=== PATIENT | male | born 2000 | race Caucasian/White ===

== ENCOUNTER → 2021-09-19 | Outpatient (CLI) | payer OTHER, SELFPAY ==
[2021-09-19 15:10] LABS: Absolute Neutrophil Count 5.6 X10^3/uL (2.0-7.7); Basophil# 0.04 X10^3/uL; Basophil% 0.5 % (0-1); Eosinophil# 0.05 X10^3/uL; Eosinophils% 0.7 % (0-5); Hemoglobin 15.5 g/dL (13.0-16.5); Lymphocyte % 15.7 % (19-41); Mean Corp Hgb Conc 33.7 g/dL (32-36); Mean Corpuscular Hgb 31.2 pg (27.0-32.0); Mean Corpuscular Volume 92.6 fL (80-94); Mean Platelet Vol. 9.8 fl (6.2-12.0); Monocyte% 9.2 % (0-10); NRBC Flagged by Analyzer 0 % (0-5); Neutrophil # 5.63 X10^3/uL (2.7-7.7); Neutrophil % 73.6 % (47-70); Platelet Count 247 K/mm3 (150-450); RBC Distribution Width CV 12.4 % (11.6-14.6); RBC Distribution Width SD 42.6 fl (35.1-43.9); Red Blood Count 4.97 M/mm3 (4.6-6.2); White Blood Count 7.6 K/mm3 (4.4-11.0)
[2021-09-19 15:41] LABS: ALB/GLOB Ratio 1.1 RATIO (0.9-2.4); AST(SGOT) 18 U/L (15-37); Alanine Aminotransfer ALT/SGPT 35 U/L (16-61); Albumin, Serum 4.1 g/dL (3.2-5.0); Alkaline Phosphatase 113 U/L (45-117); Anion Gap 6 (5-15); BUN 14 mg/dL (7-18); BUN/Creat Ratio 12.6 RATIO (10-20); Calcium,Total 8.9 mg/dL (8.5-10.1); Chloride 103 mmol/L (98-107); Creatinine, Serum 1.11 mg/dL (0.70-1.30); EST Glomerular Filtration Rate 90 mL/min (>60); Est Glom Filt Rate - Afr Amer 109 mL/min (>60); Globulin 3.6 g/dL (2.2-4.2); Glucose 109 mg/dL (74-106); Potassium 4.2 mmol/L (3.5-5.1); Protein, Total 7.7 g/dL (6.4-8.2); Sodium Level 136 mmol/L (136-145)
[2021-09-22 09:18] LABS: H. PYLORI STOOL AG Negative (Negative)
== END | disposition home or self-care (01) ==
PROVIDERS: PCP Family Medicine; Visit Provider Nurse Practitioner Family
DX: R19.7 Diarrhea, unspecified (principal)
CPT/HCPCS: 36415; 80053; 85025

== ENCOUNTER → 2021-09-20 | Outpatient (CLI) | payer OTHER, SELFPAY | END | disposition home or self-care (01) | LOC: LABSPEC 10:30 | PROVIDERS: PCP Family Medicine; Referring Provider Nurse Practitioner Family; Visit Provider Nurse Practitioner Family | DX: R19.7 Diarrhea, unspecified (principal) | CPT/HCPCS: 87177; 87209 ==

== ENCOUNTER → 2021-09-22 | Outpatient (CLI) | payer OTHER, SELFPAY ==
[2021-09-22 11:22] LABS: Erythrocyte Sedimentation Rate 7 mm/hr (0-20)
[2021-09-22 11:24] LABS: Absolute Lymphocyte Count 1.65 X10^3/uL (0.83-4.51); Absolute Neutrophil Count 5.7 X10^3/uL (2.0-7.7); Basophil# 0.04 X10^3/uL; Basophil% 0.5 % (0-1); Eosinophil# 0.11 X10^3/uL; Eosinophils% 1.3 % (0-5); Hematocrit 42.1 % (40-54); Hemoglobin 14.3 g/dL (13.0-16.5); Lymphocyte # 1.65 X10^3/ul (0.83-4.51); Lymphocyte % 19.8 % (19-41); Mean Corpuscular Hgb 31.4 pg (27.0-32.0); Mean Corpuscular Volume 92.5 fL (80-94); Mean Platelet Vol. 9.6 fl (6.2-12.0); Monocyte# 0.79 X10^3/uL; Monocyte% 9.5 % (0-10); NRBC Flagged by Analyzer 0 % (0-5); Neutrophil # 5.74 X10^3/uL (2.7-7.7); Neutrophil % 68.7 % (47-70); Platelet Count 263 K/mm3 (150-450); RBC Distribution Width CV 12.4 % (11.6-14.6); Red Blood Count 4.55 M/mm3 (4.6-6.2); White Blood Count 8.4 K/mm3 (4.4-11.0)
[2021-09-22 11:45] LABS: AST(SGOT) 17 U/L (15-37); Alanine Aminotransfer ALT/SGPT 35 U/L (16-61); Albumin, Serum 3.6 g/dL (3.2-5.0); Alkaline Phosphatase 100 U/L (45-117); Anion Gap 4 (5-15); BUN 12 mg/dL (7-18); BUN/Creat Ratio 12.1 RATIO (10-20); CRP 4.13 mg/L (0.0-3.0); Calcium,Total 9.1 mg/dL (8.5-10.1); Chloride 108 mmol/L (98-107); Creatinine, Serum 0.99 mg/dL (0.70-1.30); EST Glomerular Filtration Rate 103 mL/min (>60); Est Glom Filt Rate - Afr Amer 124 mL/min (>60); Globulin 3.7 g/dL (2.2-4.2); Glucose 90 mg/dL (74-106); LDH 144 U/L (87-241); Potassium 4.4 mmol/L (3.5-5.1); Protein, Total 7.3 g/dL (6.4-8.2); Sodium Level 135 mmol/L (136-145)
[2021-09-23 14:09] LABS: Anti-Centromere B Ab <0.2 AI (0.0-0.9); Anti-Chromatin <0.2 AI (0.0-0.9); Anti-Jo <0.2 AI (0.0-0.9); Anti-Scleroderma-70 AB <0.2 AI (0.0-0.9); RNP Ab 0.7 AI (0.0-0.9); SJOGREN'S Anti-SS-A test < 0.2 AI (0.0-0.9); SJOGREN'S Anti-SS-B test < 0.2 AI (0.0-0.9); Smith Ab <0.2 AI (0.0-0.9)
[2021-09-23 18:09] LABS: Anti-dsDNA Ab <1 IU/mL (0-9)
[2021-09-26 16:09] LABS: Albumin 4.1 g/dL (2.9-4.4); Alpha-1-Globulins 0.2 g/dL (0.0-0.4); Alpha-2-Globulins 0.7 g/dL (0.4-1.0); Cytoplasmic Ab (C-ANCA) <1:20 titer (Neg:<1:20); Endomysial Antibody IgA Negative (Negative); Gamma Globulin 1.1 g/dL (0.4-1.8); Immunoglobulin A 335 mg/dL (90-386); Immunoglobulin E 18 IU/mL (6-495); Immunoglobulin G 1110 mg/dL (671-1456); Immunoglobulin M 92 mg/dL (35-168)
[2021-09-26 16:32] LABS: Perinuclear Ab (P-ANCA) <1:20 titer (Neg:<1:20); t-Transglutaminase IgA <2 U/mL (0-3)
== END | disposition home or self-care (01) ==
PROVIDERS: PCP Family Medicine; Visit Provider Internal Medicine Gastroenterology
DX: R19.7 Diarrhea, unspecified (principal); R10.9 Unspecified abdominal pain
CPT/HCPCS: 36415; 80053; 82784; 82785; 83516; 83615; 84165; 85025; 85652; 86140; 86225; 86235; 86255; 86256; 86334

== ENCOUNTER → 2021-09-23 | Outpatient (CLI) | payer OTHER, SELFPAY ==
[2021-09-28 17:01] LABS: Calprotectin, Stool 1436 ug/g (0-120)
== END | disposition home or self-care (01) ==
PROVIDERS: PCP Family Medicine; Referring Provider Internal Medicine Gastroenterology; Visit Provider Internal Medicine Gastroenterology
DX: R19.7 Diarrhea, unspecified (principal); R10.9 Unspecified abdominal pain
CPT/HCPCS: 83630; 83993; 87177; 87209; 87329; 87493; 87506

== ENCOUNTER → 2021-10-01 | Outpatient (CLI) | payer OTHER, SELFPAY ==
[2021-10-03 08:58] LABS: HIV - WCH Non-Reactive (Nonreactive); Rubella IgG Reactive (Nonreactive)
== END | disposition home or self-care (01) ==
PROVIDERS: PCP Family Medicine; Referring Provider Internal Medicine Gastroenterology; Visit Provider Internal Medicine Gastroenterology
DX: K52.9 Noninfective gastroenteritis and colitis, unspecified (principal)
CPT/HCPCS: 36415; 80074; 86480; 86703; 86735; 86762; 86787

== ENCOUNTER 2021-10-27 08:50 | Day surgery (SDC) | payer OTHER, SELFPAY ==
--- NOTE | 2021-10-27 08:56 | PCM.HP.BLA ---
History and Physical Date of Admission: 10/27/21 CARLA ANDERSON, is a 20 M who presents to the office today for Initial consultation. Carla established with this clinic 09.22.21 with referral from PCP for evaluation of urgent watery diarrhea with blood with nocturnal urgency, generalized abdominal pain and cramping, nausea and vomiting occurring eight times a day. Notes that if he eats the symptoms resolve for a short period of time. He has changed his lifestyle due to fear of urgency that may cause incontinence. Onset mid-August 2021 without changes in severity. Unknown triggers. Mother reports that about a month prior to this he started improving his diet and adding creatinine and protein, one scoop of each day. Denies previous history of symptoms. PCP ordered stool testing of Ova&Parasites which is still pending. Denies family history of bowel disease or cancers. Mother reports that her mother and sister have issues with postprandial feeling ill and then having urgent BM, her mother was told previously she has a ?slow pancreas?. ROS Const Constitutional: No fatigue, malaise, night sweats, weight change, sleep problems, abnormal sleep pattern or change in appetite ENT ENT: No difficulty swallowing, hoarseness or sore throat Cardio Cardiology: No chest pain at rest Gastro GI: No abdominal pain, belching, bloating, change in bowel habits, change in stool character, coffee ground emesis, constipation, cramping, diarrhea, heartburn, difficulty swallowing, feeling full early, excessive flatus, incontinent of stools, Vomiting blood/hematemesis, Blood in stool, loose stools, Black,tarry stools, nausea/dyspepsia, pain with swallowing, vomiting or other Musc Musculoskeletal: No joint pain Skin Skin: No yellowing of the eye or itchy eyes Neuro Neurology: No behavioral changes Psych Psychiatric: No abnormal sleep pattern, No anxiety, No behavioral changes, No change in appetite and No depression Endo Endocrine: No fatigue or weight change Aller/Imm Allergy/Immunologic: No itchy eyes Elliot/Lymp Hematologic/Lymphatic: No easy bleeding or easy bruising Exam Const General: cooperative and comfortable Nutritional Appearance: average body habitus and well nourished HENMT Head: normal to inspection Ears: hearing grossly normal bilaterally Nose: external nose normal Face and sinus: normal facial exam Mouth: oral mucosae normal Throat: posterior oropharynx normal Eyes General: appearance normal, both eyes and all related structures Neck Neck: normal visual inspection Chest Chest palpation & inspection: normal inspection of the chest and normal palpation of entire chest wall Resp Effort & Inspection: normal respiratory effort Auscultation: Bilateral: Clear to Auscultation Cardio Palpation: normal PMI Rate: regular rate Rhythm: regular rhythm GI Inspection: normal to inspection Auscultation: normal bowel sounds Percussion: normal to percussion Palpation: no hepatosplenomegaly Skin General: no rashes or lesions noted Neuro General: patient alert Extrem General: normal to inspection Psych Affect: normal affect Quality Reporting Tobacco Screening ([facility] 138) Smoking Status: Never smoker Assessment and Plan Assessment and Plan (1) Abdominal pain: Status: Acute Orders: Orders: Comprehensive Metabolic Profil 09/22/21 CRP 09/22/21 LDH 09/22/21 CBC W/Diff, Automated 09/22/21 Erythrocyte Sed Rate 09/22/21 AUSTYN Comprehensive Panel 09/22/21 Calprotectin, Stool 09/23/21 Stool Lactoferrin/WBC 09/23/21 ANCA 09/22/21 Celiac Disease Profile 09/22/21 Immunoglobulins G/A/M/E 09/22/21 MAIKEL + Protein Elect, Serum 09/22/21 ENTERIC PATHOGEN PANEL STOOL 09/23/21 Ova and Parasites 8623 09/23/21 Giardia Lamblia, Stool EIA 09/23/21 Plan - Dr. Mishra Friend, DO: His abdominal pain does seem to be more structural and functional. However he does have a lot of factors for inflammatory bowel disease due to his age and now bloody diarrhea. We will put him on a course of prednisone therapy perform biochemical testing and also give him dicyclomine for cramping. We will do inflammatory bowel disease testing and will likely need a colonoscopy. Plan Details Other Medications: New: prednisone 50 mg PO DAILY 30 tabs 1RF dicyclomine 20 mg PO TID 60 tabs 0RF I have re-examined the patient. There are no clinical changes since date of exam.
[2021-10-27 09:14] VITALS: BP 123/75; PULSE 70; RESP 16; TEMP 36.6; O2SAT 99; BMI 22.4
[2021-10-27] MEDS: Lactated Ringers 1,000 ML 15 ML IV (09:18)
--- NOTE | 2021-10-27 10:00 | COLBX_PTH ---
PATIENT: CARLA ANDERSON LOC: EN U#:[id number] AGE/SX: 20/M ROOM: RE10/27/[address]: Dr. Tad Monahan DO : 2000 BED: DIS: 10/27/2021 SPEC #: [id number] RECD: 10/27/21 11:26 STATUS: STEFANIE REMell #: [id number] KARINA: 10/27/21 10:[address]: Tad Monahan DEPT: SURGICAL PATHOLOGY RECD BY: Risa Das ENTERED: 10/27/21 13:03 SP TYPE: COLON BX AGUS DR: Dr. Eulogio Patel MD Tissues: A - Ileum, NOS B - Descending colon C - Sigmoid colon biopsy D - Rectum, NOS Procedures: Surgery Specimen Level IV HEADER OPERATION: Colonoscopy ([facility] [place] biopsy PRE-OP DIAGNOSIS: Abdominal pain TISSUE SUBMITTED: A ? Terminal ileum biopsy, B ? Descending biopsy, C ? Sigmoid biopsy, D ? Rectal biopsy MICROSCOPIC DIAGNOSIS A. Terminal ileum, biopsy: No pathologic change. B. Descending colon, biopsy: Focal acute colitis. C. Sigmoid colon, biopsy: Active colitis. See comment. D. Rectum, biopsy: Active colitis. See comment. AM:see 10/28/2021 COMMENT C & D. Sections show scattered cryptitis and crypt abscess. Significant glandular distortion is not identified and transmural lymphoid aggregates are present. Clinical correlation is necessary. MICROSCOPIC DESCRIPTION Slides are reviewed. GROSS DESCRIPTION A - Received in fixative is one container labeled with the patient's name and designated terminal ileum. The specimen consists of multiple irregular fragments of light andrew soft tissue that in aggregate measure 1 x 0.3 x 0.1 cm. The specimen is totally submitted in one cassette. B - Received in fixative is one container labeled with the patient's name and designated descending colon biopsy. The specimen consists of two irregular fragments of light andrew soft tissue that in aggregate measure 0.7 x 0.5 x 0.1 cm. The specimen is totally submitted in one cassette. C - Received in fixative is one container labeled with the patient's name and designated sigmoid biopsy. The specimen consists of multiple irregular fragments of light andrew soft tissue that in aggregate measure 1.5 x 0.5 x 0.1 cm. The specimen is totally submitted in one cassette. D - Received in fixative is one container labeled with the patient's name and designated rectum biopsy. The specimen consists of multiple irregular fragments of light andrew soft tissue that in aggregate measure 1 x 0.3 x 0.1 cm. The specimen is totally submitted in one cassette. / AM:see 10/27/2021 TC:2 CPT: 06580 x4
[2021-10-27 10:20] VITALS: BP 102/52; BP 123/75; PULSE 75; RESP 16; TEMP 36.3; O2SAT 98
--- NOTE | 2021-10-27 10:23 | OP.COLON_ITS ---
Patient Name: Franky Fuentes Procedure Date: 10/27/2021 9:46 AM Date of : 2000 Age: 20 Procedure: Colonoscopy Indications: Lower abdominal pain, Chronic diarrhea, Hematochezia Providers: Tad Monahan DO Referring MD: Truong Patel Medicines: Monitored Anesthesia Care Patient Profile: This is a 20 year old male. Refer to note in patient chart for documentation of history and physical. Last Colonoscopy: none. The patient's first colonoscopy is today. Complications: No immediate complications. Procedure: Pre-Anesthesia Assessment: - Prior to the procedure, a History and Physical was performed, and patient medications and allergies were reviewed. The risks and benefits of the procedure and the sedation options and risks were discussed with the patient. All questions were answered and informed consent was obtained. Patient identification and proposed procedure were verified by the physician in the pre-procedure area. Mental Status Examination: alert and oriented. Airway Examination: normal oropharyngeal airway and neck mobility. Respiratory Examination: clear to auscultation. CV Examination: normal. Prophylactic Antibiotics: The patient does not require prophylactic antibiotics. Prior Anticoagulants: The patient has taken no previous anticoagulant or antiplatelet agents. ASA Grade Assessment: II - A patient with mild systemic disease. After reviewing the risks and benefits, the patient was deemed in satisfactory condition to undergo the procedure. The anesthesia plan was to use moderate sedation / analgesia (conscious sedation). Immediately prior to administration of medications, the patient was re-assessed for adequacy to receive sedatives. The heart rate, respiratory rate, oxygen saturations, blood pressure, adequacy of pulmonary ventilation, and response to care were monitored throughout the procedure. The physical status of the patient was re-assessed after the procedure. After I obtained informed consent, the scope was passed under direct vision. Throughout the procedure, the patient's blood pressure, pulse, and oxygen saturations were monitored continuously. The Colonoscope was introduced through the anus and advanced to the terminal ileum. The terminal ileum, ileocecal valve, appendiceal orifice, and rectum were photographed. Scope In: 10:04:09 AM Scope Withdrawal Time 0 hours 7 minutes 2 seconds Scope Out: 10:14:51 AM Total Procedure Duration Time 0 hours 10 minutes 42 seconds Findings: The perianal and digital rectal examinations were normal. Inflammation characterized by congestion (edema), erosions, erythema and friability was found in a continuous and circumferential pattern from the rectum to the descending colon. The transverse colon, the hepatic flexure, the ascending colon and the cecum were spared. This was moderate in severity, and when compared to previous examinations, the findings are new. Biopsies were taken with a cold forceps for histology. Verification of patient identification for the specimen was done. Biopsies for histology were taken with a cold forceps from the left colon and rectum for evaluation of microscopic colitis. Verification of patient identification for the specimen was done. Estimated blood loss was minimal. The terminal ileum appeared normal. Biopsies were taken with a cold forceps for histology. Verification of patient identification for the specimen was done. Estimated blood loss was minimal. Impression: - Left-sided colitis. Inflammation was found from the rectum to the descending colon. This was moderate in severity, new compared to previous examinations. Biopsied. - The examined portion of the ileum was normal. Biopsied. Recommendation: - Discharge patient to home. - Resume previous diet. - Use Imuran (azathioprine) 1 mg/kg PO daily. - Repeat colonoscopy is recommended for surveillance. The colonoscopy date will be determined after pathology results from today's exam become available for review. - Continue present medications. Procedure Code(s): --- Professional --- 72340, Colonoscopy, flexible; with biopsy, single or multiple CPT copyright 2017 [employer]. All rights reserved. The codes documented in this report are preliminary and upon mail clerk bills review may be revised to meet current compliance requirements. Tad Monahan DO 10/27/2021 10:22:55 AM This report has been signed electronically. Number of Addenda: 1 Note Initiated On: 10/27/2021 9:46 AM Addendum Number: 1 Addendum Date: 02/28/2022 6:30:44 AM MAC was used as sedation for this procedure. Tad Monahan DO 02/28/2022 6:30:50 AM This report has been signed electronically.
--- NOTE | 2021-10-27 10:24 | OP.CCLET_ITS ---
02/28/2022 Truong Patel [address] [place] [address] Re : Colonoscopy procedure for Franky Fuentes Dear Dr. Patel This procedure was performed on October. My impressions and recommendations are as follows: Impressions : - Left-sided colitis. Inflammation was found from the rectum to the descending colon. This was moderate in severity, new compared to previous examinations. Biopsied. - The examined portion of the ileum was normal. Biopsied. Recommendations : - Discharge patient to home. - Resume previous diet. - Use Imuran (azathioprine) 1 mg/kg PO daily. - Repeat colonoscopy is recommended for surveillance. The colonoscopy date will be determined after pathology results from today's exam become available for review. - Continue present medications. My findings are described in the full procedure note, which is enclosed. If I can be of further assistance, please feel free to contact me at . Sincerely, Tad Monahan DO 10/27/2021 10:22:55 AM This report has been signed electronically.
[2021-10-27 10:25] VITALS: BP 113/70; BP 123/75; PULSE 74; RESP 16; O2SAT 99
[2021-10-27 10:30] VITALS: BP 123/75; BP 99/51; PULSE 70; RESP 16; O2SAT 98
[2021-10-27 10:35] VITALS: BP 106/57; BP 123/75; PULSE 64; RESP 16; TEMP 36.7; O2SAT 99
[2021-10-27 10:45] VITALS: BP 123/75
== END 2021-10-27 11:06 | disposition home or self-care (01) ==
LOC: EN 08:51 → AC 08:52
PROVIDERS: PCP Family Medicine; Referring Provider Family Medicine; Visit Provider Internal Medicine Gastroenterology
PROC: 0DJD8ZZ Inspection of Lower Intestinal Tract, Via Natural or Artificial Opening Endoscopic (ICD-10-PCS; CPT 45378; principal; 2021-10-27 09:55)
DX: K51.50 Left sided colitis without complications (principal); K92.1 Melena
CPT/HCPCS: 45380; 88305; J7120; J2405

== ENCOUNTER → 2022-01-03 | Outpatient (CLI) | payer OTHER, SELFPAY ==
[2022-01-03 09:49] LABS: Absolute Neutrophil Count 3.9 X10^3/uL (2.0-7.7); Basophil# 0.03 X10^3/uL; Basophil% 0.5 % (0-1); Eosinophil# 0.04 X10^3/uL; Eosinophils% 0.7 % (0-5); Hematocrit 41.1 % (40-54); Hemoglobin 13.4 g/dL (13.0-16.5); Lymphocyte % 24.7 % (19-41); Mean Corp Hgb Conc 32.6 g/dL (32-36); Mean Corpuscular Hgb 30.1 pg (27.0-32.0); Mean Corpuscular Volume 92.4 fL (80-94); Mean Platelet Vol. 9.1 fl (6.2-12.0); Monocyte# 0.57 X10^3/uL; Monocyte% 9.4 % (0-10); NRBC Flagged by Analyzer 0 % (0-5); Neutrophil # 3.92 X10^3/uL (2.7-7.7); Neutrophil % 64.4 % (47-70); Platelet Count 267 K/mm3 (150-450); RBC Distribution Width CV 12.4 % (11.6-14.6); RBC Distribution Width SD 42.2 fl (35.1-43.9); Red Blood Count 4.45 M/mm3 (4.6-6.2); White Blood Count 6.1 K/mm3 (4.4-11.0)
[2022-01-03 10:42] LABS: AST(SGOT) 19 U/L (15-37); Alanine Aminotransfer ALT/SGPT 39 U/L (16-61); Albumin, Serum 3.7 g/dL (3.2-5.0); Alkaline Phosphatase 88 U/L (45-117); Amylase 48 U/L (25-115); Anion Gap 5 (5-15); BUN 13 mg/dL (7-18); BUN/Creat Ratio 13.7 RATIO (10-20); CRP < 2.90 mg/L (0.0-3.0); Chloride 105 mmol/L (98-107); Creatinine, Serum 0.95 mg/dL (0.70-1.30); EST Glomerular Filtration Rate 107 mL/min (>60); Est Glom Filt Rate - Afr Amer 130 mL/min (>60); Globulin 3.7 g/dL (2.2-4.2); Glucose 89 mg/dL (74-106); Lipase 76 U/L (73-393); Potassium 3.9 mmol/L (3.5-5.1); Protein, Total 7.4 g/dL (6.4-8.2); Sodium Level 137 mmol/L (136-145)
[2022-01-06 15:08] LABS: QNTFERON TB Mitogen Value > 10.00 IU/mL (.); QNTFERON TB Nil Value 0.02 IU/mL (.); QNTFERON TB1+ Ag Value 0.05 IU/mL (.); QNTFERON TB2+ Ag Value 0.03 IU/mL (.)
[2022-01-06 17:14] LABS: QNTIFERON TB Positive Criteria Negative (Negative)
== END | disposition home or self-care (01) ==
PROVIDERS: PCP Family Medicine; Referring Provider Internal Medicine Gastroenterology; Visit Provider Internal Medicine Gastroenterology
DX: K51.90 Ulcerative colitis, unspecified, without complications (principal)
CPT/HCPCS: 36415; 80053; 82150; 83690; 85025; 86140; 86480

== ENCOUNTER → 2022-05-30 | Outpatient (CLI) | payer OTHER, SELFPAY ==
--- NOTE | 2022-05-30 11:04 | MRI_ITS ---
EXAM: MR ABDOMEN WITHOUT INTRAVENOUS CONTRAST, MRCP PROTOCOL CLINICAL INDICATION: ulcerative colitis/primary sclerosis cholangitis TECHNIQUE: Multiplanar and multisequence MR images of the abdomen without intravenous contrast obtained with MRCP sequence. Three-dimensional post-processing reconstructions were performed. This report was created using [employer] report generation technology. COMPARISON: None. FINDINGS: LOWER THORAX: Unremarkable. No pleural effusion. LIVER: Unremarkable. Normal morphology. GALLBLADDER AND BILE DUCTS: Unremarkable. No gallstones. No gallbladder distention or wall edema. No intra- or extrahepatic biliary ductal dilation. No choledochal filling defect. PANCREAS: Unremarkable. No focal cystic mass. No pancreatic duct dilation. SPLEEN: Unremarkable. Non-enlarged. ADRENALS: Unremarkable. No nodules. KIDNEYS AND URETERS: Unremarkable. Normal renal size and position. No hydronephrosis. INTRAPERITONEAL SPACE: Unremarkable. No ascites or other fluid collection. VASCULATURE: Unremarkable. Abdominal aorta is non-dilated. LYMPH NODES: No enlarged lymph nodes. MRI/MRCP Abdomen without Contrast IMPRESSION: Unremarkable MRCP. No biliary dilation or choledocholithiasis. Electronically Signed: Jon Capone MD at 16:14 EST ,
== END | disposition home or self-care (01) ==
PROVIDERS: PCP Family Medicine; Referring Provider Internal Medicine Gastroenterology; Visit Provider Internal Medicine Gastroenterology
DX: K51.90 Ulcerative colitis, unspecified, without complications (principal); K83.01 Primary sclerosing cholangitis
CPT/HCPCS: 74181

== ENCOUNTER → 2022-06-01 | Outpatient (CLI) | payer OTHER, SELFPAY ==
[2022-06-01 13:34] LABS: Absolute Lymphocyte Count 1.17 X10^3/uL (0.83-4.51); Absolute Neutrophil Count 3.6 X10^3/uL (2.0-7.7); Basophil# 0.04 X10^3/uL; Basophil% 0.7 % (0-1); Eosinophil# 0.06 X10^3/uL; Eosinophils% 1.1 % (0-5); Hematocrit 42.7 % (40-54); Hemoglobin 13.7 g/dL (13.0-16.5); Lymphocyte # 1.17 X10^3/ul (0.83-4.51); Lymphocyte % 21.9 % (19-41); Mean Corp Hgb Conc 32.1 g/dL (32-36); Mean Corpuscular Hgb 29.7 pg (27.0-32.0); Mean Corpuscular Volume 92.6 fL (80-94); Monocyte# 0.45 X10^3/uL; Monocyte% 8.4 % (0-10); NRBC Flagged by Analyzer 0 % (0-5); Neutrophil % 67.5 % (47-70); Platelet Count 238 K/mm3 (150-450); RBC Distribution Width CV 14.6 % (11.6-14.6); RBC Distribution Width SD 49.6 fl (35.1-43.9); Red Blood Count 4.61 M/mm3 (4.6-6.2); White Blood Count 5.3 K/mm3 (4.4-11.0)
[2022-06-01 13:36] LABS: Erythrocyte Sedimentation Rate 14 mm/hr (0-20)
[2022-06-01 13:55] LABS: AST(SGOT) 15 U/L (15-37); Alanine Aminotransfer ALT/SGPT 19 U/L (16-61); Albumin, Serum 3.8 g/dL (3.2-5.0); Alkaline Phosphatase 80 U/L (45-117); Anion Gap 4 (5-15); BUN 13 mg/dL (7-18); BUN/Creat Ratio 13.8 RATIO (10-20); CRP 3.11 mg/L (0.0-3.0); Calcium,Total 9.6 mg/dL (8.5-10.1); Chloride 107 mmol/L (98-107); Creatinine, Serum 0.94 mg/dL (0.70-1.30); EST Glomerular Filtration Rate 108 mL/min (>60); Est Glom Filt Rate - Afr Amer 130 mL/min (>60); Globulin 3.7 g/dL (2.2-4.2); Glucose 50 mg/dL (74-106); Potassium 3.8 mmol/L (3.5-5.1); Protein, Total 7.5 g/dL (6.4-8.2); Sodium Level 139 mmol/L (136-145)
[2022-06-08 21:39] LABS: Calprotectin, Stool 29 ug/g (0-120)
== END | disposition home or self-care (01) ==
PROVIDERS: PCP Family Medicine; Referring Provider Internal Medicine Gastroenterology; Visit Provider Internal Medicine Gastroenterology
DX: K51.90 Ulcerative colitis, unspecified, without complications (principal)
CPT/HCPCS: 36415; 80053; 83630; 83993; 85025; 85652; 86140

== ENCOUNTER → 2022-10-30 | Outpatient (CLI) | payer OTHER, SELFPAY ==
[2022-10-30 09:13] LABS: Erythrocyte Sedimentation Rate 3 mm/hr (0-20)
[2022-10-30 09:15] LABS: Absolute Lymphocyte Count 1.35 X10^3/uL (0.83-4.51); Absolute Neutrophil Count 3.2 X10^3/uL (2.0-7.7); Basophil# 0.03 X10^3/uL; Basophil% 0.6 % (0-1); Eosinophil# 0.04 X10^3/uL; Eosinophils% 0.8 % (0-5); Hematocrit 44.7 % (40-54); Hemoglobin 14.8 g/dL (13.0-16.5); Lymphocyte # 1.35 X10^3/ul (0.83-4.51); Mean Corp Hgb Conc 33.1 g/dL (32-36); Mean Corpuscular Hgb 31.7 pg (27.0-32.0); Mean Corpuscular Volume 95.7 fL (80-94); Mean Platelet Vol. 9.3 fl (6.2-12.0); Monocyte# 0.54 X10^3/uL; Monocyte% 10.4 % (0-10); NRBC Flagged by Analyzer 0 % (0-5); Neutrophil # 3.23 X10^3/uL (2.7-7.7); Platelet Count 232 K/mm3 (150-450); RBC Distribution Width CV 14.3 % (11.6-14.6); RBC Distribution Width SD 50.7 fl (35.1-43.9); Red Blood Count 4.67 M/mm3 (4.6-6.2); White Blood Count 5.2 K/mm3 (4.4-11.0)
[2022-10-30 09:32] LABS: Vitamin B12 614 pg/mL (211-911)
[2022-10-30 09:44] LABS: ALB/GLOB Ratio 1.2 RATIO (0.9-2.4); AST(SGOT) 26 U/L (15-37); Alanine Aminotransfer ALT/SGPT 25 U/L (16-61); Alkaline Phosphatase 104 U/L (45-117); Anion Gap 2 (5-15); BUN 15 mg/dL (7-18); BUN/Creat Ratio 16.1 RATIO (10-20); CRP < 2.90 mg/L (0.0-3.0); Calcium,Total 9.1 mg/dL (8.5-10.1); Chloride 108 mmol/L (98-107); Creatinine, Serum 0.93 mg/dL (0.70-1.30); EST Glomerular Filtration Rate 109 mL/min (>60); Est Glom Filt Rate - Afr Amer 132 mL/min (>60); Globulin 3.3 g/dL (2.2-4.2); Glucose 86 mg/dL (74-106); Potassium 3.8 mmol/L (3.5-5.1); Protein, Total 7.3 g/dL (6.4-8.2); Sodium Level 136 mmol/L (136-145)
[2022-11-03 11:08] LABS: QNTFERON TB Mitogen Value > 10.00 IU/mL (.); QNTFERON TB Nil Value 0 IU/mL (.); QNTFERON TB1+ Ag Value 0.03 IU/mL (.); QNTFERON TB2+ Ag Value 0.05 IU/mL (.); QNTIFERON TB Positive Criteria Negative (Negative); Testosterone, % Free 4.03 % (1.50-4.20); Testosterone, Free 24.99 ng/dL (5.00-21.00); Testosterone, Total 620 ng/dL (264-916)
== END | disposition home or self-care (01) ==
LOC: LAB 08:25
PROVIDERS: PCP Family Medicine; Referring Provider Internal Medicine Gastroenterology; Visit Provider Internal Medicine Gastroenterology
DX: K51.90 Ulcerative colitis, unspecified, without complications (principal)
CPT/HCPCS: 36415; 80053; 82607; 82746; 84402; 84403; 85025; 85652; 86140; 86480

== ENCOUNTER → 2023-03-08 | Outpatient (CLI) | payer OTHER, SELFPAY ==
[2023-03-08 09:13] LABS: Absolute Lymphocyte Count 1.66 X10^3/uL (0.83-4.51); Absolute Neutrophil Count 3.3 X10^3/uL (2.0-7.7); Basophil# 0.04 X10^3/uL; Basophil% 0.7 % (0-1); Eosinophil# 0.09 X10^3/uL; Eosinophils% 1.6 % (0-5); Hematocrit 47.6 % (40-54); Hemoglobin 16.3 g/dL (13.0-16.5); Lymphocyte # 1.66 X10^3/ul (0.83-4.51); Lymphocyte % 29.1 % (19-41); Mean Corp Hgb Conc 34.2 g/dL (32-36); Mean Corpuscular Hgb 33.5 pg (27.0-32.0); Mean Corpuscular Volume 97.7 fL (80-94); Mean Platelet Vol. 9.3 fl (6.2-12.0); Monocyte# 0.56 X10^3/uL; Monocyte% 9.8 % (0-10); NRBC Flagged by Analyzer 0 % (0-5); Neutrophil # 3.33 X10^3/uL (2.7-7.7); Neutrophil % 58.4 % (47-70); Platelet Count 204 K/mm3 (150-450); RBC Distribution Width CV 12.4 % (11.6-14.6); RBC Distribution Width SD 44.9 fl (35.1-43.9); RET-HE 35.6 pg (30-35); Red Blood Count 4.87 M/mm3 (4.6-6.2); White Blood Count 5.7 K/mm3 (4.4-11.0)
[2023-03-08 09:54] LABS: Amylase 47 U/L (25-115); CRP < 2.90 mg/L (0.0-3.0); Ferritin 32 ng/mL (26-388); Iron 201 ug/dL (65-175); LDH 129 U/L (87-241); Lipase 25 U/L (13-75); Thyroid Stim Hormone (TSH) 2.51 uIU/mL (0.358-3.74)
[2023-03-08 10:17] LABS: Erythrocyte Sedimentation Rate 2 mm/hr (0-20)
[2023-03-09 15:08] LABS: Albumin 4.6 g/dL (2.9-4.4); Alpha-1-Globulins 0.2 g/dL (0.0-0.4); Alpha-2-Globulins 0.5 g/dL (0.4-1.0); Gamma Globulin 1.1 g/dL (0.4-1.8); Immunoglobulin A 320 mg/dL (90-386); Immunoglobulin G 1113 mg/dL (603-1613); Immunoglobulin M 115 mg/dL (20-172); PROEL- TOTAL PROTEIN 7.4 g/dL (6.0-8.5)
== END | disposition home or self-care (01) ==
LOC: LAB 08:19
PROVIDERS: PCP Family Medicine; Referring Provider Internal Medicine Gastroenterology; Visit Provider Internal Medicine Gastroenterology
DX: K51.90 Ulcerative colitis, unspecified, without complications (principal)
CPT/HCPCS: 36415; 82150; 82533; 82728; 82784; 83540; 83615; 83690; 84165; 84443; 85025; 85045; 85652; 86140; 86334

== ENCOUNTER → 2023-09-05 | Outpatient (CLI) | payer OTHER, SELFPAY ==
[2023-09-05 09:44] LABS: Absolute Lymphocyte Count 1.35 X10^3/uL (0.83-4.51); Basophil# 0.03 X10^3/uL; Basophil% 0.6 % (0-1); Eosinophil# 0.07 X10^3/uL; Eosinophils% 1.4 % (0-5); Hematocrit 46.2 % (40-54); Hemoglobin 15.5 g/dL (13.0-16.5); Lymphocyte # 1.35 X10^3/ul (0.83-4.51); Lymphocyte % 27.2 % (19-41); Mean Corp Hgb Conc 33.5 g/dL (32-36); Mean Corpuscular Hgb 32.4 pg (27.0-32.0); Mean Corpuscular Volume 96.7 fL (80-94); Monocyte# 0.55 X10^3/uL; Monocyte% 11.1 % (0-10); NRBC Flagged by Analyzer 0 % (0-5); Neutrophil # 2.95 X10^3/uL (2.7-7.7); Neutrophil % 59.3 % (47-70); Platelet Count 197 K/mm3 (150-450); RBC Distribution Width CV 12.2 % (11.6-14.6); RBC Distribution Width SD 43.6 fl (35.1-43.9); Red Blood Count 4.78 M/mm3 (4.6-6.2)
[2023-09-05 09:46] LABS: Erythrocyte Sedimentation Rate 1 mm/hr (0-20)
[2023-09-05 10:17] LABS: CRP < 2.90 mg/L (0.0-3.0); Ferritin 41 ng/mL (26-388); Iron 80 ug/dL (65-175); Iron Binding Capacity,Total 345 ug/dL (250-450)
[2023-09-06 15:09] LABS: Albumin 4.2 g/dL (2.9-4.4); Alpha-1-Globulins 0.2 g/dL (0.0-0.4); Alpha-2-Globulins 0.6 g/dL (0.4-1.0); Endomysial Antibody IgA Negative (Negative); Immunoglobulin A 268 mg/dL (90-386); Immunoglobulin G 1009 mg/dL (603-1613); Immunoglobulin M 106 mg/dL (20-172); PROEL- TOTAL PROTEIN 6.9 g/dL (6.0-8.5); t-Transglutaminase IgA <2 U/mL (0-3)
== END | disposition home or self-care (01) ==
PROVIDERS: PCP Family Medicine; Referring Provider Internal Medicine Gastroenterology; Visit Provider Internal Medicine Gastroenterology
DX: K51.90 Ulcerative colitis, unspecified, without complications (principal)
CPT/HCPCS: 36415; 82728; 82784; 83516; 83540; 83550; 84165; 85025; 85652; 86140; 86255; 86334

== ENCOUNTER → 2024-02-12 | Outpatient (CLI) | payer OTHER, SELFPAY ==
[2024-02-12 11:35] LABS: Erythrocyte Sedimentation Rate 1 mm/hr (0-20)
[2024-02-12 11:52] LABS: CRP < 2.90 mg/L (0.0-3.0)
== END | disposition home or self-care (01) ==
PROVIDERS: PCP Family Medicine; Referring Provider Internal Medicine Gastroenterology; Visit Provider Internal Medicine Gastroenterology
DX: K51.00 Ulcerative (chronic) pancolitis without complications (principal)
CPT/HCPCS: 36415; 85652; 86140

== ENCOUNTER 2024-04-21 05:20 | Day surgery (SDC) | payer OTHER, SELFPAY ==
[2024-04-21] VITALS (7 sets, daily range): BP systolic 93–106; BP diastolic 59–65; PULSE 69–96; RESP 14–16; TEMP 36.2–36.9; O2SAT 93–98; BMI 25.2
--- NOTE | 2024-04-21 06:30 | COLBX_PTH ---
PATIENT: CARLA ANDERSON LOC: EN U#:[id number] AGE/SX: 23/M ROOM: RE04/21/[address]: Dr. Tad Monahan DO : 2000 BED: DIS: 04/21/2024 SPEC #: [id number] RECD: 04/21/24 10:22 STATUS: STEFANIE REQ #: [id number] KARINA: 04/21/24 06:[address]: Tad Monahan DEPT: SURGICAL PATHOLOGY RECD BY: Risa Das ENTERED: 04/21/24 11:22 SP TYPE: COLON BX AGUS DR: Dr. Eulogio Patel MD Tissues: A - Ileum, NOS B - Right colon C - Left colon D - Rectum, NOS Procedures: Surgery Specimen Level IV HEADER OPERATION: Colonoscopy with biopsy PRE-OP DIAGNOSIS: Ulcerative colitis TISSUE SUBMITTED: A- Terminal ileum biopsy, B- Right side colon biopsy, C- Left side colon biopsy,D- Rectum biopsy MICROSCOPIC DIAGNOSIS A. Terminal ileum, biopsy: No pathologic change. See comment. B. Right side of colon, biopsy: No pathologic change. No evidence of colitis. C. Left side of colon, biopsy: No pathologic change. No evidence of colitis. D. Rectum, biopsy: Mild active colitis. See comment. 04/22/2024 COMMENT A. Prominent benign lymphoid aggregates are present.D. There is no significant glandular distortion. There is focal cryptitis and rare cryptabscesses present. No transmural lymphoid aggregates are identified. There is no evidence of dysplasia. Clinical correlation is suggested. MICROSCOPIC DESCRIPTION Slides are reviewed. GROSS DESCRIPTION A. Received in fixative is one container labeled with the patient's name and designated Terminal ileum biopsy. The specimen consists of two irregular fragments of light andrew soft tissue that in aggregate measure 0.6 x 0.5 x 0.1 cm. The specimen is totally submitted in one cassette. B. Received in fixative is one container labeled with the patient's name and designated Right side colon biopsy. The specimen consists of multiple irregular fragments of light andrew soft tissue that in aggregate measure 1.6 x 0.7 x 0.1 cm. The specimen is totally submitted in one cassette. C. Received in fixative is one container labeled with the patient's name and designated Left side colon biopsy. The specimen consists of multiple irregular fragments of light andrew soft tissue that in aggregate measure 1.2 x 1.0 x 0.1 cm. The specimen is totally submitted in one cassette. D. Received in fixative is one container labeled with the patient's name and designated Rectum biopsy. The specimen consists of multiple irregular fragments of light andrew soft tissue that in aggregate measure 1.3 x 0.6 x 0.1 cm. The specimen is totally submitted in one cassette. 04/21/2024 TC:2 CPT:64193v6
--- NOTE | 2024-04-21 06:30 | PCM.PRE.AN2 ---
ASA Classification* ASA Classification ASA Classification: 2 Assessment & Plan Anesthesia* Anesthesia Assessment Anesthesia Assessment: Discussed sedation and/or anesthesia options, risks, benefits, and alternatives with patient/parents/legal guardian/POA. Questions invited. The patient/parents/legal guardian/POA seems to understand and agrees to proceed with anesthesia plan. Reviewed the physical assessment, medical history, allergy history and patient home medications list prior to surgery/procedure/anesthetic and documented any changes. Performed airway and anesthesia risk assessments. Anesthesia Type Anesthesia Type: MAC History Source History Obtained from:: Patient and Chart Anesthesia Focused Assessment* Temperature: 98.4 F Pulse Rate: 85 Blood Pressure: 106/61 Respiratory Rate: 14 Pulse Ox: 98 Airway Assessment Mouth opens: >3 cm Mallampati Score: II Teeth Condition: Intact Neck Range of motion (ROM): Full ROM Focused Labs Anesthesia Preop lab: CBC WBC 5.0 K/mm3 (4.4-11.0) 09/05/23 09:06 RBC 4.78 M/mm3 (4.6-6.2) 09/05/23 09:06 Hgb 15.5 g/dL (13.0-16.5) 09/05/23 09:06 Hct 46.2 % (40-54) 09/05/23 09:06 Plt Count 197 K/mm3 (150-450) 09/05/23 09:06 CHEMISTRY Potassium 3.8 mmol/L (3.5-5.1) 10/30/22 08:29 Sodium 136 mmol/L (136-145) 10/30/22 08:29 BUN 15 mg/dL (7-18) 10/30/22 08:29 Creatinine 0.93 mg/dL (0.70-1.30) 10/30/22 08:29 Glucose 86 mg/dL (74-106) 10/30/22 08:29 TSH 2.51 uIU/mL (0.358-3.74) 03/08/23 08:21 COAG Pre-Assessment Diagnosis/Proposed Procedure Planned Operative Procedure(s): cscope Anesthesia History Anesthesia History - artificial plastic eye maker: Anesthesia History - artificial plastic eye maker Hx Hospitalization No 04/17/24 13:50 Any Problems With Anesthesia No 04/17/24 13:50 Cholinesterase deficiency No 04/17/24 13:50 You/Your Family Experience No 04/17/24 13:50 fever (hyperthermia) with Relationship Recent Exposure to Contagious No 04/21/24 05:57 Disease Does patient have nerve No 04/17/24 13:50 stimulator Patient instructed to have device shut off --Does patient have Pacemaker or ICD? When Was Last Pacemaker Check QUESTION #4 FULL TEXT: You/Your Family Experience fever (hyperthermia) with Anesthesia Last Oral Intake Last Oral intake: Last Oral Intake NPO since 23:00 04/21/24 05:57 Meds taken in AM with sips of No 04/21/24 05:57 water? Meds patient instructed to take am of surgery PONV PONV - artificial plastic eye maker: PONV - artificial plastic eye maker Female No 04/17/24 13:50 HX of Motion Sickness No 04/17/24 13:50 HX of N/V After Surgery No 04/17/24 13:50 Non-Smoker Yes 04/17/24 13:50 Duration of Surgery greater No 04/17/24 13:50 than 60 minutes Number of Risk Factors 1 04/17/24 13:50 PONV Score Low Risk 04/17/24 13:50 Height & Weight Height & Weight: Anesthesia: Height & Weight Height 5 ft 8 in 04/21/24 05:57 Weight: 75.5 kg 04/21/24 05:57 Body Mass Index (BMI) 25.2 04/21/24 05:57 Respiratory Assessment Respiratory Assessment - artificial plastic eye maker: Respiratory Tract Infection Hx - artificial plastic eye maker Hx Respiratory Tract Infection No 04/17/24 13:50 STOP Sleep Apnea STOP Sleep Apnea - artificial plastic eye maker: STOP Sleep Apnea - artificial plastic eye maker Hx Hypertension No 04/17/24 13:50 Hx Sleep Apnea No 04/17/24 13:50 CPAP BIPAP Do you snore loudly (louder No 04/17/24 13:50 than talking or can be heard Do you often feel tired/ No 04/17/24 13:50 fatigued/ sleepy during daytime? Has anyone observed you stop No 04/17/24 13:50 breathing during sleep? STOP Results Negative 04/17/24 13:50 QUESTION #5 FULL TEXT : Do you snore loudly (louder than talking or can be heard through closed doors)? Tobacco Use History Tobacco Use History - artificial plastic eye maker: Tobacco Use History - artificial plastic eye maker Tobacco Use Smoking Status Never smoker 04/17/24 13:50 Hx Tobacco Use No 04/17/24 13:50 Years Smoking Packs Smoked per Day Smoking Cessation Date was within the last 15 years Hx Smoking Cessation Date Hx Smoking Cessation Counseling Hematologic Medial History Hematologic Hx - artificial plastic eye maker: Hematologic Medical Hx - paving rammer Hx of Blood Transfusion No 04/17/24 13:50 Hx of Transfusion in last 3 No 04/17/24 13:50 Months Date of Last Transfusion (if within last 3 months) Ever experience any problems No 04/17/24 13:50 with transfusion(s)? Specify any problems Hx of Preganancy in last 3 N/A 04/17/24 13:50 Months Nurse Filling Out Transfusion NBUCHER 04/17/24 13:50 & Questions: Date: 04/17/24 04/17/24 13:50 Time: 13:51 04/17/24 13:50 Patient unable to answer at this time (ie. confused, unrespo /Reproduction History /Reproductive History - artificial plastic eye maker: /Reproductive Hx- artificial plastic eye maker Hx Now Gestational Age (in weeks): EDC: Hx Hx Para Hx Section SAB PFSH Medical History Contact with and (suspected) exposure to other viral communicable diseases Nausea & vomiting Bloody stools Wears contact lenses Nausea Hematochezia Melena Fecal urgency Diarrhea Acute otitis media, right Home Medications ?Medication ?Instructions ?Recorded ?Last Taken ?Type azathioprine 50 mg tablet 150 mg (3 x 50 mg) PO DAILY 3 01/23/24 04/20/24 Rx months #270 tabs Lactobacillus acidophilus 10 100 mmu cells PO DAILY 04/17/24 04/20/24 History billion cell capsule (Probacap) multivitamin (Daily Multi-Vitamin 1 tab PO DAILY 04/17/24 04/20/24 History tablet) Allergy/AdvReac Type Severity Reaction Status Date / Time No Known Allergies Allergy Verified 04/17/24 13:48 Surgical History History of wisdom tooth extraction History of colonoscopy History of placement of ear tubes Social History Smoking Status: Never smoker alcohol intake: never substance use type: does not use Review of Systems (Anesthesia) ROS Narrative System reviewed and no additional complaints, except as documented.
--- NOTE | 2024-04-21 06:45 | HP.PCM_ITS ---
History and Physical Date of Admission: 04/21/24 CARLA ANDERSON, is a 23 M who presents to the office today for follow up. *BGI established 4..22 with referral from PCP for evaluation of urgent watery diarrhea with blood with nocturnal urgency, generalized abdominal pain and cramping, nausea and vomiting occurring eight times a day. If he eats the symptoms resolve for a short period of time. He has changed his lifestyle due to fear of urgency that may cause incontinence. Onset mid-August 2021 without changes in severity. Unknown triggers. Mother reports that about a month prior to this he started improving his diet and adding creatinine and protein, one scoop of each day. Denies previous history of symptoms. Denies family history of bowel disease or cancers. Mother reports that her mother and sister have issues with postprandial feeling ill and then having urgent BM, her mother was told previously she has a ?slow pancreas?. Prednisone 50mg Contact azathioprine 100mg started with cessation of prednisone. Colonoscopy .07.19 left sided colitis and inflammation from rectum to descending colon with moderate severity, scattered cryptitis and crypt abscess in sigmoid colon and rectum. OV 8.. Continues with azathioprine 100mg. Denies abdominal pain, significant lose stools. Stooling 1-2/day with normal/soft stools and occasional blood. OV . Initially improved with azathioprine 100mg. Diarrhea, nausea and emesis, abdominal pain gradually returned and he started prednisone 50mg and this again caused a resolution of symptoms. He stopped this as supply ran out/did not like taking this medication/and someone recommended a supplement (ineffective) and had a return of symptoms with this cessation. He does not like taking prednisone as it causes sleep disturbance. If able, he would like to pursue PO route rather than injectable/infusion. start prednisone 20mg TID with taper in two months to BID. MRCP 1.3.23 without acute or chronic abnormalities. OV 2.3.23 Symptoms are much improved since previously. Stomach upset that he feels is food triggered, unsure of which foods he is having difficulty with. OV 6.5.23 with loose stools, abdominal pain and bloating that are intermittent and food dependent (junk foods) which he does avoid for the most part. Outside of this time he is doing well without active UC symptoms, joint pain, vision changes or rashes. OV 10.12.23 doing well, continues folic acid/azathioprine. Controls symptoms with diet. OV 09.05.23 pt states he is doing well, continues his medication regimen and symptoms are under control. OV 02.12.24 pt reports that he is feeling well overall and denies GI symptoms of concern at this time. Pt continues with azathioprine. ? ESR/CRP Calp/Lact? Serum/ab? TB 09.22.21? 1436/+? --/--? UC (apANCA 1:640). Humira and Eileen ab not present. ? GAME, MAIKEL, AUSTYN comp, celiac, hepatitis, HIV without pertinent abnormality.? C.difficile, EP, O/P, giardia WNL 10.01.21 Azathioprine start 01.03.22 --/<2.9? --/--? --/--? WNL? amylase, lipase WNL 06.01.22 14/3.11 --/neg? --/--? --? TPMT WNL 10.30.22 3/<2.9?? --/--? --/--? WN L? Free testosterone H24.99. ? B12, Folate, total testosterone WNL 03.08.23 2/<2.9? --/--? --/--? Iron H201, Retic H1.8, cortisol ? Ferritin, LDH, amylase, lipase, TSH, GAME, MAIKEL without pertinent abnormality 09.05.23 <2.9 -- / -- -- / -- Exam Const General: cooperative, healthy appearing and no acute distress Nutritional Appearance: average body habitus Orientation: alert, awake and oriented x3 HENMT Head: normal to inspection Ears: hearing grossly normal bilaterally, external ears normal, TM's normal bilaterally and EAC's normal Nose: external nose normal, nares normal, septum normal and no nasal discharge Face and sinus: normal facial exam, sinuses nontender and face symmetric Mouth: oral mucosae normal, lip normal, tongue normal and oropharynx normal Throat: posterior oropharynx normal, tonsils normal, uvula midline and no postnasal drainage Eyes General: appearance normal, both eyes and all related structures Neck Neck: normal visual inspection, full ROM, no lymphadenopathy, no meningeal signs and supple Neck mass: No Thyroid: thyroid normal Lymphatic: no lymphadenopathy noted Chest Chest palpation & inspection: normal inspection of the chest Resp Effort & Inspection: normal respiratory effort and able to speak in complete sentences Auscultation: Bilateral: Clear to Auscultation Cardio Palpation: normal PMI Rate: tachycardic Rhythm: regular rhythm Heart Sounds: S1 normal, S2 normal, no gallops, no murmurs and no rubs Pulses: radial pulses present GI Inspection: normal to inspection Palpation: soft, not firm, no guarding and tender other (Mild generalized tenderness to palpation throughout); not at McBurney's point, Meadows's sign negative and with no rebound tenderness Skin General: no rashes or lesions noted Neuro General: patient alert, patient awake, patient oriented x3 and gait normal Cognition: normal cognition Speech: speech normal Gait: normal gait Motor: muscle tone normal throughout Sensory Exam: no sensory deficits noted Psych Appearance: grossly normal Mental Status: mental status grossly normal Mood: congruent mood Affect: normal affect Speech and Movement: speech and movement normal Attitude: cooperative Thought Process: normal Thought Content: normal Judgment: judgment good Assessment and Plan Assessment and Plan (1) Ulcerative colitis: Status: Chronic Qualifiers: Digestive disease complication type: without complication Ulcerative colitis location: ulcerative pancolitis Qualified Code(s): K51.00 - Ulcerative (chronic) pancolitis without complications Plan: He is actually doing a lot better clinically and regarding his ulcerative colitis. He is not having any bleeding per rectum. He does not have any diarrhea. He gets occasional bloating without cramping. He had noticed some indigestion that has been going on for the past few weeks. But that resolved with 2 weeks of pantoprazole.He has not been on steroids for about 7 weeks. His stool calprotectin at has come only down to normal. His TMP T enzyme activity for metabolizing azathioprine was 23.5 with normal range being 15-26. We had done a screening MRCP for primary sclerosing cholangitis and that was normal due to the higher incidence of the disease in ulcerative colitis patient's. So we will recheck his CRP in 2 months as it was only mildly elevated at 3.11 to see how he is doing regarding steroid free remission with azathioprine. He also wanted to know if his ulcerative colitis was contributing to his decreased libdo. I told him that I did not think so. I will check some labs and told him to discuss possible depression with his PCP. He denies depression at this time. Orders: Orders CRP Today K51.00 - Ulcerative (chronic) pancolitis without complications Erythrocyte Sed Rate Today K51.00 - Ulcerative (chronic) pancolitis without complications Miscellaneous Lab Procedure Today K51.00 - Ulcerative (chronic) pancolitis without complications Miscellaneous Lab Procedure 2 Today K51.00 - Ulcerative (chronic) pancolitis without complications I have examined the patient and the H&P has been reviewed. There are no clinical changes since date of exam.
--- NOTE | 2024-04-21 07:14 | PCM.POST.ANE ---
Anesthesia: Postop Eval I Current Vital Signs Temperature: 97.2 F Pulse Rate: 79 Blood Pressure: 96/62 Respiratory Rate: 16 Pulse Ox: 95 Oxygen Delivery Method: Room Air Assessment Airway patent: Yes Spontaneous unlabored respirations: Yes Mental status: Asleep nausea: No Vomiting: No Anesthesia Complication: No Fluid Hydration Crystalloid volume administer (ml): 40 Total IV fluid infused: 40 Progress Note Anesthesia document: Postop Eval 1 completed: Yes
--- NOTE | 2024-04-21 07:38 | OP.COLON_ITS ---
Patient Name: Franky Fuentes Procedure Date: 04/21/2024 6:22 AM Date of : 2000 Age: 23 Procedure: Colonoscopy Indications: Left-sided chronic ulcerative colitis, Disease activity assessment of left-sided chronic ulcerative colitis, Assess therapeutic response to therapy of left-sided chronic ulcerative colitis Providers: Tad Monahan DO Medicines: Monitored Anesthesia Care Patient Profile: This is a 23 year old male. Refer to note in patient chart for documentation of history and physical. Last Colonoscopy: within the past 3 years. Complications: No immediate complications. Procedure: Pre-Anesthesia Assessment: - Prior to the procedure, a History and Physical was performed, and patient medications and allergies were reviewed. The patient is competent. The risks and benefits of the procedure and the sedation options and risks were discussed with the patient. All questions were answered and informed consent was obtained. Patient identification and proposed procedure were verified by the physician. Mental Status Examination: normal. Respiratory Examination: clear to auscultation. Prophylactic Antibiotics: The patient does not require prophylactic antibiotics. Prior Anticoagulants: The patient has taken no anticoagulant or antiplatelet agents except for NSAID medication. ASA Grade Assessment: II - A patient with mild systemic disease. After reviewing the risks and benefits, the patient was deemed in satisfactory condition to undergo the procedure. The anesthesia plan was to use monitored anesthesia care (MAC). Immediately prior to administration of medications, the patient was re-assessed for adequacy to receive sedatives. The heart rate, respiratory rate, oxygen saturations, blood pressure, adequacy of pulmonary ventilation, and response to care were monitored throughout the procedure. The physical status of the patient was re-assessed after the procedure. After I obtained informed consent, the scope was passed under direct vision. Throughout the procedure, the patient's blood pressure, pulse, and oxygen saturations were monitored continuously. The Colonoscope was introduced through the anus and advanced to the terminal ileum. The colonoscopy was performed without difficulty. The patient tolerated the procedure well. The quality of the bowel preparation was adequate. The terminal ileum, ileocecal valve, appendiceal orifice, and rectum were photographed. Scope In: 6:56:08 AM Scope Withdrawal Time 0 hours 6 minutes 18 seconds Scope Out: 7:04:49 AM Total Procedure Duration Time 0 hours 8 minutes 41 seconds Findings: The perianal and digital rectal examinations were normal. Inflammation was found in a continuous and circumferential pattern from the rectum to the sigmoid colon. This was graded as Ricardo Score 2 (moderate, with marked erythema, absent vascular pattern, friability, erosions), and when compared to the previous examination, the findings are worsened. Biopsies were taken with a cold forceps for histology. Verification of patient identification for the specimen was done. Estimated blood loss was minimal. Patchy mild inflammation characterized by erosions was found in the terminal ileum. Biopsies were taken with a cold forceps for histology. Verification of patient identification for the specimen was done. Estimated blood loss was minimal. 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 Biopsied. - Mild inflammation was found in the ileum secondary to ileitis. Biopsied. Recommendation: - Discharge patient to home. - Resume previous diet. - Continue present medications. - Await pathology results. - Repeat colonoscopy in 1 year to assess disease activity. - Prednisone 40 mg a day with a long taper - hydrocortisone enemas x 21 days Procedure Code(s): --- Professional --- 97631, Colonoscopy, flexible; with biopsy, single or multiple CPT copyright 2021 [employer]. All rights reserved. The codes documented in this report are preliminary and upon stained glass window designer review may be revised to meet current compliance requirements. Tad Monahan DO 04/21/2024 7:37:50 AM This report has been signed electronically. Number of Addenda: 0 Note Initiated On: 04/21/2024 6:22 AM
--- NOTE | 2024-04-21 07:39 | OP.CCLET_ITS ---
04/21/2024 Truong Patel [address] [place] [address] Re : Colonoscopy procedure for Franky Fuentes Dear Dr. Patel This procedure was performed on Sunday, April 21, 2024. 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 Biopsied. - Mild inflammation was found in the ileum secondary to ileitis. Biopsied. Recommendations : - Discharge patient to home. - Resume previous diet. - Continue present medications. - Await pathology results. - Repeat colonoscopy in 1 year to assess disease activity. - Prednisone 40 mg a day with a long taper - hydrocortisone enemas x 21 days My findings are described in the full procedure note, which is enclosed. If I can be of further assistance, please feel free to contact me at . Sincerely, Tad Monahan, 04/21/2024 7:37:50 AM This report has been signed electronically.
--- NOTE | 2024-04-21 09:21 | PCM.POSTANE2 ---
Anesthesia Postop Eval I Sum Postop Eval Completion status Anesthesia document: Postop Eval 1 completed: Yes Anesthesia Postop Eval I Summary Anesthesia Postop Eval I Summary: Anesthesia Postop Eval I: Assessment Summary Airway patent Yes 04/21/24 07:15 [email or web address] Spontaneous unlabored Yes 04/21/24 07:15 [email or web address] respirations Mental status Asleep 04/21/24 07:15 [email or web address] nausea No 04/21/24 07:15 [email or web address] Vomiting No 04/21/24 07:15 [email or web address] Anesthesia Postop Eval I: Fluid Summary Crystalloid volume administer 40 04/21/24 07:15 [email or web address] (ml) Colloids volume administered ( ml) Blood Product volume administered (ml) Total IV fluid infused 40 04/21/24 07:15 [email or web address] Anesthesia Postop Eval I: Summary Notes Anesthesia Complication No 04/21/24 07:15 [email or web address] Anesthesia Complication Comment: Post-operative progress note Anesthesia: Postop Eval II Evaluation Mental status: Awake Pain Level: 0 nausea: No Vomiting: No
== END 2024-04-21 07:50 | disposition home or self-care (01) ==
LOC: EN 05:21 → AC 05:22
PROVIDERS: PCP Family Medicine; Referring Provider Family Medicine; Visit Provider Internal Medicine Gastroenterology
PROC: 0DJD8ZZ Inspection of Lower Intestinal Tract, Via Natural or Artificial Opening Endoscopic (ICD-10-PCS; CPT 45378; principal; 2024-04-21 06:25)
DX: K51.00 Ulcerative (chronic) pancolitis without complications (principal); K52.9 Noninfective gastroenteritis and colitis, unspecified
CPT/HCPCS: 45380; 88305; A4216; J2405

== ENCOUNTER 2024-05-22 16:57 | Emergency (ER) | payer OTHER, SELFPAY ==
[2024-05-22 16:58] VITALS: BP 146/85; PULSE 98; RESP 16; TEMP 36.6; O2SAT 100; BMI 26.8
[2024-05-22 17:58] VITALS: BP 140/74; PULSE 90; RESP 16; TEMP 36.6; O2SAT 100
--- NOTE | 2024-05-22 18:31 | ED.VIS.LOWEX ---
HPI History of Present Illness Chief Complaint: Lower Extremity Injury Informant: patient and parent Narrative Narrative: Here with mother bilateral achy lower extremities from the knee down since this morning. States 7 out of this point. History of ulcerative colitis with a flare few control followed by Dr. Monahan. He is on a prednisone taper currently. Does not take any medications today. Denies trauma. Denies calf pain. Called GI office today had lab work done outpatient normal electrolytes deferred to his PCP. They called the PCP office they can get him therefore referred him to the ED. No fevers cough vomiting or diarrhea. Prior similar symptoms: No PFSH PFSH Medical History Contact with and (suspected) exposure to other viral communicable diseases Nausea & vomiting Bloody stools Wears contact lenses Nausea Hematochezia Melena Fecal urgency Diarrhea Acute otitis media, right Home Medications ?Medication ?Instructions ?Recorded ?Last Taken ?Type azathioprine 50 mg tablet 150 mg (3 x 50 mg) PO DAILY 3 01/23/24 04/20/24 Rx months #270 tabs Lactobacillus acidophilus 10 100 mmu cells PO DAILY 04/17/24 04/20/24 History billion cell capsule (Probacap) multivitamin (Daily Multi-Vitamin 1 tab PO DAILY 04/17/24 04/20/24 History tablet) alprazolam 1 mg tablet 1 mg PO QHS PRN sleep 1 month #30 04/21/24 Unknown Rx tabs prednisone 20 mg tablet 40 mg (2 x 20 mg) PO QDAY 90 days 04/28/24 Unknown Rx #60 tabs Allergy/AdvReac Type Severity Reaction Status Date / Time No Known Allergies Allergy Verified 05/22/24 16:58 Surgical History History of wisdom tooth extraction History of colonoscopy History of placement of ear tubes Social History Smoking Status: Never smoker alcohol intake: never substance use type: does not use ROS ROS ED Constitutional Constitutional ED: Denies chills, fever(s) or sweats ENT ENT ED: Denies sore throat Cardiovascular Cardiovascular: Denies chest pain, leg edema, palpitations or racing heartbeat Respiratory/Chest Respiratory/Chest: Denies cough, dyspnea or dyspnea on exertion Gastrointestinal Gastrointestinal: Denies abdominal pain, diarrhea, nausea or vomiting Genitourinary Genitourinary ED: Denies dysuria, hematuria or urinary frequency Musculoskeletal Musculoskeletal: Reports extremity pain; Denies back pain or neck pain Integumentary Denies rash or wounds Neurologic Neurologic: Denies headache(s), paresthesias or weakness EXAM Physical Exam Const Vital Signs: 05/22/24 16:58 05/22/24 17:58 Temperature 98 F 98 F Temperature Source Oral Pulse Rate 98 90 Respiratory Rate 16 16 Blood Pressure 146/85 H 140/74 H Blood Pressure Mean 105 96 Pulse Ox 100 100 Oxygen Delivery Method Room Air Positive well nourished and well developed General Appearance ED: well developed and NAD HEENT Reports moist mucous membranes normocephalic and atraumatic Eyes General Eye ED: Yes normal appearance of both eyes Neck full ROM Chest Wall Chest: Negative for tenderness Resp normal respiratory effort and normal air movement Effort and Inspection: symmetric chest movement; Negative for respiratory distress Cardio regular rate, regular rhythm and no murmurs Peripheral Pulses: pulses 2+ throughout GI normal to inspection, nondistended, normoactive bowel sounds and non-tender Palpation: Negative for guarding or rebound tenderness present Extremity normal to inspection Extremity Narrative: No calf tenderness no swelling the knees no redness. Soft compartments. Neuro vas intact distally. General Extremety ED: Negative for edema or tenderness General Extremity: Negative for edema Neuro oriented x3 and no sensory deficits noted Sensorium / Orientation: awake and alert Skin no rashes or lesions noted and no wounds MDM MDM MDM Narrative Medical decision making narrative: Interventions / MDM: Differential diagnosis: Myalgias, viral syndrome Diagnosis considered but do not suspect: No clinical region for DVT. My EKG interpretation: N/A Imaging independently reviewed and interpreted by myself: N/A External documents reviewed: Laboratory studies today normal potassium magnesium negative CRP. Test considered but not ordered:N/A ED course: Vital stable nontoxic. There is no swelling no calf tenderness pain is more anteriorly. He is having achy sensations. Will check COVID, flu, RSV. Will treat with Tylenol. Will reevaluate. Patient declined the nasal swab grew the Tylenol. She uses to monitor symptoms. Discussed continue oral fluids for hydration using Tylenol as needed. Outpatient follow-up. All questions were answered. Patient and mother Re-evaluation: stable Disposition discussed with patient/family/significant other: Case discussed with consulting clinician: N/A This note was generated with [employer] dictation software. It may contain incorrect words, spelling, and punctuation that were not noted in checking the note before signing. Discharge Plan Triage Chief Complaint: Lower Extremity Injury ED Provider: John Ngo Dx/Rx/DC Orders Clinical Impression: Myalgia, Ulcerative colitis Instructions: ED Myalgias Prescriptions: No Action Probacap 10 billion cell capsule 100 mmu cells PO DAILY multivitamin [Daily Multi-Vitamin] Tablet 1 tab PO DAILY azathioprine 50 mg tablet 150 mg PO DAILY 90 Days Qty: 270 5RF alprazolam 1 mg tablet 1 mg PO QHS PRN (Reason: sleep) 30 Days Qty: 30 1RF prednisone 20 mg tablet 40 mg PO QDAY 90 Days Qty: 60 3RF Primary Care Provider: Eulogio Patel Referrals: Eulogio Patel MD [Primary Care Provider] - Activity Restrictions/Additional Instructions: Your outpatient labs were reviewed. Normal electrolytes with potassium magnesium. Normal CRP. Take Tylenol as needed every 6 hours. Continue oral fluids to help with hydration. Print Language: Khmer Disposition Disposition: Home, Self Care Discharge Date/Time: 05/22/24 19:10
[2024-05-22] MEDS: Acetaminophen 500 MG Tablet 1000 MG PO (18:42)
--- NOTE | 2024-05-22 18:45 | ED.RN ---
Pt refused COVID/Flu and RSV swab. I don't feel sick so I don't think it is necessary
== END 2024-05-22 19:10 | disposition home or self-care (01) ==
PROVIDERS: Emergency Provider Emergency Medicine; PCP Family Medicine; Visit Provider Emergency Medicine
DX: K51.90 Ulcerative colitis, unspecified, without complications (principal); M79.10 Myalgia, unspecified site
CPT/HCPCS: 99282

== ENCOUNTER → 2024-05-22 | Outpatient (CLI) | payer OTHER, SELFPAY ==
[2024-05-22 09:27] LABS: Erythrocyte Sedimentation Rate 1 mm/hr (0-20)
[2024-05-22 09:30] LABS: Absolute Lymphocyte Count 2.54 X10^3/uL (0.83-4.51); Absolute Neutrophil Count 9.9 X10^3/uL (2.0-7.7); Basophil# 0.05 X10^3/uL; Basophil% 0.4 % (0-1); Eosinophils% 0.7 % (0-5); Hematocrit 48.6 % (40-54); Hemoglobin 16.2 g/dL (13.0-16.5); Lymphocyte # 2.54 X10^3/ul (0.83-4.51); Lymphocyte % 18.4 % (19-41); Mean Corp Hgb Conc 33.3 g/dL (32-36); Mean Corpuscular Hgb 33.4 pg (27.0-32.0); Mean Corpuscular Volume 100.2 fL (80-94); Mean Platelet Vol. 9.2 fl (6.2-12.0); Monocyte# 1.11 X10^3/uL; NRBC Flagged by Analyzer 0 % (0-5); Neutrophil # 9.86 X10^3/uL (2.7-7.7); Neutrophil % 71.5 % (47-70); Platelet Count 175 K/mm3 (150-450); RBC Distribution Width CV 13.8 % (11.6-14.6); RBC Distribution Width SD 51.4 fl (35.1-43.9); Red Blood Count 4.85 M/mm3 (4.6-6.2); White Blood Count 13.8 K/mm3 (4.4-11.0)
[2024-05-22 10:30] LABS: AST(SGOT) 13 U/L (15-37); Alanine Aminotransfer ALT/SGPT 36 U/L (16-61); Albumin, Serum 3.4 g/dL (3.2-5.0); Alkaline Phosphatase 111 U/L (45-117); Amylase 71 U/L (25-115); Anion Gap 2 (5-15); BUN 14 mg/dL (7-18); BUN/Creat Ratio 14.3 RATIO (10-20); CRP < 2.90 mg/L (0.0-3.0); Calcium,Total 9.1 mg/dL (8.5-10.1); Chloride 107 mmol/L (98-107); Creatinine, Serum 0.98 mg/dL (0.70-1.30); EST Glomerular Filtration Rate 101 mL/min (>60); Est Glom Filt Rate - Afr Amer 123 mL/min (>60); Globulin 3.4 g/dL (2.2-4.2); Glucose 89 mg/dL (74-106); Lipase 49 U/L (13-75); Magnesium 2.1 mg/dL (1.6-2.6); Potassium 3.5 mmol/L (3.5-5.1); Protein, Total 6.8 g/dL (6.4-8.2); Sodium Level 138 mmol/L (136-145)
== END | disposition home or self-care (01) ==
LOC: LAB 09:09
PROVIDERS: PCP Family Medicine; Referring Provider Internal Medicine Gastroenterology; Visit Provider Internal Medicine Gastroenterology
DX: K51.00 Ulcerative (chronic) pancolitis without complications (principal)
CPT/HCPCS: 36415; 80053; 82150; 83690; 83735; 85025; 85652; 86140

== ENCOUNTER → 2024-05-29 | Outpatient (CLI) | payer OTHER, SELFPAY ==
--- NOTE | 2024-05-29 15:23 | RAD_ITS ---
STUDY: X-RAY - LEFT HAND REASON FOR EXAM: Male, 23 years old. Polyarthralgia, hand pain. TECHNIQUE: 3 views of the left hand. COMPARISON: None. FINDINGS: Normal radiocarpal articulation. Normal distal radioulnar joint. Normal visualized carpal bones. Normal carpal articulations. Normal carpometacarpal articulation of the thumb. Normal second through fifth carpometacarpal joints. Normal metacarpi. Normal metacarpophalangeal joint of the thumb. Normal interphalangeal joint of the thumb. Normal proximal and distal phalanges of the thumb. Normal metacarpophalangeal joints of the second through fifth fingers. Normal proximal and distal interphalangeal joints of the second through fifth fingers. Normal phalanges of the second through fifth fingers. The soft tissue structures are unremarkable. RAD/Hand Min 3 Views IMPRESSION: Normal x-ray examination of the left hand. Electronically Signed: Adalberto Herrera MD at 9:00 EST ,
== END | disposition home or self-care (01) ==
PROVIDERS: PCP Family Medicine; Referring Provider Family Medicine; Visit Provider Family Medicine
DX: M25.50 Pain in unspecified joint (principal)
CPT/HCPCS: 73130

== ENCOUNTER → 2024-06-03 | Outpatient (CLI) | payer OTHER, SELFPAY ==
[2024-06-03 11:19] LABS: Absolute Lymphocyte Count 1.52 X10^3/uL (0.83-4.51); Absolute Neutrophil Count 8.1 X10^3/uL (2.0-7.7); Basophil# 0.05 X10^3/uL; Basophil% 0.5 % (0-1); Eosinophil# 0.04 X10^3/uL; Eosinophils% 0.4 % (0-5); Hematocrit 51.3 % (40-54); Hemoglobin 17.1 g/dL (13.0-16.5); Lymphocyte # 1.52 X10^3/ul (0.83-4.51); Lymphocyte % 14.4 % (19-41); Mean Corp Hgb Conc 33.3 g/dL (32-36); Mean Corpuscular Hgb 32.9 pg (27.0-32.0); Mean Corpuscular Volume 98.7 fL (80-94); Mean Platelet Vol. 8.9 fl (6.2-12.0); Monocyte# 0.52 X10^3/uL; Monocyte% 4.9 % (0-10); NRBC Flagged by Analyzer 0 % (0-5); Neutrophil # 8.14 X10^3/uL (2.7-7.7); Neutrophil % 77.4 % (47-70); Platelet Count 213 K/mm3 (150-450); RBC Distribution Width CV 13.6 % (11.6-14.6); RBC Distribution Width SD 50.3 fl (35.1-43.9); White Blood Count 10.5 K/mm3 (4.4-11.0)
[2024-06-03 11:34] LABS: Vitamin B12 641 pg/mL (211-911); Vitamin D,25 Hydroxy 23.1 ng/mL
[2024-06-03 11:36] LABS: Erythrocyte Sedimentation Rate 6 mm/hr (0-20)
[2024-06-03 11:44] LABS: CRP < 2.90 mg/L (0.0-3.0); Ferritin 53 ng/mL (26-388); Iron 162 ug/dL (65-175); Rheumatoid Factor < 10.0 IU/mL (<15); Uric Acid 4.6 mg/dL (3.5-7.2)
[2024-06-04 12:08] LABS: ANTINUCLEAR ANTIBODIES DIRECT Negative (Negative)
== END | disposition home or self-care (01) ==
PROVIDERS: PCP Family Medicine; Referring Provider Family Medicine; Visit Provider Family Medicine
DX: R53.83 Other fatigue (principal); M25.50 Pain in unspecified joint
CPT/HCPCS: 36415; 82306; 82607; 82728; 83540; 84403; 84443; 84550; 85025; 85652; 86038; 86140; 86431

== ENCOUNTER → 2024-06-19 | Outpatient (CLI) | payer OTHER, SELFPAY ==
[2024-06-19 09:19] LABS: Cholesterol 169 mg/dL (200); High Density Lipoprotein 53 mg/dL; Triglycerides 93 mg/dL; Very Low Density Lipoprotein 19 mg/dL (5-40)
== END | disposition home or self-care (01) ==
LOC: LAB 08:28
PROVIDERS: PCP Family Medicine; Referring Provider Family Medicine; Visit Provider Family Medicine
DX: Z13.6 Encounter for screening for cardiovascular disorders (principal)
CPT/HCPCS: 80061

== ENCOUNTER → 2024-06-26 | Outpatient (CLI) | payer OTHER, SELFPAY ==
[2024-06-26 11:20] LABS: Hepatitis B Surface Antibody Non-Reactive; Hepatitis B Surface Antigen Non-Reactive (Nonreactive)
[2024-06-26 11:50] LABS: AST(SGOT) 12 U/L (15-37); Alanine Aminotransfer ALT/SGPT 24 U/L (16-61); Albumin, Serum 3.7 g/dL (3.2-5.0); Alkaline Phosphatase 78 U/L (45-117); Anion Gap 5 (5-15); BUN 15 mg/dL (7-18); BUN/Creat Ratio 15.2 RATIO (10-20); Calcium,Total 9.6 mg/dL (8.5-10.1); Chloride 105 mmol/L (98-107); Creatinine, Serum 0.99 mg/dL (0.70-1.30); EST Glomerular Filtration Rate 101 mL/min (>60); Est Glom Filt Rate - Afr Amer 122 mL/min (>60); Globulin 3.7 g/dL (2.2-4.2); Glucose 95 mg/dL (74-106); Protein, Total 7.4 g/dL (6.4-8.2); Sodium Level 137 mmol/L (136-145)
[2024-07-01 14:08] LABS: Hepatitis B Core Ab Total Negative (Negative); QNTFERON TB Mitogen Value > 10.00 IU/mL (.); QNTFERON TB Nil Value 0.02 IU/mL (.); QNTFERON TB1+ Ag Value 0.06 IU/mL (.); QNTFERON TB2+ Ag Value 0.02 IU/mL (.); QNTIFERON TB Positive Criteria Negative (Negative)
== END | disposition home or self-care (01) ==
PROVIDERS: PCP Family Medicine; Referring Provider Nurse Practitioner Acute Care; Visit Provider Nurse Practitioner Acute Care
DX: K51.00 Ulcerative (chronic) pancolitis without complications (principal)
CPT/HCPCS: 36415; 80053; 86480; 86704; 86706; 86787; 87340

== ENCOUNTER → 2024-06-27 | Outpatient (CLI) | payer OTHER, SELFPAY ==
[2024-06-27 11:48] LABS: Magnesium 2.3 mg/dL (1.6-2.6)
[2024-07-02 07:07] LABS: Calprotectin, Stool 71 ug/g (0-120)
== END | disposition home or self-care (01) ==
LOC: LABSPEC 10:41
PROVIDERS: PCP Family Medicine; Referring Provider Nurse Practitioner Acute Care; Visit Provider Nurse Practitioner Acute Care
DX: K51.00 Ulcerative (chronic) pancolitis without complications (principal)
CPT/HCPCS: 83735; 83993

== ENCOUNTER 2024-07-31 08:47 | Outpatient (CLI) | payer OTHER, SELFPAY ==
[2024-07-31 08:59] VITALS: BP 135/79; PULSE 77; RESP 16; TEMP 35.8; O2SAT 99; BMI 26.6
[2024-07-31] MEDS: 0.9% NaCl Peripheral Flush Adult/Peds IV (09:39)
[2024-07-31] MEDS: 0.9% Normal Saline (100mL Bag) 100 ML 15 ML IV (09:40)
[2024-07-31] MEDS: Vedolizumab 300 MG in 0.9% Normal Saline (250mL Bag) 250 ML 500 MG IV (09:40)
[2024-07-31 10:29] VITALS: BP 128/59; PULSE 63; RESP 16
== END 2024-07-31 23:59 | disposition home or self-care (01) ==
LOC: MEDOUTP 08:47
PROVIDERS: PCP Family Medicine; Referring Provider Nurse Practitioner Acute Care; Visit Provider Nurse Practitioner Acute Care
DX: K51.00 Ulcerative (chronic) pancolitis without complications (principal)
CPT/HCPCS: 96365; A4216; J3380

== ENCOUNTER 2024-08-14 08:58 | Outpatient (CLI) | payer OTHER, SELFPAY ==
[2024-08-14 09:07] VITALS: BP 109/67; PULSE 70; RESP 14; TEMP 36.2; O2SAT 99; BMI 26.4
[2024-08-14] MEDS: 0.9% NaCl Peripheral Flush Adult IV (09:09)
[2024-08-14] MEDS: 0.9% NaCl IVPB Med Flush (100mL) 15 ML IV (09:22)
[2024-08-14] MEDS: Vedolizumab 300 MG in 0.9% Normal Saline (250mL Bag) 250 ML 500 MG IV (09:22)
[2024-08-14 10:08] VITALS: BP 121/67; PULSE 63; RESP 16
== END 2024-08-14 23:59 | disposition home or self-care (01) ==
LOC: MEDOUTP 08:58
PROVIDERS: PCP Family Medicine; Referring Provider Nurse Practitioner Acute Care; Visit Provider Nurse Practitioner Acute Care
DX: K51.00 Ulcerative (chronic) pancolitis without complications (principal)
CPT/HCPCS: 96365; A4216; J3380

== ENCOUNTER 2024-09-11 08:51 | Outpatient (CLI) | payer OTHER, SELFPAY ==
[2024-09-11 09:19] VITALS: BP 119/69; PULSE 63; RESP 16; O2SAT 98
[2024-09-11] MEDS: 0.9% NaCl Peripheral Flush Adult IV (09:22)
[2024-09-11] MEDS: Vedolizumab 300 MG in 0.9% Normal Saline (250mL Bag) 250 ML 500 MG IV (09:39)
[2024-09-11 10:21] VITALS: BP 117/62; PULSE 57; RESP 16
== END 2024-09-11 23:59 | disposition home or self-care (01) ==
PROVIDERS: PCP Family Medicine; Referring Provider Nurse Practitioner Acute Care; Visit Provider Nurse Practitioner Acute Care
DX: K51.00 Ulcerative (chronic) pancolitis without complications (principal)
CPT/HCPCS: 96365; A4216; J3380

== ENCOUNTER 2024-11-06 08:55 | Outpatient (CLI) | payer OTHER, SELFPAY ==
[2024-11-06 09:06] VITALS: BP 110/69; PULSE 82; RESP 16; TEMP 36; O2SAT 95; BMI 25.0
[2024-11-06] MEDS: 0.9% NaCl IVPB Med Flush (100mL) 15 ML IV (09:18)
[2024-11-06] MEDS: 0.9% NaCl Peripheral Flush Adult IV (09:18)
[2024-11-06 09:28] LABS: Absolute Neutrophil Count 4.1 X10^3/uL (2.0-7.7); Basophil# 0.03 X10^3/uL; Basophil% 0.5 % (0-1); Eosinophil# 0.11 X10^3/uL; Eosinophils% 1.8 % (0-5); Hematocrit 46.7 % (40-54); Hemoglobin 15.6 g/dL (13.0-16.5); Lymphocyte % 21.3 % (19-41); Mean Corp Hgb Conc 33.4 g/dL (32-36); Mean Corpuscular Hgb 31.3 pg (27.0-32.0); Mean Corpuscular Volume 93.6 fL (80-94); Monocyte# 0.58 X10^3/uL; Monocyte% 9.5 % (0-10); NRBC Flagged by Analyzer 0 % (0-5); Neutrophil # 4.06 X10^3/uL (2.7-7.7); Neutrophil % 66.7 % (47-70); Platelet Count 201 K/mm3 (150-450); RBC Distribution Width CV 12.5 % (11.6-14.6); RBC Distribution Width SD 43.4 fl (35.1-43.9); Red Blood Count 4.99 M/mm3 (4.6-6.2); White Blood Count 6.1 K/mm3 (4.4-11.0)
[2024-11-06] MEDS: Vedolizumab 300 MG in 0.9% Normal Saline (250mL Bag) 250 ML 500 MG IV (09:56)
[2024-11-06 10:12] LABS: ALB/GLOB Ratio 1.5 RATIO (0.9-2.4); AST(SGOT) 21 U/L (<=37); Alanine Aminotransfer ALT/SGPT 20 U/L (<=46); Albumin, Serum 4.5 g/dL (3.5-5.0); Alkaline Phosphatase 92 U/L (40-129); Anion Gap 11 (5-15); BUN 14 mg/dL (4-19); BUN/Creat Ratio 12.9 RATIO (10-20); CRP < 3.00 mg/L (0.0-3.0); Calcium,Total 9.7 mg/dL (7.6-11.0); Carbon Dioxide 23.8 mmol/L (21.0-32.0); Chloride 102 mmol/L (98-108); Creatinine, Serum 1.08 mg/dL (0.70-1.20); EST Glomerular Filtration Rate 100 (>60); Glucose 91 mg/dL (70-99); Potassium 4.2 mmol/L (3.3-5.1); Protein, Total 7.5 g/dL (5.9-8.4); Sodium Level 137 mmol/L (133-145); Total Bilirubin 0.57 mg/dL (0.00-1.30); Vitamin D,25 Hydroxy 64.9 ng/mL (30-100)
[2024-11-06 10:39] VITALS: BP 116/68; PULSE 74; RESP 16; TEMP 36.2; O2SAT 97
--- OUTSIDE RECORDS SUMMARY | 2024-11-06 15:21 | XMS RPT_ITS | CCD ---
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 Mauri Montiel Primary Care Provider Dr. Mauri Montiel Referring Provider Friend, Dr. Mishra Attending Provider Dr. Truong Patel Primary Care Provider Dr. Truong Patel Referring Provider Dr. Tad Monahan Other Provider Dr. Truong Patel Primary Care Provider [phone] Dr. Truong Patel Referring Provider Dr. Tad Monahan Attending Provider [phone] Dr. Truong Patel Primary Care Provider [phone] Dr. Truong Patel Referring Provider FriendDr. Mishra Attending Provider Dr. Lennie Patel Primary Care Provider Dr. Lennie Patel Referring Provider FriendDr. Mishra Attending Provider Lennie Patel MD Primary Care Provide r LENNIE PATEL Referring Unavail LENNIE Almonte Primary Care Unavail charles Patel MD, Dr. Krishnan Primary Care Provider Dr. Lennie Patel MD Referring Provider [phone] Taniya DO, Dr. Mishra Attending Provider Friend DO, Dr. Mishra Other Provider [phone] Taniya ZAMAN, Dr. Mishra Referring Provider Le DO, Dr. Lopez Attending Provider Le DO, Dr. Lopez Emergency Provider Jorge MEMBRENO, Dr. Krishnan Attending Provider Amauri POLICE CAPTAIN PRECINCT-C, Brianne Attending Provider Amauri POLICE CAPTAIN PRECINCT-C, Brianne Referring Provider Jorge MEMBRENO, Dr. Krishnan Primary Care Provider Jorge MEMBRENO, Dr. Krishnan Referring Provider Taniya ZAMAN, Dr. Mishra Attending Provider Taniya DO, Dr. Mishra Other Provider [phone] Friend DO, Dr. Mishra Referring Provider Jeni ZAMAN, Dr. Lopez Attending Provider [phone] Jeni DO, Dr. Lopez Emergency Provider [phone] Jorge MEMBRENO, Dr. Krishnan Attending Provider [phone] Amauri POLICE CAPTAIN PRECINCT-C, Brianne Attending Provider Amauri POLICE CAPTAIN PRECINCT-C, Brianne Referring Provider Jorge MEMBRENO, Dr. Krishnan Primary Care Provider Taniya ZAMAN, Dr. Mishra Attending Provider Jorge MEMBRENO, Dr. Krishnan Referring Provider Lennie Patel Attending Unavailable Ranney, Christopher Primary Care Unavailable Ranney, Christopher Referring Unavailable Lennie Patel Attending Unavailable Ranney, Christopher Primary Care Unavailable Ranney, Christopher Referring Unavailable FriendTad Attending Unavailable Ranney, Christopher Primary Care Unavailable Ranney, Christopher Referring Unavailable Friend, Tad Attending Unavailable Ranney, Christopher Primary Care Unavailable Ranney, Christopher Referring Unavailable [facility], [facility] Unavailable Amauri, Brianne Referring Unavailable Amauri, Brianne Attending Unavailable Ranney, Christopher Attending Unavailable [facility], [facility] Unavailable Ranney, Christopher Referring Unavailable Friend, Tad Attending Unavailable [facility] Unavailable Ranney, Christopher Referring Unavailable Friend, Tad Consulting Unavailable [facility], [facility] Primary [facility] Unavailable Amauri, Brianne Attending Unavailable Amauri, Brianne Referring Unavailable Ranney, [facility] Primary [facility] Unavailable Amauri, Brianne Attending Unavailable Ranney, Christopher Referring Unavailable Friend, Tad Attending Unavailable Ranney, Christopher Primary Care Unavailable Friend, Tad Referring Unavailable Friend, Tad Attending Unavailable Ranney, [place] Primary Care Unavailable Friend, Tad Referring Unavailable [facility], [facility] Unavailable John Ngo Attending Unavailable [place], [place] Primary Care Unavailable Amauri, Brianne Attending Unavailable Amauri, Brianne Referring Unavailable Ranney, [facility] Unavailable Amauri, Brianne Attending Unavailable Amauri, Brianne Referring Unavailable Ranney, [facility] Primary [facility] Unavailable Amauri, Brianne Referring Unavailable Amauri, Brianne Attending Unavailable [place], [facility] Primary [facility] Unavailable Amauri, Brianne Referring Unavailable Amauri, Brianne Attending Unavailable Ranney, Christopher Referring Unavailable [facility], [facility] Primary [facility] Unavailable Amauri, Brianne Attending Unavailable [facility], [facility] Primary [facility] Unavailable Ran[place], Christopher Referring Unavailable Amauri, Brianne Attending Unavailable Allergies Allergy Classification Reported Allergen(s) Allergy Type Date of Onset Reaction(s) Facility (1 source) ALLERGIES NOT ON FILE; Translations: [ALLERGIES NOT ON FILE] Propensity to adverse reactions (disorder) [facility] 2 Repository Medications Current Medications Medication Drug Class(es) Dates Sig (Normalized) Sig (Original) ALPRAZolam 1 mg oral tablet (14 sources) Benzodiazepine Start: 04-21-2024 take 1 tablet by mouth at bedtime as needed for sleep Alprazolam 1 mg tablet Active 1 mg PO AT BEDTIME as needed for sleep April 21, 2024 1:00am Start: 04-05-2022 End: 09-17-2024 take 1 tablet by mouth at bedtime Alprazolam 1 mg tablet Discontinued 1 mg PO AT BEDTIME June 30, 2022 9:45am February 12, 2024 9:34am budesonide 3 mg delayed release oral capsule (8 sources) Corticosteroid Start: 06-20-2024 End: 08-20-2024 take 3 capsules by mouth once daily Budesonide 3 mg capsule,delayed,extend.release Active 9 mg PO daily August 20, 2024 12:57pm dicyclomine hydrochloride 20 mg oral tablet (5 sources) Anticholinergic Start: 09-22-2021 take 20 mg by mouth three times daily Dicyclomine Active 20 MG PO THREE TIMES A DAY 60 September 22, 2021 10:11am DULoxetine 30 mg delayed release oral capsule (3 sources) Serotonin and Norepinephrine Reuptake Inhibitor Start: 07-31-2024 take 1 capsule by mouth once daily Duloxetine 30 mg capsule,delayed release(DR/EC) Active 30 mg PO DAILY July 31, 2024 1:00am Lactobacillus Acidophilus (Probacap) 10 billion cell capsule (3 sources) Start: 04-17-2024 take 10 capsules by mouth once daily Lactobacillus Acidophilus (Probacap) 10 billion cell capsule Active 100 NMA PO DAILY April 17, 2024 1:00am Start: 04-17-2024 take 10 capsules by mouth once daily Lactobacillus Acidophilus (Probacap) 10 billion cell capsule Active 100 NMA PO DAILY April 17, 2024 12:00am Multivitamin (Daily Multi-Vitamin) tablet (3 sources) Start: 04-17-2024 Multivitamin ( Daily Multi-Vitamin) tablet Active 1 {tbl} PO DAILY April 17, 2024 1:00am Start: 04-17-2024 Multivitamin ( Daily Multi-Vitamin) tablet Active 1 {tbl} PO DAILY April 17, 2024 12:00am sucralfate 1000 mg oral tablet (5 sources) Aluminum Complex Start: 09-21-2021 take 1 tablet by mouth four times daily Sucralfate (Carafate) 1 gram tablet Active 1 GM PO .qid September 21, 2021 9:38am Completed/Discontinued Medications Medication Drug Class(es) Dates Sig (Normalized) Sig (Original) amoxicillin 500 mg oral capsule (13 sources) Penicillin-class Antibacterial Start: 11-17-2020 End: 11-27-2020 take 1 capsule by mouth three times daily Amoxicillin 500 mg capsule Discontinued 500 mg PO THREE TIMES A DAY 26 03November 17, 2020 12:00am November 26, 2020 12:00am November 27, 2020 12:01am azaTHIOprine 50 mg oral tablet (20 sources) Purine Antimetabolite Start: 10-31-2021 End: 09-05-2023 take 150 mg by mouth once daily Azathioprine Active 150 MG PO DAILY 270 90 September 05, 2023 8:53am Start: 10-01-2021 End: 07-24-2024 take 1 tablet by mouth once daily Azathioprine 50 mg tablet Discontinued 150 mg PO DAILY 270 90 January 23, 2024 10:06am July 24, 2024 9:34am cefdinir 300 mg oral capsule (8 sources) Cephalosporin Antibacterial Start: 10-26-2021 End: 10-30-2022 take 1 capsule by mouth twice daily Cefdinir 300 mg capsule Discontinued 300 mg PO TWICE A DAY October 26, 2021 12:00am October 30, 2022 7:57am folic acid 1 mg oral tablet (10 sources) Start: 10-30-2022 End: 02-12-2024 take 1 tablet by mouth once daily Folic Acid 1 mg tablet Discontinued 1 mg PO DAILY February 27, 2023 7:22am February 12, 2024 9:34am hydrocortisone 1.67 mg/ml enema (3 sources) Corticosteroid Start: 04-21-2024 End: 05-12-2024 Hydrocortisone 100 mg/60 mL enema Discontinued 100 mg RC daily 1260 April 21, 2024 1:00am May 11, 2024 1:00am May 12, 2024 1:08am ondansetron 4 mg oral tablet (5 sources) Serotonin-3 Receptor Antagonist Start: 07-06-2022 End: 02-12-2024 take 1 tablet by mouth every eight hours as needed for nausea and vomiting Ondansetron Hcl 4 mg tablet Discontinued 4 mg PO Q8H as needed for nausea and vomiting July 06, 2022 1:00am February 12, 2024 9:34am pantoprazole 40 mg delayed release oral tablet (10 sources) Proton Pump Inhibitor Start: 06-30-2022 End: 10-30-2022 take 1 tablet by mouth once daily Pantoprazole 40 mg tablet,delayed release (DR/EC) Discontinued 40 mg PO DAILY June 30, 2022 1:00am October 30, 2022 7:58am Start: 09-21-2021 take 1 tablet by amalia th twice daily Pantoprazole (Protonix) 40 mg tablet,delayed release (DR/EC) Active 40 MG PO TWICE A DAY September 21, 2021 9:38am predniSONE 20 mg oral tablet (20 sources) Start: 04-21-2024 End: 06-20-2024 take 2 tablets by mouth once daily Prednisone 20 mg tablet Discontinued 40 mg PO daily 60 April 28, 2024 8:29am June 20, 2024 2:01pm Start: 06-07-2022 End: 08-09-2022 take 1 tablet by mouth twice daily Prednisone 20 mg tablet Discontinued 20 mg PO TWICE A DAY June 07, 2022 7:35am August 09, 2022 3:11pm Start: 04-05-2022 End: 06-07-2022 take 1 tablet by mouth three times daily Prednisone 20 mg tablet Discontinued 20 mg PO THREE TIMES A DAY April 05, 2022 1:00am June 07, 2022 7:36am Start: 10-05-2021 End: 04-21-2022 take 2 tablets by mouth once daily Prednisone 20 mg tablet Discontinued 20 mg PO DAILY November 22, 2021 7:53am April 21, 2022 2:07pm take two tabs for five days then reduce by ten mg each 5-7 days to manage flare symptoms. Start: 09-22-2021 take 50 mg by mouth once daily Prednisone Active 50 MG PO DAILY September 22, 2021 10:06am Problems Active Problems Problem Classification Problem Date Documented Da te Episodic/Chronic Administrative/social admission (13 sources) Special examination status; Translations: [Encounter for examination for participation in sport] 12-16-2018 Episodic Gastrointestinal hemorrhage (6 sources) Rectal hemorrhage; Translations: [Hemorrhage of anus and rectum] 07-24-2024 Episodic Headache; including migraine (13 sources) Headache; Translations: [Severe headache] 10-26-2021 Episodic Immunizations and screening for infectious disease (5 sources) Contact with and (suspected) exposure to other viral communicable diseases; Translations: [Contact with or suspected exposure to other viral communicable disease] 07-06-2022 Episodic Nausea and vomiting (5 sources) Nausea and vomiting; Translations: [Nausea with vomiting, unspecified] 07-06-2022 Episodic Noninfectious gastroenteritis (9 sources) Inflammatory bowel disease; Translations: [Noninfective gastroenteritis and colitis, unspecified] 01-03-2022 Episodic Nutritional deficiencies (1 source) Vitamin D deficiency, unspecified; Translations: [Vitamin D deficiency, unspecified] Onset: 09-15-2024 Chronic Other connective tissue disease (3 sources) Muscle pain; Translations: [Myalgia, unspecified site] 05-30-2024 Episodic Other gastrointestinal disorders (13 sources) Diarrhea; Translations: [Diarrhea, unspecified] 09-22-2021 Episodic Otitis media and related conditions (13 sources) Acute right otitis media; Translations: [Otitis media, unspecified, right ear] 11-17-2020 Episodic Regional enteritis and ulcerative colitis (18 sources) Ulcerative colitis; Translations: [Ulcerative colitis, unspecified, without complications] Onset: 10-22-2024 Chronic Residual codes; unclassified (3 sources) FH: Cardiovascular disease; Translations: [Family history of ischemic heart disease and other diseases of the circulatory system] Onset: 07-26-2024 07-26-2024 Episodic Residual codes; unclassified (1 source) Family history of ischemic heart disease and other diseases of the circulatory system; Translations: [Family history of ischemic heart disease and other diseases of the circulatory system] Onset: 07-26-2024 Episodic Past or Other Problems Problem Classification Problem Date Documented Date Episodic/Chronic Abdominal pain (20 sources) Abdominal pain; Translations: [Unspecified abdominal pain] Onset: 05-26-2024 Episodic Malaise and fatigue (1 source) Other fatigue; Translations: [Other fatigue] Onset: 06-27-2024 Episodic Other connective tissue disease (1 source) Myalgia, unspecified site; Translations: [Myalgia, unspecified site] Onset: 06-18-2024 Episodic Other non-traumatic joint disorders (1 source) Pain in unspecified joint; Translations: [Pain in unspecified joint] Onset: 06-23-2024 Episodic Other screening for suspected conditions (not mental disorders or infectious disease) (1 source) Encounter for screening for cardiovascular disorders; Translations: [Encounter for screening for cardiovascular disorders] Onset: 07-10-2024 Episodic Results Test Name Value Interpretation Reference Range Facility Gastroenterology Visit Repor ton 09-15-2024 Gastroenterology Visit Report [facility] Gastroenterology [address] [place] [address] OFFICE VISIT Date of Service: 09/15/24 MR#: [id number] Acct: [id number] Name: CARLA FUENTES Rep #: [id number] : 2000 Provider: TITI velez Age/Sex: 23/M Location[place] [facility] [place] [facility] [place] Status: Signed Intake Vital Signs 07/24/24 08:35 08/14/24 09:07 09/11/24 09:19 09/15/24 09:29 Height 5 ft 8 in 5 ft 8 in 5 ft 8 in 5 ft 8 in Weight: 169 lb BMI 25.7 BP 123/74 H Blood Pressure Location Rt brachial Position Sitting Pulse 69 Pulse Oximetry (%) 98 Oxygen Delivery Method room air Intake Visit Reasons: 6 wk FU Chief Complaint: entyvio Accompanied by: Self Allergies No Known Allergies Allergy (Verified 09/15/24 09:34) Medications ???Medication ???Instructions ???Recorded ???Confirmed ???Type Lactobacillus acidophilus 10 100 mmu cells PO DAILY 04/17/24 History billion cell capsule (Probacap) multivitamin (Daily Multi-Vitamin 1 tab PO DAILY 04/17/24 09/15/24 History tablet) alprazolam 1 mg tablet 1 mg PO QHS PRN sleep 1 month #30 04/21/24 09/15/24 Rx tabs duloxetine 30 mg capsule,delayed 30 mg PO DAILY 07/31/24 09/15/24 H istory release budesonide 3 mg 9 mg (3 x 3 mg) PO QDAY #90 ea 09/15/24 Rx capsule,delayed,extended release vedolizumab 300 mg intravenous 300 mg .Route 09/15/24 09/15/24 Hi story solution (Entyvio) PFSH Medical History Contact with and (suspected) exposure to other viral communicable diseases Nausea vomiting Bloody stools Wears contact lenses Nausea Hematochezia Melena Fecal urgency Diarrhea Acute otitis media, right Surgical History History of wisdom tooth extraction History of colonoscopy History of placement of ear tubes Social History Smoking Status: Never smoker alcohol intake: never substance use type: does not use HPI HPI Chief Complaint: entyvio Details: CARLA FUENTES, is a 23 M who presents to the office today for OV 07/24/2024 23y/o male presents for follow-up of Ulcerative Colitis (proctosigmoid), initially diagnosed October 2021. He was last seen in the office on 06/26/2024 at which time azathioprine was discontinued due to continued steroid dependence and Colonoscopy 04/21/2024 revealing mild active colitis in the rectum. Fecal calprotectin is mildly elevated at 71. He remains on Budesonide 9mg daily and is continuing to experience bleeding with every bowel movement. He reports a minimal increase in bleeding since discontinuing azathioprine, but denies any abdominal pain, rectal pain or increase in frequency of stools. PA was completed for Entyvio infusions and he has not yet had a call from Infusion department here at the hospital to arrange his first loading infusion. He will go to financial services office today and let me know status of scheduling. Patient Instructions: Continue Budesonide 9mg daily Follow-up with Hospital financial services today CBC: 06/03/2024 HGB 17.1 CMP: 06/26/2024 WNL CRP: 06/03/2024 normal VITAMIN B12: 06/03/2024 normal VITAMIN LOW 23 Thiopurine Metabolite: 02/12/2024 6-TGN - 276 6-MMPN - 623 TPMT 20.8 QUANTIFERON: 06/26/2024 negative HBVsAb: 06/26/2024 non-reactive HBVsA06/26/2024 negative HBV Core Total Ab: 06/26/2024 negative HCV: 10/01/2021 negative Fecal Calprotectin: 06/27/2024 mildly elevated 71 06/01/2022 normal 09/23/2021 1436 Entyvio: Start Date - 07/31/2024 -- Last infusion 09/11/2024 ------> next infusion 11/06/2024 IBD SYMPTOMS: Bowel movements are: stools are loose 2x a day, average, occasional formed stools Blood noted in stools: stopped after first Entyvio infusion Bowel movement urgency present: yes Stool incontinence: denies Nocturnal BM's: denies Abdominal pain: denies Rectal pain: denies QOL: does not affect his QOL ROS: Fever: denies Night Sweats: denies Visual changes: denies Mouth sores: denies Joint pain: denies Skin rashes/Lesions: denies Weight changes: denies Smoking status: denies NSAID use: denies Discussed importance of influenza vaccine yearly RECALL COLONOSCOPY ROS Const Constitutional: No fatigue, fever(s) or weight change ENT ENT: No difficulty swallowing Gastro GI: Positive for bloating, diarrhea and excessive flatus; No abdominal pain, belching, change in bowel habits, change in stool character, coffee ground emesis, constipation, cramping, heartburn, difficulty swallowing, feeling full early, incontinent of stools, Vomiting blood/hematemesis, Blood in stool, loose stools, Black,tarry stools, nausea/dyspepsia, pain with swal (more content not included)... Normal [facility] CT CARDIAC SCORING WO IV CON TRASTon 07-26-2024 CT CARDIAC SCORING WO IV CONTRAST Interpreted By: Hari Gonzalez, STUDY: CT CARDIAC SCORING WO IV CONTRAST; 07/26/2024 9:39 am INDICATION: Signs/Symptoms:FAMILY HX OF CORONARY ARTERIOSCLEROSIS. COMPARISON: None. ACCESSION NUMBER(S): [id number] ORDERING CLINICIAN: LENNIE PATEL TECHNIQUE: Using prospective ECG gating, limited CT scan of the chest for evaluation of coronary arteries was performed without intravenous contrast. Coronary calcium scoring was performed according to the method of Agatston. FINDINGS: The score and distribution of calcium in the coronary arteries is as follows: LM: 0. LAD: 0. LCx: 0. RCA: 0. Total: 0. The visualized segments of the lungs are normally expanded. The visualized mid/lower ascending thoracic aorta measures 3.1 cm in diameter. The heart is mildly enlarged. Trace pericardial effusion is present. Mildly prominent nonspecific mediastinal nodes partially imaged. Small hiatal hernia. Mild nonspecific thickened appearance distal esophagus. Partially imaged mild gynecomastia on the left. IMPRESSION: 1. Coronary artery calcium score of 0*. 2. Small hiatal hernia with mild nonspecific thickened appearance distal esophagus. 3. Additional findings as above. *Coronary artery calcium scoring may be helpful in predicting the risk for future coronary heart disease events. According to the [employer] Clinical Expert Consensus Task Force, such testing provides important prognostic information in patients with more than one coronary heart disease risk factor. The coronary artery calcium score correlates with the annual risk of a non-fatal myocardial infarction or coronary heart disease . Coronary artery score Annual Risk 0-99 0.4% 100-399 1.3% >400 2.4% These three breakpoints correspond to lower, intermediate and high risk states for future coronary events. Such information should be used, along with appropriate clinical judgment, to make decisions regarding the intensity of risk factor management strategies to treat blood lipids and to modify other non-lipid coronary risk factors. Reference: Orlando P et al. Circulation. 2007; 115:402-426 MACRO: None Signed by: Hari Gonzalez 07/28/2024 7:43 AM Dictation workstation: [id number] [facility] Gastroenterology Visit Repor ton 07-24-2024 Gastroenterology Visit Report [facility] Gastroenterology [address] [place] [address] OFFICE VISIT Date of Service: 07/24/24 MR#: [id number] Acct: [id number] Name: CARLA FUENTES Rep #: [id number] : 2000 Provider: TITI velez Age/Sex: 23/M Location: [facility] [place] Status: Signed Intake Vital Signs 06/26/24 09:02 07/24/24 08:35 Height 5 ft 8 in 5 ft 8 in Weight: 181 lb 176 lb 8 oz BMI 27.5 26.8 BP 134/78 H 105/76 Blood Pressure Location Rt brachial Position Sitting Respiration 16 Pulse 72 77 Pulse Oximetry (%) 96 99 Oxygen Delivery Method room air Intake Visit Reasons: 1 M FU 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 Is patient in pain?: No Allergies No Known Allergies Allergy (Verified 07/24/24 08:33) Medications ???Medication ???Instructions ???Recorded ???Confirmed ???Type Lactobacillus acidophilus 10 100 mmu cells PO DAILY 04/17/24 History billion cell capsule (Probacap) multivitamin (Daily Multi-Vitamin 1 tab PO DAILY 04/17/24 07/24/24 History tablet) alprazolam 1 mg tablet 1 mg PO QHS PRN sleep 1 month #30 04/21/24 07/24/24 Rx tabs budesonide 3 mg 9 mg (3 x 3 mg) PO QDAY #90 ea 07/24/24 [facility],delayed,[facility] History Contact with and (suspected) exposure to other viral communicable diseases Nausea vomiting Bloody stools Wears contact lenses Nausea Hematochezia Melena Fecal urgency Diarrhea Acute otitis media, right Surgical History History of wisdom tooth extraction History of colonoscopy History of placement of ear tubes Social History Smoking Status: Never smoker alcohol intake: never substance use type: does not use HPI HPI Chief Complaint: F/U UC Details: CARLA FUENTES, is a 23 M who presents to the office today for OV 06/26/2024 23y/o male presents for six month follow-up of Ulcerative Colitis (proctosigmoid), initially diagnosed October 2021. He is biologic naive.. He initially presented with urgent bloody diarrhea, nocturnal frequency, generalized abdominal pain/cramping with an elevated fecal calprotectin of 1436. Colonoscopy performed October 2021 revealed rectosigmoid active colitis, descending and TI negative for active colitis. He started azathioprine October 2021 and reports an initial improvement in symptoms. However, he has continued to require prolonged steroid taper for UC flare which he reports is primarily BRBPR with BM. Colonoscopy was performed 04/21/2024 for complains of increased bleeding. This revealed moderately active (Ricardo Score 2) proctosigmoid ulcerative colitis, worsened since the last examination. Mild inflammation was found in the ileum secondary to ileitis. Rectal biopsy revealed mild active colitis, remainder of biopsies were negative for active inflammation. He started prednisone 50mg daily post procedure and started taper after being seen in ED on 05/22/2024 with c/o BLE myalgias and migraines. Due to ongoing s/e of prednisone despite lower dose, he discontinued this one week ago and started Budesonide 9mg daily. He is continuing to experience 1-2 episodes of rectal bleeding daily with BM, reporting bleeding only ever resolved with high dose prednisone. Given his persistent symptoms and steroid dependence, I believe he would be better managed on biologic therapy to induce and maintain remission. We have reviewed therapy options including Anti- TNF (Remicade, Humira, Simponi), Anti-Integrin (Entyvio), Anti-IL-23 (Sheree Arellano). I recommend gut selective therapy with Entyvio (vedolizumab) as this is effective for treatment of mod-severe UC, including proctosigmoid involvement, and has fewer systemic side effects and lower infection risk compared to TNFs. We have reviewed risks and benefits of treatment with vedolizumab, including but not limited to rare but serious side effects including infusion reaction, liver enzyme elevation and PML. He has verbalized understanding and was provided time to ask questions. I have also provided him with written literature. He will complete labs and fecal calprotectin now. I have asked him to discontinue azathioprine and continue budesonide 9mg daily. PA request will be sent to [facility] to initiate home infusions. Will plan to taper Budesonide after initiation of vedolizumab. Sigmoidoscopy 6 months after initiation of therapy to assess mucosal healing. PRESENTING SYMPTOMS: urgent watery diarrhea with blood with nocturnal urgency, generalized abdominal pain and cramping, nausea and vomiting occurring eight times a day CBC: 06/03/2024 HGB 17.1 CMP: 06/26/2024 WNL CRP: (more content not included)... Normal [facility] Calprotectin, Stoolon [address] 71 ug/g Normal 0-120 [facility] Comment on above: Result Comment: Conc entration Interpretation Follow-Up < 5 - 50 ug/g Normal None >50 -120 ug/g Borderline Re-evaluate in 4-6 weeks >120 ug/g Abnormal Repeat as clinically indicated Performed at: [facility] [id number] Grinding Machine Operator: Ran Mathews MD, Phone: [phone] Performed By: #### L 801.1541, L501.6710, L101.9900, L801.1543 #### [facility] [address] [place], [place], [id number] V-Zoster IgG (Immunity)on V ZOSTER IgG Normal [facility] Comment on above: Result Comment: RESU LT: NON REACTIVE Please note reference interval change A Reactive result is considered evidence of immunity to VZV. Reactive indicates that VZV IgG was detected consistent with previous infection and/or vaccination. A Non Reactive result indicates that VZV IgG was not detected suggesting that immunity has not been acquired. Performed By: #### L 801.1541, L501.6710, L101.9900, L801.1543 #### [facility] [address] [place], [place], [address] Hepatitis B Core Ab Totalon 07-01-2024 HEP B CORE,TOT Negative Normal Negative [facility] Comment on above: Result Comment: Perf ormed at: [facility] [id number] Grinding Machine Operator: Carlos Hinojosa PhD, Phone: [phone] Performed By: #### L 801.1541, L501.6710, L101.9900, L801.1543 #### [facility] [address] [place], [place], [address] Quantiferon TB-Gold+on 07-01 QFT MITOGEN ADÁN > 10.00 Normal . [facility] Comment on above: Performed By: #### L 801.1541, L501.6710, L101.9900, L801.1543 #### [facility] [address] [place], [place], [address] QFT NIL VALUE 0.02 IU/mL Normal . [facility] Comment on above: Performed By: #### L 801.1541, L501.6710, L101.9900, L801.1543 #### [facility] [address] [place], [place], [id number] (740 QFT TB GOLD+ Comment Normal . [facility] Comment on above: Result Comment: Daniel tiFERON-TB Gold Plus is a qualitative indirect test for M tuberculosis infection (including disease) and is intended for use in conjunction with risk assessment, radiography, and other medical and diagnostic evaluations. The QuantiFERON-TB Gold Plus result is determined by subtracting the Nil value from either TB antigen (Ag) value. The Mitogen tube serves as a control for the test. Performed By: #### L 801.1541, L501.6710, L101.9900, L801.1543 #### [facility] [address] [place], [place], [address] QFT TB POS CRIT Negative Normal Negative [facility] Comment on above: Result Comment: No r esponse to M tuberculosis antigens detected. Infection with M tuberculosis is unlikely, but high risk individuals should be considered for additional testing (ATS/IDSA/CDC Clinical Practice Guidelines, 2017). The reference range is an Antigen minus Nil result of <0.35 IU/mL. The specimen received for QuantiFERON testing was incubated by the ordering institution. Specific procedures outlined in our Directory of Services and in the package insert for the QuantiFERON Gold (In Tube) test must be followed to enable for proper stimulation of cells for the production of interferon gamma. Chemiluminescence immunoassay methodology Performed By: #### L 801.1541, L501.6710, L101.9900, L801.1543 #### [facility] [address] [place], [place], [address] (212 QFT TB1+ AG ADÁN 0.06 IU/mL Normal . [facility] Comment on above: Performed By: #### L 801.1541, L501.6710, L101.9900, L801.1543 #### [facility] [address] [place], [place], [address] QFT TB2+ AG ADÁN 0.02 IU/mL Normal . [facility] Comment on above: Performed By: #### L 801.1541, L501.6710, L101.9900, L801.1543 #### [facility] [address] [place], [place], [id number] Calprotectin stoolOrdered By : Brianne Baugh on 06-27-2024 Stool Calprotectin 71 ug/g 0-120 [facility] Comment on above: Concentration Interp retation Follow-Up< 5 - 50 ug/g Normal None>50 -120 ug/g Borderline Re-evaluate in 4-6 weeks >120 ug/g Abnormal Repeat as clinically indicatedPerformed at: - [facility] [address] [id number] Director: Ran Mathews MD, Phone: [phone] Magnesiumon 06-27-2024 Magnesium [Mass/Vol] 2.3 mg/dL Normal 1.6-2.6 [facility] Comment on above: Order Comment: Comme nts: [id number] SODIAM HEP TUBE RF TPMT enzymatic activity Performed By: #### L 801.1541, L501.6710, L101.9900, L801.1543 #### [facility] [address] [place], [place], [address] Albumin to globulin ratioOrd ered By: Brianne Baugh on 06-26-2024 Albumin/Globulin [Mass ratio] 1.0 {ratio} 0.9-2.4 [facility] Bilirubin, totalOrdered By: Brianne Baugh on 06-26-2024 Bilirubin [Mass/Vol] 0.50 mg/dL 0.20-1.00 [facility] Comment on above: For patients on eltr ombopag therapy, use of Dimension Douglas TBIL is not recommended. Blood urea nitrogen (BUN)/cr eatinine ratioOrdered By: Brianne Baugh on 06-26-2024 Urea nitrogen/Creatinine [Mass ratio] 15.2 mg/mg 10-20 [facility] Carbon dioxide measurementOr dered By: Brianne Baugh on 06-26-2024 CO2 [Moles/Vol] 27.0 mmol/L 21.0-32.0 [facility] Chloride measurementOrdered By: Brianne Baugh on 06-26-2024 Chloride [Moles/Vol] 105 mmol/L 98-107 [facility] Comprehensive Metabolic Prof ilon 06-26-2024 Albumin [Mass/Vol] 3.7 g/dL Normal 3.2-5.0 [facility] Comment on above: Performed By: #### L 801.1541, L501.6710, L101.9900, L801.1543 #### [facility] [address] [place], [address] Albumin/Globulin [Mass ratio] 1.0 {ratio} Normal 0.9-2.4 [facility] Comment on above: Performed By: #### L 801.1541, L501.6710, L101.9900, L801.1543 #### [facility] [address] [place], [address] ALK P 78 U/L Normal 45-117 [facility] Comment on above: Performed By: #### L 801.1541, L501.6710, L101.9900, L801.1543 #### [facility] [address] [place], [address] ALT [Catalytic activity/Vol] 24 U/L Normal 16-61 [facility] Comment on above: Performed By: #### L 801.1541, L501.6710, L101.9900, L801.1543 #### [facility] [address] [place], [address] AST [Catalytic activity/Vol] 12 U/L Low 15-37 [facility] Comment on above: Performed By: #### L 801.1541, L501.6710, L101.9900, L801.1543 #### [facility] [address] [place], [address] Bilirubin [Mass/Vol] 0.50 mg/dL Normal 0.20-1.00 [facility] Comment on above: Result Comment: For patients on eltrombopag therapy, use of Dimension Douglas TBIL is not recommended. Performed By: #### L 801.1541, L501.6710, L101.9900, L801.1543 #### [facility] [address] [place], [address] BUN/CRE 15.2 RATIO Normal 10-20 [facility] Comment on above: Performed By: #### L 801.1541, L501.6710, L101.9900, L801.1543 #### [facility] [address] [place], [address] CA,Total 9.6 mg/dL Normal 8.5-10.1 [facility] Comment on above: Performed By: #### L 801.1541, L501.6710, L101.9900, L801.1543 #### [facility] [address] [place], [address] Chloride [Moles/Vol] 105 mmol/L Normal 98-107 [facility] Comment on above: Performed By: #### L 801.1541, L501.6710, L101.9900, L801.1543 #### [facility] [address] [place], [address] CO2 [Moles/Vol] 27.0 mmol/L Normal 21.0-32.0 [facility] Comment on above: Performed By: #### L 801.1541, L501.6710, L101.9900, L801.1543 #### [facility] [address] [place], [address] Creatinine [Mass/Vol] 0.99 mg/dL Normal 0.70-1.30 [facility] Comment on above: Result Comment: The validity of the calculated GFR GFRAA in patients over 70 years has not been determined. Clinical correlation is essential. Performed By: #### L 801.1541, L501.6710, L101.9900, L801.1543 #### [facility] [address] [place], [address] EST GFR - AA 122 mL/min Normal >60 [facility] Comment on above: Result Comment: Afri can Pakistani GFR Calc Performed By: #### L 801.1541, L501.6710, L101.9900, L801.1543 #### [facility] [address] [place], [address] GAP 5 Normal 5-15 [facility] Comment on above: Performed By: #### L 801.1541, L501.6710, L101.9900, L801.1543 #### [facility] [address] [place], [address] GFR/1.73 sq M.predicted among non-blacks MDRD (S/P/Bld) [Vol rate/Area] 101 mL/min/{1.73_m2} Normal >60 [facility] Comment on above: Result Comment: Non- GFR Calc Performed By: #### L 801.1541, L501.6710, L101.9900, L801.1543 #### [facility] [address] [place], [address] Globulin (S) [Mass/Vol] 3.7 g/dL Normal 2.2-4.2 [facility] Comment on above: Performed By: #### L 801.1541, L501.6710, L101.9900, L801.1543 #### [facility] [address] [place], [address] Glucose [Mass/Vol] 95 mg/dL Normal 74-106 [facility] Comment on above: Performed By: #### L 801.1541, L501.6710, L101.9900, L801.1543 #### [facility] [address] [place], [address] Potassium [Moles/Vol] 4.0 mmol/L Normal 3.5-5.1 [facility] Comment on above: Performed By: #### L 801.1541, L501.6710, L101.9900, L801.1543 #### [facility] [address] [place], [address] Sodium [Moles/Vol] 137 mmol/L Normal 136-145 [facility] Comment on above: Performed By: #### L 801.1541, L501.6710, L101.9900, L801.1543 #### [facility] [address] [place], [address] T PROT 7.4 g/dL Normal 6.4-8.2 [facility] Comment on above: Performed By: #### L 801.1541, L501.6710, L101.9900, L801.1543 #### [facility] [address] [place], [address] Urea nitrogen [Mass/Vol] 15 mg/dL Normal 7-18 [facility] Comment on above: Performed By: #### L 801.1541, L501.6710, L101.9900, L801.1543 #### [facility] [address] [place], [address] Estimated glomerular filtrat ion rate (GFR) AmericanOrdered By: Brianne Baugh on 06-26-2024 Estimated GFR (MDRD) Amer 122 mL/min >60 [facility] Comment on above: GFR Calc Gastroenterology Visit Repor ton 06-26-2024 Gastroenterology Visit Report [facility] [address] [place] [address] OFFICE VISIT Date of Service: 06/26/24 MR#: [id number] Acct: [id number] Name: CARLA FUENTES Rep #: [id number] : 2000 Provider: TITI velez Age/Sex: 23/M Location: [facility] [place] Status: Signed Intake Vital Signs 10/27/21 09:14 05/22/24 16:58 06/26/24 09:02 Height 5 ft 8 in 5 ft 8 in 5 ft 8 in Weight: 181 lb BMI 27.5 BP 134/78 H Blood Pressure Location Rt brachial Position Sitting Pulse 72 Pulse Oximetry (%) 96 Oxygen Delivery Method room air Intake Visit Reasons: 6 M FU Chief Complaint: F/U UC Allergies No Known Allergies Allergy (Verified 06/26/24 09:04) Medications ???Medication ???Instructions ???Recorded ???Confirmed ???Type azathioprine 50 mg tablet 150 mg (3 x 50 mg) PO DAILY 3 /01/1806/26/24 Rx months #270 tabs Lactobacillus acidophilus 10 100 mmu cells PO DAILY 04/17/24 History billion cell capsule (Probacap) multivitamin (Daily Multi-Vitamin 1 tab PO DAILY 04/17/24 06/26/24 History tablet) alprazolam 1 mg tablet 1 mg PO QHS PRN sleep 1 month #30 04/21/24 06/26/24 Rx tabs budesonide 3 mg 9 mg (3 x 3 mg) PO QDAY #90 ea 06/26/24 Rx [facility],delayed,[facility] Medical History Contact with and (suspected) exposure to other viral communicable diseases Nausea vomiting Bloody stools Wears contact lenses Nausea Hematochezia Melena Fecal urgency Diarrhea Acute otitis media, right Surgical History History of wisdom tooth extraction History of colonoscopy History of placement of ear tubes Social History Smoking Status: Never smoker alcohol intake: never substance use type: does not use HPI HPI Chief Complaint: F/U UC Details: CARLA FUENTES, is a 23 M who presents to the office today for 23y/o male presents for six month follow-up of Ulcerative Colitis, initially diagnosed October 2021 on azathioprine 150mg daily. STEROIDS 06/20/2024 BUDESONIDE 9mg QD 05/22/2024 Will begin 30mg tomorrow for a week and then 20 for a week, 10 for a week, and then stop. Once the taper is done Dr Monahan would like to switch pt's Azathioprine to a biologic for his UC. Informed pt per Dr Monahan to take Ibuprofen as needed and drink Gatorade. -----PREDNISONE 40mg QD started 04/28/2024 04/05/2022 pred 50mg QD --> start prednisone 20mg TID with taper in two months to BID 09/02/2021 pred 50mg QD PRESENTING SYMPTOMS: urgent watery diarrhea with blood with nocturnal urgency, generalized abdominal pain and cramping, nausea and vomiting occurring eight times a day CBC: 06/03/2024 HGB 17.1 CMP: CRP: 06/03/2024 normal VITAMIN B12: 06/03/2024 normal VITAMIN LOW 23 Thiopurine Metabolite: 02/12/2024 6-TGN - 276 6-MMPN - 623 TPMT 20.8 QUANTIFERON: 10/30/2022 negative HBVsAb: HBVsA10/01/2021 negative HBV Core Total Ab: HCV: 10/01/2021 negative Fecal Calprotectin: 06/01/2022 normal 09/23/2021 1436 MRCP: 05/30/2022 NORMAL SB imaging: COLON: 04/21/2024 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 Mild inflammation was found in the ileum secondary to ileitis. Rectal biopsy revealed mild active colitis, remainder of biopsies were negative for active inflammation. COLON: 10/27/2021 TI biopsy negative. Descending - focal active colitis. Sigmoid and Rectum with active colitis. MEDS: azathioprine 150mg QD, probiotic QD, Budesonide 9mg QD, OTC magnesium and potassium supplement BIOLOGICS: naive VACCINES COVID: denies Varicella Vaccine: likely vaccinated as a child Shingles Vaccine: denies Hepatitis B Vaccine: likely vaccinated as a child Pneumonia Vaccine: denies Influenza Vaccine: denies IBD SYMPTOMS: Bowel movements are: 1x a day, starts formed to loose, 1x a day is his normal Blood noted in stools: yes, he does have episodes of just passing blood and mucus w/o stool Bowel movement urgency present: denies Stool incontinence: denies Nocturnal BM's: denies Abdominal pain: intermittent, dependent on diet Rectal pain: denies ROS: Fever: denies Night Sweats: denies Visual changes: denies Mouth sores: denies Joint pain: - aching in his hands and weakness for the past year - - aching BLE pain, redness, pain with walking x1 week (resolved) was seen in ED 04/2024 (AUSTYN recently negative) Skin rashes/Lesions: denies Weight changes: denies Smoking status: denies NSAID use: denies QOL: - he is not missing work because of symptoms Reports he started an OTC Magnesium and Potassium supplement 1 month (more content not included)... Normal [facility] Glomerular filtration rate ( GFR) estimationOrdered By: Brianne Baugh on 06-26-2024 Estimated GFR (MDRD) Non-Af Amer 101 mL/min >60 [facility] Comment on above: Non- GFR Calc Glucose measurementOrdered B y: Brianne Baugh on 06-26-2024 Glucose [Mass/Vol] 95 mg/dL 74-106 [facility] HBV core Ab Ql (S)Ordered By : Brianne Baugh on 06-26-2024 Hepatitis B Core Total Antibody Negative Negative [facility] Comment on above: Performed at: - [facility] [id number] Director: Carlos Hinojosa PhD, Phone: [phone] HBV surface IgG Ql (S)Ordere d By: Brianne Baugh on 06-26-2024 Hepatitis B Surface Antibody Non-Reactive [facility] Comment on above: Non Reactive: Incons istent with immunity less than <10 mIU/mL Reactive: Consistent with immunity greater than or equal to 10 mIU/mL Hepatitis B Surface Antibody on 06-26-2024 HEP B Surf Ab Non-Reactive Normal [facility] Comment on above: Order Comment: Reaso n for Exam: UC Result Comment: Non Reactive: Inconsistent with immunity less than <10 mIU/mL Reactive: Consistent with immunity greater than or equal to 10 mIU/mL Performed By: #### L 801.1541, L501.6710, L101.9900, L801.1543 #### [facility] [address] [place], [place], [address] Hepatitis B Surface Antigeno n 06-26-2024 HEP B Surf Ag Non-Reactive Normal Nonreactive [facility] Comment on above: Order Comment: Reaso n for Exam: UC Performed By: #### L 801.1541, L501.6710, L101.9900, L801.1543 #### [facility] [address] [place], [place], [address] Hepatitis B surface antigen detectionOrdered By: Brianne Baugh on 06-26-2024 Hepatitis B Surface Antigen Non-Reactive Nonreactive [facility] Laboratory - Chemistry and C hemistry - challengeOrdered By: Brianne Baugh on 06-26-2024 AST [Catalytic activity/Vol] 12 U/L Low 15-37 [facility] M. tuberculosis tuberculin s brett IFN-g Ql (Bld)Ordered By: Brianne Baugh on 06-26-2024 TB Test (QFT) Antigen 1 0.06 IU/mL . [facility] Magnesium measurementOrdered By: Brianne Baugh on 06-26-2024 Magnesium [Mass/Vol] 2.3 mg/dL 1.6-2.6 [facility] Potassium measurementOrdered By: Brianne Baugh on 06-26-2024 Potassium [Moles/Vol] 4.0 mmol/L 3.5-5.1 [facility] Quantiferon-TB Gold Plus linda tOrdered By: Brianne Baugh on 06-26-2024 TB Test (QFT) Comment . [facility] Comment on above: QuantiFERON-TB Gold Plus is a qualitative indirect test forM tuberculosis infection (including disease) and isintended for use in conjunction with risk assessment,radiography, and other medical and diagnostic evaluations.The QuantiFERON-TB Gold Plus result is determined bysubtracting the Nil value from either TB antigen (Ag)value. The Mitogen tube serves as a control for the test. TB Test (QFT) Antigen 2 0.02 IU/mL . [facility] TB Test (QFT) Mitogen > 10.00 IU/mL . [facility] TB Test (QFT) Nil 0.02 IU/mL . [facility] TB Test (QFT) Positive Criteria Negative Negative [facility] Comment on above: No response to M tub erculosis antigens detected.Infection with M tuberculosis is unlikely, but high riskindividuals should be considered for additional testing(ATS/IDSA/CDC Clinical Practice Guidelines, 2017). Thereference range is an Antigen minus Nil result of <0.35IU/mL.The specimen received for QuantiFERON testing was incubatedby the ordering institution. Specific procedures outlinedin our Directory of Services and in the package insert forthe QuantiFERON Gold (In Tube) test must be followed toenable for proper stimulation of cells for the productionof interferon gamma. Chemiluminescence immunoassaymethodology Serum anion gap measurementO rdered By: Brianne Baugh on 06-26-2024 Anion gap [Moles/Vol] 5 mmol/L 5-15 [facility] Serum globulin measurementOr dered By: Brianne Baugh on 06-26-2024 Globulin (S) [Mass/Vol] 3.7 g/dL 2.2-4.2 [facility] Serum or plasma alanine bergman otransferase (ALT) measurementOrdered By: Brianne Baugh on 06-26-2024 ALT [Catalytic activity/Vol] 24 U/L 16-61 [facility] Serum or plasma albumin charlee urement (mass/volume)Ordered By: Brianne Baugh on 06-26-2024 Albumin [Mass/Vol] 3.7 g/dL 3.2-5.0 [facility] Serum or plasma alkaline sergo sphatase measurementOrdered By: Brianne Baugh on 06-26-2024 ALP [Catalytic activity/Vol] 78 U/L 45-117 [facility] Serum or plasma calcium charlee urement (mass/volume)Ordered By: Brianne Baugh on 06-26-2024 Calcium [Mass/Vol] 9.6 mg/dL 8.5-10.1 [facility] Serum or plasma creatinine m easurement (mass/volume)Ordered By: Brianne Baugh on 06-26-2024 Creatinine [Mass/Vol] 0.99 mg/dL 0.70-1.30 [facility] Comment on above: The validity of the calculated GFR & GFRAA in patients over 70 years has not been determined. Clinical correlation is essential. Serum or plasma urea nitroge n measurement (mass/volume)Ordered By: Brianne Baugh on 06-26-2024 Urea nitrogen [Mass/Vol] 15 mg/dL 7-18 [facility] Sodium levelOrdered By: Heidy Baugh on 06-26-2024 Sodium [Moles/Vol] 137 mmol/L 136-145 [facility] Total proteinOrdered By: Erma Baugh on 06-26-2024 Protein [Mass/Vol] 7.4 g/dL 6.4-8.2 [facility] VZV IgG IA Qn (S)Ordered By: Brianne Baugh on 06-26-2024 Varicella-Zoster IgG Antibody See comment [facility] Comment on above: RESULT: NON REACTIVE Please note reference interval changeA Reactive result is considered evidence of immunity toVZV. Reactive indicates that VZV IgG was detectedconsistent with previous infection and/or vaccination.A Non Reactive result indicates that VZV IgG was notdetected suggesting that immunity has not been acquired. High density lipoprotein (HD L) measurementOrdered By: Lennie Patel on 06-19-2024 Cholesterol in HDL [Mass/Vol] 53 mg/dL >40 [facility] Comment on above: The drugs N-Acetylcy steine and Metamizole may falsely depress this assay. Reference Range HDL <40 mg/dL Low HDL Cholesterol HDL >or= 60 mg/dL High HDL Cholesterol Lipid Profileon 06-19-2024 Cholesterol [Mass/Vol] 169 mg/dL Normal 200 [facility] Comment on above: Order Comment: Order Date: 06/18/24Order Info: [id number] - LIPID Result Comment: <200 mg/dL Desirable 200-240 mg/dL Borderline >240 mg/dL High Risk Performed By: #### L 801.1541, L501.6710, L101.9900, L801.1543 #### [facility] [address] [place], [address] Cholesterol in HDL [Mass/Vol] 53 mg/dL Normal [facility] Comment on above: Order Comment: Order Date: 06/18/24Order Info: [id number] - LIPID Result Comment: The drugs N-Acetylcysteine and Metamizole may falsely depress this assay. Reference Range HDL <40 mg/dL Low HDL Cholesterol HDL >or= 60 mg/dL High HDL Cholesterol Performed By: #### L 801.1541, L501.6710, L101.9900, L801.1543 #### [facility] [address] [place], [address] Cholesterol in LDL [Mass/Vol] 97 mg/dL Normal 0-130 [facility] Comment on above: Order Comment: Order Date: 06/18/24Order Info: [id number] - LIPID Performed By: #### L 801.1541, L501.6710, L101.9900, L801.1543 #### [facility] [address] [place], [address] Cholesterol in VLDL [Mass/Vol] 19 mg/dL Normal 5-40 [facility] Comment on above: Order Comment: Order Date: 06/18/24Order Info: [id number] - LIPID Performed By: #### L 801.1541, L501.6710, L101.9900, L801.1543 #### [facility] [address] [place], [address] Triglyceride [Mass/Vol] 93 mg/dL Normal [facility] Comment on above: Order Comment: Order Date: 06/18/24Order Info: [id number] - LIPID Result Comment: The drugs N-Acetylcysteine and Metamizole may falsely depress this assay. Serum Triglycerides Reference Interval Normal <150 mg/dL Borderline high 150 - 199 mg/dL High 200 - 499 mg/dL Very High > or = 500 mg/dL Performed By: #### L 801.1541, L501.6710, L101.9900, L801.1543 #### [facility] [address] [place], [place], [address] Low density lipoprotein (LDL ) cholesterol measurementOrdered By: Lennie Patel on 06-19-2024 Cholesterol in LDL [Mass/Vol] 97 mg/dL 0-130 [facility] Serum or plasma cholesterol measurement (mass/volume)Ordered By: Lennie Patel on 06-19-2024 Cholesterol [Mass/Vol] 169 mg/dL <200 [facility] Comment on above: <200 mg/dL Desirable 200-240 mg/dL Borderline >240 mg/dL High Risk Triglycerides measurementOrd ered By: Lennie Patel on 06-19-2024 Triglyceride [Mass/Vol] 93 mg/dL <199 [facility] Comment on above: The drugs N-Acetylcy steine and Metamizole may falsely depress this assay.Serum Triglycerides Reference Interval Normal <150 mg/dL Borderline high 150 - 199 mg/dL High 200 - 499 mg/dL Very High > or = 500 mg/dL Very low density lipoprotein (VLDL) cholesterol measurementOrdered By: Lennie Patel on 06-19-2024 VLDL Cholesterol 19 mg/dL 5-40 [facility] ANTINUCLEAR ANTIBODIES DIREC Ton 06-04-2024 AUSTYN,DIRECT Negative Normal Negative [facility] Comment on above: Order Comment: Order Date: 05/29/24Order Info: [id number] - AUSTYN Result Comment: Perf ormed at: - [facility] [address] [id number] Grinding Machine Operator: Carlos Hinojosa PhD, Phone: [phone] Performed By: #### L 801.1541, L501.6710, L101.9900, L801.1543 #### [facility] [address] [place], [place], [id number]-Frwnafp DOrdered By: Srinivas Patel on 06-03-2024 Vitamin D 25-Hydroxy 23.1 ng/mL [facility] Comment on above: Vitamin D 25(OH) Sta tus Range Deficiency <20 ng/mL (50nmol/L) Insufficiency 20 - 30 ng/mL (50 - 75 nmol/L) Sufficiency 30 - 100 ng/mL (75 - 250 nmol/L) Toxicity >100 ng/mL (>250 nmol/L) AUSTYN serumOrdered By: Iggy Patel on 06-03-2024 Anti-Nuclear Antibody Screen Negative Negative [facility] Comment on above: Performed at: [address] [id number] Director: Carlos Hinojosa PhD, Phone: [phone] Absolute neutrophil countOrd ered By: Lennie Patel on 06-03-2024 Neutrophils (Bld) [#/Vol] 8.1 10*3/uL High 2.0-7.7 [facility] Basophil percentageOrdered B y: Lennie Patel on 06-03-2024 Basophils/100 WBC (Bld) 0.5 % 0-1 [facility] C-reactive protein measureme nt by high sensitivity methodOrdered By: Lennie Patel on 06-03-2024 C-Reactive Protein Extended Range < 2.90 mg/L 0.0-3.0 [facility] Comment on above: C-Reactive Protein ( CRP) provides useful information for thediagnosis, therapy and monitoring of inflammatory processesand associated diseases. For the evaluation of Relative Riskfor Cardiovascular Disease, a High Sensitivity CRP (HSCRP)should be ordered. CBC W/Diff, Automatedon Absolute Lymph 1.52 X10 3/uL Normal 0.83-4.51 [facility] Comment on above: Order Comment: Order Date: 05/29/24 Order Info: 0184-1 - CBCD Order Info: [id number] - SED Performed By: #### L 101.9900, L503.0105, L501.1400, L501.6710, L505.7010, L506.1000, L100.0100, L501.9520, L503.6150, L3100.5475, L503.6550, L509.3000 #### [facility] [address] [place], [address] Absolute Neut 8.1 X10 3/uL High 2.0-7.7 [facility] Comment on above: Order Comment: Order Date: 05/29/24 Order Info: 018- - CBCD Order Info: [id number] - SED Performed By: #### L 101.9900, L503.0105, L501.1400, L501.6710, L505.7010, L506.1000, L100.0100, L501.9520, L503.6150, L3100.5475, L503.6550, L509.3000 #### [facility] [address] [place], [address] Basophils/100 WBC (Bld) 0.5 % Normal 0-1 [facility] Comment on above: Order Comment: Order Date: 05/29/24 Order Info: [id number] - CBCD Order Info: [id number] - SED Performed By: #### L 101.9900, L503.0105, L501.1400, L501.6710, L505.7010, L506.1000, L100.0100, L501.9520, L503.6150, L3100.5475, L503.6550, L509.3000 #### [facility] [address] [place], [address] Eosinophils/100 WBC (Bld) 0.4 % Normal 0-5 [facility] Comment on above: Order Comment: Order Date: 05/29/24 Order Info: [id number] - CBCD Order Info: [id number] - SED Performed By: #### L 101.9900, L503.0105, L501.1400, L501.6710, L505.7010, L506.1000, L100.0100, L501.9520, L503.6150, L3100.5475, L503.6550, L509.3000 #### [facility] [address] [place], [address] Erythrocyte distribution width (RBC) [Ratio] 13.6 % Normal 11.6-14.6 [facility] Comment on above: Order Comment: Order Date: 05/29/24 Order Info: 183-05 - CBCD Order Info: [id number] - SED Performed By: #### L 101.9900, L503.0105, L501.1400, L501.6710, L505.7010, L506.1000, L100.0100, L501.9520, L503.6150, L3100.5475, L503.6550, L509.3000 #### [facility] [address] [place], [place], [id number] (355) Hematocrit (Bld) [Volume fraction] 51.3 % Normal 40-54 [facility] Comment on above: Order Comment: Order Date: 05/29/24 Order Info: 183-05 - CBCD Order Info: [id number] - SED Performed By: #### L 101.9900, L503.0105, L501.1400, L501.6710, L505.7010, L506.1000, L100.0100, L501.9520, L503.6150, L3100.5475, L503.6550, L509.3000 #### [facility] [address] [place], [place], [id number] (468) Hemoglobin (Bld) [Mass/Vol] 17.1 g/dL High 13.0-16.5 [facility] Comment on above: Order Comment: Order Date: 05/29/24 Order Info: 183-05 - CBCD Order Info: [id number] - SED Performed By: #### L 101.9900, L503.0105, L501.1400, L501.6710, L505.7010, L506.1000, L100.0100, L501.9520, L503.6150, L3100.5475, L503.6550, L509.3000 #### [facility] [address] [place], [place], [id number] (584) IG% 2.400 High 0.0-0.9 [facility] Comment on above: Order Comment: Order Date: 05/29/24 Order Info: 0184- - CBCD Order Info: [id number] - SED Result Comment: IG% - Immature Granulocytes (promyelocytes, myelocytes and metamyelocytes) > 1% indicates that a LEFT SHIFT is Present. Performed By: #### L 101.9900, L503.0105, L501.1400, L501.6710, L505.7010, L506.1000, L100.0100, L501.9520, L503.6150, L3100.5475, L503.6550, L509.3000 #### [facility] [address] [place], [address] Lymphocytes/100 WBC (Bld) 14.4 % Low 19-41 [facility] Comment on above: Order Comment: Order Date: 05/29/24 Order Info: 01808-26 - CBCD Order Info: 97560-7 - SED Performed By: #### L 101.9900, L503.0105, L501.1400, L501.6710, L505.7010, L506.1000, L100.0100, L501.9520, L503.6150, L3100.5475, L503.6550, L509.3000 #### [facility] [address] [place], [place], [id number] MCH (RBC) [Entitic mass] 32.9 pg High 27.0-32.0 [facility] Comment on above: Order Comment: Order Date: 05/29/24 Order Info: 0184- - CBCD Order Info: [id number] - SED Performed By: #### L 101.9900, L503.0105, L501.1400, L501.6710, L505.7010, L506.1000, L100.0100, L501.9520, L503.6150, L3100.5475, L503.6550, L509.3000 #### [facility] [address] [place], [address] MCHC (RBC) [Mass/Vol] 33.3 g/dL Normal 32-36 [facility] Comment on above: Order Comment: Order Date: 05/29/24 Order Info: 018- - CBCD Order Info: 11559-9 - SED Performed By: #### L 101.9900, L503.0105, L501.1400, L501.6710, L505.7010, L506.1000, L100.0100, L501.9520, L503.6150, L3100.5475, L503.6550, L509.3000 #### [facility] [address] [place], [place], [phone] ([phone] MCV (RBC) [Entitic vol] 98.7 fL High 80-94 [facility] Comment on above: Order Comment: Order Date: 05/29/24 Order Info: 018- - CBCD Order Info: 98795-0 - SED Performed By: #### L 101.9900, L503.0105, L501.1400, L501.6710, L505.7010, L506.1000, L100.0100, L501.9520, L503.6150, L3100.5475, L503.6550, L509.3000 #### [facility] [address] [place], [address] Monocytes/100 WBC (Bld) 4.9 % Normal 0-10 [facility] Comment on above: Order Comment: Order Date: 05/29/24 Order Info: 0184- - CBCD Order Info: 10578-2 - SED Performed By: #### L 101.9900, L503.0105, L501.1400, L501.6710, L505.7010, L506.1000, L100.0100, L501.9520, L503.6150, L3100.5475, L503.6550, L509.3000 #### [facility] [address] [place], [address] Neutrophils/100 WBC (Bld) 77.4 % High 47-70 [facility] Comment on above: Order Comment: Order Date: 05/29/24 Order Info: 0184- - CBCD Order Info: [id number] - SED Performed By: #### L 101.9900, L503.0105, L501.1400, L501.6710, L505.7010, L506.1000, L100.0100, L501.9520, L503.6150, L3100.5475, L503.6550, L509.3000 #### [facility] [address] [place], [place], [phone] (670) Nucleated RBC (Bld) [#/Vol] 0 10*3/uL Normal 0-5 [facility] Comment on above: Order Comment: Order Date: 05/29/24 Order Info: 018- - CBCD Order Info: [id number] - SED Performed By: #### L 101.9900, L503.0105, L501.1400, L501.6710, L505.7010, L506.1000, L100.0100, L501.9520, L503.6150, L3100.5475, L503.6550, L509.3000 #### [facility] [address] [place], [place], [phone] (070) Platelet mean volume (Bld) [Entitic vol] 8.9 fL Normal 6.2-12.0 [facility] Comment on above: Order Comment: Order Date: 05/29/24 Order Info: 0184- - CBCD Order Info: [id number] - SED Performed By: #### L 101.9900, L503.0105, L501.1400, L501.6710, L505.7010, L506.1000, L100.0100, L501.9520, L503.6150, L3100.5475, L503.6550, L509.3000 #### [facility] [address] [place], [place], [id number] (929) Platelets (Bld) [#/Vol] 213 10*3/uL Normal 150-450 [facility] Comment on above: Order Comment: Order Date: 05/29/24 Order Info: 0184-1 - CBCD Order Info: 91923-5 - SED Performed By: #### L 101.9900, L503.0105, L501.1400, L501.6710, L505.7010, L506.1000, L100.0100, L501.9520, L503.6150, L3100.5475, L503.6550, L509.3000 #### [facility] [address] [place], [address] RBC (Bld) [#/Vol] 5.20 10*6/uL Normal 4.6-6.2 [facility] Comment on above: Order Comment: Order Date: 05/29/24 Order Info: 0184- - CBCD Order Info: [id number] - SED Performed By: #### L 101.9900, L503.0105, L501.1400, L501.6710, L505.7010, L506.1000, L100.0100, L501.9520, L503.6150, L3100.5475, L503.6550, L509.3000 #### [facility] [address] [place], [address] RDW SD 50.3 fl High 35.1-43.9 [facility] Comment on above: Order Comment: Order Date: 05/29/24 Order Info: 0184-1 - CBCD Order Info: [id number] - SED Performed By: #### L 101.9900, L503.0105, L501.1400, L501.6710, L505.7010, L506.1000, L100.0100, L501.9520, L503.6150, L3100.5475, L503.6550, L509.3000 #### [facility] [address] [place], [address] WBC (Bld) [#/Vol] 10.5 10*3/uL Normal 4.4-11.0 [facility] Comment on above: Order Comment: Order Date: 05/29/24 Order Info: 0184-1 - CBCD Order Info: 04423-9 - SED Performed By: #### L 101.9900, L503.0105, L501.1400, L501.6710, L505.7010, L506.1000, L100.0100, L501.9520, L503.6150, L3100.5475, L503.6550, L509.3000 #### [facility] [address] [place], [address] CRPon 06-03-2024 C-REACTIVE PROT < 2.90 Normal 0.0-3.0 [facility] Comment on above: Order Comment: Order Date: 05/29/24Order Info: 3084-1 - URICOrder Info: [id number] - CRPOrder Info: [id number] - TSHOrder Info: [id number] - FEOrder Info: [id number] - FEROrder Info: [id number] - RA Result Comment: C-Re active Protein (CRP) provides useful information for the diagnosis, therapy and monitoring of inflammatory processes and associated diseases. For the evaluation of Relative Risk for Cardiovascular Disease, a High Sensitivity CRP (HSCRP) should be ordered. Performed By: #### L 801.1541, L501.6710, L101.9900, L801.1543 #### [facility] [address] [place], [place], [address] Eosinophil percentageOrdered By: Lennie Patel on 06-03-2024 Eosinophils/100 WBC (Bld) 0.4 % 0-5 [facility] Erythrocyte Sed Rateon 06-03 SED RATE 6 mm/hr Normal 0-20 [facility] Comment on above: Order Comment: Order Date: 05/29/24 Order Info: 0184-1 - CBCD Order Info: [id number] - SED Performed By: #### L 101.9900, L503.0105, L501.1400, L501.6710, L505.7010, L506.1000, L100.0100, L501.9520, L503.6150, L3100.5475, L503.6550, L509.3000 #### [facility] [address] [place], [place], [address] Erythrocyte distribution wid th ratioOrdered By: Lennie Patel on 06-03-2024 Erythrocyte distribution width (RBC) [Ratio] 13.6 % 11.6-14.6 [facility] Erythrocyte distribution wid th standard deviationOrdered By: Lennie Patel on 06-03-2024 Erythrocyte distribution width (RBC) [Entitic vol] 50.3 fL High 35.1-43.9 [facility] Erythrocyte sedimentation ra teOrdered By: Lennie Patel on 06-03-2024 ESR (Bld) [Velocity] 6 mm/h 0-20 [facility] Ferritinon 06-03-2024 Ferritin [Mass/Vol] 53 ng/mL Normal 26-388 [facility] Comment on above: Order Comment: Order Date: 05/29/24Order Info: 3084-1 - URICOrder Info: [id number] - CRPOrder Info: 3016-3 - TSHOrder Info: [id number] - FEOrder Info: [id number] - FEROrder Info: [id number] - RA Performed By: #### L 801.1541, L501.6710, L101.9900, L801.1543 #### [facility] [address] [place], [place], [id number] Ferritin measurementOrdered By: Lennie Patel on 06-03-2024 Ferritin [Mass/Vol] 53 ng/mL 26-388 [facility] Hematocrit Auto (Bld) [Volum e fraction]Ordered By: Lennie Patel on 06-03-2024 Hematocrit (Bld) [Volume fraction] 51.3 % 40-54 [facility] Hemoglobin measurementOrdere d By: Lennie Patel on 06-03-2024 Hemoglobin (Bld) [Mass/Vol] 17.1 g/dL High 13.0-16.5 [facility] Immature granulocytes/100 WB C Auto (Bld)Ordered By: Lennie Patel on 06-03-2024 Immature granulocytes/100 WBC (Bld) 2.400 % High 0.0-0.9 [facility] Comment on above: IG% - Immature Granu locytes (promyelocytes, myelocytes and metamyelocytes) > 1% indicates that a LEFT SHIFT is Present. Ironon 06-03-2024 Iron [Mass/Vol] 162 ug/dL Normal 65-175 [facility] Comment on above: Order Comment: Order Date: 05/29/24Order Info: 3084-1 - URICOrder Info: [id number] - CRPOrder Info: 3016-3 - TSHOrder Info: [id number] - FEOrder Info: [id number] - FEROrder Info: [id number] - RA Performed By: #### L 801.1541, L501.6710, L101.9900, L801.1543 #### [facility] [address] [place] [address]. [place], [address] Iron (Unsp spec) [Mass/Mass] Ordered By: Lennie Patel on 06-03-2024 Iron [Mass/Vol] 162 ug/dL 65-175 [facility] Lymphocytes Auto (Unsp spec) [#/Vol]Ordered By: Lennie Patel on 06-03-2024 Lymphocytes (Bld) [#/Vol] 1.52 10*3/uL 0.83-4.51 [facility] Lymphocytes/100 WBC Auto (Un sp spec)Ordered By: Lennie Patel on 06-03-2024 Lymphocytes/100 WBC (Bld) 14.4 % Low 19-41 [facility] MCV (mean corpuscular volume ) determinationOrdered By: Lennie Patel on 06-03-2024 MCV (RBC) [Entitic vol] 98.7 fL High 80-94 [facility] Mean corpuscular hemoglobin (MCH) determinationOrdered By: Lennie Patel on 06-03-2024 MCH (RBC) [Entitic mass] 32.9 pg High 27.0-32.0 [facility] Mean corpuscular hemoglobin concentration (MCHC) determinationOrdered By: Lennie Patel on 06-03-2024 MCHC (RBC) [Mass/Vol] 33.3 g/dL 32-36 [facility] Mean platelet volume determi nationOrdered By: Lennie Patel on 06-03-2024 Platelet mean volume (Bld) [Entitic vol] 8.9 fL 6.2-12.0 [facility] Monocyte percentageOrdered B y: Lennie Patel on 06-03-2024 Monocytes/100 WBC (Bld) 4.9 % 0-10 [facility] Neutrophil percentageOrdered By: Lennie Patel on 06-03-2024 Neutrophils/100 WBC (Bld) 77.4 % High 47-70 [facility] Nucleated red blood cell per centageOrdered By: Lennie Patel on 06-03-2024 Nucleated RBC/100 WBC (Bld) [Ratio] 0 % 0-5 [facility] Platelet countOrdered By: Roman Patel on 06-03-2024 Platelets (Bld) [#/Vol] 213 10*3/uL 150-450 [facility] RBC Auto (Bld) [#/Vol]Ordere d By: Lennie Patel on 06-03-2024 RBC (Bld) [#/Vol] 5.20 10*6/uL 4.6-6.2 [facility] Rheumatoid Factoron 06-03-19 25 RHEUMATOID FAC < 10.0 Normal <15 [facility] Comment on above: Order Comment: Order Date: 05/29/24Order Info: [id number] - URICOrder Info: [id number] - CRPOrder Info: [id number] - TSHOrder Info: [id number] - FEOrder Info: [id number] - FEROrder Info: [id number] - RA Performed By: #### L 801.1541, L501.6710, L101.9900, L801.1543 #### [facility] [address] [place], [address] Rheumatoid factor measuremen tOrdered By: Lennie Patel on 06-03-2024 Rheumatoid Factor < 10.0 IU/mL <15 [facility] Serum or plasma uric acid me asurement (mass/volume)Ordered By: Lennie Patel on 06-03-2024 Urate [Mass/Vol] 4.6 mg/dL 3.5-7.2 [facility] Comment on above: The drugs N-Acetylcy steine and Metamizole may falsely depress this assay. TSH QnOrdered By: Truong Patel on 06-03-2024 Thyroid Stimulating Hormone (TSH) 1.460 uIU/mL 0.358-3.740 [facility] Testosterone, Serum Totalon 06-03-2024 Testosterone [Mass/Vol] 443.75 ng/dL Normal [facility] Comment on above: Order Comment: Order Date: 05/29/24 Order Info: [id number] - B12 Order Info: [id number] - VITD25 Order Info: [id number] - LINDA Result Comment: CENT RAL 90% REFERENCE RANGES MALE AGE <50 197.44 - 669.58 ng/dL MALE AGE > or = 50 187.72 - 684.19 ng/dL FEMALE AGE <50 8.38 - 35.01 ng/dL FEMALE AGE > or = 50 <7.00 - 35.92 ng/dL Effective as of 12/21/20 Performed By: #### L 101.9900, L503.0105, L501.1400, L501.6710, L505.7010, L506.1000, L100.0100, L501.9520, L503.6150, L3100.5475, L503.6550, L509.3000 #### [facility] [address] [place], [place] [address] [facility] [place], [address] Testosterone, totalOrdered B y: Lennie Patel on 06-03-2024 Testosterone [Mass/Vol] 443.75 ng/dL [facility] Comment on above: CENTRAL 90% REFERENC E RANGES MALE AGE <50 197.44 - 669.58 ng/dL MALE AGE > or = 50 187.72 - 684.19 ng/dL FEMALE AGE <50 8.38 - 35.01 ng/dL FEMALE AGE > or = 50 <7.00 - 35.92 ng/dL Effective as of 12/21/20 Thyroid Stim Hormone (TSH)on 06-03-2024 TSH 1.460 uIU/mL Normal 0.358-3.740 [facility] Comment on above: Order Comment: Order Date: 05/29/24Order Info: 308-1 - URICOrder Info: [id number] - CRPOrder Info: [id number] - TSHOrder Info: [id number] - FEOrder Info: [id number] - FEROrder Info: [id number] - RA Performed By: #### L 801.1541, L501.6710, L101.9900, L801.1543 #### [facility] [address] [place], [address] Uric Acidon 06-03-2024 URIC 4.6 mg/dL Normal 3.5-7.2 [facility] Comment on above: Order Comment: Order Date: 05/29/24 Order Info: 308-1 - URIC Order Info: [id number] - CRP Order Info: [id number] - TSH Order Info: 2497-08 - FE Order Info: [id number] - HERB Order Info: [id number] - RA Result Comment: The drugs N-Acetylcysteine and Metamizole may falsely depress this assay. Performed By: #### L 101.9900, L503.0105, L501.1400, L501.6710, L505.7010, L506.1000, L100.0100, L501.9520, L503.6150, L3100.5475, L503.6550, L509.3000 #### [facility] [address] [place], [place], [address] Vitamin B12on 06-03-2024 Cobalamin (Vitamin B12) [Mass/Vol] 641 pg/mL Normal 211-911 [facility] Comment on above: Order Comment: Order Date: 05/29/24 Order Info: [id number] - B12 Order Info: [id number] - VITD25 Order Info: 2986-8 - LINDA Performed By: #### L 101.9900, L503.0105, L501.1400, L501.6710, L505.7010, L506.1000, L100.0100, L501.9520, L503.6150, L3100.5475, L503.6550, L509.3000 #### [facility] [address] [place], [place], [id number] Vitamin B12 measurementOrder ed By: Lennie Patel on 06-03-2024 Cobalamin (Vitamin B12) [Mass/Vol] 641 pg/mL 211-911 [facility] Vitamin D,25 Hydroxyon 06-03 Vitamin D 25-OH 23.1 ng/mL Normal [facility] Comment on above: Order Comment: Order Date: 05/29/24 Order Info: 2132-9 - B12 Order Info: [id number] - VITD25 Order Info: [id number] - LINDA Result Comment: Sruthi min D 25(OH) Status Range Deficiency <20 ng/mL (50nmol/L) Insufficiency 20 - 30 ng/mL (50 - 75 nmol/L) Sufficiency 30 - 100 ng/mL (75 - 250 nmol/L) Toxicity >100 ng/mL (>250 nmol/L) Performed By: #### L 101.9900, L503.0105, L501.1400, L501.6710, L505.7010, L506.1000, L100.0100, L501.9520, L503.6150, L3100.5475, L503.6550, L509.3000 #### [facility] [address] [place], [place], [address] White blood cell (WBC) count Ordered By: Lennie Patel on 06-03-2024 WBC (Bld) [#/Vol] 10.5 10*3/uL 4.4-11.0 [facility] Hand Min 3 Viewson 5 Hand Min 3 Views [facility] Imaging Services [address] [place], [place] [id number] Hand Min 3 Views MR#: [id number] Acct: [id number] Name: CARLA FUENTES Rep #: [id number] : 2000 M 23 From: Adalberto Herrera MD PCP: Dr. Lennie Patel MD Status: REG CLI Study: Hand Min 3 Views Date of Exam: 05/29/24 Exam# [id number] Ordering Dr: Lennie Patel [id number] STUDY: X-RAY - LEFT HAND REASON FOR EXAM: Male, 23 years old. Polyarthralgia, hand pain. TECHNIQUE: 3 views of the left hand. COMPARISON: None. FINDINGS: Normal radiocarpal articulation. Normal distal radioulnar joint. Normal visualized carpal bones. Normal carpal articulations. Normal carpometacarpal articulation of the thumb. Normal second through fifth carpometacarpal joints. Normal metacarpi. Normal metacarpophalangeal joint of the thumb. Normal interphalangeal joint of the thumb. Normal proximal and distal phalanges of the thumb. Normal metacarpophalangeal joints of the second through fifth fingers. Normal proximal and distal interphalangeal joints of the second through fifth fingers. Normal phalanges of the second through fifth fingers. The soft tissue structures are unremarkable. RAD/Hand Min 3 Views IMPRESSION: Normal x-ray examination of the left hand. Electronically Signed: Adalberto Herrera MD at 9:00 EST Reading Location ID and State: [facility] / [place] , Service support , CC: Dr. Lennie Patel MD Finishing Area Operator: Signed Normal [facility] Absolute neutrophil countOrd ered By: Tad Friend on 05-22-2024 Neutrophils (Bld) [#/Vol] 9.9 10*3/uL High 2.0-7.7 [facility] Albumin to globulin ratioOrd ered By: Tad Friend on 05-22-2024 Albumin/Globulin [Mass ratio] 1.0 {ratio} 0.9-2.4 [facility] Amylaseon 05-22-2024 AUREA 71 U/L Normal 25-115 [facility] Comment on above: Performed By: #### L 801.1541, L501.6710, L101.9900, L801.1543 #### [facility] [address] [place], [place], [id number] Basophil percentageOrdered B y: Tad Monahan on 05-22-2024 Basophils/100 WBC (Bld) 0.4 % 0-1 [facility] Bilirubin, totalOrdered By: Tad Monahan on 05-22-2024 Bilirubin [Mass/Vol] 0.30 mg/dL 0.20-1.00 [facility] Comment on above: For patients on eltr ombopag therapy, use of Dimension [place] TBIL is not recommended. Blood urea nitrogen (BUN)/cr eatinine ratioOrdered By: Tad Monahan on 05-22-2024 Urea nitrogen/Creatinine [Mass ratio] 14.3 mg/mg 10-20 [facility] C-reactive protein measureme nt by high sensitivity methodOrdered By: Tad Monahan on 05-22-2024 C-Reactive Protein Extended Range < 2.90 mg/L 0.0-3.0 [facility] Comment on above: C-Reactive Protein ( CRP) provides useful information for thediagnosis, therapy and monitoring of inflammatory processesand associated diseases. For the evaluation of Relative Riskfor Cardiovascular Disease, a High Sensitivity CRP (HSCRP)should be ordered. CBC W/Diff, Automatedon 04-28 Absolute Lymph 2.54 X10 3/uL Normal 0.83-4.51 [facility] Comment on above: Performed By: #### L 801.1541, L501.6710, L101.9900, L801.1543 #### [facility] [address] [place], [place], [id number] Absolute Neut 9.9 X10 3/uL High 2.0-7.7 [facility] Comment on above: Performed By: #### L 801.1541, L501.6710, L101.9900, L801.1543 #### [facility] [address] [place], [address] Basophils/100 WBC (Bld) 0.4 % Normal 0-1 [facility] Comment on above: Performed By: #### L 801.1541, L501.6710, L101.9900, L801.1543 #### [facility] [address] [place], [address] Eosinophils/100 WBC (Bld) 0.7 % Normal 0-5 [facility] Comment on above: Performed By: #### L 801.1541, L501.6710, L101.9900, L801.1543 #### [facility] [address], [address] Erythrocyte distribution width (RBC) [Ratio] 13.8 % Normal 11.6-14.6 [facility] Comment on above: Performed By: #### L 801.1541, L501.6710, L101.9900, L801.1543 #### [facility] [address] [place], [address] Hematocrit (Bld) [Volume fraction] 48.6 % Normal 40-54 [facility] Comment on above: Performed By: #### L 801.1541, L501.6710, L101.9900, L801.1543 #### [facility] [address] [place], [address] Hemoglobin (Bld) [Mass/Vol] 16.2 g/dL Normal 13.0-16.5 [facility] Comment on above: Performed By: #### L 801.1541, L501.6710, L101.9900, L801.1543 #### [facility] [address] [place], [address] IG% 1.000 High 0.0-0.9 [facility] Comment on above: Result Comment: IG% - Immature Granulocytes (promyelocytes, myelocytes and metamyelocytes) > 1% indicates that a LEFT SHIFT is Present. Performed By: #### L 801.1541, L501.6710, L101.9900, L801.1543 #### [facility] [address] [place], [address] Lymphocytes/100 WBC (Bld) 18.4 % Low 19-41 [facility] Comment on above: Performed By: #### L 801.1541, L501.6710, L101.9900, L801.1543 #### [facility] [address] [place], [address] MCH (RBC) [Entitic mass] 33.4 pg High 27.0-32.0 [facility] Comment on above: Performed By: #### L 801.1541, L501.6710, L101.9900, L801.1543 #### [facility] [address] [place], [address] MCHC (RBC) [Mass/Vol] 33.3 g/dL Normal 32-36 [facility] Comment on above: Performed By: #### L 801.1541, L501.6710, L101.9900, L801.1543 #### [facility] [address] [place], [address] MCV (RBC) [Entitic vol] 100.2 fL High 80-94 [facility] Comment on above: Performed By: #### L 801.1541, L501.6710, L101.9900, L801.1543 #### [facility] [address] [place], [address] Monocytes/100 WBC (Bld) 8.0 % Normal 0-10 [facility] Comment on above: Performed By: #### L 801.1541, L501.6710, L101.9900, L801.1543 #### [facility] [address] [place], [address] Neutrophils/100 WBC (Bld) 71.5 % High 47-70 [facility] Comment on above: Performed By: #### L 801.1541, L501.6710, L101.9900, L801.1543 #### [facility] [address] [place], [address] Nucleated RBC (Bld) [#/Vol] 0 10*3/uL Normal 0-5 [facility] Comment on above: Performed By: #### L 801.1541, L501.6710, L101.9900, L801.1543 #### [facility] [address] [place], [address] Platelet mean volume (Bld) [Entitic vol] 9.2 fL Normal 6.2-12.0 [facility] Comment on above: Performed By: #### L 801.1541, L501.6710, L101.9900, L801.1543 #### [facility] [address] [place], [address] Platelets (Bld) [#/Vol] 175 10*3/uL Normal 150-450 [facility] Comment on above: Performed By: #### L 801.1541, L501.6710, L101.9900, L801.1543 #### [facility] [address] [place], [address] RBC (Bld) [#/Vol] 4.85 10*6/uL Normal 4.6-6.2 [facility] Comment on above: Performed By: #### L 801.1541, L501.6710, L101.9900, L801.1543 #### [facility] [address] [place], [address] RDW SD 51.4 fl High 35.1-43.9 [facility] Comment on above: Performed By: #### L 801.1541, L501.6710, L101.9900, L801.1543 #### [facility] [address] [place], [address] WBC (Bld) [#/Vol] 13.8 10*3/uL High 4.4-11.0 [facility] Comment on above: Performed By: #### L 801.1541, L501.6710, L101.9900, L801.1543 #### [facility] [address] [place], [address] CRPon 05-22-2024 C-REACTIVE PROT < 2.90 Normal 0.0-3.0 [facility] Comment on above: Result Comment: C-Re active Protein (CRP) provides useful information for the diagnosis, therapy and monitoring of inflammatory processes and associated diseases. For the evaluation of Relative Risk for Cardiovascular Disease, a High Sensitivity CRP (HSCRP) should be ordered. Performed By: #### L 101.9900, L503.0105, L501.1400, L501.6710, L505.7010, L506.1000, L100.0100, L501.9520, L503.6150, L3100.5475, L503.6550, L509.3000 #### [facility] [address] [place], [address] Carbon dioxide measurementOr dered By: Tad Monahan on 05-22-2024 CO2 [Moles/Vol] 29.0 mmol/L 21.0-32.0 [facility] Chloride measurementOrdered By: Tad Monahan on 05-22-2024 Chloride [Moles/Vol] 107 mmol/L 98-107 [facility] Comprehensive Metabolic Prof ilon 05-22-2024 Albumin [Mass/Vol] 3.4 g/dL Normal 3.2-5.0 [facility] Comment on above: Performed By: #### L 801.1541, L501.6710, L101.9900, L801.1543 #### [facility] [address] [place], [address] Albumin/Globulin [Mass ratio] 1.0 {ratio} Normal 0.9-2.4 [facility] Comment on above: Performed By: #### L 801.1541, L501.6710, L101.9900, L801.1543 #### [facility] [address] [place], [address] ALK P 111 U/L Normal 45-117 [facility] Comment on above: Performed By: #### L 801.1541, L501.6710, L101.9900, L801.1543 #### [facility] [address] [place], [address] ALT [Catalytic activity/Vol] 36 U/L Normal 16-61 [facility] Comment on above: Performed By: #### L 801.1541, L501.6710, L101.9900, L801.1543 #### [facility] [address] [place], [address] AST [Catalytic activity/Vol] 13 U/L Low 15-37 [facility] Comment on above: Performed By: #### L 801.1541, L501.6710, L101.9900, L801.1543 #### [facility] [address] [place], [address] Bilirubin [Mass/Vol] 0.30 mg/dL Normal 0.20-1.00 [facility] Comment on above: Result Comment: For patients on eltrombopag therapy, use of Dimension Douglas TBIL is not recommended. Performed By: #### L 801.1541, L501.6710, L101.9900, L801.1543 #### [facility] [address] [place], [address] BUN/CRE 14.3 RATIO Normal 10-20 [facility] Comment on above: Performed By: #### L 801.1541, L501.6710, L101.9900, L801.1543 #### [facility] [address] [place], [address] CA,Total 9.1 mg/dL Normal 8.5-10.1 [facility] Comment on above: Performed By: #### L 801.1541, L501.6710, L101.9900, L801.1543 #### [facility] [address] [place], [address] Chloride [Moles/Vol] 107 mmol/L Normal 98-107 [facility] Comment on above: Performed By: #### L 801.1541, L501.6710, L101.9900, L801.1543 #### [facility] [address] [place], [address] CO2 [Moles/Vol] 29.0 mmol/L Normal 21.0-32.0 [facility] Comment on above: Performed By: #### L 801.1541, L501.6710, L101.9900, L801.1543 #### [facility] [address] [place], [address] Creatinine [Mass/Vol] 0.98 mg/dL Normal 0.70-1.30 [facility] Comment on above: Result Comment: The validity of the calculated GFR GFRAA in patients over 70 years has not been determined. Clinical correlation is essential. Performed By: #### L 801.1541, L501.6710, L101.9900, L801.1543 #### [facility] [address] [place], [address] EST GFR - AA 123 mL/min Normal >60 [facility] Comment on above: Result Comment: Afri can Pakistani GFR Calc Performed By: #### L 801.1541, L501.6710, L101.9900, L801.1543 #### [facility] [address] [place], [address] GAP 2 Low 5-15 [facility] Comment on above: Performed By: #### L 801.1541, L501.6710, L101.9900, L801.1543 #### [facility] [address] [place], [address] GFR/1.73 sq M.predicted among non-blacks MDRD (S/P/Bld) [Vol rate/Area] 101 mL/min/{1.73_m2} Normal >60 [facility] Comment on above: Result Comment: Non- GFR Calc Performed By: #### L 801.1541, L501.6710, L101.9900, L801.1543 #### [facility] [address] [place], [address] Globulin (S) [Mass/Vol] 3.4 g/dL Normal 2.2-4.2 [facility] Comment on above: Performed By: #### L 801.1541, L501.6710, L101.9900, L801.1543 #### [facility] [address] [place], [address] Glucose [Mass/Vol] 89 mg/dL Normal 74-106 [facility] Comment on above: Performed By: #### L 801.1541, L501.6710, L101.9900, L801.1543 #### [facility] [address] [place], [address] Potassium [Moles/Vol] 3.5 mmol/L Normal 3.5-5.1 [facility] Comment on above: Performed By: #### L 801.1541, L501.6710, L101.9900, L801.1543 #### [facility] [address] [place], [address] Sodium [Moles/Vol] 138 mmol/L Normal 136-145 [facility] Comment on above: Performed By: #### L 801.1541, L501.6710, L101.9900, L801.1543 #### [facility] [address] [place], [address] T PROT 6.8 g/dL Normal 6.4-8.2 [facility] Comment on above: Performed By: #### L 801.1541, L501.6710, L101.9900, L801.1543 #### [facility] [address] [place], [address] Urea nitrogen [Mass/Vol] 14 mg/dL Normal 7-18 [facility] Comment on above: Performed By: #### L 801.1541, L501.6710, L101.9900, L801.1543 #### [facility] [address] [place], [address] Emergency Department Summary on 05-22-2024 Emergency Department Summary [facility] Medical Records Department [address] [place] [address] Emergency Department Summary 05/22/24 MR#: [id number] Acct: [id number] Name: CARLA FUENTES Rep #: [id number] : 2000 23 From: John Galeas PCP: Dr. Lennie Patel MD Status:DEP ER Location: ED HPI History of Present Illness Chief Complaint: Lower Extremity Injury Informant: patient and parent Narrative Narrative: Here with mother bilateral achy lower extremities from the knee down since this morning. States 7 out of this point. History of ulcerative colitis with a flare few control followed by Dr. Monahan. He is on a prednisone taper currently. Does not take any medications today. Denies trauma. Denies calf pain. Called GI office today had lab work done outpatient normal electrolytes deferred to his PCP. They called the PCP office they can get him therefore referred him to the ED. No fevers cough vomiting or diarrhea. Prior similar symptoms: No PFSH [facility] Medical History Contact with and (suspected) exposure to other viral communicable diseases Nausea vomiting Bloody stools Wears contact lenses Nausea Hematochezia Melena Fecal urgency Diarrhea Acute otitis media, right Home Medications ???Medication ???Instructions ???Recorded ???Last Taken ???Type azathioprine 50 mg tablet 150 mg (3 x 50 mg) PO DAILY 3 01/23/24 04/20/24 Rx months #270 tabs Lactobacillus acidophilus 10 100 mmu cells PO DAILY 04/17/24 04/20/24 History billion cell capsule (Probacap) multivitamin (Daily Multi-Vitamin 1 tab PO DAILY 04/17/24 04/20/24 History tablet) alprazolam 1 mg tablet 1 mg PO QHS PRN sleep 1 month #30 04/21/24 Unknown Rx tabs prednisone 20 mg tablet 40 mg (2 x 20 mg) PO QDAY 90 days 04/28/24 Unknown Rx #60 tabs Allergy/AdvReac Type Severity Reaction Status Date / Time No Known Allergies Allergy Verified 05/22/24 16:58 Surgical History History of wisdom tooth extraction History of colonoscopy History of placement of ear tubes Social History Smoking Status: Never smoker alcohol intake: never substance use type: does not use ROS ROS ED Constitutional Constitutional ED: Denies chills, fever(s) or sweats ENT ENT ED: Denies sore throat Cardiovascular Cardiovascular: Denies chest pain, leg edema, palpitations or racing heartbeat Respiratory/Chest Respiratory/Chest: Denies cough, dyspnea or dyspnea on exertion Gastrointestinal Gastrointestinal: Denies abdominal pain, diarrhea, nausea or vomiting Genitourinary Genitourinary ED: Denies dysuria, hematuria or urinary frequency Musculoskeletal Musculoskeletal: Reports extremity pain; Denies back pain or neck pain Integumentary Denies rash or wounds Neurologic Neurologic: Denies headache(s), paresthesias or weakness EXAM Physical Exam Const Vital Signs: 05/22/24 16:58 05/22/24 17:58 Temperature 98 F 98 F Temperature Source Oral Pulse Rate 98 90 Respiratory Rate 16 16 Blood Pressure 146/85 H 140/74 H Blood Pressure Mean 105 96 Pulse Ox 100 100 Oxygen Delivery Method Room Air Positive well nourished and well developed General Appearance ED: well developed and NAD HEENT Reports moist mucous membranes normocephalic and atraumatic Eyes General Eye ED: Yes normal appearance of both eyes Neck full ROM Chest Wall Chest: Negative for tenderness Resp normal respiratory effort and normal air movement Effort and Inspection: symmetric chest movement; Negative for respiratory distress Cardio regular rate, regular rhythm and no murmurs Peripheral Pulses: pulses 2+ throughout GI normal to inspection, nondistended, normoactive bowel sounds and non-tender Palpation: Negative for guarding or rebound tenderness present Extremity normal to inspection Extremity Narrative: No calf tenderness no swelling the knees no redness. Soft compartments. Neuro vas intact distally. General Extremety ED: Negative for edema or tenderness General Extremity: Negative for edema Neuro oriented x3 and no sensory deficits noted Sensorium / Orientation: awake and alert Skin no rashes or lesions noted and no wounds MDM MDM MDM Narrative Medical decision making narrative: Interventions / MDM: Differential diagnosis: Myalgias, viral syndrome Diagnosis considered but do not suspect: No clinical region for DVT. My EKG interpretation: N/A Imaging independently reviewed and interpreted by myself: N/A External documents reviewed: Laboratory studies today normal potassium magnesium negative CRP. Test considered but not ordered:N/A ED course: Vital stable nontoxic. There is no swellin (more content not included)... Normal [facility] Eosinophil percentageOrdered By: Tad Monahan on 05-22-2024 Eosinophils/100 WBC (Bld) 0.7 % 0-5 [facility] Erythrocyte Sed Rateon 05-22 SED RATE 1 mm/hr Normal 0-20 [facility] Comment on above: Performed By: #### L 801.1541, L501.6710, L101.9900, L801.1543 #### [facility] [address] [place], [address] Erythrocyte distribution wid th ratioOrdered By: Tad Monahan on 05-22-2024 Erythrocyte distribution width (RBC) [Ratio] 13.8 % 11.6-14.6 [facility] Erythrocyte distribution wid th standard deviationOrdered By: Tad Monahan on 05-22-2024 Erythrocyte distribution width (RBC) [Entitic vol] 51.4 fL High 35.1-43.9 [facility] Erythrocyte sedimentation ra teOrdered By: Tad Monahan on 05-22-2024 ESR (Bld) [Velocity] 1 mm/h 0-20 [facility] Estimated glomerular filtrat ion rate (GFR) AmericanOrdered By: Tad Monahan on 05-22-2024 Estimated GFR (MDRD) Amer 123 mL/min >60 [facility] Comment on above: GFR Calc Glomerular filtration rate ( GFR) estimationOrdered By: Tad Monahan on 05-22-2024 Estimated GFR (MDRD) Non-Af Amer 101 mL/min >60 [facility] Comment on above: Non- GFR Calc Glucose measurementOrdered B y: Tad Monahan on 05-22-2024 Glucose [Mass/Vol] 89 mg/dL 74-106 [facility] Hematocrit Auto (Bld) [Volum e fraction]Ordered By: Tad Monahan on 05-22-2024 Hematocrit (Bld) [Volume fraction] 48.6 % 40-54 [facility] Hemoglobin measurementOrdere d By: Tad Monahan on 05-22-2024 Hemoglobin (Bld) [Mass/Vol] 16.2 g/dL 13.0-16.5 [facility] Immature granulocytes/100 WB C Auto (Bld)Ordered By: Tad Monahan on 05-22-2024 Immature granulocytes/100 WBC (Bld) 1.000 % High 0.0-0.9 [facility] Comment on above: IG% - Immature Granu locytes (promyelocytes, myelocytes and metamyelocytes) > 1% indicates that a LEFT SHIFT is Present. Laboratory - Chemistry and C hemistry - challengeOrdered By: Tad Monahan on 05-22-2024 AST [Catalytic activity/Vol] 13 U/L Low 15-37 [facility] Lipaseon 05-22-2024 Lipase [Catalytic activity/Vol] 49 U/L Normal 13-75 [facility] Comment on above: Result Comment: Bipin meredith note: LIPASE revised reference range effective 22. New Lipase methodology. Expected to produce lower values than the previous assay method. NEW Reference Range: 13 - 75 U/L Performed By: #### L 101.9900, L503.0105, L501.1400, L501.6710, L505.7010, L506.1000, L100.0100, L501.9520, L503.6150, L3100.5475, L503.6550, L509.3000 #### [facility] [address] [place], [place], [id number] Lipase measurementOrdered By : Tad Monahan on 05-22-2024 Lipase [Catalytic activity/Vol] 49 U/L 13-75 [facility] Comment on above: Please note:LIPASE r evised reference range effective 22. New Lipase methodology. Expected to produce lower values than the previous assay method. NEW Reference Range: 13 - 75 U/L Lymphocytes Auto (Unsp spec) [#/Vol]Ordered By: Tad Monahan on 05-22-2024 Lymphocytes (Bld) [#/Vol] 2.54 10*3/uL 0.83-4.51 [facility] Lymphocytes/100 WBC Auto (Un sp spec)Ordered By: Tad Monahan on 05-22-2024 Lymphocytes/100 WBC (Bld) 18.4 % Low 19-41 [facility] MCV (mean corpuscular volume ) determinationOrdered By: Tad Monahan on 05-22-2024 MCV (RBC) [Entitic vol] 100.2 fL High 80-94 [facility] Magnesiumon 05-22-2024 Magnesium [Mass/Vol] 2.1 mg/dL Normal 1.6-2.6 [facility] Comment on above: Performed By: #### L 101.9900, L503.0105, L501.1400, L501.6710, L505.7010, L506.1000, L100.0100, L501.9520, L503.6150, L3100.5475, L503.6550, L509.3000 #### [facility] [address] [place], [address] Magnesium measurementOrdered By: Tad Monahan on 05-22-2024 Magnesium [Mass/Vol] 2.1 mg/dL 1.6-2.6 [facility] Mean corpuscular hemoglobin (MCH) determinationOrdered By: Tad Monahan on 05-22-2024 MCH (RBC) [Entitic mass] 33.4 pg High 27.0-32.0 [facility] Mean corpuscular hemoglobin concentration (MCHC) determinationOrdered By: Tad Monahan on 05-22-2024 MCHC (RBC) [Mass/Vol] 33.3 g/dL 32-36 [facility] Mean platelet volume determi nationOrdered By: Tad Monahan on 05-22-2024 Platelet mean volume (Bld) [Entitic vol] 9.2 fL 6.2-12.0 [facility] Monocyte percentageOrdered B y: Tad Monahan on 05-22-2024 Monocytes/100 WBC (Bld) 8.0 % 0-10 [facility] Neutrophil percentageOrdered By: Tad Monahan on 05-22-2024 Neutrophils/100 WBC (Bld) 71.5 % High 47-70 [facility] Nucleated red blood cell per centageOrdered By: Tad Monahan on 05-22-2024 Nucleated RBC/100 WBC (Bld) [Ratio] 0 % 0-5 [facility] Platelet countOrdered By: Ra edmund Monahan on 05-22-2024 Platelets (Bld) [#/Vol] 175 10*3/uL 150-450 [facility] Potassium measurementOrdered By: Tad Monahan on 05-22-2024 Potassium [Moles/Vol] 3.5 mmol/L 3.5-5.1 [facility] RBC Auto (Bld) [#/Vol]Ordere d By: Tad Monahan on 05-22-2024 RBC (Bld) [#/Vol] 4.85 10*6/uL 4.6-6.2 [facility] Serum anion gap measurementO rdered By: Tad Monahan on 05-22-2024 Anion gap [Moles/Vol] 2 mmol/L Low 5-15 [facility] Serum globulin measurementOr dered By: Tad Monahan on 05-22-2024 Globulin (S) [Mass/Vol] 3.4 g/dL 2.2-4.2 [facility] Serum or plasma alanine bergman otransferase (ALT) measurementOrdered By: Tad Monahan on 05-22-2024 ALT [Catalytic activity/Vol] 36 U/L 16-61 [facility] Serum or plasma albumin charlee urement (mass/volume)Ordered By: Tad Monahan on 05-22-2024 Albumin [Mass/Vol] 3.4 g/dL 3.2-5.0 [facility] Serum or plasma alkaline sergo sphatase measurementOrdered By: Tad Monahan on 05-22-2024 ALP [Catalytic activity/Vol] 111 U/L 45-117 [facility] Serum or plasma amylase charlee urement (enzymatic activity/volume)Ordered By: Tad Monahan on 05-22-2024 Amylase [Catalytic activity/Vol] 71 U/L 25-115 [facility] Serum or plasma calcium charlee urement (mass/volume)Ordered By: Tad Monahan on 05-22-2024 Calcium [Mass/Vol] 9.1 mg/dL 8.5-10.1 [facility] Serum or plasma creatinine m easurement (mass/volume)Ordered By: Tad Monahan on 05-22-2024 Creatinine [Mass/Vol] 0.98 mg/dL 0.70-1.30 [facility] Comment on above: The validity of the calculated GFR & GFRAA in patients over 70 years has not been determined. Clinical correlation is essential. Serum or plasma urea nitroge n measurement (mass/volume)Ordered By: Tad Monahan on 05-22-2024 Urea nitrogen [Mass/Vol] 14 mg/dL 7-18 [facility] Sodium levelOrdered By: Aparna Chambers on 05-22-2024 Sodium [Moles/Vol] 138 mmol/L 136-145 [facility] Total proteinOrdered By: Ilan Monahan on 05-22-2024 Protein [Mass/Vol] 6.8 g/dL 6.4-8.2 [facility] White blood cell (WBC) count Ordered By: Tad Monahan on 05-22-2024 WBC (Bld) [#/Vol] 13.8 10*3/uL High 4.4-11.0 [facility] Colonoscopy Reporton 024 Colonoscopy Report [facility] Medical Records Department [address] [place] [address] Colonoscopy Report MR#: [id number] Acct: [id number] Name: CARLA FUENTES Rep #: [id number] : 2000 23 From: Tad Monahan DO PCP: Dr. Lennie Patel MD Status:[facility] Patient Name: Carla Fuentes Procedure Date: 04/21/2024 6:22 AM Date of : 2000 Age: 23 Procedure: Colonoscopy Indications: Left-sided chronic ulcerative colitis, Disease activity assessment of left-sided chronic ulcerative colitis, Assess therapeutic response to therapy of left-sided chronic ulcerative colitis Providers: Tad Monahan DO Medicines: Monitored Anesthesia Care Patient Profile: This is a 23 year old male. Refer to note in patient chart for documentation of history and physical. Last Colonoscopy: within the past 3 years. Complications: No immediate complications. Procedure: Pre-Anesthesia Assessment: - Prior to the procedure, a History and Physical was performed, and patient medications and allergies were reviewed. The patient is competent. The risks and benefits of the procedure and the sedation options and risks were discussed with the patient. All questions were answered and informed consent was obtained. Patient identification and proposed procedure were verified by the physician. Mental Status Examination: normal. Respiratory Examination: clear to auscultation. Prophylactic Antibiotics: The patient does not require prophylactic antibiotics. Prior Anticoagulants: The patient has taken no anticoagulant or antiplatelet agents except for NSAID medication. ASA Grade Assessment: II - A patient with mild systemic disease. After reviewing the risks and benefits, the patient was deemed in satisfactory condition to undergo the procedure. The anesthesia plan was to use monitored anesthesia care (MAC). Immediately prior to administration of medications, the patient was re-assessed for adequacy to receive sedatives. The heart rate, respiratory rate, oxygen saturations, blood pressure, adequacy of pulmonary ventilation, and response to care were monitored throughout the procedure. The physical status of the patient was re-assessed after the procedure. After I obtained informed consent, the scope was passed under direct vision. Throughout the procedure, the patient's blood pressure, pulse, and oxygen saturations were monitored continuously. The Colonoscope was introduced through the anus and advanced to the terminal ileum. The colonoscopy was performed without difficulty. The patient tolerated the procedure well. The quality of the bowel preparation was adequate. The terminal ileum, ileocecal valve, appendiceal orifice, and rectum were photographed. Scope In: 6:56:08 AM Scope Withdrawal Time 0 hours 6 minutes 18 seconds Scope Out: 7:04:49 AM Total Procedure Duration Time 0 hours 8 minutes 41 seconds Findings: The perianal and digital rectal examinations were normal. Inflammation was found in a continuous and circumferential pattern from the rectum to the sigmoid colon. This was graded as Ricardo Score 2 (moderate, with marked erythema, absent vascular pattern, friability, erosions), and when compared to the previous examination, the findings are worsened. Biopsies were taken with a cold forceps for histology. Verification of patient identification for the specimen was done. Estimated blood loss was minimal. Patchy mild inflammation characterized by erosions was found in the terminal ileum. Biopsies were taken with a cold forceps for histology. Verification of patient identification for the specimen was done. Estimated blood loss was minimal. 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 Biopsied. - Mild inflammation was found in the ileum secondary to ileitis. Biopsied. Recommendation: - Discharge patient to home. - Resume previous diet. - Continue present medications. - Await pathology results. - Repeat colonoscopy in 1 year to assess disease activity. - Prednisone 40 mg a day with a long taper - hydrocortisone enemas x 21 days Procedure Code(s): --- Professional --- 90376, Colonoscopy, flexible; with biopsy, single or multiple CPT copyright 2021 [employer]. All rights reserved. The codes documented in this report are preliminary and upon pipeline systems operator review may be revised to meet current compliance requirements. Tad Monahan DO 04/21/2024 7:37:50 AM This report has been signed electronically. Number of Addenda: 0 Note Initiated On: 04/21/2024 6:22 AM 04/21/24 0738 Date Tadedmund Monahan DO Reis Signature: Date (if indicated) CC: Dr. Espino (more content not included)... [facility] MR/POSTOP.ANE 04-21-2024 MR/POSTOP.[facility] Medical Records Department [address] [place] [address] Anesthesia Postop Eval I 04/21/24713 MR#: [id number] Acct: [id number] Name: CARLA FUENTES Rep #: [id number] : 2000 From: Olu Stout PCP: Dr. Lennie Patel MD Status:[facility] Y Race: C Location: [place] [address] Anesthesia: Postop Eval I Current Vital Signs Temperature: 97.2 F Pulse Rate: 79 Blood Pressure: 96/62 Respiratory Rate: 16 Pulse Ox: 95 Oxygen Delivery Method: Room Air Assessment Airway patent: Yes Spontaneous unlabored respirations: Yes Mental status: Asleep nausea: No Vomiting: No Anesthesia Complication: No Fluid Hydration Crystalloid volume administer (ml): 40 Total IV fluid infused: 40 Progress Note Anesthesia document: Postop Eval 1 completed: Yes 04/21/24714 Date Olu Reis Signature: Date CC: Signed [facility] MR/[id number] 04-21-2024 MR/POSTOPAN2 [facility] Medical Records Department [address] [place] [address] Anesthesia Postop Eval II 04/21/24920 MR#: [id number] Acct: [id number] Name: CARLA FUENTES Rep #: [id number] : 2000 From: Juanito Wakefield MD PCP: Dr. Lennie Patel MD Status:DEP [facility] Y Race: C Location: [place] Anesthesia Postop Eval I Sum Postop Eval Completion status Anesthesia document: Postop Eval 1 completed: Yes Anesthesia Postop Eval I Summary Anesthesia Postop Eval I Summary: Anesthesia Postop Eval I: Assessment Summary Airway patent Yes 04/21/24 07:15 [email or web address] Spontaneous unlabored Yes 04/21/24 07:15 [email or web address] respirations Mental status Asleep 04/21/24 07:15 [email or web address] nausea No 04/21/24 07:15 [email or web address] Vomiting No 04/21/24 07:15 [email or web address] Anesthesia Postop Eval I: Fluid Summary Crystalloid volume administer 40 04/21/24 07:15 [email or web address] (ml) Colloids volume administered ( ml) Blood Product volume administered (ml) Total IV fluid infused 40 04/21/24 07:15 [email or web address] Anesthesia Postop Eval I: Summary Notes Anesthesia Complication No 04/21/24 07:15 [email or web address] Anesthesia Complication Comment: Post-operative progress note Anesthesia: Postop Eval II Evaluation Mental status: Awake Pain Level: 0 nausea: No Vomiting: No 04/21/24920 Date [facility] Date CC: Signed Normal [facility] Surgery Specimen Level Kimberly 04-21-2024 Surgery Specimen Level IV Patient Age/Sex Location Account Attending Physician CARLA FUENTES 23/M EN [id number] Tad Monahan DO Specimen: [id number] Received: 04/21/24 Status: JESSICAAlanis Shannen Num: [id number] Spec Type: COLON BX Subm Dr: Tad Monahan DO [place] OPERATION: Colonoscopy with biopsy PRE-OP DIAGNOSIS: Ulcerative colitis TISSUE SUBMITTED: A- Terminal ileum biopsy, B- Right side colon biopsy, C- Left side colon biopsy,D- Rectum biopsy MICROSCOPIC DIAGNOSIS A. Terminal ileum, biopsy: No pathologic change. See comment. B. Right side of colon, biopsy: No pathologic change. No evidence of colitis. C. Left side of colon, biopsy: No pathologic change. No evidence of colitis. D. Rectum, biopsy: Mild active colitis. See comment. AM. 04/22/2024 COMMENT A. Prominent benign lymphoid aggregates are present.D. There is no significant glandular distortion. There is focal cryptitis and rare cryptabscesses present. No transmural lymphoid aggregates are identified. There is no evidence of dysplasia. Clinical correlation is suggested. MICROSCOPIC DESCRIPTION Slides are reviewed. GROSS DESCRIPTION A. Received in fixative is one container labeled with the patient's name and designated Terminal ileum biopsy. The specimen consists of two irregular fragments of light andrew soft tissue that in aggregate measure 0.6 x 0.5 x 0.1 cm. The specimen is totally submitted in one cassette. B. Received in fixative is one container labeled with the patient's name and designated Right side colon biopsy. The specimen consists of multiple irregular fragments of light andrew soft tissue that in aggregate measure 1.6 x 0.7 x 0.1 cm. The specimen is totally submitted in one cassette. C. Received in fixative is one container labeled with the patient's name and designated Patient Age/Sex Location Account Attending Physician CARLA FUENTES 23/M EN [id number] Tad Monahan DO Left side colon biopsy. The specimen consists of multiple irregular fragments of light andrew soft tissue that in aggregate measure 1.2 x 1.0 x 0.1 cm. The specimen is totally submitted in one cassette. D. Received in fixative is one container labeled with the patient's name and designated Rectum biopsy. The specimen consists of multiple irregular fragments of light andrew soft tissue that in aggregate measure 1.3 x 0.6 x 0.1 cm. The specimen is totally submitted in one cassette. 04/21/2024 TC:2 [facility]:[id number] Patient Age/Sex Location Account Attending Physician CARLA FUENTES 23/M EN [id number] Tad Monahan DO Signed (signature on file) Dr. Mayur Hinton DO 04/22/24 1253 Normal [facility] Comment on above: Performed By: #### L 801.1541, L501.6710, L101.9900, L801.1543 #### [facility] [address] [place], [address] [facility] Procedure 2on 02-20-2024 [facility] [place] 2 Normal [facility] Comment on above: Order Comment: Comme nts: [id number] SODIAM HEP TUBE RF TPMT enzymatic activity Result Comment: TEST RESULTS LIMITS Thiopurine Metabolites 6-TGN 276 pmol/8x 10E8 This test was developed and its performance characteristics determined by [facility]. It has not been cleared or approved by the Food and Drug Administration. Reference Range: For treatment of inflammatory bowel disease (IBD)(1): Suboptimal dosing:<235 pmol 6-TGN/8x10E8 Red Blood Cells Optimal dosin-450 pmol 6-TGN/8x10E8 Red Blood Cells Increasing Risk for Myelotoxicity and Leucopoenia: >450 pmol 6-TGN/8x10E8 Red Blood Cells 1. Chepe et al. Inflamm Bowel Dis.2011;6(17):9838-6052 6-MMPN 623 pmol/8x 10E8 This test was developed and its performance characteristics determined by [facility]. It has not been cleared or approved by the Food and Drug Administration. Reference Range: Hepatotoxicity Risk: >5700 pmol 6-MMPN/8x10E8 Red Blood Cells TESTING PERFORMED AT [facility]. ORIGINAL REPORT ON FILE IN LAB CONTAINS ADDITIONAL TEST SITE INFORMATION. Performed By: #### L 801.1541, L5.6710, 00, #### [facility] [address] [place], [address] Miscellaneous Lab Procedureo n 02-19-2024 [facility] [place] [facility] [place] Normal [facility] Comment on above: Order Comment: Comme nts: [id number] LAV EDTA RF Thiopurine metabolites Result Comment: TEST RESULTS LIMITS TPMT Activity 20.8 Units/mL RBC Reference Range: Normal: 15.1 - 26.4 Heterozygous for low TPMT variant: 6.3 - 15.0 Homozygous for low TPMT variant: <6.3 Interpretation: The above results can be interpreted as Normal for red blood cell Thiopurine Methyltransferase activity. For patients having an intrinsic low level of TPMT, recent RBC transfusion can variably increase their assayed enzymatic activity depending on the amount and circulating half-life of the transfused red blood cells. This test was developed and its performance characteristics determined by [facility]. It has not been cleared or approved by the Food and Drug Administration. This case has been reviewed, approved, interpreted and electronically signed by Esau Barton, PhD, [facility]. Methodology Enzymatic Endpoint/Liquid Chromatography - Tandem Mass Spectrometry (LC-MS/MS) TESTING PERFORMED AT [facility]. ORIGINAL REPORT ON FILE IN LAB CONTAINS ADDITIONAL TEST SITE INFORMATION. Performed By: #### L 801.1541, L5.6710, .9900, L80 #### [facility] [address] [place], [address] CRPon 02-12-2024 C-REACTIVE PROT < 2.90 Normal 0.0-3.0 [facility] Comment on above: Result Comment: C-Re active Protein (CRP) provides useful information for the diagnosis, therapy and monitoring of inflammatory processes and associated diseases. For the evaluation of Relative Risk for Cardiovascular Disease, a High Sensitivity CRP (HSCRP) should be ordered. Performed By: #### L 801.1541, L501.6710, L101.9900, L801.1543 #### [facility] [address] [place], [address] Erythrocyte Sed Rateon 02-11 SED RATE 1 mm/hr Normal 0-20 [facility] Comment on above: Performed By: #### L 801.1541, L501.6710, L101.9900, L801.1543 #### [facility] [address] [place], [address] Gastroenterology Visit Repor ton 02-12-2024 Gastroenterology Visit Report [facility] [address] [place] [address] OFFICE VISIT Date of Service: 02/12/24 MR#: [id number] Acct: [id number] Name: CARLA FUENTES Rep #: [id number] : 2000 Provider: Tad Monahan DO Age/Sex: 23/M Location: [facility] Status: Signed Intake Vital Signs 10/27/21 09:14 Height 5 ft 8 in Intake Visit Reasons: 6 M FU Allergies No Known Allergies Allergy (Verified 03/08/23 08:06) Medications ???Medication ???Instructions ???Recorded ???Confirmed ???Type azathioprine 50 mg tablet 150 mg (3 x 50 mg) PO DAILY 3 01/23/24 02/12/24 Rx months #270 tabs PFSH Medical History Acute otitis media, right Bloody stools Contact with and (suspected) exposure to other viral communicable diseases Diarrhea Fecal urgency Hematochezia Melena Nausea Nausea vomiting Wears contact lenses Surgical History History of placement of ear tubes Social History Smoking Status: Never smoker alcohol intake: never substance use type: does not use HPI HPI Details: CARLA FUENTES, is a 23 M who presents to the office today for follow up. *BGI established 4.. with referral from PCP for evaluation of urgent watery diarrhea with blood with nocturnal urgency, generalized abdominal pain and cramping, nausea and vomiting occurring eight times a day. If he eats the symptoms resolve for a short period of time. He has changed his lifestyle due to fear of urgency that may cause incontinence. Onset mid-August 2021 without changes in severity. Unknown triggers. Mother reports that about a month prior to this he started improving his diet and adding creatinine and protein, one scoop of each day. Denies previous history of symptoms. Denies family history of bowel disease or cancers. Mother reports that her mother and sister have issues with postprandial feeling ill and then having urgent BM, her mother was told previously she has a ???slow pancreas???. Prednisone 50mg Contact azathioprine 100mg started with cessation of prednisone. 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 OV 8.. Continues with azathioprine 100mg. Denies abdominal pain, significant lose stools. Stooling 1-2/day with normal/soft stools and occasional blood. OV 11. Initially improved with azathioprine 100mg. Diarrhea, nausea and emesis, abdominal pain gradually returned and he started prednisone 50mg and this again caused a resolution of symptoms. He stopped this as supply ran out/did not like taking this medication/and someone recommended a supplement (ineffective) and had a return of symptoms with this cessation. He does not like taking prednisone as it causes sleep disturbance. If able, he would like to pursue PO route rather than injectable/infusion. start prednisone 20mg TID with taper in two months to BID. MRCP 1.3.23 without acute or chronic abnormalities. OV 2.3.23 Symptoms are much improved since previously. Stomach upset that he feels is food triggered, unsure of which foods he is having difficulty with. OV 6.5.23 with loose stools, abdominal pain and bloating that are intermittent and food dependent (junk foods) which he does avoid for the most part. Outside of this time he is doing well without active UC symptoms, joint pain, vision changes or rashes. OV 10.. doing well, continues folic acid/azathioprine. Controls symptoms with diet. OV 4.. pt states he is doing well, continues his medication regimen and symptoms are under control. OV 9.. pt reports that he is feeling well overall and denies GI symptoms of concern at this time. Pt continues with azathioprine. ? ESR/CRP Calp/Lact? Serum/ab? TB 09.22.21??? 1436/+? --/--? UC (apANCA 1:640). Wilfredo and Eileen ab not present. ? GAME, MAIKEL, AUSTYN comp, celiac, hepatitis, HIV without pertinent abnormality.? C.difficile, EP, O/P, giardia WNL 10.01.21 Azathioprine start 01.03.22 --/<2.9??? --/--? --/--? WNL? amylase, lipase WNL 06.01.22 143.11 --/neg? (more content not included)... Normal [facility] Absolute lymphocyte countOrd ered By: Tad Monahan on 09-05-2023 Lymphocytes Auto (Unsp spec) [#/Vol] 1.35 10*3/uL 0.83-4.51 [facility] Albumin Elph [Mass/Vol]Order ed By: Tad Monahan on 09-05-2023 Albumin [Mass/Vol] 4.2 g/dL 2.9-4.4 [facility] Automated lymphocyte count a s percentage of total leukocytesOrdered By: Tad Monahan on 09-05-2023 Lymphocytes/100 WBC Auto (Unsp spec) 27.2 % 19-41 [facility] Basophil percentageOrdered B y: Tad Monahan on 09-05-2023 Basophils/100 WBC (Bld) 0.6 % 0-1 [facility] Eosinophils/100 WBC (Bld) 1.4 % 0-5 [facility] Hemoglobin (Bld) [Mass/Vol] 15.5 g/dL 13.0-16.5 [facility] Monocytes/100 WBC (Bld) 11.1 % 0-10 [facility] Neutrophils (Bld) [#/Vol] 3.0 10*3/uL 2.0-7.7 [facility] Neutrophils/100 WBC (Bld) 59.3 % 47-70 [facility] WBC (Bld) [#/Vol] 5.0 10*3/uL 4.4-11.0 [facility] Determination of erythrocyte mean corpuscular volume (MCV)Ordered By: Tad Monahan on 09-05-2023 MCV (RBC) [Entitic vol] 96.7 fL 80-94 [facility] Erythrocyte distribution wid th ratioOrdered By: Tad Monahan on 09-05-2023 Erythrocyte distribution width (RBC) [Ratio] 12.2 % 11.6-14.6 [facility] Erythrocyte distribution wid th standard deviationOrdered By: Tad Monahan on 09-05-2023 Erythrocyte distribution width (RBC) [Entitic vol] 43.6 fL 35.1-43.9 [facility] Erythrocyte sedimentation ra teOrdered By: Tad Monahan on 09-05-2023 ESR (Bld) [Velocity] 1 mm/h 0-20 [facility] Hematocrit Auto (Bld) [Volum e fraction]Ordered By: Tad Monahan on 09-05-2023 Hematocrit (Bld) [Volume fraction] 46.2 % 40-54 [facility] Immature granulocytes/100 WB C Auto (Bld)Ordered By: Tad Monahan on 09-05-2023 Immature granulocytes/100 WBC (Bld) 0.400 % 0.0-0.9 [facility] Comment on above: IG% - Immature Granu locytes (promyelocytes, myelocytes and metamyelocytes) > 1% indicates that a LEFT SHIFT is Present. Interpretation of serum or p lasma protein pattern by immunofixation (narrative resultOrdered By: Tad Monahan on 09-05-2023 Protein Fractions Immunofixation Duncan [Interp] Not Observed g/dL Not Observed [facility] Iron measurement (mass/mass) Ordered By: Tad Monahan on 09-05-2023 Iron (Unsp spec) [Mass/Mass] 80 ug/dL 65-175 [facility] - Chemistry and C hemistry - challengeOrdered By: Tad Monahan on 09-05-2023 Ferritin [Mass/Vol] 41 ng/mL 26-388 [facility] - Hematology and Cell countsOrdered By: Tad Monahan on 09-05-2023 MCH (RBC) [Entitic mass] 32.4 pg 27.0-32.0 [facility] MCHC (RBC) [Mass/Vol] 33.5 g/dL 32-36 [facility] Nucleated RBC/100 WBC (Bld) [Ratio] 0 % 0-5 [facility] Platelet mean volume (Bld) [Entitic vol] 9.0 fL 6.2-12.0 [facility] Platelets (Bld) [#/Vol] 197 10*3/uL 150-450 [facility] No Panel InformationOrdered By: Tad Monahan on 09-05-2023 Addendum Document Comment . [facility] Comment on above: Protein electrophore sis scan will follow via computer,mail, or applications development consultant delivery.Performed at: [facility] LabRyan [place] [id number] Director: Carlos Hinojosa PhD, Phone: [phone] C-Reactive Protein Extended Range < 2.90 mg/L 0.0-3.0 [facility] Comment on above: C-Reactive Protein ( CRP) provides useful information for thediagnosis, therapy and monitoring of inflammatory processesand associated diseases. For the evaluation of Relative Riskfor Cardiovascular Disease, a High Sensitivity CRP (HSCRP)should be ordered. Endomysial IgA Antibody Negative Negative [facility] Immunoglobulin M 106 mg/dL 20-172 [facility] Total Iron Binding Capacity 345 ug/dL 250-450 [facility] RBC Auto (Bld) [#/Vol]Ordere d By: Tad Monahan on 09-05-2023 RBC (Bld) [#/Vol] 4.78 10*6/uL 4.6-6.2 [facility] Serum [id number] measu rement by electrophoresisOrdered By: Tad Monahan on 09-05-2023 Alpha 1 globulin Elph [Mass/Vol] 0.2 g/dL 0.0-0.4 [facility] Alpha 1 globulin Elph [Mass/Vol] 0.6 g/dL 0.4-1.0 [facility] Serum globulin measurement ( mass/volume)Ordered By: Tad Monahan on 09-05-2023 Globulin (S) [Mass/Vol] 2.7 g/dL 2.2-3.9 [facility] Serum or plasma IgA measurem ent (mass/volume)Ordered By: Tad Monahan on 09-05-2023 IgA [Mass/Vol] 268 mg/dL 90-386 [facility] Serum or plasma IgG measurem ent (mass/volume)Ordered By: Tad Monahan on 09-05-2023 IgG [Mass/Vol] 1009 mg/dL 603-1613 [facility] Serum or plasma beta globuli n measurement by electrophoresis (mass/volume)Ordered By: Tad Monahan on 09-05-2023 Beta globulin Elph [Mass/Vol] 0.9 g/dL 0.7-1.3 [facility] Serum or plasma gamma globul in measurement by electrophoresis (mass/volume)Ordered By: Tad Monahan on 09-05-2023 Gamma globulin Elph [Mass/Vol] 1.0 g/dL 0.4-1.8 [facility] Serum or plasma immunoelectr ophoresis interpretation (nominal result)Ordered By: Tad Monahan on 09-05-2023 Interpretation IEP [Interp] Comment . [facility] Comment on above: No monoclonality det ected. Serum tissue transglutaminas e IgA antibody assay (units/volume)Ordered By: Tad Monahan on 09-05-2023 tTG IgA Qn (S) <2 U/mL 0-3 [facility] Comment on above: Negative 0 - 3 Weak Positive 4 - 10 Positive >10 Tissue Transglutaminase (tTG) has been identified as the endomysial antigen. Studies have demonstr- ated that endomysial IgA antibodies have over 99% specificity for gluten sensitive enteropathy. Thin prep Papanicolaou smear with manual screeningOrdered By: Tad Monahan on 09-05-2023 Thin prep Papanicolaou smear with manual screening 1.6 0.7-1.7 [facility] Total protein bloodOrdered B y: Tad Monahan on 09-05-2023 Protein [Mass/Vol] 6.9 g/dL 6.0-8.5 [facility] Absolute lymphocyte countOrd ered By: Tad Taniya on 03-08-2023 Lymphocytes Auto (Unsp spec) [#/Vol] 1.66 10*3/uL 0.83-4.51 [facility] Albumin Elph [Mass/Vol]Order ed By: Tad Monahan on 03-08-2023 Albumin [Mass/Vol] 4.6 g/dL 2.9-4.4 [facility] Basophil percentageOrdered B y: Tad Taniya on 03-08-2023 Amylase [Catalytic activity/Vol] 47 U/L 25-115 [facility] Basophils/100 WBC (Bld) 0.7 % 0-1 [facility] Eosinophils/100 WBC (Bld) 1.6 % 0-5 [facility] LDH [Catalytic activity/Vol] 129 U/L 87-241 [facility] Neutrophils (Bld) [#/Vol] 3.3 10*3/uL 2.0-7.7 [facility] Neutrophils/100 WBC (Bld) 58.4 % 47-70 [facility] WBC (Bld) [#/Vol] 5.7 10*3/uL 4.4-11.0 [facility] Blood erythrocytes count (nu mber/volume)Ordered By: Tadmu Monahan on 03-08-2023 RBC (Bld) [#/Vol] 4.87 10*6/uL 4.6-6.2 [facility] Blood hemoglobin measurement (mass/volume)Ordered By: Tad Monahan on 03-08-2023 Hemoglobin (Bld) [Mass/Vol] 16.3 g/dL 13.0-16.5 [facility] Blood lymphocytes/100 leukoc ytesOrdered By: Tad Monahan on 03-08-2023 Lymphocytes/100 WBC (Bld) 29.1 % 19-41 [facility] Blood monocytes/100 leukocyt esOrdered By: Tad Monahan on 03-08-2023 Monocytes/100 WBC (Bld) 9.8 % 0-10 [facility] Blood platelet mean volumeOr dered By: Tad Monahan on 03-08-2023 Platelet mean volume (Bld) [Entitic vol] 9.3 fL 6.2-12.0 [facility] Determination of erythrocyte mean corpuscular volume (MCV)Ordered By: Tad Monahan on 03-08-2023 MCV (RBC) [Entitic vol] 97.7 fL 80-94 [facility] Erythrocyte sedimentation ra teOrdered By: Tad Monahan on 03-08-2023 ESR (Bld) [Velocity] 2 mm/h 0-20 [facility] Hematocrit Auto (Bld) [Volum e fraction]Ordered By: Tad Monahan on 03-08-2023 Hematocrit (Bld) [Volume fraction] 47.6 % 40-54 [facility] Hemoglobin in reticulocytes (mass per reticulocyte)Ordered By: Tad Monahan on 03-08-2023 Hemoglobin (Reticulocytes) [Entitic mass] 35.6 pg 30-35 [facility] Interpretation of serum or p lasma protein pattern by immunofixation (narrative resultOrdered By: Tad Monahan on 03-08-2023 Protein Fractions Immunofixation Duncan [Interp] See comment [facility] Comment on above: NOT OBSERVED Iron measurement (mass/mass) Ordered By: Tad Monahan on 03-08-2023 Iron (Unsp spec) [Mass/Mass] 201 ug/dL 65-175 [facility] Laboratory - Chemistry and C hemistry - challengeOrdered By: Tad Monahan on 03-08-2023 Lipase [Catalytic activity/Vol] 25 U/L 13-75 [facility] Comment on above: Please note:LIPASE r evised reference range effective 22. New Lipase methodology. Expected to produce lower values than the previous assay method. NEW Reference Range: 13 - 75 U/L Laboratory - Hematology and Cell countsOrdered By: Tad Monahan on 03-08-2023 Erythrocyte distribution width (RBC) [Entitic vol] 44.9 fL 35.1-43.9 [facility] Erythrocyte distribution width (RBC) [Ratio] 12.4 % 11.6-14.6 [facility] Immature granulocytes/100 WBC (Bld) 0.400 % 0.0-0.9 [facility] Comment on above: IG% - Immature Granu locytes (promyelocytes, myelocytes and metamyelocytes) > 1% indicates that a LEFT SHIFT is Present. MCH (RBC) [Entitic mass] 33.5 pg 27.0-32.0 [facility] Nucleated RBC/100 WBC (Bld) [Ratio] 0 % 0-5 [facility] MCHC Auto (RBC) [Mass/Vol]Or dered By: Tad Monahan on 03-08-2023 MCHC (RBC) [Mass/Vol] 34.2 g/dL 32-36 [facility] No Panel InformationOrdered By: Tad Monahan on 03-08-2023 Addendum Document Comment . [facility] Comment on above: Protein electrophore sis scan will follow via computer,mail, or applications development consultant delivery.Performed at: [address] [id number] Director: Carlos Hinojosa PhD, Phone: [phone] Immature Reticulocyte Fraction 12.10 % 3.00-15.90 [facility] Reticulocyte Count 1.80 % 0.5-1.5 [facility] Thyroid Stimulating Hormone (TSH) 2.51 uIU/mL 0.358-3.74 [facility] Platelets bldOrdered By: Ilan Monahan on 03-08-2023 Platelets (Bld) [#/Vol] 204 10*3/uL 150-450 [facility] Serum [id number] measu rement by electrophoresisOrdered By: Tad Monahan on 03-08-2023 Alpha 1 globulin Elph [Mass/Vol] 0.2 g/dL 0.0-0.4 [facility] Alpha 1 globulin Elph [Mass/Vol] 0.5 g/dL 0.4-1.0 [facility] Serum globulin measurement ( mass/volume)Ordered By: Tad Monahan on 03-08-2023 Globulin (S) [Mass/Vol] 2.8 g/dL 2.2-3.9 [facility] Serum or plasma C reactive p rotein measurement (mass/volume)Ordered By: Tad Monahan on 03-08-2023 CRP [Mass/Vol] mg/L 0.0-3.0 [facility] Comment on above: C-Reactive Protein ( CRP) provides useful information for thediagnosis, therapy and monitoring of inflammatory processesand associated diseases. For the evaluation of Relative Riskfor Cardiovascular Disease, a High Sensitivity CRP (HSCRP)should be ordered. Serum or plasma IgA measurem ent (mass/volume)Ordered By: Tad Monahan on 03-08-2023 IgA [Mass/Vol] 320 mg/dL 90-386 [facility] Serum or plasma IgG measurem ent (mass/volume)Ordered By: Tad Monahan on 03-08-2023 IgG [Mass/Vol] 1113 mg/dL 603-1613 [facility] Serum or plasma IgM measurem ent (mass/volume)Ordered By: Tad Monahan on 03-08-2023 IgM [Mass/Vol] 115 mg/dL 20-172 [facility] Serum or plasma beta globuli n measurement by electrophoresis (mass/volume)Ordered By: Tad Monahan on 03-08-2023 Beta globulin Elph [Mass/Vol] 1.0 g/dL 0.7-1.3 [facility] Serum or plasma cortisol trav surement (mass/volume)Ordered By: Tad Monahan on 03-08-2023 Cortisol [Mass/Vol] 22.90 ug/dL 3.44-22.45 [facility] Comment on above: Adult (AM) 5.27 - 22 .45 ug/dL Adult (PM) 3.44 - 16.76 ug/dLPlease note revised CORTISOL reference range effective 2019. Serum or plasma ferritin trav surement (mass/volume)Ordered By: Tad Monahan on 03-08-2023 Ferritin [Mass/Vol] 32 ng/mL 26-388 [facility] Serum or plasma gamma globul in measurement by electrophoresis (mass/volume)Ordered By: Tad Monahan on 03-08-2023 Gamma globulin Elph [Mass/Vol] 1.1 g/dL 0.4-1.8 [facility] Serum or plasma immunoelectr ophoresis interpretation (nominal result)Ordered By: Tad Monahan on 03-08-2023 Interpretation IEP [Interp] Comment . [facility] Comment on above: No monoclonality det ected. Thin prep Papanicolaou smear with manual screeningOrdered By: Tad Monahan on 03-08-2023 Thin prep Papanicolaou smear with manual screening 1.7 0.7-1.7 [facility] Total protein bloodOrdered B y: Tad Monahan on 03-08-2023 Protein [Mass/Vol] 7.4 g/dL 6.0-8.5 [facility] Absolute lymphocyte countOrd ered By: Tad Monahan on 06-01-2022 Lymphocytes Auto (Unsp spec) [#/Vol] 1.17 10*3/uL 0.83-4.51 [facility] Basophil percentageOrdered B y: Tad Monahan on 06-01-2022 Basophils/100 WBC (Bld) 0.7 % 0-1 [facility] Bilirubin [Mass/Vol] 0.30 mg/dL 0.20-1.00 [facility] Comment on above: For patients on eltr ombopag therapy, use of Dimension Douglas TBIL is not recommended. Chloride [Moles/Vol] 107 mmol/L 98-107 [facility] Eosinophils/100 WBC (Bld) 1.1 % 0-5 [facility] Glucose [Mass/Vol] 50 mg/dL 74-106 [facility] Neutrophils (Bld) [#/Vol] 3.6 10*3/uL 2.0-7.7 [facility] Neutrophils/100 WBC (Bld) 67.5 % 47-70 [facility] Potassium [Moles/Vol] 3.8 mmol/L 3.5-5.1 [facility] Protein [Mass/Vol] 7.5 g/dL 6.4-8.2 [facility] Sodium [Moles/Vol] 139 mmol/L 136-145 [facility] WBC (Bld) [#/Vol] 5.3 10*3/uL 4.4-11.0 [facility] Blood erythrocytes count (nu mber/volume)Ordered By: Tad Monahan on 06-01-2022 RBC (Bld) [#/Vol] 4.61 10*6/uL 4.6-6.2 [facility] Blood hemoglobin measurement (mass/volume)Ordered By: Tad Monahan on 06-01-2022 Hemoglobin (Bld) [Mass/Vol] 13.7 g/dL 13.0-16.5 [facility] Blood lymphocytes/100 leukoc ytesOrdered By: Tad Monahan on 06-01-2022 Lymphocytes/100 WBC (Bld) 21.9 % 19-41 [facility] Blood monocytes/100 leukocyt esOrdered By: Tad Monahan on 06-01-2022 Monocytes/100 WBC (Bld) 8.4 % 0-10 [facility] Blood platelet mean volumeOr dered By: Tad Monahan on 06-01-2022 Platelet mean volume (Bld) [Entitic vol] 10.0 fL 6.2-12.0 [facility] Determination of erythrocyte mean corpuscular volume (MCV)Ordered By: Tad Monahan on 06-01-2022 MCV (RBC) [Entitic vol] 92.6 fL 80-94 [facility] Erythrocyte sedimentation ra teOrdered By: Tad Monahan on 06-01-2022 ESR (Bld) [Velocity] 14 mm/h 0-20 [facility] Hematocrit Auto (Bld) [Volum e fraction]Ordered By: Tad Monahan on 06-01-2022 Hematocrit (Bld) [Volume fraction] 42.7 % 40-54 [facility] Laboratory - Chemistry and C hemistry - challengeOrdered By: Tad Monahan on 06-01-2022 ALP [Catalytic activity/Vol] 80 U/L 45-117 [facility] ALT [Catalytic activity/Vol] 19 U/L 16-61 [facility] CO2 [Moles/Vol] 28.0 mmol/L 21.0-32.0 [facility] Globulin (S) [Mass/Vol] 3.7 g/dL 2.2-4.2 [facility] Urea nitrogen/Creatinine [Mass ratio] 13.8 mg/mg 10-20 [facility] Laboratory - Hematology and Cell countsOrdered By: Tad Monahan on 06-01-2022 Erythrocyte distribution width (RBC) [Entitic vol] 49.6 fL 35.1-43.9 [facility] Erythrocyte distribution width (RBC) [Ratio] 14.6 % 11.6-14.6 [facility] Immature granulocytes/100 WBC (Bld) 0.400 % 0.0-0.9 [facility] Comment on above: IG% - Immature Granu locytes (promyelocytes, myelocytes and metamyelocytes) > 1% indicates that a LEFT SHIFT is Present. MCH (RBC) [Entitic mass] 29.7 pg 27.0-32.0 [facility] Nucleated RBC/100 WBC (Bld) [Ratio] 0 % 0-5 [facility] MCHC Auto (RBC) [Mass/Vol]Or dered By: Tad Monahan on 06-01-2022 MCHC (RBC) [Mass/Vol] 32.1 g/dL 32-36 [facility] No Panel InformationOrdered By: Tad Monahan on 06-01-2022 Stool Calprotectin 29 ug/g 0-120 [facility] Comment on above: Concentration Interp retation Follow-Up<16 - 50 ug/g Normal None>50 -120 ug/g Borderline Re-evaluate in 4-6 weeks >120 ug/g Abnormal Repeat as clinically indicatedPerformed at: - [facility] [id number] Director: Ran Mathews MD, Phone: [phone] Estimated GFR (MDRD) Amer 130 mL/min >60 [facility] Comment on above: GFR Calc Estimated GFR (MDRD) Non-Af Amer 108 mL/min >60 [facility] Comment on above: Non- GFR Calc Platelets bldOrdered By: Ilan Monahan on 06-01-2022 Platelets (Bld) [#/Vol] 238 10*3/uL 150-450 [facility] Serum or plasma C reactive p rotein measurement (mass/volume)Ordered By: Tad Monahan on 06-01-2022 CRP [Mass/Vol] 3.11 mg/L 0.0-3.0 [facility] Comment on above: C-Reactive Protein ( CRP) provides useful information for thediagnosis, therapy and monitoring of inflammatory processesand associated diseases. For the evaluation of Relative Riskfor Cardiovascular Disease, a High Sensitivity CRP (HSCRP)should be ordered. Serum or plasma albumin charlee urement (mass/volume)Ordered By: Tad Monahan on 06-01-2022 Albumin [Mass/Vol] 3.8 g/dL 3.2-5.0 [facility] Serum or plasma albumin/glob ulin mass ratioOrdered By: Tad Monahan on 06-01-2022 Albumin/Globulin [Mass ratio] 1.0 {ratio} 0.9-2.4 [facility] Serum or plasma calcium charlee urement (mass/volume)Ordered By: Tad Monahan on 06-01-2022 Calcium [Mass/Vol] 9.6 mg/dL 8.5-10.1 [facility] Serum or plasma creatinine m easurement (mass/volume)Ordered By: Tad Monahan on 06-01-2022 Creatinine [Mass/Vol] 0.94 mg/dL 0.70-1.30 [facility] Comment on above: The validity of the calculated GFR & GFRAA in patients over 70 years has not been determined. Clinical correlation is essential. Serum or plasma urea nitroge n measurement (mass/volume)Ordered By: Tad Monahan on 06-01-2022 Urea nitrogen [Mass/Vol] 13 mg/dL 7-18 [facility] Stool lactoferrin detection by immunoassayOrdered By: Tad Monahan on 06-01-2022 Lactoferrin IA Ql (Stl) [facility] Thin prep Papanicolaou smear with manual screeningOrdered By: Tad Monahan on 06-01-2022 Thin prep Papanicolaou smear with manual screening 15 U/L 15-37 [facility] Thin prep Papanicolaou smear with manual screening 4 5-15 [facility] Absolute lymphocyte counton 01-03-2022 Lymphocytes Auto (Unsp spec) [#/Vol] 1.50 10*3/uL 0.83-4.51 [facility] Work Phone: Basophil percentageon 2021 Amylase [Catalytic activity/Vol] 48 U/L 25-115 [facility] Work Phone: Basophils/100 WBC (Bld) 0.5 % 0-1 [facility] Work Phone: Bilirubin [Mass/Vol] 0.40 mg/dL 0.20-1.00 [facility] Work Phone: Comment on above: For patients on eltr ombopag therapy, use of Dimension Douglas TBIL is not recommended. Chloride [Moles/Vol] 105 mmol/L 98-107 [facility] Work Phone: Eosinophils/100 WBC (Bld) 0.7 % 0-5 [facility] Work Phone: Glucose [Mass/Vol] 89 mg/dL 74-106 [facility] Work Phone: Neutrophils (Bld) [#/Vol] 3.9 10*3/uL 2.0-7.7 [facility] Work Phone: Neutrophils/100 WBC (Bld) 64.4 % 47-70 [facility] Work Phone: Potassium [Moles/Vol] 3.9 mmol/L 3.5-5.1 [facility] Work Phone: Protein [Mass/Vol] 7.4 g/dL 6.4-8.2 [facility] Work Phone: Sodium [Moles/Vol] 137 mmol/L 136-145 [facility] Work Phone: WBC (Bld) [#/Vol] 6.1 10*3/uL 4.4-11.0 [facility] Work Phone: Blood erythrocytes count (nu mber/volume)on 01-03-2022 RBC (Bld) [#/Vol] 4.45 10*6/uL 4.6-6.2 [facility] Work Phone: Blood hemoglobin measurement (mass/volume)on 01-03-2022 Hemoglobin (Bld) [Mass/Vol] 13.4 g/dL 13.0-16.5 [facility] Work Phone: Blood lymphocytes/100 leukoc yteson 01-03-2022 Lymphocytes/100 WBC (Bld) 24.7 % 19-41 [facility] Work Phone: Blood monocytes/100 leukocyt eson 01-03-2022 Monocytes/100 WBC (Bld) 9.4 % 0-10 [facility] Work Phone: Blood platelet mean volumeon 01-03-2022 Platelet mean volume (Bld) [Entitic vol] 9.1 fL 6.2-12.0 [facility] Work Phone: Determination of erythrocyte mean corpuscular volume (MCV)on 01-03-2022 MCV (RBC) [Entitic vol] 92.4 fL 80-94 [facility] Work Phone: Hematocrit Auto (Bld) [Volum e fraction]on 01-03-2022 Hematocrit (Bld) [Volume fraction] 41.1 % 40-54 [facility] Work Phone: Laboratory - Chemistry and C hemistry - challengeon 01-03-2022 ALP [Catalytic activity/Vol] 88 U/L 45-117 [facility] Work Phone: ALT [Catalytic activity/Vol] 39 U/L 16-61 [facility] Work Phone: CO2 [Moles/Vol] 27.0 mmol/L 21.0-32.0 [facility] Work Phone: Globulin (S) [Mass/Vol] 3.7 g/dL 2.2-4.2 [facility] Work Phone: Lipase [Catalytic activity/Vol] 76 U/L 73-393 [facility] Work Phone: Urea nitrogen/Creatinine [Mass ratio] 13.7 mg/mg 10-20 [facility] Work Phone: Laboratory - Hematology and Cell countson 01-03-2022 Erythrocyte distribution width (RBC) [Entitic vol] 42.2 fL 35.1-43.9 [facility] Work Phone: Erythrocyte distribution width (RBC) [Ratio] 12.4 % 11.6-14.6 [facility] Work Phone: Immature granulocytes/100 WBC (Bld) 0.300 % 0.0-0.9 [facility] Work Phone: Comment on above: IG% - Immature Granu locytes (promyelocytes, myelocytes and metamyelocytes) > 1% indicates that a LEFT SHIFT is Present. MCH (RBC) [Entitic mass] 30.1 pg 27.0-32.0 [facility] Work Phone: Nucleated RBC/100 WBC (Bld) [Ratio] 0 % 0-5 [facility] Work Phone: MCHC Auto (RBC) [Mass/Vol]on 01-03-2022 MCHC (RBC) [Mass/Vol] 32.6 g/dL 32-36 [facility] Work Phone: No Panel Informationon 01-03 Estimated GFR (MDRD) Amer 130 mL/min >60 [facility] Work Phone: Comment on above: GFR Calc Estimated GFR (MDRD) Non-Af Amer 107 mL/min >60 [facility] Work Phone: Comment on above: Non- GFR Calc Platelets bldon 01-03-2022 Platelets (Bld) [#/Vol] 267 10*3/uL 150-450 [facility] Work Phone: Serum or plasma C reactive p rotein measurement (mass/volume)on 01-03-2022 CRP [Mass/Vol] mg/L 0.0-3.0 [facility] Work Phone: Comment on above: C-Reactive Protein ( CRP) provides useful information for thediagnosis, therapy and monitoring of inflammatory processesand associated diseases. For the evaluation of Relative Riskfor Cardiovascular Disease, a High Sensitivity CRP (HSCRP)should be ordered. Serum or plasma albumin charlee urement (mass/volume)on 01-03-2022 Albumin [Mass/Vol] 3.7 g/dL 3.2-5.0 [facility] Work Phone: Serum or plasma albumin/glob ulin mass ratioon 01-03-2022 Albumin/Globulin [Mass ratio] 1.0 {ratio} 0.9-2.4 [facility] Work Phone: Serum or plasma calcium charlee urement (mass/volume)on 01-03-2022 Calcium [Mass/Vol] 9.0 mg/dL 8.5-10.1 [facility] Work Phone: Serum or plasma creatinine m easurement (mass/volume)on 01-03-2022 Creatinine [Mass/Vol] 0.95 mg/dL 0.70-1.30 [facility] Work Phone: Comment on above: The validity of the calculated GFR & GFRAA in patients over 70 years has not been determined. Clinical correlation is essential. Serum or plasma urea nitroge n measurement (mass/volume)on 01-03-2022 Urea nitrogen [Mass/Vol] 13 mg/dL 7-18 [facility] Work Phone: Thin prep Papanicolaou smear with manual screeningon 01-03-2022 Thin prep Papanicolaou smear with manual screening 19 U/L 15-37 [facility] Work Phone: Thin prep Papanicolaou smear with manual screening 5 5-15 [facility] Work Phone: HIV 1 and HIV-2 antibody ass ay with HIV-1 p24 antigen detectionon 10-01-2021 HIV 1+2 Ab+HIV1 p24 Ag IA Ql Non-Reactive Nonreactive [facility] Work Phone: No Panel Informationon 10-01 Miscellaneous Test See comment [facility] Work Phone: Comment on above: TEST RESULT LIMITSAd alimumab Drug + AntibodyAdalimumab Drug Level <0.6 ug/mLQuantitation Limit: <0.6 ug/mLResults of 0.6 or higher indicate detection of adalimumab.Comments: - The optimal drug concentration depends upon patient- specific factors including the disease and desired therapeutic endpoint. - Maintenance trough concentrations >=7.5 may correspond to higher remission rates.(1) - Mucosal healing may be more likely in patients with maintenance trough levels >8.14.(2) - In rheumatoid arthritis, trough levels of 5-8 are associated with clinical (EULAR) response.(3) - This assay measures the antibody-unbound (free) fraction of adalimumab when serum anti-adalimumab antibodies are present.Anti-Adalimumab Antibody <25 ng/mL Interpretation: The above result is an UNDETECTED Antibody titer Quantitation Limit: <25 ng/mL. Results of 25 or higher indicate detection of anti- adalimumab antibodies. 25 - 100 ng/mL: LOW titer 101 - 300 ng/mL: INTERMEDIATE titer 301 or greater ng/mL: HIGH titerComments: - Anti-drug antibody levels should be interpreted in the context of the concomitant free drug trough concentration.- Low anti-drug antibodies may be transient while high titers are likely to be more consequential.(4-6) - Some immunogenicity is reversible. Elimination of intermediate titer (and even some high titer) anti-adalimumab antibodies has been achieved with dose escalation and/or methotrexate or 6-MP.(7) - This anti-adalimumab antibody assay is drug tolerant, and all positive results are verified for anti-drug specificity by a confirmatory test.References:1. Patricia N, et al. AGA Review on TDM in IBD. Gastroenterol 2017;153:835-857.2. Marc E, et al. J Crohns Col 2016;10(5):510-515.3. Rosa Maria MF, et al. Mildred Rheum Dis 2015;74:513-518.4. Bartelds GM, et al. FIDEL 2011;305(14):7969-6215.5. Steenhjanette C, et al. J Clin Gastroenterol 2016; 50:482-489.6. Hebert H, et al. Clin Gastroenterol Hepatol 2015; 13(3):522-530.7. Rivas A, et al. Gastroenterol 2019;156(6):S-617.These tests were developed and their performancecharacteristics determined by [employer]. They have not beencleared or approved by the Food and Drug Administration.However, these electrochemiluminescence immunoassay (ECLIA)measurements of adalimumab and anti-adalimumab antibody(constituting DoseASSURE ADL) have been developed andvalidated in accordance with CLIA (Clinical LaboratoryImprovement Amendments) and the FDA Guidance document, AssayDevelopment and Validation for Immunogenicity Testing ofTherapeutic Protein Products (2019). Miscellaneous Test See comment [facility] Work Phone: Comment on above: TEST RESULT UNITS RE F INTERVALIBD Expanded PanelgASCA 16 units 0-50 Negative <45 Equivocal 45 - 50 Positive >50ACCA 65 units 0-90 Negative <80 Equivocal 80 - 90 Positive >90ALCA 2 units 0-60 Negative <55 Equivocal 55 - 60 Positive >60AMCA 35 units 0-100 Negative < 90 Equivocal 90 - 100 Positive >100 This test was developed and its performance characteristics determined by [employer]. It has not been cleared or approved by the Food and Drug Administration. The FDA has determined that such clearance or approval is not necessary.Atypical pANCA Positive Abnormal NegativeComments Abnormal Suggestive of Ulcerative Colitis Adalimumab Drug Level <0.6 ug/mL Quantitation Limit: <0.6 ug/mLResults of 0.6 or higher indicate detection of adalimumab.Comments: - The optimal drug concentration depends upon patient- specific factors including the disease and desired therapeutic endpoint. - Maintenance trough concentrations >=7.5 may correspond to higher remission rates.(1) - Mucosal healing may be more likely in patients with maintenance trough levels >8.14.(2) - In rheumatoid arthritis, trough levels of 5-8 are associated with clinical (EULAR) response.(3) - This assay measures the antibody-unbound (free) fraction of adalimumab when serum anti-adalimumab antibodies are present.Anti-Adalimumab Antibody <25 ng/mL Interpretation: The above result is an UNDETECTED Antibody titer Quantitation Limit: <25 ng/mL. Results of 25 or higher indicate detection of anti- adalimumab antibodies. 25 - 100 ng/mL: LOW titer 101 - 300 ng/mL: INTERMEDIATE titer 301 or greater ng/mL: HIGH titerComments: - Anti-drug antibody levels should be interpreted in the context of the concomitant free drug trough concentration.- Low anti-drug antibodies may be transient while high titers are likely to be more consequential.(4-6) - Some immunogenicity is reversible. Elimination of intermediate titer (and even some high titer) anti-adalimumab antibodies has been achieved with dose escalation and/or methotrexate or 6-MP.(7) - This anti-adalimumab antibody assay is drug tolerant, and all positive results are verified for anti-drug specificity by a confirmatory test.References:1. Patricia Contreras, et al. AGA Review on TDM in IBD. Gastroenterol 2017;153:835-857.2. Marc Vee et al. J Crohns Col 2016;10(5):510-515.3. Pouw MF, et al. [facility]red Rheum Dis 2015;74:513-518.4. Melody RADFORD, et al. FIDEL 2011;305(14):3904-4979.5. Juma C, et al. J Clin Gastroenterol 2016; 50:482-489.6. Hebert H, et al. Clin Gastroenterol Hepatol 2015; 13(3):522-530.7. Rivas A, et al. Gastroenterol 2019;156(6):S-617.These tests were developed and their performancecharacteristics determined by [employer]. They have not beencleared or approved by the Food and Drug Administration.However, these electrochemiluminescence immunoassay (ECLIA)measurements of adalimumab and anti-adalimumab antibody(constituting DoseASSURE ADL) have been developed andvalidated in accordance with CLIA (Clinical LaboratoryImprovement Amendments) and the FDA Guidance document, AssayDevelopment and Validation for Immunogenicity Testing ofTherapeutic Protein Products (2019).Ustekinumab <0.1 ug/mL Quantitation Limit: <0.1 ug/mL Results of 0.1 ug/mL or higher indicate detection of ustekinumab.COMMENTS: - Induction levels in Crohn's Disease: - Patients who received IV 130 mg or 6 mg/kg had median trough concentrations of 2.1 ug/mL and 6.4 ug/mL, respectively, at week 8 in UNITI trials.(1)- Maintenance levels: - Of UNITI patients with trough levels greater than 1.1 ug/mL, about 80% achieved clinical remission (HBI < 5) and about 50% attained CRP normalization.(2) - Higher maintenance concentrations, greater than 4.5 ug/mL (achieved with q8wk or q4wk dosing after SQ induction), may be necessary for endoscopic response (SES-CD score reduction >=50%).(3) - Trough levels predictive of mucosal healing and fistula healing have yet to be determined.- In plaque psoriasis, median trough ustekinumab concentrations were 0.4 ug/mL at weeks 14 and 28 (ranging from undetectable to 3.6 ug/mL).(4) Although PASI50 responders had higher trough concentrations than non- responders in a study of 76 patients, a definitive therapeutic target range for psoriasis has yet to be established.(5)- As with other biologics, the optimal drug concentration depends upon patient-specific factors including co- morbidities, disease and desired therapeutic endpoint- This ustekinumab drug assay measures the free fraction of ustekinumab (antibody-unbound ustekinumab) when serum anti-ustekinumab antibodies are present.Anti-Ustekinumab Antibody <40 ng/mL Quantitation Limit: < 40 ng/mL Results of 40 ng/mL or higher indicate detection of antiustekinumab antibodies.COMMENTS:- This anti-ustekinumab antibody assay is drug-tolerant, i.e. the detection of anti-ustekinumab antibodies is not impeded by the presence of ustekinumab in serum.- All positive anti-ustekinumab antibody results are verified by a confirmatory test.- The concomitant free ustekinumab drug concentration (re (more content not included)... Bordetella pertussis IgG Antibody See comment [facility] Work Phone: Comment on above: TEST RESULT LIMITSB pertussis IgG AbB pertussis IgG Ab 1.99 High index 0.00-0.94 Negative <0.95 TESTING PERFORMED AT [facility]. ORIGINAL REPORT ON FILE IN LAB CONTAINS ADDITIONAL TEST SITE INFORMATION. Hepatitis A IgM Antibody See comment [facility] Work Phone: Comment on above: TEST RESULT LIMITSAc andrews HepatitisHep A Ab, IgM Negative NegativeHBsAg Screen Negative NegativeHep B Core Ab, IgM Negative NegativeHCV Ab <0.1 s/co ratio 0.0-0.9Interpretation: NegativeNot infected with HCV, unless recent infection is suspected or other evidence exists to indicate HCV infection. TESTING PERFORMED AT [facility]. ORIGINAL REPORT ON FILE IN LAB CONTAINS ADDITIONAL TEST SITE INFORMATION. Hepatitis B Core IgM Antibody Not Reportable [facility] Work Phone: Hepatitis C Antibody (EIA) Not Reportable [facility] Work Phone: Rubella IgG Antibody Reactive Nonreactive [facility] Work Phone: Comment on above: Antibody Results Int erpretation of Immune Status Non Reactive Presumed Non-Immune Equivocal Equivocal Reactive Presumed Immune Serum Varicella zoster virus IgG antibody assay by immunoassay (units/volume)on 10-01-2021 VZV IgG IA Qn (S) See comment [facility] Work Phone: Comment on above: TEST RESULT LIMITSVa ricella-Zoster V Ab, IgG Varicella Zoster IgG <135 Low index Immune >165 Negative <135 Equivocal 135 - 165 Positive >165 A positive result generally indicates exposure to the pathogen or administration of specific immunoglobulins, but it is not indication of active infection or stage of disease. ___ TESTING PERFORMED AT [facility]. ORIGINAL REPORT ON FILE IN LAB CONTAINS ADDITIONAL TEST SITE INFORMATION. Serum mumps virus IgM antibo dy assay (units/volume)on 10-01-2021 MuV IgM Qn (S) See comment [facility] Work Phone: Comment on above: TEST RESULT LIMITSMu mps Antibodies, IgMMumps Antibodies, IgM <0.80 AU 0.00-0.79 Negative < 0.80 Borderline 0.80 - 1.20 Positive > 1.20 Note: The presence of IgM specific antibody should be interpreted in conjunction with the patient's clinical history and exposure risk when an acute infection is suspected. TESTING PERFORMED AT [facility]. ORIGINAL REPORT ON FILE IN LAB CONTAINS ADDITIONAL TEST SITE INFORMATION. Serum or plasma hepatitis B virus surface antigen detection by immunoassayon 10-01-2021 HBV surface Ag IA Ql Not Reportable [facility] Work Phone: Giardia lamblia ag stool EIA on 09-23-2021 G. lamblia Ag IA Ql (Stl) See comment [facility] Work Phone: Comment on above: TEST RESULT LIMITSGi ardia lamblia Agm EIA Negative Negative ___ TESTING PERFORMED AT [facility]. ORIGINAL REPORT ON FILE IN LAB CONTAINS ADDITIONAL TEST SITE INFORMATION. No Panel Informationon 09-23 Enteric Bacteriology [facility] Work Phone: Stool Calprotectin 1436 ug/g 0-120 [facility] Work Phone: Comment on above: Concentration Interp retation Follow-Up<16 - 50 ug/g Normal None>50 -120 ug/g Borderline Re-evaluate in 4-6 weeks >120 ug/g Abnormal Repeat as clinically indicatedPerformed at: [facility] [address] [id number] Director: Ran Mathews MD, Phone: [phone] Absolute lymphocyte counton 09-22-2021 Lymphocytes Auto (Unsp spec) [#/Vol] 1.65 10*3/uL 0.83-4.51 [facility] Work Phone: Albumin Elph [Mass/Vol]on Albumin [Mass/Vol] 4.1 g/dL 2.9-4.4 [facility] Work Phone: Atypical perinuclear antineu trophil cytoplasmic antibodies measurementon 09-22-2021 Neutrophil cytoplasmic Ab.perinuclear.atypical IF (S) [Titer] 1:640 titer Neg:<1:20 [facility] Work Phone: Comment on above: The atypical pANCA p attern has been observed in asignificant percentage of patients with ulcerative colitis,primary sclerosing cholangitis and autoimmune hepatitis.Performed at: [address] [id number] Director: Carlos Hinojosa PhD, Phone: [phone] at: [facility] [address] [id number] Director: Ran Mathews MD, Phone: [phone] Basophil percentageon 2021 Basophil percentage < 0.2 AI 0.0-0.9 [facility] Work Phone: [phone] Basophils/100 WBC (Bld) 0.5 % 0-1 [facility] Work Phone: Bilirubin [Mass/Vol] 0.20 mg/dL 0.20-1.00 [facility] Work Phone: Comment on above: For patients on eltr ombopag therapy, use of Dimension Douglas TBIL is not recommended. Chloride [Moles/Vol] 108 mmol/L 98-107 [facility] Work Phone: [phone] Eosinophils/100 WBC (Bld) 1.3 % 0-5 [facility] Work Phone: [phone] Glucose [Mass/Vol] 90 mg/dL 74-106 [facility] Work Phone: Neutrophils (Bld) [#/Vol] 5.7 10*3/uL 2.0-7.7 [facility] Work Phone: Neutrophils/100 WBC (Bld) 68.7 % 47-70 [facility] Work Phone: Potassium [Moles/Vol] 4.4 mmol/L 3.5-5.1 [facility] Work Phone: Protein [Mass/Vol] 7.3 g/dL 6.4-8.2 [facility] Work Phone: Sodium [Moles/Vol] 135 mmol/L 136-145 [facility] Work Phone: WBC (Bld) [#/Vol] 8.4 10*3/uL 4.4-11.0 [facility] Work Phone: Blood erythrocytes count (nu mber/volume)on 09-22-2021 RBC (Bld) [#/Vol] 4.55 10*6/uL 4.6-6.2 [facility] Work Phone: Blood hemoglobin measurement (mass/volume)on 09-22-2021 Hemoglobin (Bld) [Mass/Vol] 14.3 g/dL 13.0-16.5 [facility] Work Phone: Blood lymphocytes/100 leukoc yteson 09-22-2021 Lymphocytes/100 WBC (Bld) 19.8 % 19-41 [facility] Work Phone: Blood monocytes/100 leukocyt eson 09-22-2021 Monocytes/100 WBC (Bld) 9.5 % 0-10 [facility] Work Phone: Blood platelet mean volumeon 09-22-2021 Platelet mean volume (Bld) [Entitic vol] 9.6 fL 6.2-12.0 [facility] Work Phone: Determination of erythrocyte mean corpuscular volume (MCV)on 09-22-2021 MCV (RBC) [Entitic vol] 92.5 fL 80-94 [facility] Work Phone: Erythrocyte sedimentation ra mechelle 09-22-2021 ESR (Bld) [Velocity] 7 mm/h 0-20 [facility]: Hematocrit Auto (Bld) [Volum e fraction]on 09-22-2021 Hematocrit (Bld) [Volume fraction] 42.1 % 40-54 [facility] Work Phone: Interpretation of serum or p lasma protein pattern by immunofixation (narrative resulton 09-22-2021 Protein Fractions Immunofixation Duncan [Interp] See comment [facility] Work Phone: Comment on above: NOT OBSERVED Laboratory - Chemistry and C hemistry - challengeon 09-22-2021 ALP [Catalytic activity/Vol] 100 U/L 45-117 [facility] Work Phone: ALT [Catalytic activity/Vol] 35 U/L 16-61 [facility] Work Phone: CO2 [Moles/Vol] 23.0 mmol/L 21.0-32.0 [facility] Work Phone: Urea nitrogen/Creatinine [Mass ratio] 12.1 mg/mg 10-20 [facility] Work Phone: Laboratory - Hematology and Cell countson 09-22-2021 Erythrocyte distribution width (RBC) [Entitic vol] 42.0 fL 35.1-43.9 [facility] Work Phone: Erythrocyte distribution width (RBC) [Ratio] 12.4 % 11.6-14.6 [facility] Work Phone: Immature granulocytes/100 WBC (Bld) 0.200 % 0.0-0.9 [facility] Work Phone: Comment on above: IG% - Immature Granu locytes (promyelocytes, myelocytes and metamyelocytes) > 1% indicates that a LEFT SHIFT is Present. MCH (RBC) [Entitic mass] 31.4 pg 27.0-32.0 [facility] Work Phone: Nucleated RBC/100 WBC (Bld) [Ratio] 0 % 0-5 [facility] Work Phone: MCHC Auto (RBC) [Mass/Vol]on 09-22-2021 MCHC (RBC) [Mass/Vol] 34.0 g/dL 32-36 [facility] Work Phone: No Panel Informationon 09-22 Addendum Document Comment . [facility] Work Phone: Comment on above: Protein electrophore sis scan will follow via computer,mail, or applications development consultant delivery. Centromere B Antibody <0.2 AI 0.0-0.9 [facility] Work Phone: Endomysial IgA Antibody Negative Negative [facility] Work Phone: Estimated GFR (MDRD) Amer 124 mL/min >60 [facility] Work Phone: Comment on above: GFR Calc Estimated GFR (MDRD) Non-Af Amer 103 mL/min >60 [facility] Work Phone: Comment on above: Non- GFR Calc Immunoglobulin E 18 IU/mL 6-495 [facility] Work Phone: [employer] Antibody 0.7 AI 0.0-0.9 [facility] Work Phone: Platelets bldon 09-22-2021 Platelets (Bld) [#/Vol] 263 10*3/uL 150-450 [facility] Work Phone: Serum DNA double strand anti body assay (units/volume)on 09-22-2021 DNA double strand Ab Qn (S) [IU]/mL 0-9 [facility] Work Phone: Comment on above: Negative <5 Equivoca l 5 - 9 Positive >9 Serum Nancy-1 antibody assay (u nits/volume)on 09-22-2021 Nancy-1 extractable nuclear Ab Qn (S) <0.2 AI 0.0-0.9 [facility] Work Phone: Serum Scl-70 extractable nuc lear antibody assay (units/volume)on 09-22-2021 SCL-70 extractable nuclear Ab Qn (S) <0.2 AI 0.0-0.9 [facility] Work Phone: Serum Ivan extractable nucl ear antibody detectionon 09-22-2021 Ivan extractable nuclear Ab Ql (S) <0.2 AI 0.0-0.9 [facility] Work Phone: Serum [id number] measu rement by electrophoresison 09-22-2021 Alpha 1 globulin Elph [Mass/Vol] 0.2 g/dL 0.0-0.4 [facility] Work Phone: Alpha 1 globulin Elph [Mass/Vol] 0.7 g/dL 0.4-1.0 [facility] Work Phone: Serum classic neutrophil cyt oplasmic antibody assay (units/volume)on 09-22-2021 Neutrophil cytoplasmic Ab.classic Qn (S) <1:20 titer Neg:<1:20 [facility] Work Phone: Serum globulin measurement ( mass/volume)on 09-22-2021 Globulin (S) [Mass/Vol] 2.9 g/dL 2.2-3.9 [facility] Work Phone: Serum or plasma C reactive p rotein measurement (mass/volume)on 09-22-2021 CRP [Mass/Vol] 4.13 mg/L 0.0-3.0 [facility] Work Phone: Comment on above: C-Reactive Protein ( CRP) provides useful information for thediagnosis, therapy and monitoring of inflammatory processesand associated diseases. For the evaluation of Relative Riskfor Cardiovascular Disease, a High Sensitivity CRP (HSCRP)should be ordered. Serum or plasma IgA measurem ent (mass/volume)on 09-22-2021 IgA [Mass/Vol] 335 mg/dL 90-386 [facility] Work Phone: Serum or plasma IgG measurem ent (mass/volume)on 09-22-2021 IgG [Mass/Vol] 1110 mg/dL 671-1456 [facility] Work Phone: Serum or plasma IgM measurem ent (mass/volume)on 09-22-2021 IgM [Mass/Vol] 92 mg/dL 35-168 [facility] Work Phone: Serum or plasma albumin charlee urement (mass/volume)on 09-22-2021 Albumin [Mass/Vol] 3.6 g/dL 3.2-5.0 [facility] Work Phone: Serum or plasma albumin/glob ulin mass ratioon 09-22-2021 Albumin/Globulin [Mass ratio] 1.0 {ratio} 0.9-2.4 [facility] Work Phone: Serum or plasma beta globuli n measurement by electrophoresis (mass/volume)on 09-22-2021 Beta globulin Elph [Mass/Vol] 1.0 g/dL 0.7-1.3 [facility] Work Phone: Serum or plasma calcium charlee urement (mass/volume)on 09-22-2021 Calcium [Mass/Vol] 9.1 mg/dL 8.5-10.1 [facility] Work Phone: Serum or plasma creatinine m easurement (mass/volume)on 09-22-2021 Creatinine [Mass/Vol] 0.99 mg/dL 0.70-1.30 [facility] Work Phone: Comment on above: The validity of the calculated GFR & GFRAA in patients over 70 years has not been determined. Clinical correlation is essential. Serum or plasma gamma globul in measurement by electrophoresis (mass/volume)on 09-22-2021 Gamma globulin Elph [Mass/Vol] 1.1 g/dL 0.4-1.8 [facility] Work Phone: Serum or plasma immunoelectr ophoresis interpretation (nominal result)on 09-22-2021 Interpretation IEP [Interp] Comment . [facility] Work Phone: Comment on above: No monoclonality det ected. Serum or plasma urea nitroge n measurement (mass/volume)on 09-22-2021 Urea nitrogen [Mass/Vol] 12 mg/dL 7-18 [facility] Work Phone: Serum perinuclear neutrophil cytoplasmic antibody titer by immunofluorescenceon 09-22-2021 Neutrophil cytoplasmic Ab.perinuclear IF (S) [Titer] <1:20 titer Neg:<1:20 [facility] Work Phone: Comment on above: The presence of posi tive fluorescence exhibiting P-ANCA orC-ANCA patterns alone is not specific for the diagnosis ofWegener's Granulomatosis (WG) or microscopic polyangiitis.Decisions about treatment should not be based solely onANCA IFA results. The [employer] ANCA Group Consensusrecommends follow up testing of positive sera with both NE-3 and MPO-ANCA enzyme immunoassays. As many as 5% serumsamples are positive only by EIA. Ref. AM J Clin [id number];111:507-513. Serum tissue transglutaminas e IgA antibody assay (units/volume)on 09-22-2021 tTG IgA Qn (S) <2 U/mL 0-3 [facility] Work Phone: Comment on above: Negative 0 - 3 Weak Positive 4 - 10 Positive >10 Tissue Transglutaminase (tTG) has been identified as the endomysial antigen. Studies have demonstr- ated that endomysial IgA antibodies have over 99% specificity for gluten sensitive enteropathy. Thin prep Papanicolaou smear with manual screeningon 09-22-2021 Thin prep Papanicolaou smear with manual screening 17 U/L 15-37 [facility] Work Phone: Thin prep Papanicolaou smear with manual screening 4 5-15 [facility] Work Phone: Thin prep Papanicolaou smear with manual screening 144 U/L 87-241 [facility] Work Phone: Thin prep Papanicolaou smear with manual screening 1.5 0.7-1.7 [facility] Work Phone: Total protein bloodon 2021 Protein [Mass/Vol] 7.0 g/dL 6.0-8.5 [facility] Work Phone: Absolute lymphocyte counton 09-19-2021 Lymphocytes Auto (Unsp spec) [#/Vol] 1.20 10*3/uL 0.83-4.51 [facility] Work Phone: Basophil percentageon 2021 Basophils/100 WBC (Bld) 0.5 % 0-1 [facility] Work Phone: Bilirubin [Mass/Vol] 0.30 mg/dL 0.20-1.00 [facility] Work Phone: Comment on above: For patients on eltr ombopag therapy, use of Dimension Douglas TBIL is not recommended. Chloride [Moles/Vol] 103 mmol/L 98-107 [facility] Work Phone: Eosinophils/100 WBC (Bld) 0.7 % 0-5 [facility] Work Phone: Glucose [Mass/Vol] 109 mg/dL 74-106 [facility] Work Phone: Comment on above: Fasting Glucose resu lt from 100 to 125 mg/dL suggests IMPAIRED HOMEOSTASIS per A.D.A. criteria. Neutrophils (Bld) [#/Vol] 5.6 10*3/uL 2.0-7.7 [facility] Work Phone: Neutrophils/100 WBC (Bld) 73.6 % 47-70 [facility] Work Phone: Potassium [Moles/Vol] 4.2 mmol/L 3.5-5.1 [facility] Work Phone: Comment on above: Slight Hemolysis, Re sult may be falsely increased. Protein [Mass/Vol] 7.7 g/dL 6.4-8.2 [facility] Work Phone: Sodium [Moles/Vol] 136 mmol/L 136-145 [facility] Work Phone: WBC (Bld) [#/Vol] 7.6 10*3/uL 4.4-11.0 [facility] Work Phone: Blood erythrocytes count (nu mber/volume)on 09-19-2021 RBC (Bld) [#/Vol] 4.97 10*6/uL 4.6-6.2 [facility] Work Phone: Blood hemoglobin measurement (mass/volume)on 09-19-2021 Hemoglobin (Bld) [Mass/Vol] 15.5 g/dL 13.0-16.5 [facility] Work Phone: Blood lymphocytes/100 leukoc yteson 09-19-2021 Lymphocytes/100 WBC (Bld) 15.7 % 19-41 [facility] Work Phone: Blood monocytes/100 leukocyt eson 09-19-2021 Monocytes/100 WBC (Bld) 9.2 % 0-10 [facility] Work Phone: Blood platelet mean volumeon 09-19-2021 Platelet mean volume (Bld) [Entitic vol] 9.8 fL 6.2-12.0 [facility] Work Phone: Determination of erythrocyte mean corpuscular volume (MCV)on 09-19-2021 MCV (RBC) [Entitic vol] 92.6 fL 80-94 [facility] Work Phone: Hematocrit Auto (Bld) [Volum e fraction]on 09-19-2021 Hematocrit (Bld) [Volume fraction] 46.0 % 40-54 [facility] Work Phone: Laboratory - Chemistry and C hemistry - challengeon 09-19-2021 ALP [Catalytic activity/Vol] 113 U/L 45-117 [facility] Work Phone: ALT [Catalytic activity/Vol] 35 U/L 16-61 [facility] Work Phone: CO2 [Moles/Vol] 27.0 mmol/L 21.0-32.0 [facility] Work Phone: Globulin (S) [Mass/Vol] 3.6 g/dL 2.2-4.2 [facility] Work Phone: Urea nitrogen/Creatinine [Mass ratio] 12.6 mg/mg 10-20 [facility] Work Phone: Laboratory - Hematology and Cell countson 09-19-2021 Erythrocyte distribution width (RBC) [Entitic vol] 42.6 fL 35.1-43.9 [facility] Work Phone: Erythrocyte distribution width (RBC) [Ratio] 12.4 % 11.6-14.6 [facility] Work Phone: Immature granulocytes/100 WBC (Bld) 0.300 % 0.0-0.9 [facility] Work Phone: Comment on above: IG% - Immature Granu locytes (promyelocytes, myelocytes and metamyelocytes) > 1% indicates that a LEFT SHIFT is Present. MCH (RBC) [Entitic mass] 31.2 pg 27.0-32.0 [facility] Work Phone: Nucleated RBC/100 WBC (Bld) [Ratio] 0 % 0-5 [facility] Work Phone: MCHC Auto (RBC) [Mass/Vol]on 09-19-2021 MCHC (RBC) [Mass/Vol] 33.7 g/dL 32-36 [facility] Work Phone: No Panel Informationon 09-19 Estimated GFR (MDRD) Amer 109 mL/min >60 [facility] Work Phone: Comment on above: GFR Calc Estimated GFR (MDRD) Non-Af Amer 90 mL/min >60 [facility] Work Phone: Comment on above: Non- GFR Calc Platelets bldon 09-19-2021 Platelets (Bld) [#/Vol] 247 10*3/uL 150-450 [facility] Work Phone: Serum or plasma albumin charlee urement (mass/volume)on 09-19-2021 Albumin [Mass/Vol] 4.1 g/dL 3.2-5.0 [facility] Work Phone: Serum or plasma albumin/glob ulin mass ratioon 09-19-2021 Albumin/Globulin [Mass ratio] 1.1 {ratio} 0.9-2.4 [facility] Work Phone: Serum or plasma calcium charlee urement (mass/volume)on 09-19-2021 Calcium [Mass/Vol] 8.9 mg/dL 8.5-10.1 [facility] Work Phone: Serum or plasma creatinine m easurement (mass/volume)on 09-19-2021 Creatinine [Mass/Vol] 1.11 mg/dL 0.70-1.30 [facility] Work Phone: Comment on above: The validity of the calculated GFR & GFRAA in patients over 70 years has not been determined. Clinical correlation is essential. Serum or plasma urea nitroge n measurement (mass/volume)on 09-19-2021 Urea nitrogen [Mass/Vol] 14 mg/dL 7-18 [facility] Work Phone: Stool Helicobacter pylori an tigen detection by immunoassayon 09-19-2021 H. pylori Ag IA Ql (Stl) Negative Negative [facility] Work Phone: Comment on above: Performed at: - [facility] [id number] [place], [place] [id number] Director: Ran Mathews MD, Phone: [phone] Thin prep Papanicolaou smear with manual screeningon 09-19-2021 Thin prep Papanicolaou smear with manual screening 18 U/L 15-37 [facility] Work Phone: Comment on above: Slight Hemolysis, Re sult may be falsely increased. Thin prep Papanicolaou smear with manual screening 6 5-15 [facility] Work Phone: Progress Noteon 01-24-2018 [employer] Authentication Interface Message Text Date of service: January 24, 2018Patient's name: Carla FuentesMRN: [id number]: [id number] COMPLAINT: Right shoulder pain.HISTORY OF PRESENT ILLNESS: Carla Fuentes presents today forevaluation of right shoulder pain. He recalls tweaking his shoulder last yearwhile doing a front flip at [employer]. With baseball, he then developed pain withthrowing. He lost velocity. He had to stop throwing/pitching. He is playing golfnow and denies pain. He has no pain with batting. [facility] He has had x-rays, done some therapy, and has gotten an MRIof his shoulder. Denies cracking, popping, or snapping in the shoulder.Carla Fuentes is right hand dominant. Denies numbness or tingling inthe upper extremity or fingertips. No weakness or instability of the shoulder orupper extremity.PHYSICAL EXAMINATION:Carla is a well developed, well nourished, 17 y.o. male, in no apparentdistress. Upon observation and examination of the shoulders, no asymmetry orperiscapular wasting noted. No edema, erythema, or ecchymosis noted. Deniestenderness to palpation at the sternoclavicular joint, acromioclavicular jointand clavicle. Reports tenderness to palpation to biceps tendon. Carla canforward elevate to 180 degrees actively without discomfort. Full ROM present, noinstability noted with passive ROM. Distally, the right hand is neurovascularlyintact to both motor and sensory testing in the distributions of the median,radial, and ulnar nerves. Musculocutaneous and axillary nerves are intact. All5 digits of the right hand are pink and warm with brisk capillary refill noted.5/5 rotator cuff strength noted. Apprehension testing is negative. Sulcus testis negative.X-RAYS: Right shoulder x-rays and MRI were reviewed in office today.DIAGNOSIS AND IMPRESSION: Right shoulder biceps tendonitis, edema proximalhumerus physisTREATMENT PLAN: The treatment plan was discussed and agreed upon with Jr Yoanna who also personally examined Carla and reviewed imaging at today'soffice visit. The Tug lesion is an incidental finding and does not seem to be asource of his pain. He is going to continue to rest from throwing. He can batand play golf as neither one of those seem to cause him pain. Follow-up in 8weeks to check his progress. Dad is in agreement and will call with anyconcerns/questions.Re view of systems is negative for other significant musculoskeletal pain, lossof vision, hearing loss, high blood pressure, shortness of breath, skin ulcers,paresthesia, lymphedema, temperature intolerance, or nausea, unless otherwisestated in the history of present illness or past medical history.Past Medical HistoryPast Medical History:Diagnosis Date Fractures 2017 r shoulder injuryHistory reviewed. No pertinent surgical history.Family Medical History:History reviewed. No pertinent family history.Social History:Social HistorySocial History Marital status: Single Spouse name: N/A Number of children: N/A Years of education: N/ASocial History Main Topics Smoking status: Former Smoker Smokeless tobacco: Never Used Alcohol use None Drug use: Unknown Sexual activity: Not AskedOther Topics Concern NoneSocial History Narrative None Normal [facility] Progress Noteon 01-23-2018 Protein mass conc I have personally sh ared in the visit of Carla Fuentes, providingbedside participation in the E&M service. I saw and evaluated the patient anddiscussed the plan with the [employer]/resident. I have performed one each of thehistory, exam, and medical decision making, and agree with the abovedocumentation as annotated and corrected by me in strikethrough and italics.R shoulder pain several months ago after doing a front flip and since then hasdeveloped pain with throwing in baseball. Golf and batting do not cause himpain. Exam is normal today. No apprehension with abd/er. No instabilitynoted. His MRI shows a tug lesion at the lat dorsi where it attaches to thehumerus. I do not think this is the source of pain. I recommend continued nothrowing but he may bat/golf. Fu in 8 weeks for reevaluation. Normal [facility] Vital Signs Date Time Vital Sign Value Performing Clinician Faci lity 09-11-2024 10:21-0400 Diastolic blood pressure 62 mm[Hg] Dr. Lennie Patel MD Work Phone: [facility] 09-11-2024 10:21-0400 Heart rate 57 /min Dr. Lennie Patel MD Work Phone: [facility] [facility] 09-11-2024 10:21-0400 Respiratory rate 16 /min Dr. Lennie Patel MD Work Phone: [facility] 09-11-2024 10:21-0400 Systolic blood pressure 117 mm[Hg] Dr. Lennie Patel MD Work Phone: [facility] 09-11-2024 09:19-0400 Body height 172.[address] Lennie Patel MD Work Phone: [facility] 09-11-2024 09:19-0400 SaO2% (BldA) [Mass fraction] 98 % Dr. Lennie Patel MD Work Phone: [facility] 08-14-2024 10:08-0400 Diastolic blood pressure 67 mm[Hg] Dr. Lennie Patel MD Work Phone: [facility] 08-14-2024 10:08-0400 Heart rate 63 /min Dr. Lennie Patel MD Work Phone: [facility] 08-14-2024 10:08-0400 Respiratory rate 16 /min Dr. Lennie Patel MD Work Phone: 6(244)417-482364 [place] [address] 08-14-2024 10:08-0400 Systolic blood pressure 121 mm[Hg] Dr. Lennie Patel MD Work Phone: [facility] 08-14-2024 09:07-0400 Body height 172.[address] Lennie Patel MD Work Phone: 1(106)882-690217 [place] [address] 08-14-2024 09:07-0400 Body mass index (BMI) [Ratio] 26.4 kg/m2 Dr. Lennie Patel MD Work Phone: 3(131)626-979264 [place] [address] 08-14-2024 09:07-0400 Body temperature 97.2 [degF] Dr. Lennie Patel MD Work Phone: 3(935)648-112417 [place] [address] 08-14-2024 09:07-0400 Body weight 78.[address] Lennie Patel MD Work Phone: 8(207)555-637317 [place] [address] 08-14-2024 09:07-0400 SaO2% (BldA) [Mass fraction] 99 % Dr. Lennie Patel MD Work Phone: 4(553)240-813317 [place] [address] 07-31-2024 10:29-0500 Diastolic blood pressure 59 mm[Hg] Dr. Lennie Patel MD Work Phone: 5(043)975-714264 [place] [address] 07-31-2024 10:29-0500 Heart rate 63 /min Dr. Lennie Patel MD Work Phone: 9(912)684-492164 [place] [address] 07-31-2024 10:29-0500 Respiratory rate 16 /min Dr. Lennie Patel MD Work Phone: [facility] 07-31-2024 10:29-0500 Systolic blood pressure 128 mm[Hg] Dr. Lennie Patel MD Work Phone: 3(509)016-069517 [place] [address] 07-31-2024 08:59-0500 Body height 172.[address] Lennie Patel MD Work Phone: 4(227)343-496976 [address] 07-31-2024 08:59-0500 Body mass index (BMI) [Ratio] 26.6 kg/m2 Dr. Lennie Patel MD Work Phone: [facility] 07-31-2024 08:59-0500 Body temperature 96.4 [degF] Dr. Lennie Patel MD Work Phone: [facility] 07-31-2024 08:59-0500 Body weight 79.[address] Lennie Patel MD Work Phone: 9(726)211-353864 [place] [address] 07-31-2024 08:59-0500 SaO2% (BldA) [Mass fraction] 99 % Dr. Lennie Patel MD Work Phone: 7(387)183-381817 [place] [address] 07-24-2024 08:35-0500 Body mass index (BMI) [Ratio] 26.8 kg/m2 Dr. Lennie Patel MD Work Phone: 4(077)526-905817 [place] [address] 07-24-2024 08:35-0500 Body weight 80.[address] Lennie Patel MD Work Phone: 2(203)391-530964 [place] [address] 07-24-2024 08:35-0500 Diastolic blood pressure 76 mm[Hg] Dr. Lennie Patel MD Work Phone: 3(328)451-117517 [place] [address] 07-24-2024 08:35-0500 Heart rate 77 /min Dr. Lennie Patel MD Work Phone: 3(994)868-509817 [place] [address] 07-24-2024 08:35-0500 Respiratory rate 16 /min Dr. Lennie Patel MD Work Phone: 6(285)455-921817 [place] [address] 07-24-2024 08:35-0500 SaO2% (BldA) [Mass fraction] 99 % Dr. Lennie Patel MD Work Phone: 7(426)064-910617 [place] [address] 07-24-2024 08:35-0500 Systolic blood pressure 105 mm[Hg] Dr. Lennie Patel MD Work Phone: 8(730)668-961017 [place] [address] 06-26-2024 09:02-0500 Body mass index (BMI) [Ratio] 27.5 kg/m2 Dr. Lennie Patel MD Work Phone: [facility] 06-26-2024 09:02-0500 Body weight 82.[address] Lennie Patel MD Work Phone: [facility] 06-26-2024 09:02-0500 Diastolic blood pressure 78 mm[Hg] Dr. Lennie Patel MD Work Phone: [facility] 06-26-2024 09:02-0500 Heart rate 72 /min Dr. Lennie Patel MD Work Phone: [facility] 06-26-2024 09:02-0500 SaO2% (BldA) [Mass fraction] 96 % Dr. Lennie Patel MD Work Phone: [facility] 06-26-2024 09:02-0500 Systolic blood pressure 134 mm[Hg] Dr. Lennie Patel MD Work Phone: [facility] 05-22-2024 17:58-0500 Body temperature 98 [degF] Dr. Lennie Patel MD Work Phone: [facility] 05-22-2024 17:58-0500 Diastolic blood pressure 74 mm[Hg] Dr. Lennie Patel MD Work Phone: [facility] 05-22-2024 17:58-0500 Heart rate 90 /min Dr. Lennie Patel MD Work Phone: [facility] 05-22-2024 17:58-0500 Respiratory rate 16 /min Dr. Lennie Patel MD Work Phone: [facility] 05-22-2024 17:58-0500 SaO2% (BldA) [Mass fraction] 100 % Dr. Lennie Patel MD Work Phone: [facility] 05-22-2024 17:58-0500 Systolic blood pressure 140 mm[Hg] Dr. Lennie Patel MD Work Phone: [facility] 05-22-2024 16:58-0500 Body mass index (BMI) [Ratio] 26.8 kg/m2 Dr. Lennie Patel MD Work Phone: [facility] 05-22-2024 16:58-0500 Body weight 79.[address] Lennie Patel MD Work Phone: [facility] 04-21-2024 07:25-0500 Body temperature 97.4 [degF] Dr. Lennie Patel MD Work Phone: [facility] 04-21-2024 07:25-0500 Diastolic blood pressure 64 mm[Hg] Dr. Lennie Patel MD Work Phone: 0(096)302-724664 [place] [address] 04-21-2024 07:25-0500 Heart rate 69 /min Dr. Lennie Patel MD Work Phone: 3(480)696-381164 [place] [address] 04-21-2024 07:25-0500 Respiratory rate 16 /min Dr. Lennie Patel MD Work Phone: [facility] 04-21-2024 07:25-0500 SaO2% (BldA) [Mass fraction] 93 % Dr. Lennie Patel MD Work Phone: [facility] 04-21-2024 07:25-0500 Systolic blood pressure 106 mm[Hg] Dr. Lennie Patel MD Work Phone: [facility] 04-21-2024 05:57-0500 Body mass index (BMI) [Ratio] 25.2 kg/m2 Dr. Lennie Patel MD Work Phone: [facility] 04-21-2024 05:57-0500 Body weight 75.[address] Lennie Patel MD Work Phone: [facility] 10-27-2021 10:35-0400 Body temperature 98.1 [degF] Dr. Mauri Montiel Work Phone: [facility] Work Phone: 10-27-2021 10:35-0400 Diastolic blood pressure 57 mm[Hg] Dr. Mauri Montiel Work Phone: [facility] Work Phone: 10-27-2021 10:35-0400 Heart rate 64 /min Dr. Mauri Montiel Work Phone: [facility] Work Phone: 10-27-2021 10:35-0400 Respiratory rate 16 /min Dr. Mauri Montiel Work Phone: [facility] Work Phone: 10-27-2021 10:35-0400 SaO2% (BldA) [Mass fraction] 99 % Dr. Mauri Montiel Work Phone: [facility] Work Phone: 10-27-2021 10:35-0400 Systolic blood pressure 106 mm[Hg] Dr. Mauri Montiel Work Phone: [facility] Work Phone: 10-27-2021 09:14-0400 Body height 172.[address] Mauri Montiel Work Phone: [facility] Work Phone: 10-27-2021 09:14-0400 Body mass index (BMI) [Percentile] Per age and sex 42.8 % Dr. Mauri Montiel Work Phone: [facility] Work Phone: 10-27-2021 09:14-0400 Body mass index (BMI) [Ratio] 22.4 kg/m2 Dr. Mauri Montiel Work Phone: [facility] Work Phone: 10-27-2021 09:14-04[address] Body weight [address] Mauri Montiel Work Phone: [facility] Work Phone: Encounters Encounter Date Encounter Type Care Provider Facility Start: 11-06-2024 ambulatory Lennie Coyle lity:[facility] Start: 09-15-2024 End: 09-15-2024 ambulatory Lennie Patel Facility:[facility] Start: 09-11-2024 End: 09-11-2024 Patient encounter procedure Brianne WALLS -[facility] Out Work Phone: Start: 09-11-2024 End: 09-11-[address] Lennie Patel MD Work Phone: [facility] Work Phone: Start: 08-14-2024 End: 08-14-2024 Patient encounter procedure Brianne WALLS -[facility] Out Work Phone: Start: 08-14-2024 End: 08-14-[address] Lennie Patel MD Work Phone: [facility] Work Phone: Start: 07-31-2024 End: 07-31-2024 Patient encounter procedure Brianne WALLS -[facility] Out Work Phone: Start: 07-31-2024 End: 07-31-[address] Lennie Patel MD Work Phone: [facility] Work Phone: Start: 07-26-2024 End: 07-26-2024 Subsequent hospital visit by physician Dmitri Dumont [facility] Comment on above: Family history of is chemic heart disease and other diseases of the circulatory system Start: 07-26-2024 End: 07-26-2024 ambulatory [facility] Start: 07-24-2024 End: 07-24-2024 Patient encounter procedure Brianne WALLS -[facility] Work Phone: Start: 07-24-2024 End: 07-24-2024 ambulatory Lennie Patel Facility:[facility] Start: 06-27-2024 End: 06-27-2024 Patient encounter procedure Brianne WALLS -Laboratory, Specimen Work Phone: Start: 06-26-2024 End: 06-26-2024 Patient encounter procedure Brianne WALLS -[facility] Work Phone: Start: 06-26-2024 End: 06-27-2024 [facility] Start: 06-26-2024 End: 06-26-2024 ambulatory [facility] Facility:[facility] Start: 06-19-2024 End: 06-19-[address] Lennie Patel MD -Laboratory Work Phone: Start: 06-19-2024 End: 06-19-2024 [facility] Start: 06-03-2024 End: 06-03-[address] Lennie Patel MD -Laboratory Work Phone: Start: 06-03-2024 End: 06-03-2024 [facility] Start: 05-29-2024 End: 05-29-[address] Lennie Patel MD -Radiology, [place] Work Phone: Start: 05-29-2024 End: 05-29-2024 [facility] Start: 05-22-2024 End: 05-22-2024 Emergency department patient visit Dr. John Galeas -Emergency Department Work Phone: Start: 05-22-2024 End: 05-22-2024 Patient encounter procedure Tad Monahan DO -Laboratory Work Phone: Start: 05-22-2024 End: 05-22-2024 ambulatory Tad Monahan Facility:[facility] Start: 04-21-2024 ambulatory Tad Monahan Facility :[facility] Start: 04-21-2024 Non-patient / Non-visit Tad Monahan DO -[facility] Start: 04-21-2024 End: 04-21-2024 Admission to same day surgery center Tad Monahan DO -Endoscopy Work Phone: Start: 04-21-2024 End: 04-21-2024 ambulatory Tad Monahan Facility:[facility] Start: 02-12-2024 End: 02-12-2024 ambulatory [facility] Facility:[facility] [place] Start: 02-12-2024 End: 02-12-2024 ambulatory [facility] Facility:[facility] Start: 09-05-2023 End: 09-05-[address] Lennie Patel Work Phone: [facility] Work Phone: Start: 09-05-2023 End: 09-05-[address] Lennie Patel Work Phone: [facility] Work Phone: Start: 03-08-2023 End: 03-08-[address] Truong Patel Work Phone: [facility] Work Phone: Start: 03-08-2023 End: 03-08-[address] Truong Patel Work Phone: [facility] Work Phone: Start: 06-01-2022 End: 06-01-[address] Truong Patel Work Phone: [facility] Work Phone: Start: 06-01-2022 End: 06-01-[address] Truong Patel Work Phone: [facility]-Laboratory Start: 05-30-2022 End: 05-30-[address] Truong Patel Work Phone: [facility] Start: 04-05-2022 End: 04-05-[address] Truong Patel Work Phone: [facility] Start: 01-03-2022 End: 01-03-[address] Mauri Montiel Work Phone: [facility] Start: 10-27-2021 Non-patient / Non-visit Dr. Mauri Montiel Work Phone: [facility] Start: 10-27-2021 End: 10-27-2021 Admission to same day surgery center Dr. Mauri Montiel Work Phone: [facility]-Endoscopy Start: 10-01-2021 End: 10-01-[address] [facility] Montiel [facility] Start: 09-23-2021 End: 09-23-[address] Mauri Montiel Work Phone: [facility] Start: 09-22-2021 End: 09-22-[address] Mauri Montiel Work Phone: [facility] Start: 09-22-2021 End: 09-22-[address] aMuri Montiel Work Phone: [facility] Start: 09-20-2021 End: 09-20-[address] Mauri Montiel Work Phone: [facility] Start: 09-19-2021 End: 09-19-[address] Mauri Montiel Work Phone: [facility] Start: 01-23-2018 End: 01-23-2018 Patient encounter ISABELA ALCALA [facility] Procedures Date Procedure Procedure Detail Performing Clinician Start: 05-29-2024 Plain x-ray of hand Dr. Lennie Patel MD Work Phone: Start: 05-30-[address] Truong Patel Work Phone: Start: 10-27-[address] Mauri Montiel Work Phone: Start: 09-23-2021 End: 09-23-[address] Mauri Montiel Work Phone: Start: 09-23-[address] Mauri Montiel Work Phone: Start: 09-23-2021 End: 09-23-[address] Mauri mcguire Work Phone: Start: 09-23-2021 End: 09-23-20[address] parasites identification Dr. Mauri Montiel Work Phone: Start: 09-20-2021 End: 09-20-[address] parasites identification [address] Mauri Montiel Work Phone: Start: 09-19-20[address] parasites identification [address]. Mauri Montiel Work Phone: Lactoferrin measurement Dr. Truong Patel Work Phone: [facility] [place] parasites identification Dr. Mauri Montiel Work Phone: Plan of Treatment Date Care Activity Detail Author Start: 12-23-2051 Zoster Vaccines (1 of 2) Zoste r Vaccines (1 of 2) [facility] Start: 01-07-2025 DTaP/Tdap/Td Vaccine s (7 - Td or Tdap) DTaP/Tdap/Td Vaccines (7 - Td or Tdap) [facility] Start: 08-14-2024 Iv infusion therapy/prophylaxis /dx 1st to 1 hr THER/PROPH/DIAG IV INF [facility] Start: 07-31-2024 Iv infusion therapy/prophylaxis /dx 1st to 1 hr THER/PROPH/DIAG IV INF [facility] Start: 05-22-2024 [facility] Start: 04-21-2024 Colonoscopy w/biopsy single/multiple COLONOSCOPY AND BIOPSY [facility] Start: 04-21-2024 Patient discharge [facility] Start: 01-27-2024 COVID-19 Vaccine ( season) COVID-19 Vaccine ( season) [facility] Start: 01-27-2024 Influenza vaccination Influenza Vacc ine (#1) [facility] Start: 01-03-2022 In-vitro immunologic test [facility] Work Phone: Start: 10-27-2021 Colonoscopy w/biopsy single/multiple COLONOSCOPY AND BIOPSY [facility] Work Phone: Start: 09-20-2021 Ova and Parasites [facility] Work Phone: Start: 12-23-2019 Hepatitis C screening Hepatitis C Sc reening [facility] Start: 2017 Meningococcal B Vacc ine (1 of 2 - Standard) Meningococcal B Vaccine (1 of 2 - Standard) [facility] Start: 2016 HPV Vaccines (1 - Ma le 3-dose series) HPV Vaccines (1 - Male 3-dose series) [facility] Start: 2001 HIV screening HIV Screening [facility] Start: 2001 Lipid panel Lipid Panel [facility] Start: 2001 Yearly Adult Physical Yearly Adult P hysical [facility] End: 07-26-2024 CT for calcium scoring WO contrast and CTA W contrast IV Heart and coronary arteries [facility] Work Phone: Comment on above: Once for 1 Occurrenc es starting 07/26/2024 until 07/26/2024 In-vitro immunologic test [facility] Work Phone: Mycobacterium tuberculosis tuberculin stimulated gamma interferon [Presence] in Blood [facility] Work Phone: Patient Education ED Myalgias [facility] Work Phone: Patient referral [facility] Work Phone: Procedure [facility] Immunizations Immunization Date Immunization Notes Care Provider Hemalatha ann 04-03-2016 influenza virus vacc ine, unspecified formulation Dmitri 1 [facility] Work Phone: Payers Date Payer Category Payer Medicaid [id number] 2024 Self-pay [id number] 2023 Managed Care (Private) [facility] [id number] 2023 Private Health Insurance [facility] [id number] 2001 Unknown [id number] Unknown [id number] Unknown [facility] [id number] Unknown [facility] [id number] Unknown [facility] PL[facility] [id number] Unknown [id number]. 462 Unknown [id number] 2..[id number]. 462 Unknown [id number] [id number]. 462 Unknown [id number] 2.0.1.864139.3.579.2. 462 Unknown [id number] 2.0.1.327636.3.579.2. 462 Unknown [id number] 2..1.368693.3.579.2. 462 Unknown [id number] 2.16.840.1.385303.3.579.2. 462 Unknown [id number] 2.16.840.1.450212.3.579.2. 462 Unknown [id number] 2.16.840.1.005156.3.579.2. 462 Unknown [id number] 2.16.840.1.719394.3.579.2. 462 Unknown [id number] 2.16.840.1.974648.3.579.2. 462 Unknown [id number] 2.16.840.1.695576.3.579.2. 462 Unknown [id number] 2.16.840.1.675835.3.579.2. 462 Unknown [id number] 2.16.840.1.972703.3.579.2. 462 Unknown [id number] 2.16.840.1.997529.3.579.2. 462 Unknown [id number] 2.16.840.1.339487.3.579.2. 462 Unknown [id number] 2.16.840.1.834110.3.579.2. 462 Unknown [id number] 2.16.840.1.475256.3.579.2. 462 Social History Date Type Detail Facility Start: 09-22-2021 End: 09-05-2023 Tobacco smoking status NHIS Unknown if ever smoked [facility] Start: 2001 Sex Assigned At Male [facility] Start: 2001 Sex assigned at Not on file [facility] Work Phone: Gender identity Not on file [facility] Work Phone: Start: 07-16-2024 End: 07-26-2024 Exposure to SARS-CoV-2 (event) Not sure [facility] Start: 07-24-2024 End: 07-24-2024 Tobacco smoking status NHIS Never smoked tobacco (finding) [facility] Start: 08-01-2024 End: 09-12-2024 Sex Male (finding) [facility] Goals Date Patient Goal Desired Activity /State Mental Status Date Assessment Result Facility 09-11-2024 Cognitive function Awake;Alert;A ppropriate;Fol lows Commands [facility] Work Phone: 08-14-2024 Cognitive function Voice/Name [facility] Work Phone: 07-31-2024 Cognitive function Awake;Alert;A ppropriate;Fol lows Commands [facility] Work Phone: 04-21-2024 Cognitive function Touch/Shaking [facility] Work Phone: 10-27-2021 Cognitive function Voice/Name [facility] Work Phone: Evaluation note 06-26-2024 Note Date & Type Note Facility 06-26-2024 Evaluation note Diagnosis Onset Date Resolution Ulcerative colitis chronic Januar y 2024 8:59am Rectal bleeding acute July 24, 2024 8:26am Ulcerative colitis chronic Februa ry 2024 8:26am [facility] Work Phone: Clinical Note 04-21-2024 Note Date & Type Note Facility 04-21-2024 Note [facility] Medical Records Department [address] [place] [address] History Physical Exam 04/21/24 0645 MR#: [id number] Acct: [id number] Name: CARLA FUENTES Rep #: [id number] : 2000 23 From: Tad Friend DO PCP: Dr. Lennie Patel MD Status:[facility] Location: [place] [address] History and Physical Date of Admission: 04/21/24 CARLA FUENTES, is a 23 M who presents to the office today for follow up. *[facility] established 4.28.22 with referral from PCP for evaluation of urgent watery diarrhea with blood with nocturnal urgency, generalized abdominal pain and cramping, nausea and vomiting occurring eight times a day. If he eats the symptoms resolve for a short period of time. He has changed his lifestyle due to fear of urgency that may cause incontinence. Onset mid-August 2021 without changes in severity. Unknown triggers. Mother reports that about a month prior to this he started improving his diet and adding creatinine and protein, one scoop of each day. Denies previous history of symptoms. Denies family history of bowel disease or cancers. Mother reports that her mother and sister have issues with postprandial feeling ill and then having urgent BM, her mother was told previously she has a ???slow pancreas???. Prednisone 50mg Contact azathioprine 100mg started with cessation of prednisone. Colonoscopy .07.19 left sided colitis and inflammation from rectum to descending colon with moderate severity, scattered cryptitis and crypt abscess in sigmoid colon and rectum. OV 01.03.22 Continues with azathioprine 100mg. Denies abdominal pain, significant lose stools. Stooling 1-2/day with normal/soft stools and occasional blood. OV . Initially improved with azathioprine 100mg. Diarrhea, nausea and emesis, abdominal pain gradually returned and he started prednisone 50mg and this again caused a resolution of symptoms. He stopped this as supply ran out/did not like taking this medication/and someone recommended a supplement (ineffective) and had a return of symptoms with this cessation. He does not like taking prednisone as it causes sleep disturbance. If able, he would like to pursue PO route rather than injectable/infusion. start prednisone 20mg TID with taper in two months to BID. MRCP 1.3.23 without acute or chronic abnormalities. OV 2.3.23 Symptoms are much improved since previously. Stomach upset that he feels is food triggered, unsure of which foods he is having difficulty with. OV 6.5.23 with loose stools, abdominal pain and bloating that are intermittent and food dependent (junk foods) which he does avoid for the most part. Outside of this time he is doing well without active UC symptoms, joint pain, vision changes or rashes. OV 10.12. doing well, continues folic acid/azathioprine. Controls symptoms with diet. OV 424 pt states he is doing well, continues his medication regimen and symptoms are under control. OV 9.24 pt reports that he is feeling well overall and denies GI symptoms of concern at this time. Pt continues with azathioprine. ? ESR/CRP Calp/Lact? Serum/ab? TB . 7/413??? 1436/+? --/--? UC (apANCA 1:640). Humira and Stelara ab not present. ? GAME, MAIKEL, AUSTYN comp, celiac, hepatitis, HIV without pertinent abnormality.? C.difficile, EP, O/P, giardia WNL 10.01.21 Azathioprine start 01.03.22 --/<2.9??? --/--? --/--? WNL? amylase, lipase WNL 01.05.23 14/3.11 --/neg? --/--? --? TPMT WNL 06.05.23 3/<2.9? --/--? --/--? WNL? Free testosterone H24.99. ? B12, Folate, total testosterone WNL 03.08.23 2/<2.9??? --/--? --/--? Iron H201, Retic H1.8, cortisol ? Ferritin, LDH, amylase, lipase, TSH, GAME, MAIKEL without pertinent abnormality 09.05.23 / <2.9 -- / -- -- / -- Exam Const General: cooperative, healthy appearing and no acute distress Nutritional Appearance: average body habi (more content not included)... [facility] Evaluation note Note Date & Type Note Facility Evaluation note Diagnosis Onset Date Abdominal pain acute [facility] Work Phone: Evaluation note Note Date & Type Note Facility Evaluation note Diagnosis Onset Date Abdominal pain acute Ulcerative colitis acute [facility] Work Phone: Evaluation note Note Date & Type Note Facility Evaluation note Diagnosis Onset Date Ulcerative colitis chronic [facility] Work Phone: Evaluation note Note Date & Type Note Facility Evaluation note Diagnosis Family history of ischemic heart disease and other diseases of the circulatory system documented in this encounter [facility] Work Phone: Reason for referral (narrative) Note Date & Type Note Facility Reason for referral (narrative) No reason for referral information available [facility] Work Phone: Reason for visit Narrative Imaging (Routine) - Pending Review Note Date & Type Note Facility Reason for visit Narrative Specialty Diagnoses / Procedures Referred By Angle t Referred To Contact Radiology Diagnoses Family history of ischemic heart disease and other diseases of the circulatory system Procedures CT cardiac scoring wo IV contrast Lennie Patel MD [address] [place] [address] Phone: tel: fax: Referral ID Status Reason Start Date Expiration Date Visits Requested Visits Authorized [id number] Pending Review Perform Procedure 06/23/2024 06/23/2025 1 1 [facility] Work Phone: Summary Purpose Family History No Family History Records FoundNo Family History Records FoundNo Family History Records Found Advance Directives No Advanced Directives Records Found Advance Directive Response Recorded Date/ Time Living Will No October 26, 2021 9 :23am Power of Artist Consultant No October 26, 2021 9:23am Advance Directive Response Recorded Date/ Time Living Will No October 26, 2021 8 :23am Power of Artist Consultant No October 26, 2021 8:23am Advance Directive Response Recorded Date/ Time Living Will No October 26, 2021 8 :23am Power of Artist Consultant No October 26, 2021 8:23am Living Will No April 17 024 1:50pm Power of Artist Consultant No April 17, 2024 1:50pm Living Will No May 22 024 5:58pm Power of Artist Consultant No May 22, 2024 5:58pm Advance Directive Response Recorded Date/ Time Living Will No October 26, 2021 9 :23am Do you have a Healthcare Power of Artist Consultant? No October 26, 2021 9:23am Living Will No April 17 2:50pm Do you have a Healthcare Power of Artist Consultant? No April 17, 2024 2:50pm Living Will No May 22 6:58pm Do you have a Healthcare Power of Artist Consultant? No May 22, 2024 6:58pm Advance Directive Response Recorded Date/ Time Living Will No October 26, 2021 9 :23am Do you have a Healthcare Power of Artist Consultant? No October 26, 2021 9:23am Living Will No May 22 6:58pm Do you have a Healthcare Power of Artist Consultant? No May 22, 2024 6:58pm Chief Complaint and Reason for Visit Chief Complaint NAUSEA AND VOMITING E ORDER INT LABSPEC Reason for Visit Abdominal pain Chief Complaint NAUSEA AND VOMITING E ORDER INT LABSPEC EORDER Reason for Visit Abdominal pain Chief Complaint NAUSEA AND VOMITING E ORDER INT LABSPEC EORDER 2 WK FU E ORDERS Reason for Visit Abdominal pain Ulcerative colitis Chief Complaint 3 M FU Ulcerative colitis, unspecified, without complicat EORDERS Reason for Visit Ulcerative colitis Chief Complaint 4 mo fu INT LABS Reason for Visit Ulcerative colitis Chief Complaint 6 MO FU INT LABS Reason for Visit Ulcerative colitis Chief Complaint Admit Date LEG PAIN May 22, 2024 4:57pm LEFT HAND XRAY May 29, 2024 3: 20pm INT LABS June 03, 2024 10 :45am INT LABS June 19, 2024 8 :26am 6 M FU June 26, 2024 8 :59am 1 M FU July 24, 2024 8:26am ENTYVIO July 31, 2024 8:47 am Reason for Visit Admit Date Ulcerative colitis June 26, 2024 8 :59am Rectal bleeding July 24, 2024 8:26am Ulcerative colitis July 24, 2024 8:26am Chief Complaint Admit Date LEG PAIN May 22, 2024 4:57pm LEFT HAND XRAY May 29, 2024 3: 20pm INT LABS June 03, 2024 10 :45am INT LABS June 19, 2024 8 :26am 6 M FU June 26, 2024 8 :59am 1 M FU July 24, 2024 8:26am ENTYVIO July 31, 2024 8:47 am ENTYVIO August 14, 2024 8:5 8am Chief Complaint Admit Date LEG PAIN May 22, 2024 4:57pm LEFT HAND XRAY May 29, 2024 3: 20pm INT LABS June 03, 2024 10 :45am INT LABS June 19, 2024 8 :26am 6 M FU June 26, 2024 8 :59am 1 M FU July 24, 2024 8:26am ENTYVIO July 31, 2024 8:47 am ENTYVIO August 14, 2024 8:5 8am ENTYVIO September 11, 2024 8:5 1am Additional Source Comments (unrecognized sect ion and content) No Status Records FoundNo Status Records FoundNo Status Records Found INFORMATION SOURCE (unrecogn ized section and content) DATE CREATED AUTHOR 02/02/2018 [facility] DATE CREATED AUTHOR AUTHOR'S ORGANIZ ATION 08/03/2024 [facility] DATE CREATED AUTHOR AUTHOR'S ORGANIZ ATION 11/02/2024 [facility] Goals (unrecognized section and content) Goals may be documented in a n alternate sectionGoals may be documented in an alternate sectionGoals may be documented in an alternate sectionGoals may be documented in an alternate sectionGoals may be documented in an alternate sectionGoals may be documented in an alternate sectionGoals may be documented in an alternate sectionGoals may be documented in an alternate sectionGoals may be documented in an alternate sectionGoals may be documented in an alternate section Care Teams (unrecognized sec tion and content) Team Status: Active Member Role Status Dates Dr. Mauri Ann MD Family Provider Active Dr. Truong Patel MD Primary Care Provider Activ e Team Status: Inactive Member Role Status Dates Dr. Truong Patel MD Primary Care Provider, Refe rring Provider Active Dr. Tad Monahan DO Attending Provider Active Team Status: Inactive Member Role Status Dates Dr. Truong Patel MD Primary Care Provider Activ e Dr. Tad Monahan DO Attending Provider, Referring Provider Active Team Status: Active Member Role Status Dates Dr. Mauri Ann MD Family Provider Active Dr. Lennie Patel MD Primary Care Provider Acti ve Team Status: Inactive Member Role Status Dates Dr. Lennie Patel MD Primary Care Provider, Ref erring Provider Active Dr. Tad Monahan DO Attending Provider Active Team Status: Inactive Member Role Status Dates Dr. Lennie Patel MD Primary Care Provider Acti ve Dr. Tad Monahan DO Attending Provider, Referring Provider Active Manufacturing Planner Relationship Specialty Start Date End Date Lennie Patel MD [address] [place] [address] PCP - General Family Medicine 07/16/24 Team Status: Active Member Role Status Dates Dr. Lennie Patel MD Primary Care Provider Acti ve Team Status: Inactive Member Role Status Dates Dr. Lennie Patel MD Primary Care Provider Acti ve Start: April 21, 2024 End: April 21, 2024 Dr. Lennie Patel MD Referring Provider Active Start: April 21, 2024 End: April 21, 2024 Dr. Tad Monahan DO Attending Provider Active Start: April 21, 2024 End: April 21, 2024 Team Status: Active Member Role Status Dates Dr. Lennie Patel MD Primary Care Provider Acti ve Start: April 21, 2024 Dr. Lennie Patel MD Referring Provider Active Start: April 21, 2024 Dr. Tad Monahan DO Attending Provider Active Start: April 21, 2024 Dr. Tad Monahan DO Other Provider Active St art: April 21, 2024 Team Status: Inactive Member Role Status Dates Dr. Lennie Patel MD Primary Care Provider Acti ve Start: May 22, 2024 End: May 22, 2024 Dr. Tad Monahan DO Attending Provider Active Start: May 22, 2024 End: May 22, 2024 Dr. Tad Monahan DO Referring Provider Active Start: May 22, 2024 End: May 22, 2024 Team Status: Inactive Member Role Status Dates Dr. Lennie Patel MD Primary Care Provider Acti ve Start: May 22, 2024 End: May 22, 2024 Dr. John Ngo DO Attending Provider Active Start : May 22, 2024 End: May 22, 2024 Dr. John Ngo DO Emergency Provider Active Start : May 22, 2024 End: May 22, 2024 Team Status: Inactive Member Role Status Dates Dr. Lennie Patel MD Primary Care Provider Acti ve Start: May 29, 2024 End: May 29, 2024 Dr. Lennie Patel MD Attending Provider Active Start: May 29, 2024 End: May 29, 2024 Dr. Lennie Patel MD Referring Provider Active Start: May 29, 2024 End: May 29, 2024 Team Status: Inactive Member Role Status Dates Dr. Lennie Patel MD Primary Care Provider Acti ve Start: June 03, 2024 End: June 03, 2024 Dr. Lennie Patel MD Attending Provider Active Start: June 03, 2024 End: June 03, 2024 Dr. Lennie Patel MD Referring Provider Active Start: June 03, 2024 End: June 03, 2024 Team Status: Inactive Member Role Status Dates Dr. Lennie Patel MD Primary Care Provider Acti ve Start: June 19, 2024 End: June 19, 2024 Dr. Lennie Patel MD Attending Provider Active Start: June 19, 2024 End: June 19, 2024 Dr. Lennie Patel MD Referring Provider Active Start: June 19, 2024 End: June 19, 2024 Team Status: Inactive Member Role Status Dates Dr. Lennie Patel MD Primary Care Provider Acti ve Start: June 26, 2024 End: June 26, 2024 Dr. Lennie Patel MD Referring Provider Active Start: June 26, 2024 End: June 26, 2024 Brianne Baugh POLICE [employer]TAIN [employer] Attending Provider Active Start: June 26, 2024 End: June 26, 2024 Team Status: Inactive Member Role Status Dates Dr. Lennie Patel MD Primary Care Provider Acti ve Start: June 26, 2024 End: June 26, 2024 Brianne Baugh [employer]TAIN [employer] Attending Provider Active Start: June 26, 2024 End: June 26, 2024 Brianne Baugh POLICE [employer]TAIN [employer] Referring Provider Active Start: June 26, 2024 End: June 26, 2024 Team Status: Inactive Member Role Status Dates Dr. Lennie Patel MD Primary Care Provider Acti ve Start: June 27, 2024 End: June 27, 2024 Brianne Baugh [employer]TAIN [employer] Attending Provider Active Start: June 27, 2024 End: June 27, 2024 Brianne Baugh [employer] Referring Provider Active Start: June 27, 2024 End: June 27, 2024 Team Status: Inactive Member Role Status Dates Dr. Lennie Patel MD Primary Care Provider Acti ve Start: July 24, 2024 End: July 24, 2024 Dr. Lennie Patel MD Referring Provider Active Start: July 24, 2024 End: July 24, 2024 Brianne Baugh [employer] Attending Provider Active Start: July 24, 2024 End: July 24, 2024 Team Status: Inactive Member Role Status Dates Dr. Lennie Patel MD Primary Care Provider Acti ve Start: July 31, 2024 End: July 31, 2024 Brianne Baugh [employer]TAIN [employer] Attending Provider Active Start: July 31, 2024 End: July 31, 2024 Brianne Baugh , [employer] Referring Provider Active Start: July 31, 2024 End: July 31, 2024 Team Status: Inactive Member Role Status Dates Dr. Lennie Patel MD Primary Care Provider Acti ve Start: August 14, 2024 End: August 14, 2024 Brianne Baugh POLICE [employer]TAIN [employer] Attending Provider Active Start: August 14, 2024 End: August 14, 2024 Brianne Baugh , [employer] Referring Provider Active Start: August 14, 2024 End: August 14, 2024 Team Status: Inactive Member Role Status Dates Dr. Lennie Patel MD Primary Care Provider Acti ve Start: September 11, 2024 End: September 11, 2024 Brianne Baugh , [employer]TAIN [employer] Attending Provider Active Start: September 11, 2024 End: September 11, 2024 Brianne Baugh , [employer]TAIN [employer] Referring Provider Active Start: September 11, 2024 End: September 11, 2024 FOR RECORDS PERTAINING TO PATIENTS WHO ARE OR HAVE BEEN ENROLLED IN A CHEMICAL DEPENDENCY/SUBSTANCEABUSE PROGRAM, SOME INFORMATION MAY BE OMITTED. This clinical summary was aggregated from multiple sources. Caution should be exercised in using it in the provision of clinical care. This summary normalizes information from multiple sources, and as a consequence, information in this document may materially change the coding, format and clinical context of patient data. In addition, data may be omitted in some cases. CLINICAL DECISIONS SHOULD BE BASED ON THE PRIMARY CLINICAL RECORDS. [facility] [employer] provides no warranty or guarantee of the accuracy or completeness of information in this document.
[2024-11-06 17:22] LABS: Xtra Tube EP Lab EXTRA TUBE
[2024-11-11 14:09] LABS: Calprotectin, Stool 1170 ug/g (0-120)
== END 2024-11-06 23:59 | disposition home or self-care (01) ==
LOC: MEDOUTP 08:55
PROVIDERS: PCP Family Medicine; Referring Provider Nurse Practitioner Acute Care; Visit Provider Nurse Practitioner Acute Care
DX: K51.00 Ulcerative (chronic) pancolitis without complications (principal); E55.9 Vitamin D deficiency, unspecified
CPT/HCPCS: 96365; 80053; 82306; 83993; 85025; 86140; A4216; J3380

== ENCOUNTER 2024-12-29 08:24 | Outpatient (CLI) | payer OTHER, SELFPAY ==
[2024-12-29 08:33] VITALS: BP 123/65; PULSE 81; RESP 14; TEMP 36.4; O2SAT 97
[2024-12-29] MEDS: 0.9% NaCl Peripheral Flush Adult IV (08:35)
[2024-12-29] MEDS: Vedolizumab 300 MG in 0.9% Normal Saline (250mL Bag) 250 ML 500 MG IV (09:02)
[2024-12-29] MEDS: 0.9% NaCl IVPB Med Flush (100mL) 15 ML IV (09:02)
[2024-12-29 09:47] VITALS: BP 128/69; PULSE 66; RESP 14; TEMP 36.4; O2SAT 97
== END 2024-12-29 23:59 | disposition home or self-care (01) ==
LOC: MEDOUTP 08:24
PROVIDERS: PCP Family Medicine; Referring Provider Nurse Practitioner Acute Care; Visit Provider Nurse Practitioner Acute Care
DX: K51.00 Ulcerative (chronic) pancolitis without complications (principal)
CPT/HCPCS: 96365; A4216; J3380

== ENCOUNTER 2025-01-29 09:25 | Outpatient (CLI) | payer OTHER, SELFPAY ==
[2025-01-29 09:46] VITALS: BP 122/56; PULSE 85; RESP 16; TEMP 35.9; O2SAT 97
[2025-01-29] MEDS: 0.9% NaCl Peripheral Flush Adult IV (09:50)
[2025-01-29] MEDS: 0.9% NaCl IVPB Med Flush (250 mL) 15 ML IV (09:57)
[2025-01-29] MEDS: Vedolizumab 300 MG in 0.9% Normal Saline (250mL Bag) 250 ML 500 MG IV (10:04)
[2025-01-29 10:40] VITALS: BP 119/56; PULSE 64; RESP 16; TEMP 35.9
== END 2025-01-29 23:59 | disposition home or self-care (01) ==
LOC: MEDOUTP 09:25
PROVIDERS: PCP Family Medicine; Referring Provider Nurse Practitioner Acute Care; Visit Provider Nurse Practitioner Acute Care
DX: K51.00 Ulcerative (chronic) pancolitis without complications (principal)
CPT/HCPCS: 96365; A4216; J3380

== ENCOUNTER 2025-03-05 07:37 | Day surgery (SDC) | payer OTHER, MEDICAID, SELFPAY ==
--- NOTE | 2025-03-05 07:50 | PRE.ANES_ITS ---
ASA Classification* ASA Classification ASA Classification: 2 Assessment & Plan Anesthesia* Anesthesia Assessment Anesthesia Assessment: Discussed sedation and/or anesthesia options, risks, benefits, and alternatives with patient/parents/legal guardian/POA. Questions invited. The patient/parents/legal guardian/POA seems to understand and agrees to proceed with anesthesia plan. Reviewed the physical assessment, medical history, allergy history and patient home medications list prior to surgery/procedure/anesthetic and documented any changes. Performed airway and anesthesia risk assessments. Anesthesia Type Anesthesia Type: MAC Anesthesia Focused Assessment* Airway Assessment Mouth opens: >3 cm Mallampati Score: II Labs Anesthesia Preop lab: CBC WBC, (4.4-11.0) 6.1 K/mm3 11/06/24, 09:16 RBC, (4.6-6.2) 4.99 M/mm3 11/06/24, 09:16 Hgb, (13.0-16.5) 15.6 g/dL 11/06/24, 09:16 Hct, (40-54) 46.7 % 11/06/24, 09:16 Plt Count, (150-450) 201 K/mm3 11/06/24, 09:16 CHEMISTRY Potassium, (3.3-5.1) 4.2 mmol/L 11/06/24, 09:16 Sodium, (133-145) 137 mmol/L 11/06/24, 09:16 Magnesium, (1.6-2.6) 2.3 mg/dL 06/26/24, 10:07 BUN, (4-19) 14 mg/dL 11/06/24, 09:16 Creatinine, (0.70-1.20) 1.08 mg/dL 11/06/24, 09:16 Glucose, (70-99) 91 mg/dL 11/06/24, 09:16 TSH, (0.358-3.740) 1.460 uIU/mL 06/03/24, 10:50 COAG Pre-Assessment Diagnosis/Proposed Procedure Planned Operative Procedure(s): Flexible Sigmoidoscopy Anesthesia History Anesthesia History - tuberculosis specialist: Anesthesia History - tuberculosis specialist Hx Hospitalization No 03/03/25 09:53 Any Problems With Anesthesia No 03/03/25 09:53 Cholinesterase deficiency No 03/03/25 09:53 You/Your Family Experience No 03/03/25 09:53 fever (hyperthermia) with Relationship Recent Exposure to Contagious No 04/21/24 05:57 Disease Does patient have nerve No 03/03/25 09:53 stimulator Patient instructed to have device shut off --Does patient have Pacemaker or ICD? When Was Last Pacemaker Check QUESTION #4 FULL TEXT: You/Your Family Experience fever (hyperthermia) with Anesthesia Last Oral Intake Last Oral intake: Last Oral Intake NPO since Meds taken in AM with sips of water? Meds patient instructed to take am of surgery PONV PONV - tuberculosis specialist: PONV - tuberculosis specialist Female No 03/03/25 09:53 HX of Motion Sickness No 03/03/25 09:53 HX of N/V After Surgery No 03/03/25 09:53 Non-Smoker Yes 03/03/25 09:53 Duration of Surgery greater No 03/03/25 09:53 than 60 minutes Number of Risk Factors 1 03/03/25 09:53 PONV Score Low Risk 03/03/25 09:53 Height & Weight Height & Weight: Anesthesia: Height & Weight Height 5 ft 8 in 01/29/25 09:46 Respiratory Assessment Respiratory Assessment - tuberculosis specialist: Respiratory Tract Infection Hx - tuberculosis specialist Hx Respiratory Tract Infection No 03/03/25 09:53 STOP Sleep Apnea STOP Sleep Apnea - tuberculosis specialist: STOP Sleep Apnea - tuberculosis specialist Hx Hypertension No 03/03/25 09:53 Hx Sleep Apnea No 03/03/25 09:53 CPAP BIPAP Do you snore loudly (louder No 03/03/25 09:53 than talking or can be heard Do you often feel tired/ No 03/03/25 09:53 fatigued/ sleepy during daytime? Has anyone observed you stop No 03/03/25 09:53 breathing during sleep? STOP Results Negative 03/03/25 09:53 QUESTION #5 FULL TEXT : Do you snore loudly (louder than talking or can be heard through closed doors)? 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 Specify any problems Hx of Preganancy in last 3 N/A 03/03/25 09:53 Months Nurse Filling Out Transfusion JZOLLINGE 03/03/25 09:53 & Questions: Date: 03/03/25 03/03/25 09:53 Time: 09:54 03/03/25 09:53 Patient unable to answer at this time (ie. confused, unrespo /Reproduction History /Reproductive History - tuberculosis specialist: /Reproductive Hx- tuberculosis specialist Hx Now No 03/03/25 09:53 Gestational Age (in weeks): EDC: Hx Hx Para Hx Section SAB No 03/03/25 09:53 Active Medications Active Medications: Current Medications Generic Name Dose Route Start Last Admin Trade Name Freq PRN Reason Stop Dose Admin Lactated Ringer's 1,000 mls @ 15 mls/hr 03/05/25 07:45 IV .Q48H MARIELLA PFSH Medical History Hx of ulcerative colitis Wears glasses Depression Non-smoker Contact with and (suspected) exposure to other viral communicable diseases Nausea & vomiting Bloody stools Wears contact lenses Nausea Hematochezia Melena Fecal urgency Diarrhea Acute otitis media, right Home Medications ?Medication ?Instructions ?Recorded ?Last Taken ?Type Lactobacillus acidophilus 10 100 mmu cells PO DAILY 04/20/24 History billion cell capsule (Probacap) multivitamin (Daily Multi-Vitamin 1 tab PO DAILY 04/1704/20/24 History tablet) alprazolam 1 mg tablet 1 mg PO QHS PRN sleep 1 evan h #30 04/21/24 Unknown Rx tabs duloxetine 30 mg capsule,delayed 30 mg PO DAILY Unknown History release vedolizumab 300 mg intravenous 300 mg IV .Q8 WKS 09/15 Unknown History solution (Entyvio) cholecalciferol (vitamin D3) 125 125 mcg PO DAILY 10/26 07/22 Unknown History mcg (5,000 unit) capsule Allergy/AdvReac Type Severity Reaction Status Date / Time No Known Allergies Allergy Verified 03/03/25 09:49 Surgical History History of wisdom tooth extraction History of colonoscopy History of placement of ear tubes Social History Smoking Status: Never smoker alcohol intake: never substance use type: does not use Review of Systems (Anesthesia) ROS Narrative System reviewed and no additional complaints, except as documented.
[2025-03-05] MEDS: Lactated Ringers 1,000 ML 15 ML IV (08:15)
[2025-03-05 08:16] VITALS: BP 114/68; PULSE 61; RESP 16; TEMP 36.5; O2SAT 100; BMI 25.9
--- NOTE | 2025-03-05 08:27 | PCM.HP.STD ---
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 Colonoscopy was performed 04/21/2024 for complains of increased bleeding. This revealed moderately active (Ricardo Score 2) proctosigmoid ulcerative colitis, worsened since the last examination. Mild inflammation was found in the ileum secondary to ileitis. Rectal biopsy revealed mild active colitis, remainder of biopsies were negative for active inflammation. He started prednisone 50mg daily post procedure and started taper after being seen in ED on 05/22/2024 with c/o BLE myalgias and migraines. Due to ongoing s/e of prednisone despite lower dose, he discontinued and started Budesonide 9mg daily. He was continuing to experience 1-2 episodes of rectal bleeding daily with BM. He started Entyvio infusions on 07/31/2024 and completed loading doses on 09/11/2024 and reports resolution of rectal bleeding after first Entyvio infusion. Budesonide was decreased to 6mg daily after his 3rd loading dose and he will continue 6mg daily for 3 weeks, then decrease to 3mg daily x 2weeks and discontinue. He will complete labs, fecal calprotectin in October and Sigmoidoscopy in January. He will follow-up in three months, sooner for symptoms. He is continuing to experience loose stools 2x a day with urgency. Patient Instructions: - Budesonide dropped to 6mg daily after 3rd Entyvio infusion on 09/11/2024 for 3 weeks and then decrease to 3mg daily on 10/02/2024 x2 weeks and then discontinue - Repeat Fecal Calprotectin 3 months after starting Entyvio (October 2024) - Complete labs October 2024 - will see if you can have drawn at infusion center - Sigmoidoscopy 6 months after starting Entyvio (January 2025) - Continue daily Vitamin D supplement - Follow-up in the office in 3 months (November 2024) CBC: 06/03/2024 HGB 17.1 CMP: 06/26/2024 WNL CRP: 06/03/2024 normal VITAMIN B12: 06/03/2024 normal VITAMIN LOW 23 Thiopurine Metabolite: 02/12/2024 6-TGN - 276 6-MMPN - 623 TPMT 20.8 QUANTIFERON: 06/26/2024 negative HBVsAb: 06/26/2024 non-reactive HBVsA06/26/2024 negative HBV Core Total Ab: 06/26/2024 negative HCV: 10/01/2021 negative Fecal Calprotectin: 06/27/2024 mildly elevated 71 06/01/2022 normal 09/23/2021 1436 COLON: 04/21/2024 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 Mild inflammation was found in the ileum secondary to ileitis. Rectal biopsy revealed mild active colitis, remainder of biopsies were negative for active inflammation. COLON: 10/27/2021 TI biopsy negative. Descending - focal active colitis. Sigmoid and Rectum with active colitis. MEDS: probiotic QD, Budesonide 9mg QD, OTC magnesium and potassium supplement --------DISCONTINUED azathioprine 150mg QD on 06/26/2024 BIOLOGICS: Entyvio: Start Date - 07/31/2024 -- Last infusion 09/11/2024 ------> next infusion 01/01/2025 STEROIDS ----- started 06/20/2024 BUDESONIDE 9mg QD - Budesonide dropped to 6mg daily after 3rd Entyvio infusion on 09/11/2024 for 3 weeks and then decrease to 3mg daily on 10/02/2024 x2 weeks and then discontinue 05/22/2024 Will begin 30mg tomorrow for a week and then 20 for a week, 10 for a week, and then stop. Once the taper is done Dr Monahan would like to switch pt's Azathioprine to a biologic for his UC. Informed pt per Dr Monahan to take Ibuprofen as needed and drink Gatorade. -----PREDNISONE 40mg QD started 04/28/2024 04/05/2022 pred 50mg QD --> start prednisone 20mg TID with taper in two months to BID 09/02/2021 pred 50mg QD IBD SYMPTOMS: Bowel movements are: 1-2x a day, soft, formed, denies any diarrhea Blood noted in stools: denies Bowel movement urgency present: denies Stool incontinence: denies Nocturnal BM's: denies Abdominal pain: denies Rectal pain: denies QOL: ROS: Fever: denies Night Sweats: denies Visual changes: denies Mouth sores: denies Joint pain: denies Skin rashes/Lesions: denies Weight changes: denies Smoking status: denies NSAID use: denies, and has been instructed to abstain from use of NSAIDS - headache the day after infusions - no infusion site reaction - Medicaid approved Attestation: Documentation on this patient encounter was supported using ambient scribe technology/ voice AI technology. The patient consented to recording for the purpose of documenting the encounter. Provider reviewed content of the generated note prior to signature. [facility] Medical History Hx of ulcerative colitis Wears glasses Depression Non-smoker Contact with and (suspected) exposure to other viral communicable diseases Nausea & vomiting Bloody stools Wears contact lenses Nausea Hematochezia Melena Fecal urgency Diarrhea Acute otitis media, right Home Medications ?Medication ?Instructions ?Recorded ?Last Taken ?Type Lactobacillus acidophilus 10 100 mmu cells PO DAILY 04/17/24 03/05/25 History billion cell capsule (Probacap) multivitamin (Daily Multi-Vitamin 1 tab PO DAILY 04/17/24 03/04/25 History tablet) alprazolam 1 mg tablet 1 mg PO QHS PRN sleep 1 month #30 04/21/24 Unknown Rx tabs duloxetine 30 mg capsule,delayed 30 mg PO DAILY 07/31/24 03/04/25 History release vedolizumab 300 mg intravenous 300 mg IV .Q8 WKS 09/15/24 02/05/25 History solution (Entyvio) cholecalciferol (vitamin D3) 125 125 mcg PO DAILY 11/06/24 03/05/25 History mcg (5,000 unit) capsule Allergy/AdvReac Type Severity Reaction Status Date / Time No Known Allergies Allergy Verified 03/05/25 08:14 Surgical History History of wisdom tooth extraction History of colonoscopy History of placement of ear tubes Social History Smoking Status: Never smoker alcohol intake: never substance use type: does not use ROS Constitutional Constitutional: Denies fatigue, fever(s), poor appetite, weight gain or weight loss Gastrointestinal Gastrointestinal: Denies belching, bloating, change in bowel habits, change in stool character, chewing difficulty, coffee ground emesis, constipation, cramping, diarrhea, dyspepsia, dysphagia, early satiety, excessive flatus, fecal incontinence, heartburn, hematemesis, hematochezia, hemorrhoids, loose stools, melena, nausea, odynophagia, rectal bleeding, tenesmus, vomiting or weight changes Vital Signs Vital Signs Vital Signs: 03/05/25 08:16 03/05/25 08:16 Temperature 97.7 F L Temperature Source Temporal Pulse Rate 61 Respiratory Rate 16 Respiratory Pattern Normal Blood Pressure 114/68 Blood Pressure Mean 83 Blood Pressure Source Monitor Blood Pressure Position Semi-Fowlers Blood Pressure Location Left Arm Pulse Ox 100 Oxygen Delivery Method Room Air Weight Weight: 175 lb 11.335 oz Body Mass Index (BMI) 25.9 Physical Exam Const alert, oriented x3, no apparent distress and healthy appearing General Appearance: cooperative GI normal to inspection, nondistended, normoactive bowel sounds, soft to palpation, non-tender and non-distended Percussion: normal to percussion Rectal Exam: deferred Assessment & Plan Assessment/Plan (1) Rectal bleeding: (2) Ulcerative colitis: QUALIFIERS: Ulcerative colitis location: ulcerative pancolitis Digestive disease complication type: without complication Qualified Code(s): K51.00 - Ulcerative (chronic) pancolitis without complications PLAN: Assessment and Plan Assessment and Plan (1) Ulcerative colitis: Status: Chronic Qualifiers: Digestive disease complication type: without complication Ulcerative colitis location: ulcerative pancolitis Qualified Code(s): K51.00 - Ulcerative (chronic) pancolitis without complications Plan: - The patient will continue with Entyvio infusions as planned, with a sigmoidoscopy scheduled for January to assess mucosal healing. The elevated fecal calprotectin level will be re-evaluated in conjunction with the sigmoidoscopy to determine the accuracy of the stool test and the presence of inflammation. - Labs to be completed with March Entyvio infusion, order faxed to infusion center (anticipated on 04/23/2025). Plan The patient is a 23-year-old male presenting with ulcerative colitis management. He has been receiving Entyvio infusions, which are generally well-tolerated, although he experiences headaches the day after, resolving with Tylenol. He reports no bleeding, infusion site reactions, or insurance issues. Previously, he had frequent bowel movements with tenesmus and blood, now resolved. He currently has normal bowel movements once daily without urgency, nocturnal symptoms, abdominal pain, or rectal pain. He denies night sweats, fevers, skin rashes, or lesions. He is a nonsmoker and does not take anti-inflammatory medications. October blood work showed normal white count, hemoglobin, and liver enzymes, but fecal calprotectin was elevated at 1170, significantly higher than previous levels (11x greater than May 2024). He was previously on azathioprine, which was discontinued, and is no longer on steroids (prednisone/budesonide). A sigmoidoscopy is planned for January to assess mucosal healing, as guidelines recommend mucosal assessment six months after therapy change. I have recommended he also complete stool testing January 2025, P4Dx kit provided today. Patient Instructions: - Continue with Entyvio infusions as scheduled. - Labs due March/April 2025 - Patient provided P4Dx stool kit to complete Fecal Calprotectin January 2025. - Prepare for a sigmoidoscopy in January, will call in 4-6 weeks to schedule as he may be changing jobs. - Monitor for any new or worsening symptoms and report them to the healthcare provider. Plan Details Follow Up: 6 Months ]
--- NOTE | 2025-03-05 08:45 | COLBX_PTH ---
PATIENT: CARLA ANDERSON LOC: EN U#:[id number] AGE/SX: 24/M ROOM: RE03/05/[address]: Dr. Tad Monahan DO : 2000 BED: DIS: 03/05/2025 SPEC #: [id number] RECD: 03/05/25 11:54 STATUS: STEFANIE REQ #: [id number] KARINA: 03/05/25 08:[address]: Tad Monahan DEPT: SURGICAL PATHOLOGY RECD BY: Nicholas Bedolla ENTERED: 03/05/25 13:51 SP TYPE: COLON BX AGUS DR: Dr. Eulogio Patel MD Tissues: A - Rectosigmoid junction B - Rectum, NOS Procedures: Surgery Specimen Level IV HEADER OPERATION: Flexible sigmoidoscopy PRE-OP DIAGNOSIS: Rectal bleeding, ulcerative colitis TISSUE SUBMITTED: A- Rectosigmoid biopsy, B- Rectum biopsy MICROSCOPIC DIAGNOSIS A. Rectosigmoid, biopsy: * Colonic mucosa with no pathologic change B. Rectum, biopsy: * Colonic mucosa with no pathologic change MICROSCOPIC DESCRIPTION Slides are reviewed. GROSS DESCRIPTION A. Received in fixative is one container labeled with the patient's name and designated Rectosigmoid biopsy. The specimen consists of four irregular fragments of andrew tissue that measure 0.3 to 0.5 cm. The specimen is totally submitted in one cassette. B. Received in fixative is one container labeled with the patient's name and designated Rectum biopsy. The specimen consists of four irregular fragments of andrew tissue that measure 0.3 to 0.7 cm. The specimen is totally submitted in one cassette. DE 03/05/2025 CPT:05581k1
--- NOTE | 2025-03-05 10:27 | OP.FLEXSIG_ITS ---
Patient Name: Franky Fuentes Procedure Date: 03/05/2025 10:02 AM Date of : 2000 Age: 24 Procedure: Flexible Sigmoidoscopy Indications: High risk colon cancer surveillance: Ulcerative left sided colitis of 8 (or more) years duration Providers: DO Miguel Lopez MD: Truong Patel Medicines: Monitored Anesthesia Care Patient Profile: This is a 24 year old male. Refer to note in patient chart for documentation of history and physical. Last Colonoscopy: 3 years ago. Complications: No immediate complications. Procedure: Pre-Anesthesia Assessment: - Prior to the procedure, a History and Physical was performed, and patient medications and allergies were reviewed. The patient is competent. The risks and benefits of the procedure and the sedation options and risks were discussed with the patient. All questions were answered and informed consent was obtained. Patient identification and proposed procedure were verified by the physician in the pre-procedure area. Mental Status Examination: alert and oriented. Airway Examination: normal oropharyngeal airway and neck mobility. Respiratory Examination: clear to auscultation. CV Examination: normal. ASA Grade Assessment: II - A patient with mild systemic disease. After reviewing the risks and benefits, the patient was deemed in satisfactory condition to undergo the procedure. The anesthesia plan was to use monitored anesthesia care (MAC). Immediately prior to administration of medications, the patient was re-assessed for adequacy to receive sedatives. The heart rate, respiratory rate, oxygen saturations, blood pressure, adequacy of pulmonary ventilation, and response to care were monitored throughout the procedure. The physical status of the patient was re-assessed after the procedure. After obtaining informed consent, the endoscope was passed under direct vision. Throughout the procedure, the patient's blood pressure, pulse, and oxygen saturations were monitored continuously. The Endoscope was introduced through the anus and advanced to the descending colon. The flexible sigmoidoscopy was accomplished without difficulty. The patient tolerated the procedure well. The quality of the bowel preparation was adequate. Scope In: 10:17:09 AM Scope Out: 10:21:31 AM Total Procedure Duration Time 0 hours 4 minutes 22 seconds Findings: The perianal and digital rectal examinations were normal. The rectum, recto-sigmoid colon and sigmoid colon appeared normal. Biopsies were taken with a cold forceps for histology. Verification of patient identification for the specimen was done. Estimated blood loss was minimal. Impression: - The rectum, sigmoid colon and recto-sigmoid colon are normal. Biopsied. Procedure Code(s): --- Professional --- 88371, Sigmoidoscopy, flexible; with biopsy, single or multiple CPT copyright 2021 [employer]. All rights reserved. The codes documented in this report are preliminary and upon stock grader review may be revised to meet current compliance requirements. Tad Monahan DO 03/05/2025 10:27:19 AM This report has been signed electronically. Number of Addenda: 0 Note Initiated On: 03/05/2025 10:02 AM
--- NOTE | 2025-03-05 10:28 | OP.PROVAT_ITS ---
03/05/2025 Truong Patel [address] [place] [address] Re : Flexible Sigmoidoscopy procedure for Franky Fuentes Dear Dr. Patel This procedure was performed on February. My impressions and recommendations are as follows: Impressions : - The rectum, sigmoid colon and recto-sigmoid colon are normal. Biopsied. Recommendations : My findings are described in the full procedure note, which is enclosed. If I can be of further assistance, please feel free to contact me at . Sincerely, Tad Monahan, 03/05/2025 10:27:19 AM This report has been signed electronically.
[2025-03-05 10:30] VITALS: BP 114/68; BP 95/54; PULSE 68; RESP 18; TEMP 36.9; O2SAT 98
--- NOTE | 2025-03-05 10:33 | PCM.POST.ANE ---
Anesthesia: Postop Eval I Current Vital Signs Temperature: 98.4 F Pulse Rate: 64 Blood Pressure: 96/54 Respiratory Rate: 16 Pulse Ox: 98 Oxygen Delivery Method: Room Air Assessment Airway patent: Yes Spontaneous unlabored respirations: Yes Mental status: Awake and Calm nausea: No Vomiting: No Anesthesia Complication: Yes Anesthesia Complication Comment:: IV tubing puncture Fluid Hydration Crystalloid volume administer (ml): 400 Total IV fluid infused: 400 Progress Note Anesthesia document: Postop Eval 1 completed: Yes
[2025-03-05 10:35] VITALS: BP 114/68; BP 95/51; BP 96/54; PULSE 64; PULSE 66; RESP 16; RESP 18; TEMP 36.9; O2SAT 98
[2025-03-05 10:45] VITALS: BP 100/58; BP 114/68; PULSE 58; RESP 18; TEMP 36.4; O2SAT 97
--- NOTE | 2025-03-05 12:30 | PCM.POSTANE2 ---
Anesthesia Postop Eval I Sum Postop Eval Completion status Anesthesia document: Postop Eval 1 completed: Yes Anesthesia Postop Eval I Summary Anesthesia Postop Eval I Summary: Anesthesia Postop Eval I: Assessment Summary Airway patent Yes 03/05/25 10:35 [email or web address] Spontaneous unlabored Yes 03/05/25 10:35 [email or web address] respirations Mental status Awake,Calm 03/05/25 10:35 [email or web address] nausea No 03/05/25 10:35 [email or web address] Vomiting No 03/05/25 10:35 [email or web address] Anesthesia Postop Eval I: Fluid Summary Crystalloid volume administer 400 03/05/25 10:35 [email or web address] (ml) Colloids volume administered ( ml) Blood Product volume administered (ml) Total IV fluid infused 400 03/05/25 10:35 [email or web address] Anesthesia Postop Eval I: Summary Notes Anesthesia Complication Yes 03/05/25 10:35 [email or web address] Anesthesia Complication IV tubing puncture 03/05/25 10:35 [email or web address] Comment: Post-operative progress note Anesthesia: Postop Eval II Evaluation Mental status: Awake Pain Level: 0 nausea: No Vomiting: No
== END 2025-03-05 11:02 | disposition home or self-care (01) ==
LOC: EN 07:39 → AC 07:40
PROVIDERS: PCP Family Medicine; Referring Provider Family Medicine; Visit Provider Internal Medicine Gastroenterology
PROC: 0DJD8ZZ Inspection of Lower Intestinal Tract, Via Natural or Artificial Opening Endoscopic (ICD-10-PCS; CPT 45330; principal; 2025-03-05 08:40)
DX: K51.011 Ulcerative (chronic) pancolitis with rectal bleeding (principal); F32.A Depression, unspecified; Z79.899 Other long term (current) drug therapy
CPT/HCPCS: 45331; 88305; J2405

== ENCOUNTER 2025-03-26 09:23 | Outpatient (CLI) | payer OTHER, MEDICAID, SELFPAY ==
[2025-03-26 09:45] VITALS: BP 129/72; PULSE 78; RESP 16; TEMP 36; O2SAT 98; BMI 25.8
[2025-03-26] MEDS: Vedolizumab 300 MG in 0.9% Normal Saline (250mL Bag) 250 ML 500 MG IV (09:58)
[2025-03-26 10:11] LABS: Hematocrit 43.6 % (40-54); Hemoglobin 15.0 g/dL (13.0-16.5); Immature Granulocytes Count 0.010 X10^3/uL (0.0-0.0); Mean Corp Hgb Conc 34.4 g/dL (32-36); Mean Corpuscular Volume 93.2 fL (80-94); Mean Platelet Vol. 9.5 fl (6.2-12.0); NRBC Flagged by Analyzer 0 % (0-5); Platelet Count 207 K/mm3 (150-450); RBC Distribution Width CV 12.1 % (11.6-14.6); RBC Distribution Width SD 41.9 fl (35.1-43.9); Red Blood Count 4.68 M/mm3 (4.6-6.2); White Blood Count 5.6 K/mm3 (4.4-11.0)
[2025-03-26 10:27] LABS: AST(SGOT) 33 U/L (<=37); Alanine Aminotransfer ALT/SGPT 46 U/L (<=46); Albumin, Serum 4.3 g/dL (3.5-5.0); Alkaline Phosphatase 77 U/L (40-129); Anion Gap 10 (5-15); BUN 24 mg/dL (4-19); BUN/Creat Ratio 21.0 RATIO (10-20); CRP < 3.00 mg/L (0.0-3.0); Calcium,Total 9.6 mg/dL (7.6-11.0); Carbon Dioxide 23.5 mmol/L (21.0-32.0); Chloride 105 mmol/L (98-108); Estimated Creatinine Clearance 102.58 ml/min (50-250); Globulin 2.9 g/dL (2.2-4.2); Glucose 79 mg/dL (70-99); Potassium 4.2 mmol/L (3.3-5.1)
[2025-03-26] MEDS: 0.9% NaCl IVPB Med Flush (250 mL) 15 ML IV (10:38)
[2025-03-26 10:40] VITALS: BP 123/58; PULSE 65; RESP 16; TEMP 36; O2SAT 98
[2025-03-26] MEDS: 0.9% NaCl Peripheral Flush Adult IV (10:40)
== END 2025-03-26 23:59 | disposition home or self-care (01) ==
LOC: MEDOUTP 09:23
PROVIDERS: PCP Family Medicine; Referring Provider Nurse Practitioner Acute Care; Visit Provider Nurse Practitioner Acute Care
DX: K51.00 Ulcerative (chronic) pancolitis without complications (principal)
CPT/HCPCS: 96365; 36415; 80053; 85025; 86140; A4216; J3380

== ENCOUNTER 2025-05-22 08:57 | Outpatient (CLI) | payer OTHER, MEDICAID, SELFPAY ==
[2025-05-22 09:19] VITALS: BP 126/63; PULSE 73; RESP 14; TEMP 36.4; O2SAT 98; BMI 25.5
--- OUTSIDE RECORDS SUMMARY | 2025-05-22 09:21 | XMS RPT_ITS | CCD ---
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 Tad Monahan Attending Provider Dr. Truong Patel Primary Care Provider Dr. Truong Patel Referring Provider FriendDr. Mishra Attending Provider Dr. Lennie Patel Primary Care Provider [phone] Dr. Lennie Patel Referring Provider [phone] FriendDr. Mishra Attending Provider Lennie Patel MD Primary Care Provide r LENNIE PATEL Referring Unavail LENNIE Almonte Primary Care Unavail charles Patel MD, Dr. Krishnan Primary Care Provider Dr. Lennie Patel MD Referring Provider Taniya DO, Dr. Mishra Attending Provider Friend DO, Dr. Mishra Other Provider Friend , Dr. Mishra Referring Provider Le DO, Dr. Lopez Attending Provider Le DO, Dr. Lopez Emergency Provider Jorge MEMBRENO, Dr. Krishnan Attending Provider Amauri ADOPTION COUNSELOR-C, Brianne Attending Provider Amauri ADOPTION COUNSELOR-C, Brianne Referring Provider Jorge MEMBRENO, Dr. Krishnan Primary Care Provider Jorge MEMBRENO, Dr. Krishnan Referring Provider Taniya ZAMAN, Dr. Mishra Attending Provider Friend DO, Dr. Mishra Other Provider [phone] Friend DO, Dr. Mishra Referring Provider Jeni DO, Dr. Lopez Attending Provider Jeni DO, Dr. Lopez Emergency Provider Jorge MEMBRENO, Dr. Krishnan Attending Provider Amauri ADOPTION COUNSELOR-C, Brianne Attending Provider Amauri ADOPTION COUNSELOR-C, Brianne Referring Provider Jorge MEMBRENO, Dr. Krishnan Primary Care Provider Taniya ZAMAN, Dr. Mishra Attending Provider Jorge MEMBRENO, Dr. Krishnan Referring Provider Jorge MEMBRENO, Dr. Krishnan Primary Care Provider Jorge MEMBRENO, Dr. Krishnan Referring Provider Amauri ADOPTION COUNSELOR-C, Brianne Attending Provider Amauri ADOPTION COUNSELOR-C, Brianne Referring Provider Jorge MEMBRENO, Dr. Krishnan Primary Care Provider Amauri ADOPTION COUNSELOR-C, Brianne Attending Provider Amauri ADOPTION COUNSELOR-C, Brianne Referring Provider Jorge MEMBRENO, Dr. Krishnan Referring Provider Jorge MEMBRENO, Dr. Krishnan Primary Care Provider Amauri ADOPTION COUNSELOR-C, Brianne Attending Provider Amauri ADOPTION COUNSELOR-C, Brianne Referring Provider Jorge MEMBRENO, Dr. Krishnan Primary Care Provider Amauri ADOPTION COUNSELOR-C, Brianne Attending Provider Amauri ADOPTION COUNSELOR-C, Brianne Referring Provider Jorge MEMBRENO, Dr. Krishnan Referring Provider Jorge MEMBRENO, Dr. Krishnan [facility] Care Physicia n Amauri ADOPTION COUNSELOR-C, Brianne Attending Physician [phone] Amauri ADOPTION COUNSELOR-C, Brianne Referring Provider Dr. Tad Monahan DO Attending Physician [phone] Dr. Tad Monahan DO Nurse Practitioner [facility] Unavailable Amauri, Brianne Attending Unavailable Amauri, Brianne Referring Unavailable Ranney, Christopher Primary Care Unavailable Amauri, Brianne Attending Unavailable Amauri, Brianne Referring Unavailable Amauri, Brianne Referring Unavailable Ranney, Christopher Primary Care Unavailable Amauri, Brianne Attending Unavailable Amauri, Brianne Referring Unavailable Ranney, Christopher Primary Care Unavailable Amauri, Brianne Attending Unavailable Amauri, Brianne Referring Unavailable Ranney, Christopher Primary Care Unavailable Amauri, Brianne Attending Unavailable Ranney, Christopher Primary Care Unavailable Ranney, Christopher Referring Unavailable Ranney, Christopher Attending Unavailable Ranney, Christopher Primary Care Unavailable Ranney, Christopher Referring Unavailable Ranney, Christopher Attending Unavailable Ranney, Christopher Referring Unavailable Tad Monahan Attending Unavailable Ranney, Christopher Primary Care Unavailable Ranney, Christopher Primary Care Unavailable Ranney, Christopher Referring Unavailable Ranney, Christopher Attending Unavailable [facility] Unavailable Amauri, Brianne Referring Unavailable Amauri, Brianne Attending Unavailable Ranney, Christopher Referring Unavailable Friend, Tad Attending Unavailable [facility] Unavailable [facility] Unavailable Amauri, Brianne Attending Unavailable Amauri, Brianne Referring Unavailable Amauri, Brianne Referring Unavailable Amauri, Brianne Attending Unavailable [facility] Unavailable Ranney, Christopher Primary Care Unavailable Ranney, Christopher Referring Unavailable Amauri, Brianne Attending Unavailable Ranney, Christopher Primary Care Unavailable Ranney, Christopher Referring Unavailable Amauri, Brianne Attending Unavailable [facility], [facility] Unavailable Ranney, Christopher Referring Unavailable Amauri, Brianne Attending Unavailable Ranney, Christopher Referring Unavailable Friend, Tad Consulting Unavailable Friend, Tad Attending Unavailable [place], [place] Primary Care Unavailable [place], [place] Primary Care Unavailable Friend, Tad Referring Unavailable Friend, Tad Attending Unavailable [place], [place] Primary Care Unavailable John Ngo Attending Unavailable [place] Unavailable Ranney, Christopher Referring Unavailable Amauri, Brianne Attending Unavailable Ranney, Christopher Referring Unavailable Friend, Tad Attending Unavailable Friend, Tad Consulting Unavailable [place], [place] Primary Care Unavailable Amauri, Brianne Referring Unavailable [facility] Unavailable Amauri, Brianne Attending Unavailable Allergies Allergy Classification Reported Allergen(s) Allergy Type Date of Onset Reaction(s) Facility (1 source) ALLERGIES NOT ON FILE; Translations: [ALLERGIES NOT ON FILE] Propensity to adverse reactions (disorder) [facility] 2 Repository Medications Current Medications Medication Drug Class(es) Dates Sig (Normalized) Sig (Original) ALPRAZolam 1 mg oral tablet (20 sources) Benzodiazepine Start: 04-21-2024 take 1 tablet by mouth at bedtime as needed for sleep Start: 04-05-2022 End: 02-12-2024 take 1 tablet by mouth at bedtime Alprazolam 1 mg tablet Discontinued 1 mg PO AT BEDTIME 20 0 June 30, 2022 9:45am February 12, 2024 9:34am cholecalciferol 0.125 mg oral capsule (5 sources) Vitamin D Start: 11-06-2024 take 1 capsule by mouth once daily dicyclomine hydrochloride 20 mg oral tablet (5 sources) Anticholinergic Start: 09-22-2021 take 20 mg by mouth three times daily Dicyclomine Active 20 MG PO THREE TIMES A DAY 60 September 22, 2021 10:11am DULoxetine 30 mg delayed release oral capsule (8 sources) Serotonin and Norepinephrine Reuptake Inhibitor Start: 07-31-2024 take 1 capsule by mouth once daily lactobacillus acidophilus [id number] unt oral capsule (1 source) Start: 04-17-2024 take 10 capsules by mouth once daily Lactobacillus Acidophilus (Probacap) 10 billion cell capsule (7 sources) Start: 04-17-2024 take 10 capsules by mouth once daily Lactobacillus Acidophilus (Probacap) 10 billion cell capsule Active 100 NMA PO DAILY April 17, 2024 1:00am Start: 04-17-2024 take 10 capsules by mouth once daily Lactobacillus Acidophilus (Probacap) 10 billion cell capsule Active 100 NMA PO DAILY April 17, 2024 12:00am Multivitamin (Daily Multi-Vi tamin) tablet (8 sources) Start: 04-17-2024 Start: 04-17-2024 Multivitamin ( Daily Multi-Vitamin) tablet [...] GM PO .qid September 21, 2021 9:38am vedolizumab 300 mg injection (5 sources) Integrin Receptor Antagonist Start: 09-15-2024 Completed/Discontinued Medications Medication Drug Class(es) Dates Sig (Normalized) Sig (Original) amoxicillin 500 mg oral capsule (18 sources) Penicillin-class Antibacterial Start: 11-17-2020 End: 11-27-2020 take 1 capsule by mouth three times daily Amoxicillin 500 mg capsule Discontinued 500 mg PO THREE TIMES A DAY 30 10 0 November 17, 2020 12:00am November 26, 2020 12:00am [...] Discontinued 150 mg PO DAILY 270 90 5 January 23, 2024 10:06am July 24, 2024 9:34am budesonide 3 mg delayed release oral capsule (20 sources) Corticosteroid Start: 06-20-2024 End: 03-03-2025 take 3 capsules by mouth once daily Budesonide 3 mg capsule,delayed,extend.release Discontinued 9 mg PO daily 90 0 August 20, 2024 12:57pm March 03, 2025 9:49am cefdinir 300 mg oral capsule (13 sources) Cephalosporin Antibacterial Start: 10-26-2021 End: 10-30-2022 take 1 capsule by mouth twice daily Cefdinir 300 mg capsule Discontinued 300 mg PO TWICE A DAY October 26, 2021 12:00am October 30, 2022 7:57am folic acid 1 mg oral tablet (20 sources) Start: 10-30-2022 End: 02-12-2024 take 1 tablet by mouth once daily Folic Acid 1 mg tablet Discontinued 1 mg PO DAILY 30 11 February 27, 2023 7:22am February 12, 2024 9:34am hydrocortisone 1.67 mg/ml enema (8 sources) Corticosteroid Start: 04-21-2024 End: 05-12-2024 Hydrocortisone 100 mg/60 mL enema Discontinued 100 mg RC daily 1260 21 0 April 21, 2024 1:00am May 11, 2024 1:00am May 12, 2024 1:08am ondansetron 4 mg oral tablet (10 sources) Serotonin-3 Receptor Antagonist Start: 07-06-2022 End: 02-12-2024 take 1 tablet by mouth every eight hours as needed for nausea and vomiting Ondansetron Hcl 4 mg tablet Discontinued 4 mg PO Q8H as needed for nausea and vomiting 10 0 July 06, 2022 1:00am February 12, 2024 9:34am pantoprazole 40 mg delayed release oral tablet (15 sources) Proton Pump Inhibitor Start: 06-30-2022 End: 10-30-2022 take 1 tablet by mouth once daily Pantoprazole 40 mg tablet,delayed release (DR/EC) Discontinued 40 mg PO DAILY 14 0 June 30, 2022 1:00am October 30, 2022 [...] tablet Discontinued 40 mg PO daily 60 90 3 April 28, 2024 8:29am June 20, 2024 2:01pm Start: 06-07-2022 End: 08-09-2022 take 1 tablet by mouth twice daily Prednisone 20 mg tablet Discontinued 20 mg PO TWICE A DAY 60 0 June 07, 2022 7:35am August 09, 2022 3:11pm Start: 04-05-2022 End: 06-07-2022 take 1 tablet by mouth three times daily Prednisone 20 mg tablet Discontinued 20 mg PO THREE TIMES A DAY 90 1 April 05, 2022 1:00am June 07, 2022 7:36am Start: 10-05-2021 End: 04-21-2022 take 2 tablets by mouth once daily Prednisone 20 mg tablet Discontinued 20 mg PO DAILY 30 3 November 22, 2021 7:53am April 21, 2022 2:07pm take two tabs for five days then reduce by ten mg each 5-7 days to manage flare symptoms. Start: 09-22-2021 take 50 mg by mouth once daily Prednisone Active 50 MG PO DAILY September 22, 2021 10:06am Problems Active Problems Problem Classification Problem Date Documented Da te Episodic/Chronic Administrative/social admission (18 sources) Special examination status; Translations: [Encounter for examination for participation in sport] 12-16-2018 Episodic Gastrointestinal hemorrhage (14 sources) Rectal hemorrhage; Translations: [Hemorrhage of anus and rectum] Onset: 03-19-2025 07-24-2024 Episodic Headache; including migraine (18 sources) Headache; Translations: [Severe headache] 10-26-2021 Episodic Immunizations and screening for infectious disease (10 sources) Contact with and (suspected) exposure to other viral communicable diseases; Translations: [Contact with or suspected exposure to other viral communicable disease] 07-06-2022 Episodic Nausea and vomiting (10 sources) Nausea and vomiting; Translations: [Nausea with vomiting, unspecified] 07-06-2022 Episodic Noninfectious gastroenteritis (14 sources) Inflammatory bowel disease; Translations: [Noninfective gastroenteritis and colitis, unspecified] 01-03-2022 Episodic Nutritional deficiencies (9 sources) Vitamin D deficiency; Translations: [Vitamin D deficiency, unspecified] Onset: 09-15-2024 09-15-2024 Chronic Other connective tissue disease (8 sources) Muscle pain; Translations: [Myalgia, unspecified site] 05-30-2024 Episodic Other gastrointestinal disorders (18 sources) Diarrhea; Translations: [Diarrhea, unspecified] 09-22-2021 Episodic Otitis media and related conditions (18 sources) Acute right otitis media; Translations: [Otitis media, unspecified, right ear] 11-17-2020 Episodic Regional enteritis and ulcerative colitis (20 sources) Ulcerative colitis; Translations: [Ulcerative colitis, unspecified, without complications] Onset: 03-19-2025 Chronic Residual codes; unclassified (3 sources) FH: [...] Test Name Value Interpretation Reference Range Facility CBC W/Diff, Automatedon 10-3 Absolute Lymph 1.68 X10 3/uL Normal 0.83-4.51 [facility] Comment on above: Performed By: #### L 100.0100, L501.6710, L500.4050 ####[facility] [address] [place], [address] Absolute Neut 3.3 X10 3/uL Normal 2.0-7.7 [facility] Comment on above: Performed By: #### L 100.0100, L501.6710, L500.4050 ####[facility] [address] [place], [address] Basophils/100 WBC (Bld) 0.7 % Normal 0-1 [facility] Comment on above: Performed By: #### L 100.0100, L501.6710, L500.4050 ####[facility] [address] [place], [address] Eosinophils/100 WBC (Bld) 2.5 % Normal 0-5 [facility] Comment on above: Performed By: #### L 100.0100, L501.6710, L500.4050 ####[facility] [address] [place], [address] Erythrocyte distribution width (RBC) [Ratio] 12.1 % Normal 11.6-14.6 [facility] Comment on above: Performed By: #### L 100.0100, L501.6710, L500.4050 ####[facility] [address] [place], [address] Hematocrit (Bld) [Volume fraction] 43.6 % Normal 40-54 [facility] Comment on above: Performed By: #### L 100.0100, L501.6710, L500.4050 ####[facility] [address] [place], [address] Hemoglobin (Bld) [Mass/Vol] 15.0 g/dL Normal 13.0-16.5 [facility] Comment on above: Performed By: #### L 100.0100, L501.6710, L500.4050 ####[facility] [address] [place], [address] IG% 0.200 Normal 0.0-0.9 [facility] Comment on above: Result Comment: IG% - Immature Granulocytes (promyelocytes, myelocytes and metamyelocytes) > 1% indicates that a LEFT SHIFT is Present. Performed By: #### L 100.0100, L501.6710, L500.4050 ####[facility] [address] [place], [address] Lymphocytes/100 WBC (Bld) 29.9 % Normal 19-41 [facility] Comment on above: Performed By: #### L 100.0100, L501.6710, L500.4050 ####[facility] [address] [place], [address] MCH (RBC) [Entitic mass] 32.1 pg High 27.0-32.0 [facility] Comment on above: Performed By: #### L 100.0100, L501.6710, L500.4050 ####[facility] [address] [place], [address] MCHC (RBC) [Mass/Vol] 34.4 g/dL Normal 32-36 [facility] Comment on above: Performed By: #### L 100.0100, L501.6710, L500.4050 ####[facility] [address] [place], [address] MCV (RBC) [Entitic vol] 93.2 fL Normal 80-94 [facility] Comment on above: Performed By: #### L 100.0100, L501.6710, L500.4050 ####[facility] [address] [place], [address] Monocytes/100 WBC (Bld) 7.7 % Normal 0-10 [facility] Comment on above: Performed By: #### L 100.0100, L501.6710, L500.4050 ####[facility] [address] [place], [address] Neutrophils/100 WBC (Bld) 59.0 % Normal 47-70 [facility] Comment on above: Performed By: #### L 100.0100, L501.6710, L500.4050 ####[facility] [address] [place], [address] Nucleated RBC (Bld) [#/Vol] 0 10*3/uL Normal 0-5 [facility] Comment on above: Performed By: #### L 100.0100, L501.6710, L500.4050 ####[facility] [address] [place], [address] Platelet mean volume (Bld) [Entitic vol] 9.5 fL Normal 6.2-12.0 [facility] Comment on above: Performed By: #### L 100.0100, L501.6710, L500.4050 ####[facility] [address] [place], [address] Platelets (Bld) [#/Vol] 207 10*3/uL Normal 150-450 [facility] Comment on above: Performed By: #### L 100.0100, L501.6710, L500.4050 ####[facility] [address] [place], [address] RBC (Bld) [#/Vol] 4.68 10*6/uL Normal 4.6-6.2 [facility] Comment on above: Performed By: #### L 100.0100, L501.6710, L500.4050 ####[facility] [address] [place], [address] RDW SD 41.9 fl Normal 35.1-43.9 [facility] Comment on above: Performed By: #### L 100.0100, L501.6710, L500.4050 ####[facility] [address] [place], [address] WBC (Bld) [#/Vol] 5.6 10*3/uL Normal 4.4-11.0 [facility] Comment on above: Performed By: #### L 100.0100, L501.6710, L500.4050 ####[facility] [address] [place], [address] CRPon 03-26-2025 C-REACTIVE PROT < 3.00 Normal 0.0-3.0 [facility] Comment on above: Performed By: #### L 100.0100, L501.6710, L500.4050 ####[facility] [address] [place], [address] Comprehensive Metabolic Prof ilon 03-26-2025 Albumin [Mass/Vol] 4.3 g/dL Normal 3.5-5.0 [facility] Comment on above: Performed By: #### L 100.0100, L501.6710, L500.4050 ####[facility] [address] [place], [address] Albumin/Globulin [Mass ratio] 1.4 {ratio} Normal 0.9-2.4 [facility] Comment on above: Performed By: #### L 100.0100, L501.6710, L500.4050 ####[facility] [address] [place], [address] ALK PHOS 77 U/L Normal 40-129 [facility] Comment on above: Performed By: #### L 100.0100, L501.6710, L500.4050 ####[facility] [address] [place], [address] ALT [Catalytic activity/Vol] 46 U/L Normal <=46 [facility] Comment on above: Performed By: #### L 100.0100, L501.6710, L500.4050 ####[facility] [address] [place], [address] AST [Catalytic activity/Vol] 33 U/L Normal <=37 [facility] Comment on above: Result Comment: Hemo lysis present, Results??could be affected. ?? Performed By: #### L 100.0100, L501.6710, L500.4050 ####[facility] [address] [place], [address] Bilirubin [Mass/Vol] 0.39 mg/dL Normal 0.00-1.30 [facility] Comment on above: Performed By: #### L 100.0100, L501.6710, L500.4050 ####[facility] [address] [place], [address] BUN/CRE 21.0 RATIO High 10-20 [facility] Comment on above: Performed By: #### L 100.0100, L501.6710, L500.4050 ####[facility] [address] [place], [address] Calcium [Mass/Vol] 9.6 mg/dL Normal 7.6-11.0 [facility] Comment on above: Performed By: #### L 100.0100, L501.6710, L500.4050 ####[facility] [address] [place], [address] Chloride [Moles/Vol] 105 mmol/L Normal 98-108 [facility] Comment on above: Performed By: #### L 100.0100, L501.6710, L500.4050 ####[facility] [address] [place], [address] CO2 [Moles/Vol] 23.5 mmol/L Normal 21.0-32.0 [facility] Comment on above: Performed By: #### L 100.0100, L501.6710, L500.4050 ####[facility] [address] [place], [address] Creatinine [Mass/Vol] 1.12 mg/dL Normal 0.70-1.20 [facility] Comment on above: Performed By: #### L 100.0100, L501.6710, L500.4050 ####[facility] [address] [place], [address] ECRCL 102.58 ml/min Normal 50-250 [facility] Comment on above: Performed By: #### L 100.0100, L501.6710, L500.4050 ####[facility] [address] [place], [address] GAP 10 Normal 5-15 [facility] Comment on above: Performed By: #### L 100.0100, L501.6710, L500.4050 ####[facility] [address] [place], [address] GFR/1.73 sq M.predicted among non-blacks MDRD (S/P/Bld) [Vol rate/Area] 95 mL/min/{1.73_m2} Normal >60 [facility] Comment on above: Result Comment: mL/m in/1.73m2 CKD-EPI Creatinine Equation (2020) Performed By: #### L 100.0100, L501.6710, L500.4050 ####[facility] [address] [place], [address] Globulin (S) [Mass/Vol] 2.9 g/dL Normal 2.2-4.2 [facility] Comment on above: Performed By: #### L 100.0100, L501.6710, L500.4050 ####[facility] [address] [place], [address] Glucose [Mass/Vol] 79 mg/dL Normal 70-99 [facility] Comment on above: Performed By: #### L 100.0100, L501.6710, L500.4050 ####[facility] [address] [place], [address] Potassium [Moles/Vol] 4.2 mmol/L Normal 3.3-5.1 [facility] Comment on above: Result Comment: Hemo lysis present, Results??could be affected. ?? Performed By: #### L 100.0100, L501.6710, L500.4050 ####[facility] [address] [place], [address] Sodium [Moles/Vol] 139 mmol/L Normal 133-145 [facility] Comment on above: Performed By: #### L 100.0100, L501.6710, L500.4050 ####[facility] [address] [place], [address] T PROT 7.2 g/dL Normal 5.9-8.4 [facility] Comment on above: Performed By: #### L 100.0100, L501.6710, L500.4050 ####[facility] [address] [place], [address] Urea nitrogen [Mass/Vol] 24 mg/dL High 4-19 [facility] Comment on above: Performed By: #### L 100.0100, L501.6710, L500.4050 ####[facility] [address] [place], [address] Surgical pathology reportOrd ered By: Connie Bryson on 03-06-2025 Surgical pathology study [facility] Flex Sigmoidoscopy Reporton 03-05-2025 Flex Sigmoidoscopy Report [facility] Medical Records Department [address] [place] [address] Flex Sigmoidoscopy Report MR#: [id number] Acct: [id number] Name: CARLA FUENTES Rep #: [id number] : 2000 24 From: Tad Monahan DO PCP: Dr. 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 Refer to note in patient chart for documentation of history and physical. Last Colonoscopy: 3 years ago. Complications: No immediate complications. Procedure: Pre-Anesthesia Assessment: [...] and proposed procedure were verified by the physician in the pre-procedure area. Mental Status Examination: alert and oriented. Airway Examination: normal oropharyngeal airway and neck mobility. Respiratory Examination: clear to auscultation. CV Examination: normal. ASA Grade Assessment: II - A patient [...] patient was re-assessed after the procedure. After obtaining informed consent, the endoscope was passed under direct vision. Throughout the procedure, the patient's blood pressure, pulse, and oxygen saturations were monitored continuously. The Endoscope was introduced through the anus and advanced to the descending colon. The flexible sigmoidoscopy was accomplished without difficulty. The patient tolerated the procedure well. The quality of the bowel preparation was adequate. Scope In: 10:17:09 AM Scope Out: 10:21:31 AM Total Procedure Duration Time 0 hours 4 minutes 22 seconds Findings: The perianal and digital rectal examinations were normal. The rectum, recto-sigmoid colon and sigmoid colon appeared normal. Biopsies were taken with a cold forceps for histology. Verification of patient identification for the specimen was done. Estimated blood loss was minimal. Impression: - The rectum, sigmoid colon and recto-sigmoid colon are normal. Biopsied. Procedure Code(s): --- Professional --- 13361, Sigmoidoscopy, flexible; with biopsy, single or multiple CPT copyright 2021 [employer] [employer]. All rights reserved. The codes documented in this report are preliminary and upon welder metal fab review may be revised to meet current compliance requirements. Tad Monahan DO 03/05/2025 10:27:19 AM This report has been signed electronically. Number of Addenda: 0 Note Initiated On: 03/05/2025 10:02 AM 03/05/25 1027 Date Tad Hall Signature: Date (if indicated) CC: Dr. Lennie Patel MD; Tad Monahan DO Date Dictated: 03/05/25 1002 Date Transcribed: Clinical Marketing Manager: SALTY Signed [facility] MR/OPMartinez 03-05-2025 MR/OP.[facility] Medical Records Department [address] [place] [address] Provation Physician Letter MR#: [id number] Acct: [id number] Name: CARLA FUENTES Rep #: [id number] : 2000 24 From: Tad Monahan DO PCP: Dr. Lennie Patel MD Status:[facility] 03/05/2025 Truong Patel [address] [place] [address] Re : Flexible Sigmoidoscopy procedure for Carla Fuentes Dear Dr. Patel This procedure was performed on February. My impressions and recommendations are as follows: Impressions : - The rectum, sigmoid colon and recto-sigmoid colon are normal. Biopsied. Recommendations : My findings are described in the full procedure note, which is enclosed. If I can be of further assistance, please feel free to contact me at . Sincerely, Tad Monahan DO 03/05/2025 10:27:19 AM This report has been signed electronically. 03/05/25 1027 Date Tad Espinalignhoracio Signature: Date (if indicated) CC: Dr. Lennie Patel MD; aTd Monahan DO Date Dictated: 03/05/25 1002 Date Transcribed: Clinical Marketing Manager: RF Signed [facility] MR/POSTOP.ANEdarrell 03-05-2025 MR/POSTOP.[facility] Medical Records Department [address] [place] [address] Anesthesia Postop Eval I 03/05/25 1033 MR#: [id number] Acct: [id number] Name: CARLA FUENTES Rep #: [id number] : 2000 24 From: Olu Stout PCP: Dr. Lennie Patel MD Status:[facility] Race: C Location: [place] [address] Anesthesia: Postop Eval I Current Vital Signs Temperature: 98.4 F Pulse Rate: 64 Blood Pressure: 96/54 Respiratory Rate: 16 Pulse Ox: 98 Oxygen Delivery Method: Room Air Assessment Airway patent: Yes Spontaneous unlabored respirations: Yes Mental status: Awake and Calm nausea: No Vomiting: No Anesthesia Complication: Yes Anesthesia Complication Comment:: IV tubing puncture Fluid Hydration Crystalloid volume administer (ml): 400 Total IV fluid infused: 400 Progress Note Anesthesia document: Postop Eval 1 completed: Yes 03/05/25 1035 Date Olu Reis Signature: Date CC: Signed Normal [facility] MR/SSPVDWLK6ta 03-05-2025 [facility] Medical Records Department [address] [place] [address] Anesthesia Postop Eval II 03/05/25 1230 MR#: [id number] Acct: [id number] Name: CARLA FUENTES Rep #: [id number] : 2000 24 From: Juanito Waekfield MD PCP: Dr. Lennie Patel MD Status:[facility] Race: C Location: [place] Anesthesia Postop Eval I Sum Postop Eval Completion status Anesthesia document: Postop Eval 1 completed: Yes Anesthesia Postop Eval I Summary Anesthesia Postop Eval I Summary: Anesthesia Postop Eval I: Assessment Summary Airway patent Yes 03/05/25 10:35 [email or web address] Spontaneous unlabored Yes 03/05/25 10:35 [email or web address] respirations Mental status Awake,Calm 03/05/25 10:35 [email or web address] nausea No 03/05/25 10:35 [email or web address] Vomiting No 03/05/25 10:35 [email or web address] Anesthesia Postop Eval I: Fluid Summary Crystalloid volume administer 400 03/05/25 10:35 [email or web address] (ml) Colloids volume administered ( ml) Blood Product volume administered (ml) Total IV fluid infused 400 03/05/25 10:35 [email or web address] Anesthesia Postop Eval I: Summary Notes Anesthesia Complication Yes 03/05/25 10:35 [email or web address] Anesthesia Complication IV tubing puncture 03/05/25 10:35 [email or web address] Comment: Post-operative progress note Anesthesia: Postop Eval II Evaluation Mental status: Awake Pain Level: 0 nausea: No Vomiting: No 03/05/25 1231 Date Juanito Reis Signature: Date CC: Signed Normal [facility] Surgery Specimen Level Kimberly 03-05-2025 Surgery Specimen Level IV Patient Age/Sex Location Account Attending Physician CARLA FUENTES 24/M EN [id number] Tad Monahan DO Specimen: [id number] Received: 03/05/25 Status: STEFANIE Pride Num: [id number] Spec Type: COLON BX Subm Dr: Tad Monahan, DO HEADER OPERATION: Flexible sigmoidoscopy PRE-OP DIAGNOSIS: Rectal bleeding, ulcerative colitis TISSUE SUBMITTED: A- Rectosigmoid biopsy, B- Rectum biopsy MICROSCOPIC DIAGNOSIS A. Rectosigmoid, biopsy: * Colonic mucosa with no pathologic change B. Rectum, biopsy: * Colonic mucosa with no pathologic change MICROSCOPIC DESCRIPTION Slides are reviewed. GROSS DESCRIPTION A. Received in fixative is one container labeled with the patient's name and designated Rectosigmoid biopsy. The specimen consists of four irregular fragments of andrew tissue that measure 0.3 to 0.5 cm. The specimen is totally submitted in one cassette. B. Received in fixative is one container labeled with the patient's name and designated Rectum biopsy. The specimen consists of four irregular fragments of andrew tissue that measure 0.3 to 0.7 cm. The specimen is totally submitted in one cassette. [place] 03/05/2025 CPT:54964t8 Patient Age/Sex Location Account Attending Physician CARLA FUENTES 24/M EN [id number] Tad Monahan DO Signed (signature on file) Dr. Connie Bryson DO 03/06/25 1017 Normal [facility] Comment on above: Performed By: #### L 501.2450, L501.2400, L100.0100, L500.4050, L501.5200, L501.6710, L101.9900 #### [facility] [address] [place], [place], [id number] Gastroenterology Visit Repor ton 12-11-2024 Gastroenterology Visit Report [facility] Gastroenterology [address] [place] [address] OFFICE VISIT Date of Service: 12/11/24 MR#: [id number] Acct: [id number] Name: CARLA FUENTES Rep #: [id number] : 2000 Provider: TITI velez Age/Sex: 23/M Location: [facility] Status: Signed Intake Vital Signs 09/15/24 09:29 11/06/24 09:06 12/11/24 09:25 Height 5 ft 8 in 5 ft 8 in 5 ft 8 in Weight: 169 lb 169 lb 6 oz BMI 25.7 25.7 BP 123/74 H 113/67 Blood Pressure Location Rt brachial Lt brachial Position Sitting Sitting Respiration 16 Pulse 69 75 Pulse Source Monitor Pulse Oximetry (%) 98 95 Oxygen Delivery Method room air room air Intake Visit Reasons: 3 M FU Chief Complaint: Entyvio Allergies No Known Allergies Allergy (Verified 12/11/24 09:25) Medications ???Medication ???Instructions ???Recorded ???Confirmed ???Type Lactobacillus acidophilus 10 100 mmu cells PO DAILY 04/17/24 History billion cell capsule (Probacap) multivitamin (Daily Multi-Vitamin 1 tab PO DAILY 04/17/24 12/11/24 History tablet) alprazolam 1 mg tablet 1 mg PO QHS PRN sleep 1 month #30 04/21/24 12/11/24 Rx tabs duloxetine 30 mg capsule,delayed 30 mg PO DAILY 07/31/24 12/11/24 H istory release budesonide 3 mg 9 mg (3 x 3 mg) PO QDAY #90 ea 12/11/24 Rx capsule,delayed,extended release vedolizumab 300 mg intravenous 300 mg .Route 09/15/24 12/11/24 Hi story solution (Entyvio) cholecalciferol (vitamin D3) 125 125 mcg PO DAILY 11/06/24 12/11/24 History mcg (5,000 unit) capsule Nurse's Note: Patient states everything has been going good the last few months, states he is not currently experiencing any symptoms. 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 Colonoscopy was performed 04/21/2024 for complains of [...] of prednisone despite lower dose, he discontinued and started Budesonide 9mg daily. He was continuing to experience 1-2 episodes of rectal bleeding daily with BM. He started Entyvio infusions on 07/31/2024 and completed loading doses on 09/11/2024 and reports resolution of rectal bleeding after first Entyvio infusion. Budesonide was decreased to 6mg daily after his 3rd loading dose and he will continue 6mg daily for 3 weeks, then decrease to 3mg daily x 2weeks and discontinue. He will complete labs, fecal calprotectin in October and Sigmoidoscopy in January. He will follow-up in three months, sooner for symptoms. He is continuing to experience loose stools 2x a day with urgency. Patient Instructions: - Budesonide dropped to 6mg daily after 3rd Entyvio infusion on 09/11/2024 for 3 weeks and then decrease to 3mg daily on 10/02/2024 x2 weeks and then discontinue - Repeat Fecal Calprotectin 3 months after starting Entyvio (October 2024) - Complete labs October 2024 - will see if you can have drawn at infusion center - Sigmoidoscopy 6 months after starting Entyvio (January 2025) - Continue daily Vitamin D supplement - Follow-up in the office in 3 months (November 2024) CBC: 06/03/2024 HGB 17.1 CMP: 06/26/2024 WNL CRP: 06/03/2024 normal VITAMIN B12: 06/03/2024 normal VITAMIN LOW 23 Thiopurine Metabolite: 02/12/2024 6-TGN - 276 6-MMPN - 623 TPMT 20.8 QUANTIFERON: 06/26/2024 negative HBVsAb: 06/26/2024 non-reactive HBVsA06/26/2024 negative HBV Core Total Ab: 06/26/2024 negative HCV: 10/01/2021 negative Fecal Calprotectin: 06/27/2024 mildly elevated 71 06/01/2022 normal 09/23/2021 1436 COLON: 04/21/2024 Moderately active (Ricardo Score 2) (more content not included)... Normal [facility] Calprotectin, Stoolon [address] 1170 ug/g Abnormal 0-120 [facility] Comment on above: Result Comment: Re sults verified by repeat testing Concentration Interpretation Follow-Up < 5 - 50 ug/g Normal None >50 -120 ug/g Borderline Re-evaluate in 4-6 weeks >120 ug/g Abnormal Repeat as clinically indicated Performed at: [facility] [address] [id number] [employer]: Ran Mathews MD, Phone: [phone] Performed By: #### L 7000.0700 ####[facility] [address] [place], [address] Absolute lymphocyte countOrd ered By: Brianne Baugh on 11-06-2024 Lymphocytes Auto (Unsp spec) [#/Vol] 1.30 10*3/uL 0.83-4.51 [facility] Absolute neutrophil countOrd ered By: Brianne Baugh on 11-06-2024 Neutrophils (Bld) [#/Vol] 4.1 10*3/uL 2.0-7.7 [facility] Anion gap in Serum or Plasma Ordered By: Brianne Baugh on 11-06-2024 Anion gap [Moles/Vol] 11 mmol/L 5-15 [facility] Automated lymphocyte count a s percentage of total leukocytesOrdered By: Brianne Ringony on 11-06-2024 Lymphocytes/100 WBC Auto (Unsp spec) 21.3 % 19-41 [facility] BUN/creatinine ratioOrdered By: Brianne Baugh on 11-06-2024 Urea nitrogen/Creatinine [Mass ratio] 12.9 mg/mg 10-20 [facility] Basophil percentageOrdered B y: Brianne Amauri on 11-06-2024 Basophils/100 WBC (Bld) 0.5 % 0-1 [facility] Bilirubin, totalOrdered By: Brianne Baugh on 11-06-2024 Bilirubin [Mass/Vol] 0.57 mg/dL 0.00-1.30 [facility] CBC W/Diff, Automatedon 10-26-2024 Absolute Lymph 1.30 X10 3/uL Normal 0.83-4.51 [facility] Comment on above: Performed By: #### L 501.2450, L501.2400, L100.0100, L500.4050, L501.5200, L501.6710, L101.9900 #### [facility] [address] [place], [address] Absolute Neut 4.1 X10 3/uL Normal 2.0-7.7 [facility] Comment on above: Performed By: #### L 501.2450, L501.2400, L100.0100, L500.4050, L501.5200, L501.6710, L101.9900 #### [facility] [address] [place], [address] Basophils/100 WBC (Bld) 0.5 % Normal 0-1 [facility] Comment on above: Performed By: #### L 501.2450, L501.2400, L100.0100, L500.4050, L501.5200, L501.6710, L101.9900 #### [facility] [address] [place], [address] Eosinophils/100 WBC (Bld) 1.8 % Normal 0-5 [facility] Comment on above: Performed By: #### L 501.2450, L501.2400, L100.0100, L500.4050, L501.5200, L501.6710, L101.9900 #### [facility] [address], [address] Erythrocyte distribution width (RBC) [Ratio] 12.5 % Normal 11.6-14.6 [facility] Comment on above: Performed By: #### L 501.2450, L501.2400, L100.0100, L500.4050, L501.5200, L501.6710, L101.9900 #### [facility] [address] [facility] [place], [address] Hematocrit (Bld) [Volume fraction] 46.7 % Normal 40-54 [facility] Comment on above: Performed By: #### L 501.2450, L501.2400, L100.0100, L500.4050, L501.5200, L501.6710, L101.9900 #### [facility] [address], [address] Hemoglobin (Bld) [Mass/Vol] 15.6 g/dL Normal 13.0-16.5 [facility] Comment on above: Performed By: #### L 501.2450, L501.2400, L100.0100, L500.4050, L501.5200, L501.6710, L101.9900 #### [facility] [address], [address] IG% 0.200 Normal 0.0-0.9 [facility] Comment on above: Result Comment: IG% - Immature Granulocytes (promyelocytes, myelocytes and metamyelocytes) > 1% indicates that a LEFT SHIFT is Present. Performed By: #### L 501.2450, L501.2400, L100.0100, L500.4050, L501.5200, L501.6710, L101.9900 #### [facility] [address] [place], [address] Lymphocytes/100 WBC (Bld) 21.3 % Normal 19-41 [facility] Comment on above: Performed By: #### L 501.2450, L501.2400, L100.0100, L500.4050, L501.5200, L501.6710, L101.9900 #### [facility] [address], [address] MCH (RBC) [Entitic mass] 31.3 pg Normal 27.0-32.0 [facility] Comment on above: Performed By: #### L 501.2450, L501.2400, L100.0100, L500.4050, L501.5200, L501.6710, L101.9900 #### [facility] [address] [place], [address] MCHC (RBC) [Mass/Vol] 33.4 g/dL Normal 32-36 [facility] Comment on above: Performed By: #### L 501.2450, L501.2400, L100.0100, L500.4050, L501.5200, L501.6710, L101.9900 #### [facility] [address] [place], [address] MCV (RBC) [Entitic vol] 93.6 fL Normal 80-94 [facility] Comment on above: Performed By: #### L 501.2450, L501.2400, L100.0100, L500.4050, L501.5200, L501.6710, L101.9900 #### [facility] [address] [place], [address] Monocytes/100 WBC (Bld) 9.5 % Normal 0-10 [facility] Comment on above: Performed By: #### L 501.2450, L501.2400, L100.0100, L500.4050, L501.5200, L501.6710, L101.9900 #### [facility] [address] [place], [address] Neutrophils/100 WBC (Bld) 66.7 % Normal 47-70 [facility] Comment on above: Performed By: #### L 501.2450, L501.2400, L100.0100, L500.4050, L501.5200, L501.6710, L101.9900 #### [facility] [address] [place], [address] Nucleated RBC (Bld) [#/Vol] 0 10*3/uL Normal 0-5 [facility] Comment on above: Performed By: #### L 501.2450, L501.2400, L100.0100, L500.4050, L501.5200, L501.6710, L101.9900 #### [facility] [address] [place], [address] Platelet mean volume (Bld) [Entitic vol] 9.0 fL Normal 6.2-12.0 [facility] Comment on above: Performed By: #### L 501.2450, L501.2400, L100.0100, L500.4050, L501.5200, L501.6710, L101.9900 #### [facility] [address] [place], [address] Platelets (Bld) [#/Vol] 201 10*3/uL Normal 150-450 [facility] Comment on above: Performed By: #### L 501.2450, L501.2400, L100.0100, L500.4050, L501.5200, L501.6710, L101.9900 #### [facility] [address] [place], [address] RBC (Bld) [#/Vol] 4.99 10*6/uL Normal 4.6-6.2 [facility] Comment on above: Performed By: #### L 501.2450, L501.2400, L100.0100, L500.4050, L501.5200, L501.6710, L101.9900 #### [facility] [address] [place], [address] RDW SD 43.4 fl Normal 35.1-43.9 [facility] Comment on above: Performed By: #### L 501.2450, L501.2400, L100.0100, L500.4050, L501.5200, L501.6710, L101.9900 #### [facility] [address] [place], [address] WBC (Bld) [#/Vol] 6.1 10*3/uL Normal 4.4-11.0 [facility] Comment on above: Performed By: #### L 501.2450, L501.2400, L100.0100, L500.4050, L501.5200, L501.6710, L101.9900 #### [facility] [address] [place], [address] CRPon 11-06-2024 C-REACTIVE PROT < 3.00 Normal 0.0-3.0 [facility] Comment on above: Performed By: #### L 501.2450, L501.2400, L100.0100, L500.4050, L501.5200, L501.6710, L101.9900 #### [facility] [address] [place], [address] Calprotectin stoolOrdered By : Brianne Baugh on 06-12-2025 Calprotectin stool 1170 ug/g High 0-120 [facility] Comment on above: Results verified b y repeat testingConcentration Interpretation Follow-Up< 5 - 50 ug/g Normal None>50 -120 ug/g Borderline Re-evaluate in 4-6 weeks >120 ug/g Abnormal Repeat as clinically indicatedPerformed at: - [facility] [address] [id number] Director: Ran Mathews MD, Phone: [phone] Carbon dioxide, total [Moles /volume] in Central venous bloodOrdered By: Brianne Baugh on 11-06-2024 CO2 [Moles/Vol] 23.8 mmol/L 21.0-32.0 [facility] Chloride assayOrdered By: Christopher Baugh on 11-06-2024 Chloride [Moles/Vol] 102 mmol/L 98-108 [facility] Comprehensive Metabolic Prof ilon 11-06-2024 Albumin [Mass/Vol] 4.5 g/dL Normal 3.5-5.0 [facility] Comment on above: Performed By: #### L 501.2450, L501.2400, L100.0100, L500.4050, L501.5200, L501.6710, L101.9900 #### [facility] [address] [facility] [place], [place], [id number] (120) Albumin/Globulin [Mass ratio] 1.5 {ratio} Normal 0.9-2.4 [facility] Comment on above: Performed By: #### L 501.2450, L501.2400, L100.0100, L500.4050, L501.5200, L501.6710, L101.9900 #### [facility] [address] [place], [address] ALK PHOS 92 U/L Normal 40-129 [facility] Comment on above: Performed By: #### L 501.2450, L501.2400, L100.0100, L500.4050, L501.5200, L501.6710, L101.9900 #### [facility] [address] [place], [address] ALT [Catalytic activity/Vol] 20 U/L Normal <=46 [facility] Comment on above: Performed By: #### L 501.2450, L501.2400, L100.0100, L500.4050, L501.5200, L501.6710, L101.9900 #### [facility] [address] [place], [address] AST [Catalytic activity/Vol] 21 U/L Normal <=37 [facility] Comment on above: Performed By: #### L 501.2450, L501.2400, L100.0100, L500.4050, L501.5200, L501.6710, L101.9900 #### [facility] [address] [place], [address] Bilirubin [Mass/Vol] 0.57 mg/dL Normal 0.00-1.30 [facility] Comment on above: Performed By: #### L 501.2450, L501.2400, L100.0100, L500.4050, L501.5200, L501.6710, L101.9900 #### [facility] [address] [place], [address] BUN/CRE 12.9 RATIO Normal 10-20 [facility] Comment on above: Performed By: #### L 501.2450, L501.2400, L100.0100, L500.4050, L501.5200, L501.6710, L101.9900 #### [facility] [address] [place], [address] Calcium [Mass/Vol] 9.7 mg/dL Normal 7.6-11.0 [facility] Comment on above: Performed By: #### L 501.2450, L501.2400, L100.0100, L500.4050, L501.5200, L501.6710, L101.9900 #### [facility] [address] [place], [address] Chloride [Moles/Vol] 102 mmol/L Normal 98-108 [facility] Comment on above: Performed By: #### L 501.2450, L501.2400, L100.0100, L500.4050, L501.5200, L501.6710, L101.9900 #### [facility] [address] [place], [address] CO2 [Moles/Vol] 23.8 mmol/L Normal 21.0-32.0 [facility] Comment on above: Performed By: #### L 501.2450, L501.2400, L100.0100, L500.4050, L501.5200, L501.6710, L101.9900 #### [facility] [address] [place], [address] Creatinine [Mass/Vol] 1.08 mg/dL Normal 0.70-1.20 [facility] Comment on above: Performed By: #### L 501.2450, L501.2400, L100.0100, L500.4050, L501.5200, L501.6710, L101.9900 #### [facility] [address] [place], [address] ECRCL 103.80 ml/min Normal 50-250 [facility] Comment on above: Performed By: #### L 501.2450, L501.2400, L100.0100, L500.4050, L501.5200, L501.6710, L101.9900 #### [facility] [address] [place], [address] GAP 11 Normal 5-15 [facility] Comment on above: Performed By: #### L 501.2450, L501.2400, L100.0100, L500.4050, L501.5200, L501.6710, L101.9900 #### [facility] [address], [address] GFR/1.73 sq M.predicted among non-blacks MDRD (S/P/Bld) [Vol rate/Area] 100 mL/min/{1.73_m2} Normal >60 [facility] Comment on above: Result Comment: mL/m in/1.73m2 CKD-EPI Creatinine Equation (2020) Performed By: #### L 501.2450, L501.2400, L100.0100, L500.4050, L501.5200, L501.6710, L101.9900 #### [facility] [address] [place], [address] Globulin (S) [Mass/Vol] 3.0 g/dL Normal 2.2-4.2 [facility] Comment on above: Performed By: #### L 501.2450, L501.2400, L100.0100, L500.4050, L501.5200, L501.6710, L101.9900 #### [facility] [address], [address] Glucose [Mass/Vol] 91 mg/dL Normal 70-99 [facility] Comment on above: Performed By: #### L 501.2450, L501.2400, L100.0100, L500.4050, L501.5200, L501.6710, L101.9900 #### [facility] [address] [place], [address] Potassium [Moles/Vol] 4.2 mmol/L Normal 3.3-5.1 [facility] Comment on above: Performed By: #### L 501.2450, L501.2400, L100.0100, L500.4050, L501.5200, L501.6710, L101.9900 #### [facility] [address] [place], [address] Sodium [Moles/Vol] 137 mmol/L Normal 133-145 [facility] Comment on above: Performed By: #### L 501.2450, L501.2400, L100.0100, L500.4050, L501.5200, L501.6710, L101.9900 #### [facility] [address] [place], [address] T PROT 7.5 g/dL Normal 5.9-8.4 [facility] Comment on above: Performed By: #### L 501.2450, L501.2400, L100.0100, L500.4050, L501.5200, L501.6710, L101.9900 #### [facility] [address] [place], [address] Urea nitrogen [Mass/Vol] 14 mg/dL Normal 4-19 [facility] Comment on above: Performed By: #### L 501.2450, L501.2400, L100.0100, L500.4050, L501.5200, L501.6710, L101.9900 #### [facility] [address] [place], [address] Eosinophil percentageOrdered By: Brianne Baugh on 11-06-2024 Eosinophils/100 WBC (Bld) 1.8 % 0-5 [facility] Erythrocyte distribution wid th ratioOrdered By: Brianne Baugh on 11-06-2024 Erythrocyte distribution width (RBC) [Ratio] 12.5 % 11.6-14.6 [facility] Erythrocyte distribution wid th standard deviationOrdered By: Brianne Baugh on 11-06-2024 Erythrocyte distribution width (RBC) [Ratio] 43.4 fl 35.1-43.9 [facility] Glomerular filtration rate ( GFR) estimation/1.73 sq m using serum, plasma, or whole bOrdered By: Brianne Baugh on 11-06-2024 GFR/1.73 sq M.predicted among non-blacks MDRD (S/P/Bld) [Vol rate/Area] 100 mL/min/{1.73_m2} >60 [facility] Comment on above: mL/min/1.73m2 CKD-EP I Creatinine Equation (2020) Hematocrit Auto (Bld) [Volum e fraction]Ordered By: Brianne Baugh on 11-06-2024 Hematocrit (Bld) [Volume fraction] 46.7 % 40-54 [facility] Hemoglobin measurementOrdere d By: Brianne Baugh on 11-06-2024 Hemoglobin (Bld) [Mass/Vol] 15.6 g/dL 13.0-16.5 [facility] Immature granulocytes/100 WB C Auto (Bld)Ordered By: Brianne Baugh on 11-06-2024 Immature granulocytes/100 WBC (Bld) 0.200 % 0.0-0.9 [facility] Comment on above: IG% - Immature Granu locytes (promyelocytes, myelocytes and metamyelocytes) > 1% indicates that a LEFT SHIFT is Present. Laboratory - Chemistry and C hemistry - challengeOrdered By: Brianne Baugh on 11-06-2024 AST [Catalytic activity/Vol] 21 U/L <38 [facility] MCV (mean corpuscular volume ) determinationOrdered By: Brianne Baugh on 11-06-2024 MCV (RBC) [Entitic vol] 93.6 fL 80-94 [facility] Mean corpuscular hemoglobin (MCH) determinationOrdered By: Brianne Baugh on 11-06-2024 MCH (RBC) [Entitic mass] 31.3 pg 27.0-32.0 [facility] Mean corpuscular hemoglobin concentration (MCHC) determinationOrdered By: Brianne Baugh on 11-06-2024 MCHC (RBC) [Mass/Vol] 33.4 g/dL 32-36 [facility] Mean platelet volume determi nationOrdered By: Brianne Baugh on 11-06-2024 Platelet mean volume (Bld) [Entitic vol] 9.0 fL 6.2-12.0 [facility] Monocyte percentageOrdered B y: Brianne Baugh on 11-06-2024 Monocytes/100 WBC (Bld) 9.5 % 0-10 [facility] Neutrophil percentageOrdered By: Brianne Baugh on 11-06-2024 Neutrophils/100 WBC (Bld) 66.7 % 47-70 [facility] Nucleated red blood cell per centageOrdered By: Brianne Baugh on 11-06-2024 Nucleated RBC/100 WBC (Bld) [Ratio] 0 % 0-5 [facility] Platelet countOrdered By: Christopher Baugh on 11-06-2024 Platelets (Bld) [#/Vol] 201 10*3/uL 150-450 [facility] Potassium measurement (mass/ volume)Ordered By: Brianne Baugh on 11-06-2024 Potassium (Unsp spec) [Mass/Vol] 4.2 mmol/L 3.3-5.1 [facility] RBC Auto (Bld) [#/Vol]Ordere d By: Brianne Baugh on 11-06-2024 RBC (Bld) [#/Vol] 4.99 10*6/uL 4.6-6.2 [facility] Serum creatinine measurement (mass/volume)Ordered By: Brianne Baugh on 11-06-2024 Creatinine [Mass/Vol] 1.08 mg/dL 0.70-1.20 [facility] Serum globulin measurementOr dered By: Brianne Baugh on 11-06-2024 Globulin (S) [Mass/Vol] 3.0 g/dL 2.2-4.2 [facility] Serum glucose measurement (m ass/volume)Ordered By: Brianne Baugh on 11-06-2024 Glucose [Mass/Vol] 91 mg/dL 70-99 [facility] Serum or plasma C reactive p rotein measurement (mass/volume)Ordered By: Brianne Baugh on 11-06-2024 CRP [Mass/Vol] mg/L 0.0-3.0 [facility] Serum or plasma alanine bergman otransferase (ALT) measurementOrdered By: Brianne Baugh on 11-06-2024 ALT [Catalytic activity/Vol] 20 U/L <47 [facility] Serum or plasma albumin charlee urement (mass/volume)Ordered By: Brianne Baugh on 11-06-2024 Albumin [Mass/Vol] 4.5 g/dL 3.5-5.0 [facility] Serum or plasma albumin/glob ulin mass ratioOrdered By: Brianne Baugh on 11-06-2024 Albumin/Globulin [Mass ratio] 1.5 {ratio} 0.9-2.4 [facility] Serum or plasma alkaline sergo sphatase measurementOrdered By: Brianne Baugh on 11-06-2024 ALP [Catalytic activity/Vol] 92 U/L 40-129 [facility] Serum or plasma calcium charlee urement (mass/volume)Ordered By: Brianne Baugh on 11-06-2024 Calcium [Mass/Vol] 9.7 mg/dL 7.6-11.0 [facility] Serum or plasma urea nitroge n measurement (mass/volume)Ordered By: Brianne Baugh on 11-06-2024 Urea nitrogen [Mass/Vol] 14 mg/dL 4-19 [facility] Sodium levelOrdered By: Heidy Baugh on 11-06-2024 Sodium [Moles/Vol] 137 mmol/L 133-145 [facility] Total proteinOrdered By: Erma Baugh on 11-06-2024 Protein [Mass/Vol] 7.5 g/dL 5.9-8.4 [facility] Vitamin D,25 Hydroxyon 11-06 Vitamin D 25-OH 64.9 ng/mL Normal 30-100 [facility] Comment on above: Result Comment: Sruthi min D Status Deficiency: <20 ng/mL (50nmol/L) Insufficiency: 20-30 ng/mL (50-75 nmol/L) Sufficiency: 30-100 ng/mL (75-250 nmol/L) Toxicity: >100 ng/mL (>250 nmol/L) Performed By: #### L 501.2450, L501.2400, L100.0100, L500.4050, L501.5200, L501.6710, L101.9900 #### [facility] [address] [place] [address], [id number] White blood cell (WBC) count Ordered By: Brianne Baugh on 11-06-2024 WBC (Bld) [#/Vol] 6.1 10*3/uL 4.4-11.0 [facility] Gastroenterology Visit Repor ton 09-15-2024 Gastroenterology Visit Report [facility] Gastroenterology [address] [place] [address] OFFICE VISIT Date of Service: 09/15/24 MR#: [id number] Acct: [id number] Name: CARLA FUENTES Rep #: [id number] : 2000 Provider: TITI velez Age/Sex: 23/M [place] [facility] [place] Status: Signed Intake Vital Signs 07/24/24 08:35 [...] with swal (more content not included)... Normal [facility] CT CARDIAC SCORING WO IV CON TRASTon 07-26-2024 CT CARDIAC SCORING WO IV CONTRAST Interpreted By: Hari Gonzalez, STUDY: CT CARDIAC SCORING WO IV CONTRAST; 07/26/2024 9:39 am INDICATION: Signs/Symptoms:FAMILY HX OF CORONARY ARTERIOSCLEROSIS. COMPARISON: None. ACCESSION NUMBER(S): [id number] ORDERING CLINICIAN: LENNIE PATEL TECHNIQUE: Using prospective [...] coronary heart disease events. According to the [place] [employer] Foundation Clinical Expert Consensus [...] modify other non-lipid coronary risk factors. Reference: [place] P et al. Circulation. 2007; 115:402-426 MACRO: None Signed by: Hari Gonzalez 07/28/2024 7:43 AM Dictation workstation: [id number] [facility] Gastroenterology Visit Repor ton 07-24-2024 Gastroenterology Visit Report [facility] Gastroenterology [address] 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 PA request will be sent to [employer] to initiate home infusions. Will plan to taper Budesonide after initiation of vedolizumab. Sigmoidoscopy 6 months after initiation of therapy to assess mucosal healing. PRESENTING SYMPTOMS: urgent watery diarrhea with blood with nocturnal urgency, generalized abdominal pain and cramping, nausea and vomiting occurring eight times a day CBC: 06/03/2024 HGB 17.1 CMP: 06/26/2024 WNL CRP: (more content not included)... Normal [facility] Calprotectin, Stoolon [address] 71 ug/g Normal 0-120 [facility] Comment on above: Result Comment: Conc entration Interpretation Follow-Up < 5 - 50 ug/g Normal None >50 -120 ug/g Borderline Re-evaluate in 4-6 weeks >120 ug/g Abnormal Repeat as clinically indicated Performed at: [address] [id number] [employer]: Ran Mathews MD, Phone: [phone] Performed By: #### L 7000.0700, L501.5200 ####[facility] [address] [place], [place], [id number] V-Zoster IgG (Immunity)on V ZOSTER IgG Normal [facility] Comment on above: Result Comment: RESU LT: NON REACTIVE Please note reference interval change A Reactive result is considered evidence of immunity to VZV. Reactive indicates that VZV IgG was detected consistent with previous infection and/or vaccination. A Non Reactive result indicates that VZV IgG was not detected suggesting that immunity has not been acquired. Performed By: #### L 501.2450, L501.2400, L100.0100, L500.4050, L501.5200, L501.6710, L101.9900 #### [facility] [address] [place], [place], [id number] Hepatitis B Core Ab Totalon 07-01-2024 HEP B CORE,TOT Negative Normal Negative [facility] Comment on above: Result Comment: Perf ormed at: [address] [id number] [employer]: Carlos Hinojosa PhD, Phone: [phone] Performed By: #### L 501.2450, L501.2400, L100.0100, L500.4050, L501.5200, L501.6710, L101.9900 #### [facility] [address] [place], [place], [id number] Quantiferon TB-Gold+on 07-01 QFT MITOGEN ADÁN > 10.00 Normal . [facility] Comment on above: Performed By: #### L 501.2450, L501.2400, L100.0100, L500.4050, L501.5200, L501.6710, L101.9900 #### [facility] [address] [place], [address] QFT NIL VALUE 0.02 IU/mL Normal . [facility] Comment on above: Performed By: #### L 501.2450, L501.2400, L100.0100, L500.4050, L501.5200, L501.6710, L101.9900 #### [facility] [address] [place], [address] QFT TB GOLD+ Comment Normal . [facility] Comment on above: Result Comment: Daniel tiFERON-TB [...] for the test. Performed By: #### L 501.2450, L501.2400, L100.0100, L500.4050, L501.5200, L501.6710, L101.9900 #### [facility] [address] [place], [address] QFT TB POS CRIT Negative Normal Negative [facility] Comment on above: Result Comment: No r [...] Chemiluminescence immunoassay methodology Performed By: #### L 501.2450, L501.2400, L100.0100, L500.4050, L501.5200, L501.6710, L101.9900 #### [facility] [address] [place], [address] QFT TB1+ AG ADÁN 0.06 IU/mL Normal . [facility] Comment on above: Performed By: #### L 501.2450, L501.2400, L100.0100, L500.4050, L501.5200, L501.6710, L101.9900 #### [facility] [address] [place], [address] QFT TB2+ AG ADÁN 0.02 IU/mL Normal . [facility] Comment on above: Performed By: #### L 501.2450, L501.2400, L100.0100, L500.4050, L501.5200, L501.6710, L101.9900 #### [facility] [address] [place], [place], [id number] Calprotectin stoolOrdered By : Brianne Baugh on 06-27-2024 Stool Calprotectin 71 ug/g 0-120 [facility] Comment on above: Concentration Interp retation Follow-Up< 5 - 50 ug/g Normal None>50 -120 ug/g Borderline Re-evaluate in 4-6 weeks >120 ug/g Abnormal Repeat as clinically indicatedPerformed at: - [facility] [id number] Director: Ran Mathews MD, Phone: [phone] Magnesiumon 06-27-2024 Magnesium [Mass/Vol] 2.3 mg/dL Normal 1.6-2.6 [facility] Comment on above: Order Comment: YAKELIN Vee ADD ON MG TO LABS DONE ON 06 26 2024 Performed By: #### L 7000.0700, L501.5200 ####[facility] [address] [place], [place], [id number] Albumin to globulin ratioOrd ered By: Brianne Baugh on 06-26-2024 Albumin/Globulin [Mass ratio] 1.0 {ratio} 0.9-2.4 [facility] Bilirubin, totalOrdered By: Brianne Baugh on 06-26-2024 Bilirubin [Mass/Vol] 0.50 mg/dL 0.20-1.00 [facility] Comment on above: For patients on eltr ombopag therapy, use of Dimension [place] TBIL is not recommended. Blood urea nitrogen (BUN)/cr eatinine ratioOrdered By: Brianne Baugh on 06-26-2024 Urea nitrogen/Creatinine [Mass ratio] 15.2 mg/mg 10-20 [facility] Carbon dioxide measurementOr dered By: Brianne Baugh on 06-26-2024 CO2 [Moles/Vol] 27.0 mmol/L 21.0-32.0 [facility] Chloride measurementOrdered By: Brianne Baugh on 06-26-2024 Chloride [Moles/Vol] 105 mmol/L 98-107 [facility] Comprehensive Metabolic Prof ilon 06-26-2024 Albumin [Mass/Vol] 3.7 g/dL Normal 3.2-5.0 [facility] Comment on above: Performed By: #### L 501.2450, L501.2400, L100.0100, L500.4050, L501.5200, L501.6710, L101.9900 #### [facility] [address] [facility] [place], [place], [id number] Albumin/Globulin [Mass ratio] 1.0 {ratio} Normal 0.9-2.4 [facility] Comment on above: Performed By: #### L 501.2450, L501.2400, L100.0100, L500.4050, L501.5200, L501.6710, L101.9900 #### [facility] [address] [place], [address] ALK P 78 U/L Normal 45-117 [facility] Comment on above: Performed By: #### L 501.2450, L501.2400, L100.0100, L500.4050, L501.5200, L501.6710, L101.9900 #### [facility] [address] [place], [address] ALT [Catalytic activity/Vol] 24 U/L Normal 16-61 [facility] Comment on above: Performed By: #### L 501.2450, L501.2400, L100.0100, L500.4050, L501.5200, L501.6710, L101.9900 #### [facility] [address] [place], [address] AST [Catalytic activity/Vol] 12 U/L Low 15-37 [facility] Comment on above: Performed By: #### L 501.2450, L501.2400, L100.0100, L500.4050, L501.5200, L501.6710, L101.9900 #### [facility] [address] [place], [address] Bilirubin [Mass/Vol] 0.50 mg/dL Normal 0.20-1.00 [facility] Comment on above: Result Comment: For patients on eltrombopag therapy, use of Dimension [place] TBIL is not recommended. Performed By: #### L 501.2450, L501.2400, L100.0100, L500.4050, L501.5200, L501.6710, L101.9900 #### [facility] [address] [place], [address] BUN/CRE 15.2 RATIO Normal 10-20 [facility] Comment on above: Performed By: #### L 501.2450, L501.2400, L100.0100, L500.4050, L501.5200, L501.6710, L101.9900 #### [facility] [address] [place], [address] CA,Total 9.6 mg/dL Normal 8.5-10.1 [facility] Comment on above: Performed By: #### L 501.2450, L501.2400, L100.0100, L500.4050, L501.5200, L501.6710, L101.9900 #### [facility] [address] [place], [address] Chloride [Moles/Vol] 105 mmol/L Normal 98-107 [facility] Comment on above: Performed By: #### L 501.2450, L501.2400, L100.0100, L500.4050, L501.5200, L501.6710, L101.9900 #### [facility] [address] [place], [address] CO2 [Moles/Vol] 27.0 mmol/L Normal 21.0-32.0 [facility] Comment on above: Performed By: #### L 501.2450, L501.2400, L100.0100, L500.4050, L501.5200, L501.6710, L101.9900 #### [facility] [address] [place], [address] Creatinine [Mass/Vol] 0.99 mg/dL Normal 0.70-1.30 [facility] Comment on above: Result Comment: The validity of the calculated GFR GFRAA in patients over 70 years has not been determined. Clinical correlation is essential. Performed By: #### L 501.2450, L501.2400, L100.0100, L500.4050, L501.5200, L501.6710, L101.9900 #### [facility] [address] [place], [address] EST GFR - AA 122 mL/min Normal >60 [facility] Comment on above: Result Comment: Afri can [place] GFR Calc Performed By: #### L 501.2450, L501.2400, L100.0100, L500.4050, L501.5200, L501.6710, L101.9900 #### [facility] [address] [place], [address] GAP 5 Normal 5-15 [facility] Comment on above: Performed By: #### L 501.2450, L501.2400, L100.0100, L500.4050, L501.5200, L501.6710, L101.9900 #### [facility] [address] [place], [address] GFR/1.73 sq M.predicted among non-blacks MDRD (S/P/Bld) [Vol rate/Area] 101 mL/min/{1.73_m2} Normal >60 [facility] Comment on above: Result Comment: Non- GFR Calc Performed By: #### L 501.2450, L501.2400, L100.0100, L500.4050, L501.5200, L501.6710, L101.9900 #### [facility] [address] [place], [address] Globulin (S) [Mass/Vol] 3.7 g/dL Normal 2.2-4.2 [facility] Comment on above: Performed By: #### L 501.2450, L501.2400, L100.0100, L500.4050, L501.5200, L501.6710, L101.9900 #### [facility] [address] [place], [address] Glucose [Mass/Vol] 95 mg/dL Normal 74-106 [facility] Comment on above: Performed By: #### L 501.2450, L501.2400, L100.0100, L500.4050, L501.5200, L501.6710, L101.9900 #### [facility] [address] [place], [address] Potassium [Moles/Vol] 4.0 mmol/L Normal 3.5-5.1 [facility] Comment on above: Performed By: #### L 501.2450, L501.2400, L100.0100, L500.4050, L501.5200, L501.6710, L101.9900 #### [facility] [address] [place], [address] Sodium [Moles/Vol] 137 mmol/L Normal 136-145 [facility] Comment on above: Performed By: #### L 501.2450, L501.2400, L100.0100, L500.4050, L501.5200, L501.6710, L101.9900 #### [facility] [address] [place], [address] T PROT 7.4 g/dL Normal 6.4-8.2 [facility] Comment on above: Performed By: #### L 501.2450, L501.2400, L100.0100, L500.4050, L501.5200, L501.6710, L101.9900 #### [facility] [address] [place], [address] Urea nitrogen [Mass/Vol] 15 mg/dL Normal 7-18 [facility] Comment on above: Performed By: #### L 501.2450, L501.2400, L100.0100, L500.4050, L501.5200, L501.6710, L101.9900 #### [facility] [address] [place], [address] Estimated glomerular filtrat ion rate (GFR) AmericanOrdered By: Brianne Baugh on 06-26-2024 Estimated GFR (MDRD) Amer 122 mL/min >60 [facility] Comment on above: GFR Calc Gastroenterology Visit Repor ton 06-26-2024 Gastroenterology Visit Report [facility] Gastroenterology [address] [place] [address] OFFICE VISIT Date of Service: 06/26/24 MR#: [id number] Acct: [id number] Name: CARLA FUENTES Rep #: [id number] : 2000 Provider: TITI velez Age/Sex: 23/M [place] [facility] [place] Status: Signed Intake Vital Signs 10/27/21 09:14 [...] (3 x 50 mg) PO DAILY 3 08/01/1806/26/24 Rx months #270 tabs Lactobacillus acidophilus 10 100 mmu cells PO DAILY 04/17/24 History billion cell capsule (Probacap) multivitamin (Daily Multi-Vitamin 1 tab PO DAILY 04/17/24 06/26/24 History tablet) alprazolam 1 mg tablet 1 mg PO QHS PRN sleep 1 month #30 04/21/24 06/26/24 Rx tabs budesonide 3 mg 9 mg (3 x 3 mg) PO QDAY #90 ea 06/26/24 Rx capsule,delayed,extended release PFSH Medical History Contact with and (suspected) [...] 1 month (more content not included)... Normal [facility] Glomerular filtration rate ( GFR) estimationOrdered By: Brianne Baugh on 06-26-2024 Estimated GFR (MDRD) Non-Af Amer 101 mL/min >60 [facility] Comment on above: Non- GFR Calc Glucose measurementOrdered B y: Brianne Baugh on 06-26-2024 Glucose [Mass/Vol] 95 mg/dL 74-106 [facility] HBV core Ab Ql (S)Ordered By : Brianne Baugh on 06-26-2024 Hepatitis B Core Total Antibody Negative Negative [facility] Comment on above: Performed at: [address] [id number] Director: Carlos Hinojosa PhD, Phone: [phone] HBV surface IgG Ql (S)Ordere d By: Brainne Baugh on 06-26-2024 Hepatitis B Surface Antibody Non-Reactive [facility] Comment on above: Non Reactive: Incons istent with immunity less than <10 mIU/mL Reactive: Consistent with immunity greater than or equal to 10 mIU/mL Hepatitis B Surface Antibody on 06-26-2024 HEP B Surf Ab Non-Reactive Normal [facility] Comment on above: Order Comment: Reaso n for Exam: UC Result Comment: Non Reactive: Inconsistent with immunity less than <10 mIU/mL Reactive: Consistent with immunity greater than or equal to 10 mIU/mL Performed By: #### P SUIV #### [facility] [address] [place], [address] Hepatitis B Surface Antigeno n 06-26-2024 HEP B Surf Ag Non-Reactive Normal Nonreactive [facility] Comment on above: Order Comment: Reaso n for Exam: UC Performed By: #### P SUIV #### [facility] [address] [place], [address] Hepatitis B surface antigen detectionOrdered By: Brianne Baugh on 06-26-2024 Hepatitis B Surface Antigen Non-Reactive Nonreactive [facility] - Chemistry and C hemistry - challengeOrdered By: Brianne Baugh on 06-26-2024 AST [Catalytic activity/Vol] 12 U/L Low 15-37 [facility] M. tuberculosis tuberculin s brett IFN-g Ql (Bld)Ordered By: Brianne Baugh on 06-26-2024 TB Test (QFT) Antigen 1 0.06 IU/mL . [facility] Magnesium measurementOrdered By: Brianne Baugh on 06-26-2024 Magnesium [Mass/Vol] 2.3 mg/dL 1.6-2.6 [facility] Potassium measurementOrdered By: Brianne Baugh on 06-26-2024 Potassium [Moles/Vol] 4.0 mmol/L 3.5-5.1 [facility] Quantiferon-TB Gold Plus linda tOrdered By: Brianne Baugh on 06-26-2024 TB Test (QFT) Comment . [facility] Comment on above: QuantiFERON-TB Gold Plus is [...] Test (QFT) Antigen 2 0.02 IU/mL . [facility] TB Test (QFT) Mitogen > 10.00 IU/mL . [facility] TB Test (QFT) Nil 0.02 IU/mL . [facility] TB Test (QFT) Positive Criteria Negative Negative [facility] Comment on above: No response to M [...] 06-26-2024 Anion gap [Moles/Vol] 5 mmol/L 5-15 [facility] Serum globulin measurementOr dered By: Brianne Baugh on 06-26-2024 Globulin (S) [Mass/Vol] 3.7 g/dL 2.2-4.2 [facility] Serum or plasma alanine bergman otransferase (ALT) measurementOrdered By: Brianne Baugh on 06-26-2024 ALT [Catalytic activity/Vol] 24 U/L 16-61 [facility] Serum or plasma albumin charlee urement (mass/volume)Ordered By: Brianne Baugh on 06-26-2024 Albumin [Mass/Vol] 3.7 g/dL 3.2-5.0 [facility] Serum or plasma alkaline sergo sphatase measurementOrdered By: Brianne Baugh on 06-26-2024 ALP [Catalytic activity/Vol] 78 U/L 45-117 [facility] Serum or plasma calcium charlee urement (mass/volume)Ordered By: Brianne Baugh on 06-26-2024 Calcium [Mass/Vol] 9.6 mg/dL 8.5-10.1 [facility] Serum or plasma creatinine m easurement (mass/volume)Ordered By: Brianne Baugh on 06-26-2024 Creatinine [Mass/Vol] 0.99 mg/dL 0.70-1.30 [facility] Comment on above: The validity of the calculated GFR & GFRAA in patients over 70 years has not been determined. Clinical correlation is essential. Serum or plasma urea nitroge n measurement (mass/volume)Ordered By: Brianne Baugh on 06-26-2024 Urea nitrogen [Mass/Vol] 15 mg/dL 7-18 [facility] Sodium levelOrdered By: Heidy Baugh on 06-26-2024 Sodium [Moles/Vol] 137 mmol/L 136-145 [facility] Total proteinOrdered By: Erma Baugh on 06-26-2024 Protein [Mass/Vol] 7.4 g/dL 6.4-8.2 [facility] VZV IgG IA Qn (S)Ordered By: Brianne Baugh on 06-26-2024 Varicella-Zoster IgG Antibody See comment [facility] Comment on above: RESULT: NON REACTIVE Please [...] Cholesterol in HDL [Mass/Vol] 53 mg/dL >40 [facility] Comment on above: The drugs N-Acetylcy steine and Metamizole may falsely depress this assay. Reference Range HDL <40 mg/dL Low HDL Cholesterol HDL >or= 60 mg/dL High HDL Cholesterol Lipid Profileon 06-19-2024 Cholesterol [Mass/Vol] 169 mg/dL Normal 200 [facility] Comment on above: Order Comment: Order Date: 06/18/24Order Info: [id number] - LIPID Result Comment: <200 mg/dL Desirable 200-240 mg/dL Borderline >240 mg/dL High Risk Performed By: #### L 501.2450, L501.2400, L100.0100, L500.4050, L501.5200, L501.6710, L101.9900 #### [facility] [place], [address] Cholesterol in HDL [Mass/Vol] 53 mg/dL Normal [facility] Comment on above: Order Comment: Order Date: 06/18/24Order Info: [id number] - LIPID Result Comment: The drugs N-Acetylcysteine and Metamizole may falsely depress this assay. Reference Range HDL <40 mg/dL Low HDL Cholesterol HDL >or= 60 mg/dL High HDL Cholesterol Performed By: #### L 501.2450, L501.2400, L100.0100, L500.4050, L501.5200, L501.6710, L101.9900 #### [facility] [address] [place], [address] Cholesterol in LDL [Mass/Vol] 97 mg/dL Normal 0-130 [facility] Comment on above: Order Comment: Order Date: 06/18/24Order Info: [id number] - LIPID Performed By: #### L 501.2450, L501.2400, L100.0100, L500.4050, L501.5200, L501.6710, L101.9900 #### [facility] [facility] [address] [place], [address] Cholesterol in VLDL [Mass/Vol] 19 mg/dL Normal 5-40 [facility] Comment on above: Order Comment: Order Date: 06/18/24Order Info: [id number] - LIPID Performed By: #### L 501.2450, L501.2400, L100.0100, L500.4050, L501.5200, L501.6710, L101.9900 #### [facility] [address] [place], [address] Triglyceride [Mass/Vol] 93 mg/dL Normal [facility] Comment on above: Order Comment: Order Date: 06/18/24Order Info: [id number] - LIPID Result Comment: The drugs N-Acetylcysteine and Metamizole may falsely depress this assay. Serum Triglycerides Reference Interval Normal <150 mg/dL Borderline high 150 - 199 mg/dL High 200 - 499 mg/dL Very High > or = 500 mg/dL Performed By: #### L 501.2450, L501.2400, L100.0100, L500.4050, L501.5200, L501.6710, L101.9900 #### [facility] [address] [facility]. [place], [place], [id number] Low density lipoprotein (LDL ) cholesterol measurementOrdered By: Lennie Patel on 06-19-2024 Cholesterol in LDL [Mass/Vol] 97 mg/dL 0-130 [facility] Serum or plasma cholesterol measurement (mass/volume)Ordered By: Lennie Patel on 06-19-2024 Cholesterol [Mass/Vol] 169 mg/dL <200 [facility] Comment on above: <200 mg/dL Desirable 200-240 mg/dL Borderline >240 mg/dL High Risk Triglycerides measurementOrd ered By: Lennie Patel on 06-19-2024 Triglyceride [Mass/Vol] 93 mg/dL <199 [facility] Comment on above: The drugs N-Acetylcy steine and Metamizole may falsely depress this assay.Serum Triglycerides Reference Interval Normal <150 mg/dL Borderline high 150 - 199 mg/dL High 200 - 499 mg/dL Very High > or = 500 mg/dL Very low density lipoprotein (VLDL) cholesterol measurementOrdered By: Lennie Patel on 06-19-2024 VLDL Cholesterol 19 mg/dL 5-40 [facility] ANTINUCLEAR ANTIBODIES DIREC Ton 06-04-2024 AUSTYN,DIRECT Negative Normal Negative [facility] Comment on above: Order Comment: Order Date: 05/29/24Order Info: [id number] - AUSTYN Result Comment: Perf ormed at: - [facility] [address] [id number] [employer]: Carlos Hinojosa PhD, Phone: [phone] Performed By: #### P SUIV #### [facility] [address] [facility]. [place], [place], [id number] DOrdered By: Srinivas Patel on 06-03-2024 Vitamin D 25-Hydroxy 23.1 ng/mL [facility] Comment on above: Vitamin D 25(OH) Sta tus Range Deficiency <20 ng/mL (50nmol/L) Insufficiency 20 - 30 ng/mL (50 - 75 nmol/L) Sufficiency 30 - 100 ng/mL (75 - 250 nmol/L) Toxicity >100 ng/mL (>250 nmol/L) AUSTYN serumOrdered By: Iggy Patel on 06-03-2024 Anti-Nuclear Antibody Screen Negative Negative [facility] Comment on above: Performed at: [address] [id number] Director: Carlos Hinojosa PhD, Phone: [phone] Absolute neutrophil countOrd ered By: Lennie Patel on 06-03-2024 Neutrophils (Bld) [#/Vol] 8.1 10*3/uL High 2.0-7.7 [facility] Basophil percentageOrdered B y: Lennie Patel on 06-03-2024 Basophils/100 WBC (Bld) 0.5 % 0-1 [facility] C-reactive protein measureme nt by high sensitivity methodOrdered By: Lennie Patel on 06-03-2024 C-Reactive Protein Extended Range < 2.90 mg/L 0.0-3.0 [facility] Comment on above: C-Reactive Protein ( CRP) provides useful information for thediagnosis, therapy and monitoring of inflammatory processesand associated diseases. For the evaluation of Relative Riskfor Cardiovascular Disease, a High Sensitivity CRP (HSCRP)should be ordered. CBC W/Diff, Automatedon Absolute Lymph 1.52 X10 3/uL Normal 0.83-4.51 [facility] Comment on above: Order Comment: Order Date: 05/29/24Order Info: [id number] - CBCDOrder Info: [id number] - SED Performed By: #### L 101.9900, L503.0105, L501.1400, L501.6710, L505.7010, L506.1000, L100.0100, L501.9520, L503.6150, L3100.5475, L503.6550, L509.3000 ####[facility] [address] [place], [address] Absolute Neut 8.1 X10 3/uL High 2.0-7.7 [facility] Comment on above: Order Comment: Order Date: 05/29/24Order Info: 183- - CBCDOrder Info: [id number] - SED Performed By: #### L 101.9900, L503.0105, L501.1400, L501.6710, L505.7010, L506.1000, L100.0100, L501.9520, L503.6150, L3100.5475, L503.6550, L509.3000 ####[facility] [address] [place], [address] Basophils/100 WBC (Bld) 0.5 % Normal 0-1 [facility] Comment on above: Order Comment: Order Date: 05/29/24Order Info: [id number] - CBCDOrder Info: [id number] - SED Performed By: #### L 101.9900, L503.0105, L501.1400, L501.6710, L505.7010, L506.1000, L100.0100, L501.9520, L503.6150, L3100.5475, L503.6550, L509.3000 ####[facility] [address] [place], [address] Eosinophils/100 WBC (Bld) 0.4 % Normal 0-5 [facility] Comment on above: Order Comment: Order Date: 05/29/24Order Info: 183-05 - CBCDOrder Info: [id number] - SED Performed By: #### L 101.9900, L503.0105, L501.1400, L501.6710, L505.7010, L506.1000, L100.0100, L501.9520, L503.6150, L3100.5475, L503.6550, L509.3000 ####[facility] [address] [place], [address] Erythrocyte distribution width (RBC) [Ratio] 13.6 % Normal 11.6-14.6 [facility] Comment on above: Order Comment: Order Date: 05/29/24Order Info: 183-05 - CBCDOrder Info: [id number] - SED Performed By: #### L 101.9900, L503.0105, L501.1400, L501.6710, L505.7010, L506.1000, L100.0100, L501.9520, L503.6150, L3100.5475, L503.6550, L509.3000 ####[facility] [address] [place], [address] Hematocrit (Bld) [Volume fraction] 51.3 % Normal 40-54 [facility] Comment on above: Order Comment: Order Date: 05/29/24Order Info: 183-05 - CBCDOrder Info: [id number] - SED Performed By: #### L 101.9900, L503.0105, L501.1400, L501.6710, L505.7010, L506.1000, L100.0100, L501.9520, L503.6150, L3100.5475, L503.6550, L509.3000 ####[facility] [address] [place], [address] Hemoglobin (Bld) [Mass/Vol] 17.1 g/dL High 13.0-16.5 [facility] Comment on above: Order Comment: Order Date: 05/29/24Order Info: [id number] - CBCDOrder Info: [id number] - SED Performed By: #### L 101.9900, L503.0105, L501.1400, L501.6710, L505.7010, L506.1000, L100.0100, L501.9520, L503.6150, L3100.5475, L503.6550, L509.3000 ####[facility] [address] [place], [address] IG% 2.400 High 0.0-0.9 [facility] Comment on above: Order Comment: Order Date: 05/29/24Order Info: [id number] - CBCDOrder Info: [id number] - SED Result Comment: IG% - Immature Granulocytes (promyelocytes, myelocytes and metamyelocytes) > 1% indicates that a LEFT SHIFT is Present. Performed By: #### L 101.9900, L503.0105, L501.1400, L501.6710, L505.7010, L506.1000, L100.0100, L501.9520, L503.6150, L3100.5475, L503.6550, L509.3000 ####[facility] [address] [place], [address] Lymphocytes/100 WBC (Bld) 14.4 % Low 19-41 [facility] Comment on above: Order Comment: Order Date: 05/29/24Order Info: 018- - CBCDOrder Info: [id number] - SED Performed By: #### L 101.9900, L503.0105, L501.1400, L501.6710, L505.7010, L506.1000, L100.0100, L501.9520, L503.6150, L3100.5475, L503.6550, L509.3000 ####[facility] [address] [place], [address] MCH (RBC) [Entitic mass] 32.9 pg High 27.0-32.0 [facility] Comment on above: Order Comment: Order Date: 05/29/24Order Info: 0184- - CBCDOrder Info: [id number] - SED Performed By: #### L 101.9900, L503.0105, L501.1400, L501.6710, L505.7010, L506.1000, L100.0100, L501.9520, L503.6150, L3100.5475, L503.6550, L509.3000 ####[facility] [address] [place], [address] MCHC (RBC) [Mass/Vol] 33.3 g/dL Normal 32-36 [facility] Comment on above: Order Comment: Order Date: 05/29/24Order Info: 018-1 - CBCDOrder Info: [id number] - SED Performed By: #### L 101.9900, L503.0105, L501.1400, L501.6710, L505.7010, L506.1000, L100.0100, L501.9520, L503.6150, L3100.5475, L503.6550, L509.3000 ####[facility] [address] [place], [address] MCV (RBC) [Entitic vol] 98.7 fL High 80-94 [facility] Comment on above: Order Comment: Order Date: 05/29/24Order Info: 018- - CBCDOrder Info: [id number] - SED Performed By: #### L 101.9900, L503.0105, L501.1400, L501.6710, L505.7010, L506.1000, L100.0100, L501.9520, L503.6150, L3100.5475, L503.6550, L509.3000 ####[facility] [address] [place], [address] Monocytes/100 WBC (Bld) 4.9 % Normal 0-10 [facility] Comment on above: Order Comment: Order Date: 05/29/24Order Info: 0184- - CBCDOrder Info: [id number] - SED Performed By: #### L 101.9900, L503.0105, L501.1400, L501.6710, L505.7010, L506.1000, L100.0100, L501.9520, L503.6150, L3100.5475, L503.6550, L509.3000 ####[facility] [address] [place], [address] Neutrophils/100 WBC (Bld) 77.4 % High 47-70 [facility] Comment on above: Order Comment: Order Date: 05/29/24Order Info: 0184- - CBCDOrder Info: [id number] - SED Performed By: #### L 101.9900, L503.0105, L501.1400, L501.6710, L505.7010, L506.1000, L100.0100, L501.9520, L503.6150, L3100.5475, L503.6550, L509.3000 ####[facility] [address] [place], [address] Nucleated RBC (Bld) [#/Vol] 0 10*3/uL Normal 0-5 [facility] Comment on above: Order Comment: Order Date: 05/29/24Order Info: 018- - CBCDOrder Info: [id number] - SED Performed By: #### L 101.9900, L503.0105, L501.1400, L501.6710, L505.7010, L506.1000, L100.0100, L501.9520, L503.6150, L3100.5475, L503.6550, L509.3000 ####[facility] [address] [place], [address] Platelet mean volume (Bld) [Entitic vol] 8.9 fL Normal 6.2-12.0 [facility] Comment on above: Order Comment: Order Date: 05/29/24Order Info: 0184- - CBCDOrder Info: [id number] - SED Performed By: #### L 101.9900, L503.0105, L501.1400, L501.6710, L505.7010, L506.1000, L100.0100, L501.9520, L503.6150, L3100.5475, L503.6550, L509.3000 ####[facility] [address] [place], [address] Platelets (Bld) [#/Vol] 213 10*3/uL Normal 150-450 [facility] Comment on above: Order Comment: Order Date: 05/29/24Order Info: [id number] - CBCDOrder Info: [id number] - SED Performed By: #### L 101.9900, L503.0105, L501.1400, L501.6710, L505.7010, L506.1000, L100.0100, L501.9520, L503.6150, L3100.5475, L503.6550, L509.3000 ####[facility] [address] [place], [address] RBC (Bld) [#/Vol] 5.20 10*6/uL Normal 4.6-6.2 [facility] Comment on above: Order Comment: Order Date: 05/29/24Order Info: 0184- - CBCDOrder Info: [id number] - SED Performed By: #### L 101.9900, L503.0105, L501.1400, L501.6710, L505.7010, L506.1000, L100.0100, L501.9520, L503.6150, L3100.5475, L503.6550, L509.3000 ####[facility] [address] [place], [place], [id number]36) RDW SD 50.3 fl High 35.1-43.9 [facility] Comment on above: Order Comment: Order Date: 05/29/24Order Info: [id number] - CBCDOrder Info: [id number] - SED Performed By: #### L 101.9900, L503.0105, L501.1400, L501.6710, L505.7010, L506.1000, L100.0100, L501.9520, L503.6150, L3100.5475, L503.6550, L509.3000 ####[facility] [address] [place], [place], [phone]) WBC (Bld) [#/Vol] 10.5 10*3/uL Normal 4.4-11.0 [facility] Comment on above: Order Comment: Order Date: 05/29/24Order Info: [id number] - CBCDOrder Info: [id number] - SED Performed By: #### L 101.9900, L503.0105, L501.1400, L501.6710, L505.7010, L506.1000, L100.0100, L501.9520, L503.6150, L3100.5475, L503.6550, L509.3000 ####[facility] [address] [place], [place], [id number] CRPon 06-03-2024 C-REACTIVE PROT < 2.90 Normal 0.0-3.0 [facility] Comment on above: Order Comment: Order Date: 05/29/24Order Info: [id number] - URICOrder Info: [id number] - CRPOrder Info: [id number] - TSHOrder Info: [id number] - FEOrder Info: [id number] - FEROrder Info: [id number] - RA Result Comment: C-Re active Protein (CRP) provides useful information for the diagnosis, therapy and monitoring of inflammatory processes and associated diseases. For the evaluation of Relative Risk for Cardiovascular Disease, a High Sensitivity CRP (HSCRP) should be ordered. Performed By: #### P SUIV #### [facility] [address] [place], [place], [address] Eosinophil percentageOrdered By: Lennie Patel on 06-03-2024 Eosinophils/100 WBC (Bld) 0.4 % 0-5 [facility] Erythrocyte Sed Rateon 06-03 SED RATE 6 mm/hr Normal 0-20 [facility] Comment on above: Order Comment: Order Date: 05/29/24Order Info: [id number] - CBCDOrder Info: [id number] - SED Performed By: #### L 101.9900, L503.0105, L501.1400, L501.6710, L505.7010, L506.1000, L100.0100, L501.9520, L503.6150, L3100.5475, L503.6550, L509.3000 ####[facility] [address] [place], [place], [address] Erythrocyte distribution wid th ratioOrdered By: Lennie Patel on 06-03-2024 Erythrocyte distribution width (RBC) [Ratio] 13.6 % 11.6-14.6 [facility] Erythrocyte distribution wid th standard deviationOrdered By: Lennie Patel on 06-03-2024 Erythrocyte distribution width (RBC) [Entitic vol] 50.3 fL High 35.1-43.9 [facility] Erythrocyte sedimentation ra teOrdered By: Lennie Patel on 06-03-2024 ESR (Bld) [Velocity] 6 mm/h 0-20 [facility] Ferritinon 06-03-2024 Ferritin [Mass/Vol] 53 ng/mL Normal 26-388 [facility] Comment on above: Order Comment: Order Date: 05/29/24Order Info: [id number] - URICOrder Info: [id number] - CRPOrder Info: [id number] - TSHOrder Info: [id number] - FEOrder Info: [id number] - FEROrder Info: [id number] - RA Performed By: #### P SUIV #### [facility] [address] [place], [place], [id number] Ferritin measurementOrdered By: Lennie Patel on 06-03-2024 Ferritin [Mass/Vol] 53 ng/mL 26-388 [facility] Hematocrit Auto (Bld) [Volum e fraction]Ordered By: Lennie Patel on 06-03-2024 Hematocrit (Bld) [Volume fraction] 51.3 % 40-54 [facility] Hemoglobin measurementOrdere d By: Lennie Patel on 06-03-2024 Hemoglobin (Bld) [Mass/Vol] 17.1 g/dL High 13.0-16.5 [facility] Immature granulocytes/100 WB C Auto (Bld)Ordered By: Lennie Patel on 06-03-2024 Immature granulocytes/100 WBC (Bld) 2.400 % High 0.0-0.9 [facility] Comment on above: IG% - Immature Granu locytes (promyelocytes, myelocytes and metamyelocytes) > 1% indicates that a LEFT SHIFT is Present. Ironon 06-03-2024 Iron [Mass/Vol] 162 ug/dL Normal 65-175 [facility] Comment on above: Order Comment: Order Date: 05/29/24Order Info: [id number] - URICOrder Info: [id number] - CRPOrder Info: [id number] - TSHOrder Info: [id number] - FEOrder Info: [id number] - FEROrder Info: [id number] - RA Performed By: #### P SUIV #### [facility] [address] [place], [place], [id number] Iron (Unsp spec) [Mass/Mass] Ordered By: Lennie Patel on 06-03-2024 Iron [Mass/Vol] 162 ug/dL 65-175 [facility] Lymphocytes Auto (Unsp spec) [#/Vol]Ordered By: Lennie Patel on 06-03-2024 Lymphocytes (Bld) [#/Vol] 1.52 10*3/uL 0.83-4.51 [facility] Lymphocytes/100 WBC Auto (Un sp spec)Ordered By: Lennie Patel on 06-03-2024 Lymphocytes/100 WBC (Bld) 14.4 % Low 19-41 [facility] MCV (mean corpuscular volume ) determinationOrdered By: Lennie Patel on 06-03-2024 MCV (RBC) [Entitic vol] 98.7 fL High 80-94 [facility] Mean corpuscular hemoglobin (MCH) determinationOrdered By: Lennie Patel on 06-03-2024 MCH (RBC) [Entitic mass] 32.9 pg High 27.0-32.0 [facility] Mean corpuscular hemoglobin concentration (MCHC) determinationOrdered By: Lennie Patel on 06-03-2024 MCHC (RBC) [Mass/Vol] 33.3 g/dL 32-36 [facility] Mean platelet volume determi nationOrdered By: Lennie Patel on 01-07-2025 Platelet mean volume (Bld) [Entitic vol] 8.9 fL 6.2-12.0 [facility] Monocyte percentageOrdered B y: Lennie Patel on 06-03-2024 Monocytes/100 WBC (Bld) 4.9 % 0-10 [facility] Neutrophil percentageOrdered By: Lennie Patel on 06-03-2024 Neutrophils/100 WBC (Bld) 77.4 % High 47-70 [facility] Nucleated red blood cell per centageOrdered By: Lennie Patel on 06-03-2024 Nucleated RBC/100 WBC (Bld) [Ratio] 0 % 0-5 [facility] Platelet countOrdered By: Roman Patel on 06-03-2024 Platelets (Bld) [#/Vol] 213 10*3/uL 150-450 [facility] RBC Auto (Bld) [#/Vol]Ordere d By: Lennie Patel on 06-03-2024 RBC (Bld) [#/Vol] 5.20 10*6/uL 4.6-6.2 [facility] Rheumatoid Factoron 06-03-19 RHEUMATOID FAC < 10.0 Normal <15 [facility] Comment on above: Order Comment: Order Date: 05/29/24Order Info: [id number] - URICOrder Info: [id number] - CRPOrder Info: [id number] - TSHOrder Info: [id number] - FEOrder Info: [id number] - FEROrder Info: [id number] - RA Performed By: #### P SUIV #### [facility] [address] [place], [place] [address], [place], [address] Rheumatoid factor measuremen tOrdered By: Lennie Patel on 06-03-2024 Rheumatoid Factor < 10.0 IU/mL <15 [facility] Serum or plasma uric acid me asurement (mass/volume)Ordered By: Lennie Patel on 06-03-2024 Urate [Mass/Vol] 4.6 mg/dL 3.5-7.2 [facility] Comment on above: The drugs N-Acetylcy steine and Metamizole may falsely depress this assay. TSH QnOrdered By: Truong Patel on 06-03-2024 Thyroid Stimulating Hormone (TSH) 1.460 uIU/mL 0.358-3.740 [facility] Testosterone, Serum Totalon 06-03-2024 Testosterone [Mass/Vol] 443.75 ng/dL Normal [facility] Comment on above: Order Comment: Order Date: 05/29/24Order Info: [id number] - Y15Syave Info: [id number] - RMKQ49Cnrhz Info: 2986-8 - LINDA Result Comment: CENT RAL 90% REFERENCE RANGES MALE AGE <50 197.44 - 669.58 ng/dL MALE AGE > or = 50 187.72 - 684.19 ng/dL FEMALE AGE <50 8.38 - 35.01 ng/dL FEMALE AGE > or = 50 <7.00 - 35.92 ng/dL Effective as of 12/21/20 Performed By: #### P SUIV #### [facility] [address] [place], [place], [address] Testosterone, totalOrdered B y: Lennie Patel on 06-03-2024 Testosterone [Mass/Vol] 443.75 ng/dL [facility] Comment on above: CENTRAL 90% REFERENC E RANGES MALE AGE <50 197.44 - 669.58 ng/dL MALE AGE > or = 50 187.72 - 684.19 ng/dL FEMALE AGE <50 8.38 - 35.01 ng/dL FEMALE AGE > or = 50 <7.00 - 35.92 ng/dL Effective as of 12/21/20 Thyroid Stim Hormone (TSH)on 06-03-2024 TSH 1.460 uIU/mL Normal 0.358-3.740 [facility] Comment on above: Order Comment: Order Date: 05/29/24Order Info: [id number] - URICOrder Info: [id number] - CRPOrder Info: [id number] - TSHOrder Info: [id number] - FEOrder Info: [id number] - FEROrder Info: [id number] - RA Performed By: #### P SUIV #### [facility] [address] [place], [place], [address] Uric Acidon 06-03-2024 URIC 4.6 mg/dL Normal 3.5-7.2 [facility] Comment on above: Order Comment: Order Date: 05/29/24Order Info: [id number] - URICOrder Info: [id number] - CRPOrder Info: [id number] - TSHOrder Info: [id number] - FEOrder Info: [id number] - FEROrder Info: [id number] - RA Result Comment: The drugs N-Acetylcysteine and Metamizole may falsely depress this assay. Performed By: #### P SUIV #### [facility] [address] [facility] [place], [place], [address] Vitamin B12on 06-03-2024 Cobalamin (Vitamin B12) [Mass/Vol] 641 pg/mL Normal 211-911 [facility] Comment on above: Order Comment: Order Date: 05/29/24Order Info: 9 - Q31Lchpf Info: [id number] - [id number] Info: 2986-8 - LINDA Performed By: #### L 101.9900, L503.0105, L501.1400, L501.6710, L505.7010, L506.1000, L100.0100, L501.9520, L503.6150, L3100.5475, L503.6550, L509.3000 ####[facility] [address] [place], [address] Vitamin B12 measurementOrder ed By: Lennie Patel on 06-03-2024 Cobalamin (Vitamin B12) [Mass/Vol] 641 pg/mL 211-911 [facility] Vitamin D,25 Hydroxyon 06-03 Vitamin D 25-OH 23.1 ng/mL Normal [facility] Comment on above: Order Comment: Order Date: 05/29/24Order Info: 9 - D44Ynjns Info: [id number] - NPFK76Xgvzi Info: 2986-8 - LINDA Result Comment: Sruthi min D 25(OH) Status Range Deficiency <20 ng/mL (50nmol/L) Insufficiency 20 - 30 ng/mL (50 - 75 nmol/L) Sufficiency 30 - 100 ng/mL (75 - 250 nmol/L) Toxicity >100 ng/mL (>250 nmol/L) Performed By: #### L 101.9900, L503.0105, L501.1400, L501.6710, L505.7010, L506.1000, L100.0100, L501.9520, L503.6150, L3100.5475, L503.6550, L509.3000 ####[facility] [address] [facility] [place], [address] White blood cell (WBC) count Ordered By: Lennie Patel on 06-03-2024 WBC (Bld) [#/Vol] 10.5 10*3/uL 4.4-11.0 [facility] Hand Min 3 Viewson Hand Min 3 Views [facility] [address] [place], [place] [address] Hand Min 3 Views MR#: [id number] Acct: [id number] Name: CARLA FUENTES Rep #: [id number] : 2000 M 23 From: Adalberto Herrera MD PCP: Dr. Lennie Patel MD Status: REG CLI Study: Hand Min 3 Views Date of Exam: 05/29/24 Exam# [id number] Ordering Dr: Lennie Patel [id number] STUDY: X-RAY - LEFT HAND REASON FOR [...] 9:00 EST Reading Location ID and State: [facility] / [place] , Service support , CC: Dr. Lennie Patel MD Clinical Marketing Manager: Signed Normal [facility] Absolute neutrophil countOrd ered By: Tad Monahan on 05-22-2024 Neutrophils (Bld) [#/Vol] 9.9 10*3/uL High 2.0-7.7 [facility] Albumin to globulin ratioOrd ered By: Tad Monahan on 05-22-2024 Albumin/Globulin [Mass ratio] 1.0 {ratio} 0.9-2.4 [facility] Amylaseon 05-22-2024 AUREA 71 U/L Normal 25-115 [facility] Comment on above: Performed By: #### L 501.2450, L501.2400, L100.0100, L500.4050, L501.5200, L501.6710, L101.9900 #### [facility] [address] [place], [place], [id number] Basophil percentageOrdered B y: Tad Monahan on 05-22-2024 Basophils/100 WBC (Bld) 0.4 % 0-1 [facility] Bilirubin, totalOrdered By: Tad Monahan on 05-22-2024 Bilirubin [Mass/Vol] 0.30 mg/dL 0.20-1.00 [facility] Comment on above: For patients on eltr ombopag therapy, use of Dimension [place] TBIL is not recommended. Blood urea nitrogen (BUN)/cr eatinine ratioOrdered By: Tad Monahan on 05-22-2024 Urea nitrogen/Creatinine [Mass ratio] 14.3 mg/mg 10-20 [facility] C-reactive protein measureme nt by high sensitivity methodOrdered By: Tad Monahan on 05-22-2024 C-Reactive Protein Extended Range < 2.90 mg/L 0.0-3.0 [facility] Comment on above: C-Reactive Protein ( CRP) provides useful information for thediagnosis, therapy and monitoring of inflammatory processesand associated diseases. For the evaluation of Relative Riskfor Cardiovascular Disease, a High Sensitivity CRP (HSCRP)should be ordered. CBC W/Diff, Automatedon 04-28 Absolute Lymph 2.54 X10 3/uL Normal 0.83-4.51 [facility] Comment on above: Performed By: #### L 501.2450, L501.2400, L100.0100, L500.4050, L501.5200, L501.6710, L101.9900 #### [facility] [address] [place], [address] Absolute Neut 9.9 X10 3/uL High 2.0-7.7 [facility] Comment on above: Performed By: #### L 501.2450, L501.2400, L100.0100, L500.4050, L501.5200, L501.6710, L101.9900 #### [facility] [address] [place], [address] Basophils/100 WBC (Bld) 0.4 % Normal 0-1 [facility] Comment on above: Performed By: #### L 501.2450, L501.2400, L100.0100, L500.4050, L501.5200, L501.6710, L101.9900 #### [facility] [address] [place], [address] Eosinophils/100 WBC (Bld) 0.7 % Normal 0-5 [facility] Comment on above: Performed By: #### L 501.2450, L501.2400, L100.0100, L500.4050, L501.5200, L501.6710, L101.9900 #### [facility] [address] [place], [address] Erythrocyte distribution width (RBC) [Ratio] 13.8 % Normal 11.6-14.6 [facility] Comment on above: Performed By: #### L 501.2450, L501.2400, L100.0100, L500.4050, L501.5200, L501.6710, L101.9900 #### [facility] [address] [place], [address] Hematocrit (Bld) [Volume fraction] 48.6 % Normal 40-54 [facility] Comment on above: Performed By: #### L 501.2450, L501.2400, L100.0100, L500.4050, L501.5200, L501.6710, L101.9900 #### [facility] [address] [place], [address] Hemoglobin (Bld) [Mass/Vol] 16.2 g/dL Normal 13.0-16.5 [facility] Comment on above: Performed By: #### L 501.2450, L501.2400, L100.0100, L500.4050, L501.5200, L501.6710, L101.9900 #### [facility] [address] [place], [address] IG% 1.000 High 0.0-0.9 [facility] Comment on above: Result Comment: IG% - Immature Granulocytes (promyelocytes, myelocytes and metamyelocytes) > 1% indicates that a LEFT SHIFT is Present. Performed By: #### L 501.2450, L501.2400, L100.0100, L500.4050, L501.5200, L501.6710, L101.9900 #### [facility] [address] [place], [address] Lymphocytes/100 WBC (Bld) 18.4 % Low 19-41 [facility] Comment on above: Performed By: #### L 501.2450, L501.2400, L100.0100, L500.4050, L501.5200, L501.6710, L101.9900 #### [facility] [address] [place], [address] MCH (RBC) [Entitic mass] 33.4 pg High 27.0-32.0 [facility] Comment on above: Performed By: #### L 501.2450, L501.2400, L100.0100, L500.4050, L501.5200, L501.6710, L101.9900 #### [facility] [address] [place], [address] MCHC (RBC) [Mass/Vol] 33.3 g/dL Normal 32-36 [facility] Comment on above: Performed By: #### L 501.2450, L501.2400, L100.0100, L500.4050, L501.5200, L501.6710, L101.9900 #### [facility] [address] [place], [address] MCV (RBC) [Entitic vol] 100.2 fL High 80-94 [facility] Comment on above: Performed By: #### L 501.2450, L501.2400, L100.0100, L500.4050, L501.5200, L501.6710, L101.9900 #### [facility] [address] [place], [address] Monocytes/100 WBC (Bld) 8.0 % Normal 0-10 [facility] Comment on above: Performed By: #### L 501.2450, L501.2400, L100.0100, L500.4050, L501.5200, L501.6710, L101.9900 #### [facility] [address] [place], [address] Neutrophils/100 WBC (Bld) 71.5 % High 47-70 [facility] Comment on above: Performed By: #### L 501.2450, L501.2400, L100.0100, L500.4050, L501.5200, L501.6710, L101.9900 #### [facility] [address] [place], [address] Nucleated RBC (Bld) [#/Vol] 0 10*3/uL Normal 0-5 [facility] Comment on above: Performed By: #### L 501.2450, L501.2400, L100.0100, L500.4050, L501.5200, L501.6710, L101.9900 #### [facility] [address] [place], [address] Platelet mean volume (Bld) [Entitic vol] 9.2 fL Normal 6.2-12.0 [facility] Comment on above: Performed By: #### L 501.2450, L501.2400, L100.0100, L500.4050, L501.5200, L501.6710, L101.9900 #### [facility] [address] [place], [address] Platelets (Bld) [#/Vol] 175 10*3/uL Normal 150-450 [facility] Comment on above: Performed By: #### L 501.2450, L501.2400, L100.0100, L500.4050, L501.5200, L501.6710, L101.9900 #### [facility] [address] [place], [address] RBC (Bld) [#/Vol] 4.85 10*6/uL Normal 4.6-6.2 [facility] Comment on above: Performed By: #### L 501.2450, L501.2400, L100.0100, L500.4050, L501.5200, L501.6710, L101.9900 #### [facility] [address] [place], [address] RDW SD 51.4 fl High 35.1-43.9 [facility] Comment on above: Performed By: #### L 501.2450, L501.2400, L100.0100, L500.4050, L501.5200, L501.6710, L101.9900 #### [facility] [address] [place], [place], [id number] WBC (Bld) [#/Vol] 13.8 10*3/uL High 4.4-11.0 [facility] Comment on above: Performed By: #### L 501.2450, L501.2400, L100.0100, L500.4050, L501.5200, L501.6710, L101.9900 #### [facility] [address] [place], [address] CRPon 05-22-2024 C-REACTIVE PROT < 2.90 Normal 0.0-3.0 [facility] Comment on above: Result Comment: C-Re active Protein (CRP) provides useful information for the diagnosis, therapy and monitoring of inflammatory processes and associated diseases. For the evaluation of Relative Risk for Cardiovascular Disease, a High Sensitivity CRP (HSCRP) should be ordered. Performed By: #### L 501.2450, L501.2400, L100.0100, L500.4050, L501.5200, L501.6710, L101.9900 #### [facility] [address] [place], [address] Carbon dioxide measurementOr dered By: Tad Monahan on 05-22-2024 CO2 [Moles/Vol] 29.0 mmol/L 21.0-32.0 [facility] Chloride measurementOrdered By: Tad Monahan on 05-22-2024 Chloride [Moles/Vol] 107 mmol/L 98-107 [facility] Comprehensive Metabolic Prof ilon 05-22-2024 Albumin [Mass/Vol] 3.4 g/dL Normal 3.2-5.0 [facility] Comment on above: Performed By: #### L 501.2450, L501.2400, L100.0100, L500.4050, L501.5200, L501.6710, L101.9900 #### [facility] [address] [place], [address] Albumin/Globulin [Mass ratio] 1.0 {ratio} Normal 0.9-2.4 [facility] Comment on above: Performed By: #### L 501.2450, L501.2400, L100.0100, L500.4050, L501.5200, L501.6710, L101.9900 #### [facility] [address] [place], [address] ALK P 111 U/L Normal 45-117 [facility] Comment on above: Performed By: #### L 501.2450, L501.2400, L100.0100, L500.4050, L501.5200, L501.6710, L101.9900 #### [facility] [address] [place], [address] ALT [Catalytic activity/Vol] 36 U/L Normal 16-61 [facility] Comment on above: Performed By: #### L 501.2450, L501.2400, L100.0100, L500.4050, L501.5200, L501.6710, L101.9900 #### [facility] [address] [place], [address] AST [Catalytic activity/Vol] 13 U/L Low 15-37 [facility] Comment on above: Performed By: #### L 501.2450, L501.2400, L100.0100, L500.4050, L501.5200, L501.6710, L101.9900 #### [facility] [address] [place], [address] Bilirubin [Mass/Vol] 0.30 mg/dL Normal 0.20-1.00 [facility] Comment on above: Result Comment: For patients on eltrombopag therapy, use of Dimension [place] TBIL is not recommended. Performed By: #### L 501.2450, L501.2400, L100.0100, L500.4050, L501.5200, L501.6710, L101.9900 #### [facility] [address] [place], [address] BUN/CRE 14.3 RATIO Normal 10-20 [facility] Comment on above: Performed By: #### L 501.2450, L501.2400, L100.0100, L500.4050, L501.5200, L501.6710, L101.9900 #### [facility] [address] [place], [address] CA,Total 9.1 mg/dL Normal 8.5-10.1 [facility] Comment on above: Performed By: #### L 501.2450, L501.2400, L100.0100, L500.4050, L501.5200, L501.6710, L101.9900 #### [facility] [address] [place], [address] Chloride [Moles/Vol] 107 mmol/L Normal 98-107 [facility] Comment on above: Performed By: #### L 501.2450, L501.2400, L100.0100, L500.4050, L501.5200, L501.6710, L101.9900 #### [facility] [address] [place], [address] CO2 [Moles/Vol] 29.0 mmol/L Normal 21.0-32.0 [facility] Comment on above: Performed By: #### L 501.2450, L501.2400, L100.0100, L500.4050, L501.5200, L501.6710, L101.9900 #### [facility] [address] [place], [place], [id number] (111) Creatinine [Mass/Vol] 0.98 mg/dL Normal 0.70-1.30 [facility] Comment on above: Result Comment: The validity of the calculated GFR GFRAA in patients over 70 years has not been determined. Clinical correlation is essential. Performed By: #### L 501.2450, L501.2400, L100.0100, L500.4050, L501.5200, L501.6710, L101.9900 #### [facility] [address] [place], [place], [phone] (660) EST GFR - AA 123 mL/min Normal >60 [facility] Comment on above: Result Comment: Afri can [place] GFR Calc Performed By: #### L 501.2450, L501.2400, L100.0100, L500.4050, L501.5200, L501.6710, L101.9900 #### [facility] [address] [place], [place], [id number] GAP 2 Low 5-15 [facility] Comment on above: Performed By: #### L 501.2450, L501.2400, L100.0100, L500.4050, L501.5200, L501.6710, L101.9900 #### [facility] [address] [place], [address] GFR/1.73 sq M.predicted among non-blacks MDRD (S/P/Bld) [Vol rate/Area] 101 mL/min/{1.73_m2} Normal >60 [facility] Comment on above: Result Comment: Non- GFR Calc Performed By: #### L 501.2450, L501.2400, L100.0100, L500.4050, L501.5200, L501.6710, L101.9900 #### [facility] [address] [place], [address] Globulin (S) [Mass/Vol] 3.4 g/dL Normal 2.2-4.2 [facility] Comment on above: Performed By: #### L 501.2450, L501.2400, L100.0100, L500.4050, L501.5200, L501.6710, L101.9900 #### [facility] [address] [place], [address] Glucose [Mass/Vol] 89 mg/dL Normal 74-106 [facility] Comment on above: Performed By: #### L 501.2450, L501.2400, L100.0100, L500.4050, L501.5200, L501.6710, L101.9900 #### [facility] [address] [place], [address] Potassium [Moles/Vol] 3.5 mmol/L Normal 3.5-5.1 [facility] Comment on above: Performed By: #### L 501.2450, L501.2400, L100.0100, L500.4050, L501.5200, L501.6710, L101.9900 #### [facility] [address] [place], [address] Sodium [Moles/Vol] 138 mmol/L Normal 136-145 [facility] Comment on above: Performed By: #### L 501.2450, L501.2400, L100.0100, L500.4050, L501.5200, L501.6710, L101.9900 #### [facility] [address] [place], [address] T PROT 6.8 g/dL Normal 6.4-8.2 [facility] Comment on above: Performed By: #### L 501.2450, L501.2400, L100.0100, L500.4050, L501.5200, L501.6710, L101.9900 #### [facility] [address] [place], [address] Urea nitrogen [Mass/Vol] 14 mg/dL Normal 7-18 [facility] Comment on above: Performed By: #### L 501.2450, L501.2400, L100.0100, L500.4050, L501.5200, L501.6710, L101.9900 #### [facility] [address] [place], [address] Emergency Department Summary on 05-22-2024 Emergency Department Summary [facility] Medical Records Department [address] [place] [address] Emergency Department Summary 05/22/24 MR#: [id number] Acct: [id number] Name: CARLA FUENTES Rep #: [id number] : 2000 23 From: John Galeas PCP: [...] or diarrhea. Prior similar symptoms: No PFSH PFS Medical History Contact with and (suspected) exposure [...] no swellin (more content not included)... Normal [facility] Eosinophil percentageOrdered By: Tad Monahan on 05-22-2024 Eosinophils/100 WBC (Bld) 0.7 % 0-5 [facility] Erythrocyte Sed Rateon 05-22 SED RATE 1 mm/hr Normal 0-20 [facility] Comment on above: Performed By: #### L 501.2450, L501.2400, L100.0100, L500.4050, L501.5200, L501.6710, L101.9900 #### [facility] [address] [place], [place], [id number] Erythrocyte distribution wid th ratioOrdered By: Tad Monahan on 05-22-2024 Erythrocyte distribution width (RBC) [Ratio] 13.8 % 11.6-14.6 [facility] Erythrocyte distribution wid th standard deviationOrdered By: Tad Monahan on 05-22-2024 Erythrocyte distribution width (RBC) [Entitic vol] 51.4 fL High 35.1-43.9 [facility] Erythrocyte sedimentation ra teOrdered By: Tad Monahan on 05-22-2024 ESR (Bld) [Velocity] 1 mm/h 0-20 [facility] Estimated glomerular filtrat ion rate (GFR) AmericanOrdered By: Tad Monahan on 05-22-2024 Estimated GFR (MDRD) Amer 123 mL/min >60 [facility] Comment on above: GFR Calc Glomerular filtration rate ( GFR) estimationOrdered By: Tad Monahan on 05-22-2024 Estimated GFR (MDRD) Non-Af Amer 101 mL/min >60 [facility] Comment on above: Non- GFR Calc Glucose measurementOrdered B y: Tad Monahan on 05-22-2024 Glucose [Mass/Vol] 89 mg/dL 74-106 [facility] Hematocrit Auto (Bld) [Volum e fraction]Ordered By: Tad Monahan on 05-22-2024 Hematocrit (Bld) [Volume fraction] 48.6 % 40-54 [facility] Hemoglobin measurementOrdere d By: Tad Monahan on 05-22-2024 Hemoglobin (Bld) [Mass/Vol] 16.2 g/dL 13.0-16.5 [facility] Immature granulocytes/100 WB C Auto (Bld)Ordered By: Tad Monahan on 05-22-2024 Immature granulocytes/100 WBC (Bld) 1.000 % High 0.0-0.9 [facility] Comment on above: IG% - Immature Granu locytes (promyelocytes, myelocytes and metamyelocytes) > 1% indicates that a LEFT SHIFT is Present. Laboratory - Chemistry and C hemistry - challengeOrdered By: Tad Monahan on 05-22-2024 AST [Catalytic activity/Vol] 13 U/L Low 15-37 [facility] Lipaseon 05-22-2024 Lipase [Catalytic activity/Vol] 49 U/L Normal 13-75 [facility] Comment on above: Result Comment: Bipin meredith note: LIPASE revised reference range effective 22. New Lipase methodology. Expected to produce lower values than the previous assay method. NEW Reference Range: 13 - 75 U/L Performed By: #### L 501.2450, L501.2400, L100.0100, L500.4050, L501.5200, L501.6710, L101.9900 #### [facility] [address] [place], [address] Lipase measurementOrdered By : Tad Monahan on 05-22-2024 Lipase [Catalytic activity/Vol] 49 U/L 13-75 [facility] Comment on above: Please note:LIPASE r evised reference range effective 22. New Lipase methodology. Expected to produce lower values than the previous assay method. NEW Reference Range: 13 - 75 U/L Lymphocytes Auto (Unsp spec) [#/Vol]Ordered By: Tad Monahan on 05-22-2024 Lymphocytes (Bld) [#/Vol] 2.54 10*3/uL 0.83-4.51 [facility] Lymphocytes/100 WBC Auto (Un sp spec)Ordered By: Tad Monahan on 05-22-2024 Lymphocytes/100 WBC (Bld) 18.4 % Low 19-41 [facility] MCV (mean corpuscular volume ) determinationOrdered By: Tad Monahan on 05-22-2024 MCV (RBC) [Entitic vol] 100.2 fL High 80-94 [facility] Magnesiumon 05-22-2024 Magnesium [Mass/Vol] 2.1 mg/dL Normal 1.6-2.6 [facility] Comment on above: Performed By: #### L 501.2450, L501.2400, L100.0100, L500.4050, L501.5200, L501.6710, L101.9900 #### [facility] [address], [address] Magnesium measurementOrdered By: Tad Monahan on 05-22-2024 Magnesium [Mass/Vol] 2.1 mg/dL 1.6-2.6 [facility] Mean corpuscular hemoglobin (MCH) determinationOrdered By: Tad Monahan on 05-22-2024 MCH (RBC) [Entitic mass] 33.4 pg High 27.0-32.0 [facility] Mean corpuscular hemoglobin concentration (MCHC) determinationOrdered By: Tad Monahan on 05-22-2024 MCHC (RBC) [Mass/Vol] 33.3 g/dL 32-36 [facility] Mean platelet volume determi nationOrdered By: Tad Monahan on 05-22-2024 Platelet mean volume (Bld) [Entitic vol] 9.2 fL 6.2-12.0 [facility] Monocyte percentageOrdered B y: Tad Monahan on 05-22-2024 Monocytes/100 WBC (Bld) 8.0 % 0-10 [facility] Neutrophil percentageOrdered By: Tad Monahan on 05-22-2024 Neutrophils/100 WBC (Bld) 71.5 % High 47-70 [facility] Nucleated red blood cell per centageOrdered By: Tad Monahan on 05-22-2024 Nucleated RBC/100 WBC (Bld) [Ratio] 0 % 0-5 [facility] Platelet countOrdered By: Ra edmund Monahan on 05-22-2024 Platelets (Bld) [#/Vol] 175 10*3/uL 150-450 [facility] Potassium measurementOrdered By: Tad Monahan on 05-22-2024 Potassium [Moles/Vol] 3.5 mmol/L 3.5-5.1 [facility] RBC Auto (Bld) [#/Vol]Ordere d By: Tad Monahan on 05-22-2024 RBC (Bld) [#/Vol] 4.85 10*6/uL 4.6-6.2 [facility] Serum anion gap measurementO rdered By: Tad Monahan on 05-22-2024 Anion gap [Moles/Vol] 2 mmol/L Low 5-15 [facility] Serum globulin measurementOr dered By: Tad Monahan on 05-22-2024 Globulin (S) [Mass/Vol] 3.4 g/dL 2.2-4.2 [facility] Serum or plasma alanine bergman otransferase (ALT) measurementOrdered By: Tad Monahan on 05-22-2024 ALT [Catalytic activity/Vol] 36 U/L 16-61 [facility] Serum or plasma albumin charlee urement (mass/volume)Ordered By: Tad Monahan on 05-22-2024 Albumin [Mass/Vol] 3.4 g/dL 3.2-5.0 [facility] Serum or plasma alkaline sergo sphatase measurementOrdered By: Tad Monahan on 05-22-2024 ALP [Catalytic activity/Vol] 111 U/L 45-117 [facility] Serum or plasma amylase charlee urement (enzymatic activity/volume)Ordered By: Tad Monahan on 05-22-2024 Amylase [Catalytic activity/Vol] 71 U/L 25-115 [facility] Serum or plasma calcium charlee urement (mass/volume)Ordered By: Tad Monahan on 05-22-2024 Calcium [Mass/Vol] 9.1 mg/dL 8.5-10.1 [facility] Serum or plasma creatinine m easurement (mass/volume)Ordered By: Tad Monahan on 05-22-2024 Creatinine [Mass/Vol] 0.98 mg/dL 0.70-1.30 [facility] Comment on above: The validity of the calculated GFR & GFRAA in patients over 70 years has not been determined. Clinical correlation is essential. Serum or plasma urea nitroge n measurement (mass/volume)Ordered By: Tad Monahan on 05-22-2024 Urea nitrogen [Mass/Vol] 14 mg/dL 7-18 [facility] Sodium levelOrdered By: Aparna Chambers on 05-22-2024 Sodium [Moles/Vol] 138 mmol/L 136-145 [facility] Total proteinOrdered By: Ilan Monahan on 05-22-2024 Protein [Mass/Vol] 6.8 g/dL 6.4-8.2 [facility] White blood cell (WBC) count Ordered By: Tad Monahan on 05-22-2024 WBC (Bld) [#/Vol] 13.8 10*3/uL High 4.4-11.0 [facility] Colonoscopy Reporton 024 Colonoscopy Report [facility] Medical Records Department [address] [place] [address] Colonoscopy Report MR#: [id number] Acct: [id number] Name: CARLA FUENTES Rep #: [id number] : 2000 23 From: Tad Monahan DO PCP: Dr. Lennie Patel MD Status:[facility] Patient Name: Carla Fuentes Procedure Date: 04/21/2024 [...] 21 days Procedure Code(s): --- Professional --- 29495, Colonoscopy, flexible; with biopsy, single or multiple CPT copyright 2021 [place] [employer]. All rights reserved. The codes documented in this report are preliminary and upon welder metal fab review may be revised to meet current compliance requirements. Tad Monahan DO 04/21/2024 7:37:50 AM This report has been signed electronically. Number of Addenda: 0 Note Initiated On: 04/21/2024 6:22 AM 04/21/24 0738 Date Tad Hall Signature: Date (if indicated) CC: Dr. Espino (more content not included)... [facility] MR/POSTOP.ANEon 04-21-2024 MR/POSTOP.[facility] Medical Records Department [address] [place] [address] Anesthesia Postop Eval I 04/21/24 0714 MR#: [id number] Acct: [id number] Name: CARLA FUENTES Rep #: [id number] : 2000 23 From: Olu Stout PCP: Dr. Lennie Patel MD Status:[facility] Y Race: C Location: [place] [address] Anesthesia: Postop Eval I Current Vital Signs [...] Date Olu Reis Signature: Date CC: Signed [facility] MR/[id number] 04-21-2024 MR/POSTOPAN2 [facility] Medical Records Department [address] [place] [address] Anesthesia Postop Eval II 04/21/24 0921 MR#: [id number] Acct: [id number] Name: CARLA FUENTES Rep #: [id number] : 2000 23 From: Juanito Wakefield MD PCP: Dr. Lennie Patel MD Status:[facility] Y Race: C Location: [place] Anesthesia Postop [...] nausea: No Vomiting: No 04/21/24920 Date Juanito Reis Signature: Date CC: Signed Normal [facility] Surgery Specimen Level Kimberly 04-21-2024 Surgery Specimen Level IV Patient Age/Sex Location Account Attending Physician CARLA FUENTES 23/M EN [id number] Tad Monahan DO Specimen: [id number] Received: 04/21/24 Status: STEFANIE Pride Num: [id number] Spec Type: COLON BX Subm Dr: Tad Monahan DO HEADER OPERATION: Colonoscopy with biopsy PRE-OP DIAGNOSIS: Ulcerative [...] Rectum, biopsy: Mild active colitis. See comment. AM.mr 04/22/2024 COMMENT A. Prominent benign lymphoid aggregates [...] Account Attending Physician CARLA FUENTES 23/M EN [id number] Tad Monahan DO Left side colon biopsy. [...] totally submitted in one cassette. 04/21/2024 TC:2 CPT:97241c4 Patient Age/Sex Location Account Attending Physician CARLA FUENTES 23/M EN [id number] Tad Monahan, DO Signed (signature on file) Dr. Mayur Hinton DO 04/22/24 1253 [facility] Comment on above: Performed By: #### P SAMI #### [facility] [place], [address] Absolute lymphocyte countOrd ered By: Tad Monahan on 09-05-2023 Lymphocytes Auto (Unsp spec) [#/Vol] 1.35 10*3/uL 0.83-4.51 [facility] Albumin Elph [Mass/Vol]Order ed By: Tad Monahan on 09-05-2023 Albumin [Mass/Vol] 4.2 g/dL 2.9-4.4 [facility] Automated lymphocyte count a s percentage of total leukocytesOrdered By: Tad Taniya on 09-05-2023 Lymphocytes/100 WBC Auto (Unsp spec) 27.2 % 19-41 [facility] Basophil percentageOrdered B y: Tad Monahan on 09-05-2023 Basophils/100 WBC (Bld) 0.6 % 0-1 [facility] Eosinophils/100 WBC (Bld) 1.4 % 0-5 [facility] Hemoglobin (Bld) [Mass/Vol] 15.5 g/dL 13.0-16.5 [facility] Monocytes/100 WBC (Bld) 11.1 % 0-10 [facility] Neutrophils (Bld) [#/Vol] 3.0 10*3/uL 2.0-7.7 [facility] Neutrophils/100 WBC (Bld) 59.3 % 47-70 [facility] WBC (Bld) [#/Vol] 5.0 10*3/uL 4.4-11.0 [facility] Determination of erythrocyte mean corpuscular volume (MCV)Ordered By: Tadmu Monahan on 09-05-2023 MCV (RBC) [Entitic vol] 96.7 fL 80-94 [facility] Erythrocyte distribution wid th ratioOrdered By: Tadmohit Monahan on 09-05-2023 Erythrocyte distribution width (RBC) [Ratio] 12.2 % 11.6-14.6 [facility] Erythrocyte distribution wid th standard deviationOrdered By: Tadmohit Monahan on 09-05-2023 Erythrocyte distribution width (RBC) [Entitic vol] 43.6 fL 35.1-43.9 [facility] Erythrocyte sedimentation ra teOrdered By: Tad Monahan on 09-05-2023 ESR (Bld) [Velocity] 1 mm/h 0-20 [facility] Hematocrit Auto (Bld) [Volum e fraction]Ordered By: Tad Monahan on 09-05-2023 Hematocrit (Bld) [Volume fraction] 46.2 % 40-54 [facility] Immature granulocytes/100 WB C Auto (Bld)Ordered By: Tad Monahan on 09-05-2023 Immature granulocytes/100 WBC (Bld) 0.400 % 0.0-0.9 [facility] Comment on above: IG% - Immature Granu locytes (promyelocytes, myelocytes and metamyelocytes) > 1% indicates that a LEFT SHIFT is Present. Interpretation of serum or p lasma protein pattern by immunofixation (narrative resultOrdered By: Tad Monahan on 09-05-2023 Protein Fractions Immunofixation Duncan [Interp] Not Observed g/dL Not Observed [facility] Iron measurement (mass/mass) Ordered By: Tad Monahan on 09-05-2023 Iron (Unsp spec) [Mass/Mass] 80 ug/dL 65-175 [facility] - Chemistry and C hemistry - challengeOrdered By: Tad Monahan on 09-05-2023 Ferritin [Mass/Vol] 41 ng/mL 26-388 [facility] - Hematology and Cell countsOrdered By: Tad Monahan on 09-05-2023 MCH (RBC) [Entitic mass] 32.4 pg 27.0-32.0 [facility] MCHC (RBC) [Mass/Vol] 33.5 g/dL 32-36 [facility] Nucleated RBC/100 WBC (Bld) [Ratio] 0 % 0-5 [facility] Platelet mean volume (Bld) [Entitic vol] 9.0 fL 6.2-12.0 [facility] Platelets (Bld) [#/Vol] 197 10*3/uL 150-450 [facility] No Panel InformationOrdered By: Tad Monahan on 09-05-2023 Addendum Document Comment . [facility] Comment on above: Protein electrophore sis scan will follow via computer,mail, or senior underwriter delivery.Performed at: - [facility] [id number] [place], [place] [id number] Director: Carlos Hinojosa PhD, Phone: [phone] C-Reactive Protein Extended Range < 2.90 mg/L 0.0-3.0 [facility] Comment on above: C-Reactive Protein ( CRP) provides useful information for thediagnosis, therapy and monitoring of inflammatory processesand associated diseases. For the evaluation of Relative Riskfor Cardiovascular Disease, a High Sensitivity CRP (HSCRP)should be ordered. Endomysial IgA Antibody Negative Negative [facility] Immunoglobulin M 106 mg/dL 20-172 [facility] Total Iron Binding Capacity 345 ug/dL 250-450 [facility] RBC Auto (Bld) [#/Vol]Ordere d By: Tad Monahan on 09-05-2023 RBC (Bld) [#/Vol] 4.78 10*6/uL 4.6-6.2 [facility] Serum [id number]-6-[id number] measu rement by electrophoresisOrdered By: Tad Monahan on 09-05-2023 Alpha 1 globulin Elph [Mass/Vol] 0.2 g/dL 0.0-0.4 [facility] Alpha 1 globulin Elph [Mass/Vol] 0.6 g/dL 0.4-1.0 [facility] Serum globulin measurement ( mass/volume)Ordered By: Tad Monahan on 09-05-2023 Globulin (S) [Mass/Vol] 2.7 g/dL 2.2-3.9 [facility] Serum or plasma IgA measurem ent (mass/volume)Ordered By: Tad Monahan on 09-05-2023 IgA [Mass/Vol] 268 mg/dL 90-386 [facility] Serum or plasma IgG measurem ent (mass/volume)Ordered By: Tad Monahan on 09-05-2023 IgG [Mass/Vol] 1009 mg/dL 603-1613 [facility] Serum or plasma beta globuli n measurement by electrophoresis (mass/volume)Ordered By: Tad Monahan on 09-05-2023 Beta globulin Elph [Mass/Vol] 0.9 g/dL 0.7-1.3 [facility] Serum or plasma gamma globul in measurement by electrophoresis (mass/volume)Ordered By: Tad Monahan on 09-05-2023 Gamma globulin Elph [Mass/Vol] 1.0 g/dL 0.4-1.8 [facility] Serum or plasma immunoelectr ophoresis interpretation (nominal result)Ordered By: Tad Monahan on 09-05-2023 Interpretation IEP [Interp] Comment . [facility] Comment on above: No monoclonality det ected. Serum tissue transglutaminas e IgA antibody assay (units/volume)Ordered By: Tad Monahan on 09-05-2023 tTG IgA Qn (S) <2 U/mL 0-3 [facility] Comment on above: Negative 0 - 3 Weak Positive 4 - 10 Positive >10 Tissue Transglutaminase (tTG) has been identified as the endomysial antigen. Studies have demonstr- ated that endomysial IgA antibodies have over 99% specificity for gluten sensitive enteropathy. Thin prep Papanicolaou smear with manual screeningOrdered By: Tad Monahan on 09-05-2023 Thin prep Papanicolaou smear with manual screening 1.6 0.7-1.7 [facility] Total protein bloodOrdered B y: Tad Monahan on 09-05-2023 Protein [Mass/Vol] 6.9 g/dL 6.0-8.5 [facility] Absolute lymphocyte countOrd ered By: Tad Monahan on 03-08-2023 Lymphocytes Auto (Unsp spec) [#/Vol] 1.66 10*3/uL 0.83-4.51 [facility] Albumin Elph [Mass/Vol]Order ed By: Tad Monahan on 03-08-2023 Albumin [Mass/Vol] 4.6 g/dL 2.9-4.4 [facility] Basophil percentageOrdered B y: Tad Monahan on 03-08-2023 Amylase [Catalytic activity/Vol] 47 U/L 25-115 [facility] Basophils/100 WBC (Bld) 0.7 % 0-1 [facility] Eosinophils/100 WBC (Bld) 1.6 % 0-5 [facility] LDH [Catalytic activity/Vol] 129 U/L 87-241 [facility] Neutrophils (Bld) [#/Vol] 3.3 10*3/uL 2.0-7.7 [facility] Neutrophils/100 WBC (Bld) 58.4 % 47-70 [facility] WBC (Bld) [#/Vol] 5.7 10*3/uL 4.4-11.0 [facility] Blood erythrocytes count (nu mber/volume)Ordered By: Tad Monahan on 03-08-2023 RBC (Bld) [#/Vol] 4.87 10*6/uL 4.6-6.2 [facility] Blood hemoglobin measurement (mass/volume)Ordered By: Tad Monahan on 03-08-2023 Hemoglobin (Bld) [Mass/Vol] 16.3 g/dL 13.0-16.5 [facility] Blood lymphocytes/100 leukoc ytesOrdered By: Tad Monahan on 03-08-2023 Lymphocytes/100 WBC (Bld) 29.1 % 19-41 [facility] Blood monocytes/100 leukocyt esOrdered By: Tad Monahan on 03-08-2023 Monocytes/100 WBC (Bld) 9.8 % 0-10 [facility] Blood platelet mean volumeOr dered By: Tad Monahan on 03-08-2023 Platelet mean volume (Bld) [Entitic vol] 9.3 fL 6.2-12.0 [facility] Determination of erythrocyte mean corpuscular volume (MCV)Ordered By: Tad Monahan on 03-08-2023 MCV (RBC) [Entitic vol] 97.7 fL 80-94 [facility] Erythrocyte sedimentation ra teOrdered By: Tad Monahan on 03-08-2023 ESR (Bld) [Velocity] 2 mm/h 0-20 [facility] Hematocrit Auto (Bld) [Volum e fraction]Ordered By: Tad Monahan on 03-08-2023 Hematocrit (Bld) [Volume fraction] 47.6 % 40-54 [facility] Hemoglobin in reticulocytes (mass per reticulocyte)Ordered By: Tad Monahan on 03-08-2023 Hemoglobin (Reticulocytes) [Entitic mass] 35.6 pg 30-35 [facility] Interpretation of serum or p lasma protein pattern by immunofixation (narrative resultOrdered By: Tad Monahan on 03-08-2023 Protein Fractions Immunofixation Duncan [Interp] See comment [facility] Comment on above: NOT OBSERVED Iron measurement (mass/mass) Ordered By: Tad Monahan on 03-08-2023 Iron (Unsp spec) [Mass/Mass] 201 ug/dL 65-175 [facility] Laboratory - Chemistry and C hemistry - challengeOrdered By: Tad Monahan on 03-08-2023 Lipase [Catalytic activity/Vol] 25 U/L 13-75 [facility] Comment on above: Please note:LIPASE r evised reference range effective 22. New Lipase methodology. Expected to produce lower values than the previous assay method. NEW Reference Range: 13 - 75 U/L Laboratory - Hematology and Cell countsOrdered By: Tad Monahan on 03-08-2023 Erythrocyte distribution width (RBC) [Entitic vol] 44.9 fL 35.1-43.9 [facility] Erythrocyte distribution width (RBC) [Ratio] 12.4 % 11.6-14.6 [facility] Immature granulocytes/100 WBC (Bld) 0.400 % 0.0-0.9 [facility] Comment on above: IG% - Immature Granu locytes (promyelocytes, myelocytes and metamyelocytes) > 1% indicates that a LEFT SHIFT is Present. MCH (RBC) [Entitic mass] 33.5 pg 27.0-32.0 [facility] Nucleated RBC/100 WBC (Bld) [Ratio] 0 % 0-5 [facility] MCHC Auto (RBC) [Mass/Vol]Or dered By: Tad Monahan on 03-08-2023 MCHC (RBC) [Mass/Vol] 34.2 g/dL 32-36 [facility] No Panel InformationOrdered By: Tad Monahan on 03-08-2023 Addendum Document Comment . [facility] Comment on above: Protein electrophore sis scan will follow via computer,mail, or senior underwriter delivery.Performed at: [address] [id number] Director: Carlos Hinojosa PhD, Phone: [phone] Immature Reticulocyte Fraction 12.10 % 3.00-15.90 [facility] Reticulocyte Count 1.80 % 0.5-1.5 [facility] Thyroid Stimulating Hormone (TSH) 2.51 uIU/mL 0.358-3.74 [facility] Platelets bldOrdered By: Ilan Monahan on 03-08-2023 Platelets (Bld) [#/Vol] 204 10*3/uL 150-450 [facility] Serum exnrs-9-ynnsikov measu rement by electrophoresisOrdered By: Tad Monahan on 03-08-2023 Alpha 1 globulin Elph [Mass/Vol] 0.2 g/dL 0.0-0.4 [facility] Alpha 1 globulin Elph [Mass/Vol] 0.5 g/dL 0.4-1.0 [facility] Serum globulin measurement ( mass/volume)Ordered By: Tad Monahan on 03-08-2023 Globulin (S) [Mass/Vol] 2.8 g/dL 2.2-3.9 [facility] Serum or plasma C reactive p rotein measurement (mass/volume)Ordered By: Tad Monahan on 03-08-2023 CRP [Mass/Vol] mg/L 0.0-3.0 [facility] Comment on above: C-Reactive Protein ( CRP) provides useful information for thediagnosis, therapy and monitoring of inflammatory processesand associated diseases. For the evaluation of Relative Riskfor Cardiovascular Disease, a High Sensitivity CRP (HSCRP)should be ordered. Serum or plasma IgA measurem ent (mass/volume)Ordered By: Tad Monahan on 03-08-2023 IgA [Mass/Vol] 320 mg/dL 90-386 [facility] Serum or plasma IgG measurem ent (mass/volume)Ordered By: Tad Monahan on 03-08-2023 IgG [Mass/Vol] 1113 mg/dL 603-1613 [facility] Serum or plasma IgM measurem ent (mass/volume)Ordered By: Tad Monahan on 03-08-2023 IgM [Mass/Vol] 115 mg/dL 20-172 [facility] Serum or plasma beta globuli n measurement by electrophoresis (mass/volume)Ordered By: Tad Monahan on 03-08-2023 Beta globulin Elph [Mass/Vol] 1.0 g/dL 0.7-1.3 [facility] Serum or plasma cortisol trav surement (mass/volume)Ordered By: Tad Monahan on 03-08-2023 Cortisol [Mass/Vol] 22.90 ug/dL 3.44-22.45 [facility] Comment on above: Adult (AM) 5.27 - 22 .45 ug/dL Adult (PM) 3.44 - 16.76 ug/dLPlease note revised CORTISOL reference range effective 2019. Serum or plasma ferritin trav surement (mass/volume)Ordered By: Tad Monahan on 03-08-2023 Ferritin [Mass/Vol] 32 ng/mL 26-388 [facility] Serum or plasma gamma globul in measurement by electrophoresis (mass/volume)Ordered By: Tad Monahan on 03-08-2023 Gamma globulin Elph [Mass/Vol] 1.1 g/dL 0.4-1.8 [facility] Serum or plasma immunoelectr ophoresis interpretation (nominal result)Ordered By: Tad Monahan on 03-08-2023 Interpretation IEP [Interp] Comment . [facility] Comment on above: No monoclonality det ected. Thin prep Papanicolaou smear with manual screeningOrdered By: Tad Monahan on 03-08-2023 Thin prep Papanicolaou smear with manual screening 1.7 0.7-1.7 [facility] Total protein bloodOrdered B y: Tad Mnoahan on 03-08-2023 Protein [Mass/Vol] 7.4 g/dL 6.0-8.5 [facility] Absolute lymphocyte countOrd ered By: Tad Monahan on 06-01-2022 Lymphocytes Auto (Unsp spec) [#/Vol] 1.17 10*3/uL 0.83-4.51 [facility] Basophil percentageOrdered B y: Tad Monahan on 06-01-2022 Basophils/100 WBC (Bld) 0.7 % 0-1 [facility] Bilirubin [Mass/Vol] 0.30 mg/dL 0.20-1.00 [facility] Comment on above: For patients on eltr ombopag therapy, use of Dimension [place] TBIL is not recommended. Chloride [Moles/Vol] 107 mmol/L 98-107 [facility] Eosinophils/100 WBC (Bld) 1.1 % 0-5 [facility] Glucose [Mass/Vol] 50 mg/dL 74-106 [facility] Neutrophils (Bld) [#/Vol] 3.6 10*3/uL 2.0-7.7 [facility] Neutrophils/100 WBC (Bld) 67.5 % 47-70 [facility] Potassium [Moles/Vol] 3.8 mmol/L 3.5-5.1 [facility] Protein [Mass/Vol] 7.5 g/dL 6.4-8.2 [facility] Sodium [Moles/Vol] 139 mmol/L 136-145 [facility] WBC (Bld) [#/Vol] 5.3 10*3/uL 4.4-11.0 [facility] Blood erythrocytes count (nu mber/volume)Ordered By: Tad Monahan on 06-01-2022 RBC (Bld) [#/Vol] 4.61 10*6/uL 4.6-6.2 [facility] Blood hemoglobin measurement (mass/volume)Ordered By: Tad Monahan on 06-01-2022 Hemoglobin (Bld) [Mass/Vol] 13.7 g/dL 13.0-16.5 [facility] Blood lymphocytes/100 leukoc ytesOrdered By: Tad Monahan on 06-01-2022 Lymphocytes/100 WBC (Bld) 21.9 % 19-41 [facility] Blood monocytes/100 leukocyt esOrdered By: Tad Monahan on 06-01-2022 Monocytes/100 WBC (Bld) 8.4 % 0-10 [facility] Blood platelet mean volumeOr dered By: Tad Monahan on 06-01-2022 Platelet mean volume (Bld) [Entitic vol] 10.0 fL 6.2-12.0 [facility] Determination of erythrocyte mean corpuscular volume (MCV)Ordered By: Tad Monahan on 06-01-2022 MCV (RBC) [Entitic vol] 92.6 fL 80-94 [facility] Erythrocyte sedimentation ra teOrdered By: Tad Monahan on 06-01-2022 ESR (Bld) [Velocity] 14 mm/h 0-20 [facility] Hematocrit Auto (Bld) [Volum e fraction]Ordered By: Tad Monahan on 06-01-2022 Hematocrit (Bld) [Volume fraction] 42.7 % 40-54 [facility] Laboratory - Chemistry and C hemistry - challengeOrdered By: Tad Monahan on 06-01-2022 ALP [Catalytic activity/Vol] 80 U/L 45-117 [facility] ALT [Catalytic activity/Vol] 19 U/L 16-61 [facility] CO2 [Moles/Vol] 28.0 mmol/L 21.0-32.0 [facility] Globulin (S) [Mass/Vol] 3.7 g/dL 2.2-4.2 [facility] Urea nitrogen/Creatinine [Mass ratio] 13.8 mg/mg 10-20 [facility] Laboratory - Hematology and Cell countsOrdered By: Tad Monahan on 06-01-2022 Erythrocyte distribution width (RBC) [Entitic vol] 49.6 fL 35.1-43.9 [facility] Erythrocyte distribution width (RBC) [Ratio] 14.6 % 11.6-14.6 [facility] Immature granulocytes/100 WBC (Bld) 0.400 % 0.0-0.9 [facility] Comment on above: IG% - Immature Granu locytes (promyelocytes, myelocytes and metamyelocytes) > 1% indicates that a LEFT SHIFT is Present. MCH (RBC) [Entitic mass] 29.7 pg 27.0-32.0 [facility] Nucleated RBC/100 WBC (Bld) [Ratio] 0 % 0-5 [facility] MCHC Auto (RBC) [Mass/Vol]Or dered By: Tad Monahan on 06-01-2022 MCHC (RBC) [Mass/Vol] 32.1 g/dL 32-36 [facility] No Panel InformationOrdered By: Tad Monahan on 06-01-2022 Stool Calprotectin 29 ug/g 0-120 [facility] Comment on above: Concentration Interp retation Follow-Up<16 - 50 ug/g Normal None>50 -120 ug/g Borderline Re-evaluate in 4-6 weeks >120 ug/g Abnormal Repeat as clinically indicatedPerformed at: - [address] [id number] Director: Ran Mathews MD, Phone: [phone] Estimated GFR (MDRD) Amer 130 mL/min >60 [facility] Comment on above: GFR Calc Estimated GFR (MDRD) Non-Af Amer 108 mL/min >60 [facility] Comment on above: Non- GFR Calc Platelets bldOrdered By: Ilan Monahan on 06-01-2022 Platelets (Bld) [#/Vol] 238 10*3/uL 150-450 [facility] Serum or plasma C reactive p rotein measurement (mass/volume)Ordered By: Tad Monahan on 06-01-2022 CRP [Mass/Vol] 3.11 mg/L 0.0-3.0 [facility] Comment on above: C-Reactive Protein ( CRP) provides useful information for thediagnosis, therapy and monitoring of inflammatory processesand associated diseases. For the evaluation of Relative Riskfor Cardiovascular Disease, a High Sensitivity CRP (HSCRP)should be ordered. Serum or plasma albumin charlee urement (mass/volume)Ordered By: Tad Monahan on 06-01-2022 Albumin [Mass/Vol] 3.8 g/dL 3.2-5.0 [facility] Serum or plasma albumin/glob ulin mass ratioOrdered By: Tad Monahan on 06-01-2022 Albumin/Globulin [Mass ratio] 1.0 {ratio} 0.9-2.4 [facility] Serum or plasma calcium charlee urement (mass/volume)Ordered By: Tad Monahan on 06-01-2022 Calcium [Mass/Vol] 9.6 mg/dL 8.5-10.1 [facility] Serum or plasma creatinine m easurement (mass/volume)Ordered By: Tad Monahan on 06-01-2022 Creatinine [Mass/Vol] 0.94 mg/dL 0.70-1.30 [facility] Comment on above: The validity of the calculated GFR & GFRAA in patients over 70 years has not been determined. Clinical correlation is essential. Serum or plasma urea nitroge n measurement (mass/volume)Ordered By: Tad Monahan on 06-01-2022 Urea nitrogen [Mass/Vol] 13 mg/dL 7-18 [facility] Stool lactoferrin detection by immunoassayOrdered By: Tad Monahan on 06-01-2022 Lactoferrin IA Ql (Stl) [facility] Thin prep Papanicolaou smear with manual screeningOrdered By: aTd Monahan on 06-01-2022 Thin prep Papanicolaou smear with manual screening 15 U/L 15-37 [facility] Thin prep Papanicolaou smear with manual screening 4 5-15 [facility] Absolute lymphocyte counton 01-03-2022 Lymphocytes Auto (Unsp spec) [#/Vol] 1.50 10*3/uL 0.83-4.51 [facility] Work Phone: Basophil percentageon 2021 Amylase [Catalytic activity/Vol] 48 U/L 25-115 [facility] Work Phone: Basophils/100 WBC (Bld) 0.5 % 0-1 [facility] Work Phone: Bilirubin [Mass/Vol] 0.40 mg/dL 0.20-1.00 [facility] Work Phone: Comment on above: For patients on eltr ombopag therapy, use of Dimension [place] TBIL is not recommended. Chloride [Moles/Vol] 105 mmol/L 98-107 [facility] Work Phone: Eosinophils/100 WBC (Bld) 0.7 % 0-5 [facility] Work Phone: Glucose [Mass/Vol] 89 mg/dL 74-106 [facility] Work Phone: Neutrophils (Bld) [#/Vol] 3.9 10*3/uL 2.0-7.7 [facility] Work Phone: Neutrophils/100 WBC (Bld) 64.4 % 47-70 [facility] Work Phone: Potassium [Moles/Vol] 3.9 mmol/L 3.5-5.1 [facility] Work Phone: Protein [Mass/Vol] 7.4 g/dL 6.4-8.2 [facility] Work Phone: Sodium [Moles/Vol] 137 mmol/L 136-145 [facility]: WBC (Bld) [#/Vol] 6.1 10*3/uL 4.4-11.0 [facility] Work Phone: Blood erythrocytes count (nu mber/volume)on 01-03-2022 RBC (Bld) [#/Vol] 4.45 10*6/uL 4.6-6.2 [facility] Work Phone: Blood hemoglobin measurement (mass/volume)on 01-03-2022 Hemoglobin (Bld) [Mass/Vol] 13.4 g/dL 13.0-16.5 [facility] Work Phone: [phone] Blood lymphocytes/100 leukoc yteson 01-03-2022 Lymphocytes/100 WBC (Bld) 24.7 % 19-41 [facility] Work Phone: Blood monocytes/100 leukocyt eson 01-03-2022 Monocytes/100 WBC (Bld) 9.4 % 0-10 [facility] Work Phone: Blood platelet mean volumeon 01-03-2022 Platelet mean volume (Bld) [Entitic vol] 9.1 fL 6.2-12.0 [facility] Work Phone: Determination of erythrocyte mean corpuscular volume (MCV)on 01-03-2022 MCV (RBC) [Entitic vol] 92.4 fL 80-94 [facility] Work Phone: Hematocrit Auto (Bld) [Volum e fraction]on 01-03-2022 Hematocrit (Bld) [Volume fraction] 41.1 % 40-54 [facility] Work Phone: Laboratory - Chemistry and C hemistry - challengeon 01-03-2022 ALP [Catalytic activity/Vol] 88 U/L 45-117 [facility] Work Phone: ALT [Catalytic activity/Vol] 39 U/L 16-61 [facility] Work Phone: CO2 [Moles/Vol] 27.0 mmol/L 21.0-32.0 [facility] Work Phone: Globulin (S) [Mass/Vol] 3.7 g/dL 2.2-4.2 [facility] Work Phone: Lipase [Catalytic activity/Vol] 76 U/L 73-393 [facility] Work Phone: Urea nitrogen/Creatinine [Mass ratio] 13.7 mg/mg 10-20 [facility] Work Phone: Laboratory - Hematology and Cell countson 01-03-2022 Erythrocyte distribution width (RBC) [Entitic vol] 42.2 fL 35.1-43.9 [facility] Work Phone: Erythrocyte distribution width (RBC) [Ratio] 12.4 % 11.6-14.6 [facility] Work Phone: Immature granulocytes/100 WBC (Bld) 0.300 % 0.0-0.9 [facility] Work Phone: Comment on above: IG% - Immature Granu locytes (promyelocytes, myelocytes and metamyelocytes) > 1% indicates that a LEFT SHIFT is Present. MCH (RBC) [Entitic mass] 30.1 pg 27.0-32.0 [facility] Work Phone: Nucleated RBC/100 WBC (Bld) [Ratio] 0 % 0-5 [facility] Work Phone: MCHC Auto (RBC) [Mass/Vol]on 01-03-2022 MCHC (RBC) [Mass/Vol] 32.6 g/dL 32-36 [facility] Work Phone: No Panel Informationon 01-03 Estimated GFR (MDRD) Amer 130 mL/min >60 [facility] Work Phone: Comment on above: GFR Calc Estimated GFR (MDRD) Non-Af Amer 107 mL/min >60 [facility] Work Phone: Comment on above: Non- GFR Calc Platelets bldon 01-03-2022 Platelets (Bld) [#/Vol] 267 10*3/uL 150-450 [facility] Work Phone: Serum or plasma C reactive p rotein measurement (mass/volume)on 01-03-2022 CRP [Mass/Vol] mg/L 0.0-3.0 [facility] Work Phone: Comment on above: C-Reactive Protein ( CRP) provides useful information for thediagnosis, therapy and monitoring of inflammatory processesand associated diseases. For the evaluation of Relative Riskfor Cardiovascular Disease, a High Sensitivity CRP (HSCRP)should be ordered. Serum or plasma albumin charlee urement (mass/volume)on 01-03-2022 Albumin [Mass/Vol] 3.7 g/dL 3.2-5.0 [facility] Work Phone: Serum or plasma albumin/glob ulin mass ratioon 01-03-2022 Albumin/Globulin [Mass ratio] 1.0 {ratio} 0.9-2.4 [facility] Work Phone: Serum or plasma calcium charlee urement (mass/volume)on 01-03-2022 Calcium [Mass/Vol] 9.0 mg/dL 8.5-10.1 [facility] Work Phone: Serum or plasma creatinine m easurement (mass/volume)on 01-03-2022 Creatinine [Mass/Vol] 0.95 mg/dL 0.70-1.30 [facility] Work Phone: Comment on above: The validity of the calculated GFR & GFRAA in patients over 70 years has not been determined. Clinical correlation is essential. Serum or plasma urea nitroge n measurement (mass/volume)on 01-03-2022 Urea nitrogen [Mass/Vol] 13 mg/dL 7-18 [facility] Work Phone: Thin prep Papanicolaou smear with manual screeningon 01-03-2022 Thin prep Papanicolaou smear with manual screening 19 U/L 15-37 [facility] Work Phone: Thin prep Papanicolaou smear with manual screening 5 5-15 [facility] Work Phone: HIV 1 and HIV-2 antibody ass ay with HIV-1 p24 antigen detectionon 10-01-2021 HIV 1+2 Ab+HIV1 p24 Ag IA Ql Non-Reactive Nonreactive [facility] Work Phone: No Panel Informationon 10-01 Miscellaneous Test See comment [facility] Work Phone: Comment on above: TEST RESULT [...] anti-drug specificity by a confirmatory test.References:1. Patricia Contreras et al. AGA Review on TDM in IBD. Gastroenterol 2017;153:835-857.2. Marc Vee et al. J Crohns Col 2016;10(5):510-515.3. Rosa Maria MILES, et al. [facility]red Rheum Dis 2015;74:513-518.4. Sharons GM, et al. FIDEL 2011;305(14):6083-7583.5. Juma C, et al. J Clin Gastroenterol 2016; 50:482-489.6. Hakanai H, et al. Clin Gastroenterol Hepatol 2015; 13(3):522-530.7. Rivas A, et al. Gastroenterol 2019;156(6):S-617.These tests were developed and their performancecharacteristics determined by [employer]. They have not beencleared or approved by the Food and Drug Administration.However, these electrochemiluminescence immunoassay (ECLIA)measurements of adalimumab and anti-adalimumab antibody(constituting DoseASSURE ADL) have been developed andvalidated in accordance with CLIA (Clinical LaboratoryImprovement Amendments) and the FDA Guidance document, AssayDevelopment and Validation for Immunogenicity Testing ofTherapeutic Protein Products (2019). Miscellaneous Test See comment [facility] Work Phone: Comment on above: TEST RESULT [...] developed and its performance characteristics determined by [employer]. It has not been cleared or approved [...] E, et al. J Crohns Col 2016;10(5):510-515.3. Pouw MF, et al. [facility]red Rheum Dis 2015;74:513-518.4. Sharons GM, et al. FIDEL 2011;305(14):7180-0867.5. Steenholdt C, et al. J Clin Gastroenterol 2016; 50:482-489.6. Yanai H, et al. Clin Gastroenterol Hepatol 2015; 13(3):522-530.7. Rivas A, et al. Gastroenterol 2019;156(6):S-617.These tests were developed and their performancecharacteristics determined by [employer]. They have not beencleared or approved by [...] included)... Bordetella pertussis IgG Antibody See comment [facility] Work Phone: Comment on above: TEST RESULT LIMITSB pertussis IgG AbB pertussis IgG Ab 1.99 High index 0.00-0.94 Negative <0.95 TESTING PERFORMED AT [facility] ORIGINAL REPORT ON FILE IN LAB CONTAINS ADDITIONAL TEST SITE INFORMATION. Hepatitis A IgM Antibody See comment [facility] Work Phone: Comment on above: TEST RESULT LIMITSAc [place] HepatitisHep A Ab, IgM Negative NegativeHBsAg Screen Negative NegativeHep B Core Ab, IgM Negative NegativeHCV Ab <0.1 s/co ratio 0.0-0.9Interpretation: NegativeNot infected with HCV, unless recent infection is suspected or other evidence exists to indicate HCV infection. TESTING PERFORMED AT [facility] ORIGINAL REPORT ON FILE IN LAB CONTAINS ADDITIONAL TEST SITE INFORMATION. Hepatitis B Core IgM Antibody Not Reportable [facility] Work Phone: Hepatitis C Antibody (EIA) Not Reportable [facility] Work Phone: Rubella IgG Antibody Reactive Nonreactive [facility] Work Phone: Comment on above: Antibody Results Int erpretation of Immune Status Non Reactive Presumed Non-Immune Equivocal Equivocal Reactive Presumed Immune Serum Varicella zoster virus IgG antibody assay by immunoassay (units/volume)on 10-01-2021 VZV IgG IA Qn (S) See comment [facility] Work Phone: Comment on above: TEST RESULT LIMITSVa ricella-Zoster V Ab, IgG Varicella Zoster IgG <135 Low index Immune >165 Negative <135 Equivocal 135 - 165 Positive >165 A positive result generally indicates exposure to the pathogen or administration of specific immunoglobulins, but it is not indication of active infection or stage of disease. ___ TESTING PERFORMED AT [employer] ORIGINAL REPORT ON FILE IN LAB CONTAINS ADDITIONAL TEST SITE INFORMATION. Serum mumps virus IgM antibo dy assay (units/volume)on 10-01-2021 MuV IgM Qn (S) See comment [facility] Work Phone: Comment on above: TEST RESULT LIMITSMu mps Antibodies, IgMMumps Antibodies, IgM <0.80 AU 0.00-0.79 Negative < 0.80 Borderline 0.80 - 1.20 Positive > 1.20 Note: The presence of IgM specific antibody should be interpreted in conjunction with the patient's clinical history and exposure risk when an acute infection is suspected. TESTING PERFORMED AT [employer] ORIGINAL REPORT ON FILE IN LAB CONTAINS ADDITIONAL TEST SITE INFORMATION. Serum or plasma hepatitis B virus surface antigen detection by immunoassayon 10-01-2021 HBV surface Ag IA Ql Not Reportable [facility] Work Phone: Giardia lamblia ag stool EIA on 09-23-2021 G. lamblia Ag IA Ql (Stl) See comment [facility] Work Phone: Comment on above: TEST RESULT LIMITSGi ardia lamblia Agm EIA Negative Negative ___ TESTING PERFORMED AT [facility] ORIGINAL REPORT ON FILE IN LAB CONTAINS ADDITIONAL TEST SITE INFORMATION. No Panel Informationon 09-23 Enteric Bacteriology [facility] Work Phone: Stool Calprotectin 1436 ug/g 0-120 [facility] Work Phone: Comment on above: Concentration Interp retation Follow-Up<16 - 50 ug/g Normal None>50 -120 ug/g Borderline Re-evaluate in 4-6 weeks >120 ug/g Abnormal Repeat as clinically indicatedPerformed at: - [facility] [id number] Director: Ran Mathews MD, Phone: [phone] Absolute lymphocyte counton 09-22-2021 Lymphocytes Auto (Unsp spec) [#/Vol] 1.65 10*3/uL 0.83-4.51 [facility] Work Phone: Albumin Elph [Mass/Vol]on Albumin [Mass/Vol] 4.1 g/dL 2.9-4.4 [facility] Work Phone: Atypical perinuclear antineu trophil cytoplasmic antibodies measurementon 09-22-2021 Neutrophil cytoplasmic Ab.perinuclear.atypical IF (S) [Titer] 1:640 titer Neg:<1:20 [facility] Work Phone: Comment on above: The atypical pANCA p attern has been observed in asignificant percentage of patients with ulcerative colitis,primary sclerosing cholangitis and autoimmune hepatitis.Performed at: [facility] [id number] Director: Carlos Hinojosa PhD, Phone: [phone] at: - [facility] [id number] Director: Ran Mathews MD, Phone: [phone] Basophil percentageon 2021 Basophil percentage < 0.2 AI 0.0-0.9 [facility] Work Phone: Basophils/100 WBC (Bld) 0.5 % 0-1 [facility] Work Phone: Bilirubin [Mass/Vol] 0.20 mg/dL 0.20-1.00 [facility] Work Phone: Comment on above: For patients on eltr ombopag therapy, use of Dimension [place] TBIL is not recommended. Chloride [Moles/Vol] 108 mmol/L 98-107 [facility] Work Phone: Eosinophils/100 WBC (Bld) 1.3 % 0-5 [facility] Work Phone: [phone] Glucose [Mass/Vol] 90 mg/dL 74-106 [facility] Work Phone: Neutrophils (Bld) [#/Vol] 5.7 10*3/uL 2.0-7.7 [facility] Work Phone: Neutrophils/100 WBC (Bld) 68.7 % 47-70 [facility] Work Phone: Potassium [Moles/Vol] 4.4 mmol/L 3.5-5.1 [facility] Work Phone: Protein [Mass/Vol] 7.3 g/dL 6.4-8.2 [facility]: Sodium [Moles/Vol] 135 mmol/L 136-145 [facility] Work Phone: [phone] WBC (Bld) [#/Vol] 8.4 10*3/uL 4.4-11.0 [facility] Work Phone: Blood erythrocytes count (nu mber/volume)on 09-22-2021 RBC (Bld) [#/Vol] 4.55 10*6/uL 4.6-6.2 [facility] Work [facility]: Blood hemoglobin measurement (mass/volume)on 09-22-2021 Hemoglobin (Bld) [Mass/Vol] 14.3 g/dL 13.0-16.5 [facility] Work Phone: [phone] Blood lymphocytes/100 leukoc yteson 09-22-2021 Lymphocytes/100 WBC (Bld) 19.8 % 19-41 [facility] Work Phone: Blood monocytes/100 leukocyt eson 09-22-2021 Monocytes/100 WBC (Bld) 9.5 % 0-10 [facility] Work Phone: Blood platelet mean volumeon 09-22-2021 Platelet mean volume (Bld) [Entitic vol] 9.6 fL 6.2-12.0 [facility] Work Phone: [phone] Determination of erythrocyte mean corpuscular volume (MCV)on 09-22-2021 MCV (RBC) [Entitic vol] 92.5 fL 80-94 [facility] Work Phone: Erythrocyte sedimentation ra mechelle 09-22-2021 ESR (Bld) [Velocity] 7 mm/h 0-20 [facility]: Hematocrit Auto (Bld) [Volum e fraction]on 09-22-2021 Hematocrit (Bld) [Volume fraction] 42.1 % 40-54 [facility] Work Phone: Interpretation of serum or p lasma protein pattern by immunofixation (narrative resulton 09-22-2021 Protein Fractions Immunofixation Duncan [Interp] See comment [facility] Work Phone: Comment on above: NOT OBSERVED Laboratory - Chemistry and C hemistry - challengeon 09-22-2021 ALP [Catalytic activity/Vol] 100 U/L 45-117 [facility] Work Phone: ALT [Catalytic activity/Vol] 35 U/L 16-61 [facility] Work Phone: [phone] CO2 [Moles/Vol] 23.0 mmol/L 21.0-32.0 [facility] Work Phone: Urea nitrogen/Creatinine [Mass ratio] 12.1 mg/mg 10-20 [facility] Work Phone: Laboratory - Hematology and Cell countson 09-22-2021 Erythrocyte distribution width (RBC) [Entitic vol] 42.0 fL 35.1-43.9 [facility] Work Phone: Erythrocyte distribution width (RBC) [Ratio] 12.4 % 11.6-14.6 [facility] Work Phone: Immature granulocytes/100 WBC (Bld) 0.200 % 0.0-0.9 [facility] Work Phone: Comment on above: IG% - Immature Granu locytes (promyelocytes, myelocytes and metamyelocytes) > 1% indicates that a LEFT SHIFT is Present. MCH (RBC) [Entitic mass] 31.4 pg 27.0-32.0 [facility] Work Phone: Nucleated RBC/100 WBC (Bld) [Ratio] 0 % 0-5 [facility] Work Phone: MCHC Auto (RBC) [Mass/Vol]on 09-22-2021 MCHC (RBC) [Mass/Vol] 34.0 g/dL 32-36 [facility] Work [facility]: No Panel Informationon 09-22 Addendum Document Comment . [facility] Work Phone: Comment on above: Protein electrophore sis scan will follow via computer,mail, or senior underwriter delivery. Centromere B Antibody <0.2 AI 0.0-0.9 [facility] Work Phone: Endomysial IgA Antibody Negative Negative [facility] Work Phone: Estimated GFR (MDRD) Amer 124 mL/min >60 [facility] Work Phone: Comment on above: GFR Calc Estimated GFR (MDRD) Non-Af Amer 103 mL/min >60 [facility] Work Phone: Comment on above: Non- GFR Calc Immunoglobulin E 18 IU/mL 6-495 [facility] Work Phone: [employer] Antibody 0.7 AI 0.0-0.9 [facility] Work Phone: Platelets bldon 09-22-2021 Platelets (Bld) [#/Vol] 263 10*3/uL 150-450 [facility] Work Phone: Serum DNA double strand anti body assay (units/volume)on 09-22-2021 DNA double strand Ab Qn (S) [IU]/mL 0-9 [facility] Work Phone: Comment on above: Negative <5 Equivoca l 5 - 9 Positive >9 Serum Nancy-1 antibody assay (u nits/volume)on 09-22-2021 Nancy-1 extractable nuclear Ab Qn (S) <0.2 AI 0.0-0.9 [facility] Work Phone: Serum Scl-70 extractable nuc lear antibody assay (units/volume)on 09-22-2021 SCL-70 extractable nuclear Ab Qn (S) <0.2 AI 0.0-0.9 [facility] Work Phone: Serum Ivan extractable nucl ear antibody detectionon 09-22-2021 Ivan extractable nuclear Ab Ql (S) <0.2 AI 0.0-0.9 [facility] Work Phone: Serum [id number] measu rement by electrophoresison 09-22-2021 Alpha 1 globulin Elph [Mass/Vol] 0.2 g/dL 0.0-0.4 [facility] Work Phone: Alpha 1 globulin Elph [Mass/Vol] 0.7 g/dL 0.4-1.0 [facility] Work Phone: Serum classic neutrophil cyt oplasmic antibody assay (units/volume)on 09-22-2021 Neutrophil cytoplasmic Ab.classic Qn (S) <1:20 titer Neg:<1:20 [facility] Work Phone: Serum globulin measurement ( mass/volume)on 09-22-2021 Globulin (S) [Mass/Vol] 2.9 g/dL 2.2-3.9 [facility] Work Phone: Serum or plasma C reactive p rotein measurement (mass/volume)on 09-22-2021 CRP [Mass/Vol] 4.13 mg/L 0.0-3.0 [facility] Work Phone: Comment on above: C-Reactive Protein ( CRP) provides useful information for thediagnosis, therapy and monitoring of inflammatory processesand associated diseases. For the evaluation of Relative Riskfor Cardiovascular Disease, a High Sensitivity CRP (HSCRP)should be ordered. Serum or plasma IgA measurem ent (mass/volume)on 09-22-2021 IgA [Mass/Vol] 335 mg/dL 90-386 [facility] Work Phone: Serum or plasma IgG measurem ent (mass/volume)on 09-22-2021 IgG [Mass/Vol] 1110 mg/dL 671-1456 [facility] Work Phone: Serum or plasma IgM measurem ent (mass/volume)on 09-22-2021 IgM [Mass/Vol] 92 mg/dL 35-168 [facility] Work Phone: Serum or plasma albumin charlee urement (mass/volume)on 09-22-2021 Albumin [Mass/Vol] 3.6 g/dL 3.2-5.0 [facility] Work Phone: Serum or plasma albumin/glob ulin mass ratioon 09-22-2021 Albumin/Globulin [Mass ratio] 1.0 {ratio} 0.9-2.4 [facility] Work Phone: Serum or plasma beta globuli n measurement by electrophoresis (mass/volume)on 09-22-2021 Beta globulin Elph [Mass/Vol] 1.0 g/dL 0.7-1.3 [facility] Work Phone: Serum or plasma calcium charlee urement (mass/volume)on 09-22-2021 Calcium [Mass/Vol] 9.1 mg/dL 8.5-10.1 [facility] Work Phone: Serum or plasma creatinine m easurement (mass/volume)on 09-22-2021 Creatinine [Mass/Vol] 0.99 mg/dL 0.70-1.30 [facility] Work Phone: Comment on above: The validity of the calculated GFR & GFRAA in patients over 70 years has not been determined. Clinical correlation is essential. Serum or plasma gamma globul in measurement by electrophoresis (mass/volume)on 09-22-2021 Gamma globulin Elph [Mass/Vol] 1.1 g/dL 0.4-1.8 [facility] Work Phone: Serum or plasma immunoelectr ophoresis interpretation (nominal result)on 09-22-2021 Interpretation IEP [Interp] Comment . [facility] Work Phone: Comment on above: No monoclonality det ected. Serum or plasma urea nitroge n measurement (mass/volume)on 09-22-2021 Urea nitrogen [Mass/Vol] 12 mg/dL 7-18 [facility] Work Phone: Serum perinuclear neutrophil cytoplasmic antibody titer by immunofluorescenceon 09-22-2021 Neutrophil cytoplasmic Ab.perinuclear IF (S) [Titer] <1:20 titer Neg:<1:20 [facility] Work Phone: Comment on above: The presence of posi tive fluorescence exhibiting P-ANCA orC-ANCA patterns alone is not specific for the diagnosis ofWegener's Granulomatosis (WG) or microscopic polyangiitis.Decisions about treatment should not be based solely onANCA IFA results. The International ANCA Group Consensusrecommends follow up testing of positive sera with both TN-3 and MPO-ANCA enzyme immunoassays. As many as 5% serumsamples are positive only by EIA. Ref. AM J Clin [id number];111:507-513. Serum tissue transglutaminas e IgA antibody assay (units/volume)on 09-22-2021 tTG IgA Qn (S) <2 U/mL 0-3 [facility] Work Phone: Comment on above: Negative 0 - 3 Weak Positive 4 - 10 Positive >10 Tissue Transglutaminase (tTG) has been identified as the endomysial antigen. Studies have demonstr- ated that endomysial IgA antibodies have over 99% specificity for gluten sensitive enteropathy. Thin prep Papanicolaou smear with manual screeningon 09-22-2021 Thin prep Papanicolaou smear with manual screening 17 U/L 15-37 [facility] Work Phone: Thin prep Papanicolaou smear with manual screening 4 5-15 [facility] Work Phone: Thin prep Papanicolaou smear with manual screening 144 U/L 87-241 [facility] Work Phone: Thin prep Papanicolaou smear with manual screening 1.5 0.7-1.7 [facility] Work Phone: Total protein bloodon 2021 Protein [Mass/Vol] 7.0 g/dL 6.0-8.5 [facility] Work Phone: Absolute lymphocyte counton 09-19-2021 Lymphocytes Auto (Unsp spec) [#/Vol] 1.20 10*3/uL 0.83-4.51 [facility] Work Phone: Basophil percentageon 2021 Basophils/100 WBC (Bld) 0.5 % 0-1 [facility] Work Phone: Bilirubin [Mass/Vol] 0.30 mg/dL 0.20-1.00 [facility] Work Phone: Comment on above: For patients on eltr ombopag therapy, use of Dimension [place] TBIL is not recommended. Chloride [Moles/Vol] 103 mmol/L 98-107 [facility] Work Phone: Eosinophils/100 WBC (Bld) 0.7 % 0-5 [facility] Work Phone: Glucose [Mass/Vol] 109 mg/dL 74-106 [facility] Work Phone: Comment on above: Fasting Glucose resu lt from 100 to 125 mg/dL suggests IMPAIRED HOMEOSTASIS per A.D.A. criteria. Neutrophils (Bld) [#/Vol] 5.6 10*3/uL 2.0-7.7 [facility] Work Phone: Neutrophils/100 WBC (Bld) 73.6 % 47-70 [facility] Work Phone: Potassium [Moles/Vol] 4.2 mmol/L 3.5-5.1 [facility] Work Phone: Comment on above: Slight Hemolysis, Re sult may be falsely increased. Protein [Mass/Vol] 7.7 g/dL 6.4-8.2 [facility] Work Phone: Sodium [Moles/Vol] 136 mmol/L 136-145 [facility] Work Phone: WBC (Bld) [#/Vol] 7.6 10*3/uL 4.4-11.0 [facility] Work Phone: Blood erythrocytes count (nu mber/volume)on 09-19-2021 RBC (Bld) [#/Vol] 4.97 10*6/uL 4.6-6.2 [facility] Work Phone: Blood hemoglobin measurement (mass/volume)on 09-19-2021 Hemoglobin (Bld) [Mass/Vol] 15.5 g/dL 13.0-16.5 [facility] Work Phone: Blood lymphocytes/100 leukoc yteson 09-19-2021 Lymphocytes/100 WBC (Bld) 15.7 % 19-41 [facility] Work Phone: Blood monocytes/100 leukocyt eson 09-19-2021 Monocytes/100 WBC (Bld) 9.2 % 0-10 [facility] Work Phone: Blood platelet mean volumeon 09-19-2021 Platelet mean volume (Bld) [Entitic vol] 9.8 fL 6.2-12.0 [facility] Work Phone: Determination of erythrocyte mean corpuscular volume (MCV)on 09-19-2021 MCV (RBC) [Entitic vol] 92.6 fL 80-94 [facility] Work Phone: Hematocrit Auto (Bld) [Volum e fraction]on 09-19-2021 Hematocrit (Bld) [Volume fraction] 46.0 % 40-54 [facility] Work Phone: Laboratory - Chemistry and C hemistry - challengeon 09-19-2021 ALP [Catalytic activity/Vol] 113 U/L 45-117 [facility] Work Phone: ALT [Catalytic activity/Vol] 35 U/L 16-61 [facility] Work Phone: CO2 [Moles/Vol] 27.0 mmol/L 21.0-32.0 [facility] Work Phone: Globulin (S) [Mass/Vol] 3.6 g/dL 2.2-4.2 [facility] Work Phone: Urea nitrogen/Creatinine [Mass ratio] 12.6 mg/mg 10-20 [facility] Work Phone: Laboratory - Hematology and Cell countson 09-19-2021 Erythrocyte distribution width (RBC) [Entitic vol] 42.6 fL 35.1-43.9 [facility] Work Phone: Erythrocyte distribution width (RBC) [Ratio] 12.4 % 11.6-14.6 [facility] Work Phone: Immature granulocytes/100 WBC (Bld) 0.300 % 0.0-0.9 [facility] Work Phone: Comment on above: IG% - Immature Granu locytes (promyelocytes, myelocytes and metamyelocytes) > 1% indicates that a LEFT SHIFT is Present. MCH (RBC) [Entitic mass] 31.2 pg 27.0-32.0 [facility] Work Phone: Nucleated RBC/100 WBC (Bld) [Ratio] 0 % 0-5 [facility] Work Phone: MCHC Auto (RBC) [Mass/Vol]on 09-19-2021 MCHC (RBC) [Mass/Vol] 33.7 g/dL 32-36 [facility] Work Phone: No Panel Informationon 09-19 Estimated GFR (MDRD) Amer 109 mL/min >60 [facility] Work Phone: Comment on above: GFR Calc Estimated GFR (MDRD) Non-Af Amer 90 mL/min >60 [facility] Work Phone: Comment on above: Non- GFR Calc Platelets bldon 09-19-2021 Platelets (Bld) [#/Vol] 247 10*3/uL 150-450 [facility] Work Phone: Serum or plasma albumin charlee urement (mass/volume)on 09-19-2021 Albumin [Mass/Vol] 4.1 g/dL 3.2-5.0 [facility] Work Phone: Serum or plasma albumin/glob ulin mass ratioon 09-19-2021 Albumin/Globulin [Mass ratio] 1.1 {ratio} 0.9-2.4 [facility] Work Phone: Serum or plasma calcium charlee urement (mass/volume)on 09-19-2021 Calcium [Mass/Vol] 8.9 mg/dL 8.5-10.1 [facility] Work Phone: Serum or plasma creatinine m easurement (mass/volume)on 09-19-2021 Creatinine [Mass/Vol] 1.11 mg/dL 0.70-1.30 [facility] Work Phone: Comment on above: The validity of the calculated GFR & GFRAA in patients over 70 years has not been determined. Clinical correlation is essential. Serum or plasma urea nitroge n measurement (mass/volume)on 09-19-2021 Urea nitrogen [Mass/Vol] 14 mg/dL 7-18 [facility] Work Phone: Stool Helicobacter pylori an tigen detection by immunoassayon 09-19-2021 H. pylori Ag IA Ql (Stl) Negative Negative [facility] Work Phone: Comment on above: Performed at: [address] [id number] Director: Ran Mathews MD, Phone: [phone] Thin prep Papanicolaou smear with manual screeningon 09-19-2021 Thin prep Papanicolaou smear with manual screening 18 U/L 15-37 [facility] Work Phone: Comment on above: Slight Hemolysis, Re sult may be falsely increased. Thin prep Papanicolaou smear with manual screening 6 5-15 [facility] Work Phone: Progress Noteon 01-24-2018 [employer] Authentication Interface Message Text Date of service: January 24, 2018Patient's name: Carla FuentesMRN: [id number]: [id number] COMPLAINT: Right shoulder pain.HISTORY OF PRESENT ILLNESS: Carla Fuentes presents today forevaluation of right shoulder pain. He recalls tweaking his shoulder last yearwhile doing a front flip at [employer]. With baseball, he then developed pain withthrowing. He lost velocity. He had to stop throwing/pitching. He is playing golfnow and denies pain. He has no pain with batting. [facility] He has had [facility], done some [...] history.Past Medical HistoryPast Medical History:Diagnosis Date Fractures 2018 r shoulder injuryHistory reviewed. No pertinent surgical history.Family Medical History:History reviewed. No pertinent family history.Social History:Social HistorySocial History Marital status: Single Spouse name: N/A Number of children: N/A Years of education: N/ASocial History Main Topics Smoking status: Former Smoker Smokeless tobacco: Never Used Alcohol use None Drug use: Unknown Sexual activity: Not AskedOther Topics Concern NoneSocial History Narrative None Normal [facility] Progress Noteon 01-23-2018 Protein mass conc I have personally sh ared in the visit of Carla Fuentes, providingbedside participation in the E&M service. I saw and evaluated the patient anddiscussed the plan with the ADOPTION COUNSELOR/resident. I have performed one each of thehistory, [...] Fu in 8 weeks for reevaluation. Normal [facility] Vital Signs Date Time Vital Sign Value Performing Clinician Faci lity 03-05-2025 10:45-0400 Body temperature 97.6 [degF] Dr. Lennie Patel MD Work Phone: [facility] 03-05-2025 10:45-0400 Diastolic blood pressure 58 mm[Hg] Dr. Lennie Patel MD Work Phone: [facility] 03-05-2025 10:45-0400 Heart rate 58 /min Dr. Lennie Patel MD Work Phone: [facility] 03-05-2025 10:45-0400 Respiratory rate 18 /min Dr. Lennie Patel MD Work Phone: [facility] 03-05-2025 10:45-0400 SaO2% (BldA) [Mass fraction] 97 % Dr. Lennie Patel MD Work Phone: [facility] 03-05-2025 10:45-0400 Systolic blood pressure 100 mm[Hg] Dr. Lennie Patel MD Work Phone: [facility] 03-05-2025 08:16-0400 Body height 175.[address] Lennie Patel MD Work Phone: 9(298)955-093712 [place] [address] 03-05-2025 08:16-0400 Body mass index (BMI) [Ratio] 25.9 kg/m2 Dr. Lennie Patel MD Work Phone: 9(467)884-730940 [place] [address] 03-05-2025 08:16-0400 Body weight 79.[address] Lennie Patel MD Work Phone: 3(601)903-221140 [place] [address] 01-29-2025 10:40-0400 Body temperature 96.7 [degF] Dr. Lennie Patel MD Work Phone: 1(001)663-741540 [place] [address] 01-29-2025 10:40-0400 Diastolic blood pressure 56 mm[Hg] Dr. Lennie Patel MD Work Phone: 1(197)062-908540 [place] [address] 01-29-2025 10:40-0400 Heart rate 64 /min Dr. Lennie Patel MD Work Phone: 8(815)122-471140 [place] [address] 01-29-2025 10:40-0400 Respiratory rate 16 /min Dr. Lennie Patel MD Work Phone: 2(135)714-871340 [place] [address] 01-29-2025 10:40-0400 Systolic blood pressure 119 mm[Hg] Dr. Lennie Patel MD Work Phone: 4(732)217-197240 [place] [address] 01-29-2025 09:46-0400 Body height 172.[address] Lennie Patel MD Work Phone: 7(215)103-804712 [place] [address] 01-29-2025 09:46-0400 SaO2% (BldA) [Mass fraction] 97 % Dr. Lennie Patel MD Work Phone: [facility] 12-29-2024 09:47-0400 Body temperature 97.5 [degF] Dr. Lennie Patel MD Work Phone: 5(429)549-559040 [place] [address] 12-29-2024 09:47-0400 Diastolic blood pressure 69 mm[Hg] Dr. Lennie Patel MD Work Phone: 8(026)497-837440 [place] [address] 12-29-2024 09:47-0400 Heart rate 66 /min Dr. Lennie Patel MD Work Phone: 6(798)419-211240 [place] [address] 12-29-2024 09:47-0400 Respiratory rate 14 /min Dr. Lennie Patel MD Work Phone: 3(467)113-954740 [place] [address] 12-29-2024 09:47-0400 SaO2% (BldA) [Mass fraction] 97 % Dr. Lennie Patel MD Work Phone: 1(915)767-077640 [place] [address] 12-29-2024 09:47-0400 Systolic blood pressure 128 mm[Hg] Dr. Lennie Patel MD Work Phone: 1(451)535-982340 [place] [address] 12-29-2024 08:33-0400 Body height 172.[address] Lennie Patel MD Work Phone: 4(657)562-453640 [place] [address] 12-11-2024 09:25-0400 Body height 172.[address] Lennie Patel MD Work Phone: 4(179)745-514240 [place] [address] 12-11-2024 09:25-0400 Body mass index (BMI) [Ratio] 25.7 kg/m2 Dr. Lennie Patel MD Work Phone: 6(372)878-514440 [place] [address] 12-11-2024 09:25-0400 Body weight 76.[address] Lennie Patel MD Work Phone: 6(716)677-803440 [place] [address] 12-11-2024 09:25-0400 Diastolic blood pressure 67 mm[Hg] Dr. Lennie Patel MD Work Phone: 1(589)023-602440 [place] [address] 12-11-2024 09:25-0400 Heart rate 75 /min Dr. Lennie Patel MD Work Phone: [facility] 12-11-2024 09:25-0400 Respiratory rate 16 /min Dr. Lennie Patel MD Work Phone: [facility] 12-11-2024 09:25-0400 SaO2% (BldA) [Mass fraction] 95 % Dr. Lennie Patel MD Work Phone: [facility] 12-11-2024 09:25-0400 Systolic blood pressure 113 mm[Hg] Dr. Lennie Patel MD Work Phone: 3(573)305-437540 [place] [address] 11-06-2024 10:39-0400 Body temperature 97.1 [degF] Dr. Lennie Patel MD Work Phone: 1(294)295-187040 [place] [address] 11-06-2024 10:39-0400 Diastolic blood pressure 68 mm[Hg] Dr. Lennie Patel MD Work Phone: 0(728)617-493040 [place] [address] 11-06-2024 10:39-0400 Heart rate 74 /min Dr. Lennie Patel MD Work Phone: 2(238)504-508640 [place] [address] 11-06-2024 10:39-0400 Respiratory rate 16 /min Dr. Lennie Patel MD Work Phone: 4(031)674-435440 [place] [address] 11-06-2024 10:39-0400 SaO2% (BldA) [Mass fraction] 97 % Dr. Lennie Patel MD Work Phone: 5(445)142-350912 [place] [address] 11-06-2024 10:39-0400 Systolic blood pressure 116 mm[Hg] Dr. Lennie Patel MD Work Phone: 6(287)386-889157 [address] 11-06-2024 09:06-0400 Body height 172.[address] Lennie Patel MD Work Phone: 6(381)934-125440 [place] [address] 11-06-2024 09:06-0400 Body mass index (BMI) [Ratio] 25 kg/m2 Dr. Lennie Patel MD Work Phone: 9(533)839-829312 [place] [address] 11-06-2024 09:06-0400 Body weight 74.[address] Lennie Patel MD Work Phone: [facility] 09-15-2024 09:29-0400 Body mass index (BMI) [Ratio] 25.7 kg/m2 Dr. Lennie Patel MD Work Phone: [facility] 09-15-2024 09:29-0400 Body weight 76.[address] Lennie Patel MD Work Phone: [facility] 09-15-2024 09:29-0400 Diastolic blood pressure 74 mm[Hg] Dr. Lennie Patel MD Work Phone: [facility] 09-15-2024 09:29-0400 Heart rate 69 /min Dr. Lennie Patel MD Work Phone: [facility] 09-15-2024 09:29-0400 SaO2% (BldA) [Mass fraction] 98 % Dr. Lennie Patel MD Work Phone: [facility] 09-15-2024 09:29-0400 Systolic blood pressure 123 mm[Hg] Dr. Lennie Patel MD Work Phone: [facility] 09-11-2024 10:21-0400 Diastolic blood pressure 62 mm[Hg] Dr. Lennie Patel MD Work Phone: [facility] 09-11-2024 10:21-0400 Heart rate 57 /min Dr. Lennie Patel MD Work Phone: [facility] 09-11-2024 10:21-0400 Respiratory rate 16 /min Dr. Lennie Patel MD Work Phone: [facility] 09-11-2024 10:21-0400 Systolic blood pressure 117 mm[Hg] Dr. Lennie Patel MD Work Phone: [facility] 09-11-2024 09:19-0400 Body height 172.[address] Lennie Patel MD Work Phone: [facility] 09-11-2024 09:19-0400 SaO2% (BldA) [Mass fraction] 98 % Dr. Lennie Patel MD Work Phone: [facility] 08-14-2024 10:08-0400 Diastolic blood pressure 67 mm[Hg] Dr. Lennie Patel MD Work Phone: 0(607)946-257712 [place] [address] 08-14-2024 10:08-0400 Heart rate 63 /min Dr. Lennie Patel MD Work Phone: 7(891)247-081712 [place] [address] 08-14-2024 10:08-0400 Respiratory rate 16 /min Dr. Lennie Patel MD Work Phone: 7(773)688-886040 [place] [address] 08-14-2024 10:08-0400 Systolic blood pressure 121 mm[Hg] Dr. Lennie Patel MD Work Phone: 7(448)149-358440 [place] [address] 08-14-2024 09:07-0400 Body height 172.[address] Lennie Patel MD Work Phone: 8(933)009-718840 [place] [address] 08-14-2024 09:07-0400 Body mass index (BMI) [Ratio] 26.4 kg/m2 Dr. Lennie Patel MD Work Phone: 5(069)914-229612 [place] [address] 08-14-2024 09:07-0400 Body temperature 97.2 [degF] Dr. Lennie Patel MD Work Phone: 6(237)076-845812 [place] [address] 08-14-2024 09:07-0400 Body weight 78.[address] Lennie Patel MD Work Phone: 1(737)108-961640 [place] [address] 08-14-2024 09:07-0400 SaO2% (BldA) [Mass fraction] 99 % Dr. Lennie Patel MD Work Phone: 3(703)951-544412 [place] [address] 07-31-2024 10:29-0500 Diastolic blood pressure 59 mm[Hg] Dr. Lennie Patel MD Work Phone: 5(848)631-682412 [place] [address] 07-31-2024 10:29-0500 Heart rate 63 /min Dr. Lennie Patel MD Work Phone: [facility] 07-31-2024 10:29-0500 Respiratory rate 16 /min Dr. Lennie Patel MD Work Phone: [facility] 07-31-2024 10:29-0500 Systolic blood pressure 128 mm[Hg] Dr. Lennie Patel MD Work Phone: [facility] 07-31-2024 08:59-0500 Body height 172.[address] Lennie Patel MD Work Phone: [facility] 07-31-2024 08:59-0500 Body mass index (BMI) [Ratio] 26.6 kg/m2 Dr. Lennie Patel MD Work Phone: [facility] 07-31-2024 08:59-0500 Body temperature 96.4 [degF] Dr. Lennie Patel MD Work Phone: [facility] 07-31-2024 08:59-0500 Body weight 79.[address] Lennie Patel MD Work Phone: [facility] 07-31-2024 08:59-0500 SaO2% (BldA) [Mass fraction] 99 % Dr. Lennie Patel MD Work Phone: [facility] 07-24-2024 08:35-0500 Body mass index (BMI) [Ratio] 26.8 kg/m2 Dr. Lennie Patel MD Work Phone: [facility] 07-24-2024 08:35-0500 Body weight 80.[address] Lennie Patel MD Work Phone: [facility] 07-24-2024 08:35-0500 Diastolic blood pressure 76 mm[Hg] Dr. Lennie Patel MD Work Phone: [facility] 07-24-2024 08:35-0500 Heart rate 77 /min Dr. Lennie Patel MD Work Phone: [facility] 07-24-2024 08:35-0500 Respiratory rate 16 /min Dr. Lennie Patel MD Work Phone: [facility] 07-24-2024 08:35-0500 SaO2% (BldA) [Mass fraction] 99 % Dr. Lennie Patel MD Work Phone: [facility] 07-24-2024 08:35-0500 Systolic blood pressure 105 mm[Hg] Dr. Lennie Patel MD Work Phone: 8(454)789-974457 [address] 06-26-2024 09:02-0500 Body mass index (BMI) [Ratio] 27.5 kg/m2 Dr. Lennie Patel MD Work Phone: 9(841)035-976057 [address] 06-26-2024 09:02-0500 Body weight 82.[address] Lennie Patel MD Work Phone: 4(667)811-732357 [address] 06-26-2024 09:02-0500 Diastolic blood pressure 78 mm[Hg] Dr. Lennie Patel MD Work Phone: 1(794)457-240557 [address] 06-26-2024 09:02-0500 Heart rate 72 /min Dr. Lennie Patel MD Work Phone: 3(167)644-055757 [address] 06-26-2024 09:02-0500 SaO2% (BldA) [Mass fraction] 96 % Dr. Lennie Patel MD Work Phone: [facility] 06-26-2024 09:02-0500 Systolic blood pressure 134 mm[Hg] Dr. Lennie Patel MD Work Phone: [facility] 05-22-2024 17:58-0500 Body temperature 98 [degF] Dr. Lennie Patel MD Work Phone: [facility] 05-22-2024 17:58-0500 Diastolic blood pressure 74 mm[Hg] Dr. Lennie Patel MD Work Phone: 4(836)134-698512 [place] [address] 05-22-2024 17:58-0500 Heart rate 90 /min Dr. Lennie Patel MD Work Phone: 7(545)150-984312 [place] [address] 05-22-2024 17:58-0500 Respiratory rate 16 /min Dr. Lennie Patel MD Work Phone: 6(303)138-484912 [place] [address] 05-22-2024 17:58-0500 SaO2% (BldA) [Mass fraction] 100 % Dr. Lennie Patel MD Work Phone: 5(377)352-921712 [place] [address] 05-22-2024 17:58-0500 Systolic blood pressure 140 mm[Hg] Dr. Lennie Patel MD Work Phone: 6(015)327-026240 [place] [address] 05-22-2024 16:58-0500 Body mass index (BMI) [Ratio] 26.8 kg/m2 Dr. Lennie Patel MD Work Phone: 0(993)878-854040 [place] [address] 05-22-2024 16:58-0500 Body weight 79.[address] Lennie Patel MD Work Phone: 4(068)482-239457 [address] 04-21-2024 07:25-0500 Body temperature 97.4 [degF] Dr. Lennie Patel MD Work Phone: 3(339)336-864540 [place] [address] 04-21-2024 07:25-0500 Diastolic blood pressure 64 mm[Hg] Dr. Lennie Patel MD Work Phone: 5(298)771-624257 [address] 04-21-2024 07:25-0500 Heart rate 69 /min Dr. Lennie Patel MD Work Phone: [facility] 04-21-2024 07:25-0500 Respiratory rate 16 /min Dr. Lennie Patel MD Work Phone: 2(613)835-889257 [address] 04-21-2024 07:25-0500 SaO2% (BldA) [Mass fraction] 93 % Dr. Lennie Patel MD Work Phone: 4(693)855-251212 [place] [address] 04-21-2024 07:25-0500 Systolic blood pressure 106 mm[Hg] Dr. Lennie Patel MD Work Phone: [facility] 04-21-2024 05:57-0500 Body mass index (BMI) [Ratio] 25.2 kg/m2 Dr. Lennie Patel MD Work Phone: [facility] 04-21-2024 05:57-0500 Body weight 75.[address] Lennie Patel MD Work Phone: [facility] 10-27-2021 10:35-0400 Body temperature 98.1 [degF] Dr. Mauri Montiel Work Phone: [facility] Work Phone: 10-27-2021 10:35-0400 Diastolic blood pressure 57 mm[Hg] Dr. Mauri Montiel Work Phone: [facility] Work Phone: 10-27-2021 10:35-0400 Heart rate 64 /min Dr. Mauri Montiel Work Phone: [facility] Work Phone: 10-27-2021 10:35-0400 Respiratory rate 16 /min Dr. Mauri Montiel Work Phone: [facility] Work Phone: 10-27-2021 10:35-0400 SaO2% (BldA) [Mass fraction] 99 % Dr. Mauri Montiel Work Phone: [facility] Work Phone: 10-27-2021 10:35-0400 Systolic blood pressure 106 mm[Hg] Dr. Mauri Montiel Work Phone: [facility] Work Phone: 10-27-2021 09:14-0400 Body height 172.[address] Mauri Montiel Work Phone: [facility] Work Phone: 10-27-2021 09:14-0400 Body mass index (BMI) [Percentile] Per age and sex 42.8 % Dr. Mauri Montiel Work Phone: [facility] Work Phone: 10-27-2021 09:14-0400 Body mass index (BMI) [Ratio] 22.4 kg/m2 Dr. Mauri Montiel Work Phone: [facility] Work Phone: 10-27-2021 09:14-0400 Body weight [address] Mauri Montiel Work Phone: [facility] Work Phone: Encounters Encounter Date Encounter Type Care Provider Facility Start: 03-26-2025 End: 03-26-2025 ambulatory Brianne Baugh Facility:[facility] Start: 03-05-2025 Non-patient / Non-visit Tad Monahan DO -[facility] Start: 03-05-2025 End: 03-05-2025 Admission to same day surgery center Tad Monahan DO -Endoscopy Work Phone: Start: 03-05-2025 End: 03-05-[address] Lennie Patel MD Work Phone: -Endoscopy Start: 01-29-2025 End: 01-29-2025 Patient encounter procedure Brianne WALLS -Medical Out Work Phone: Start: 01-29-2025 End: 01-29-[address] Lennie Patel MD Work Phone: -[facility] Start: 12-29-2024 End: 12-29-2024 Patient encounter procedure Brianne WALLS -Medical Out Work Phone: Start: 12-29-2024 End: 12-29-[address] Lennie Patel MD Work Phone: -[facility] Start: 12-11-2024 End: 12-11-2024 Patient encounter procedure Brianne WALLS -[facility] Work Phone: Start: 12-11-2024 End: 12-11-[address] Lennie Patel MD Work Phone: -[facility] Start: 11-06-2024 End: 11-06-2024 Patient encounter procedure Brianne WALLS -Medical Out Work Phone: Start: 11-06-2024 End: 11-06-[address] Lennie Patel MD Work Phone: [facility] Work Phone: Start: 09-15-2024 End: 09-15-2024 Patient encounter procedure Brianne Baugh NP-C -[facility] Work Phone: Start: 09-15-2024 End: 09-15-2024 ambulatory Lennie Patel Facility[place] Start: 09-11-2024 End: 09-11-2024 Patient encounter procedure Brianne WALLS -Medical Out Work Phone: Start: 09-11-2024 End: 09-11-[address] Lennie Patel MD Work Phone: [facility] Work Phone: Start: 08-14-2024 End: 08-14-2024 Patient encounter procedure Brianne Baugh NP-Srinivas -Medical Out Work Phone: Start: 08-14-2024 End: 08-14-[address] Lennie Patel MD Work Phone: [facility] Work Phone: Start: 07-31-2024 End: 07-31-2024 Patient encounter procedure Brianne WALLS -Medical Out Work Phone: Start: 07-31-2024 End: 07-31-[address] Lennie Patel MD Work Phone: [facility] Work Phone: Start: 07-26-2024 End: 07-26-2024 Subsequent hospital visit by physician Dmitri [address] Comment on above: Family history of is chemic heart disease and other diseases of the circulatory system Start: 07-26-2024 End: 07-26-2024 ambulatory [facility] Start: 07-24-2024 End: 07-24-2024 Patient encounter procedure Brianne WALLS -[facility] Work Phone: Start: 07-24-2024 End: 07-24-2024 ambulatory [facility] Start: 06-27-2024 End: 06-27-2024 Patient encounter procedure Brianne WALLS -Laboratory, Specimen Work Phone: Start: 06-26-2024 End: 06-26-2024 Patient encounter procedure Brianne WALLS -[facility] Work Phone: Start: 06-26-2024 End: 06-27-2024 ambulatory Brianne Baugh Facility:[facility] Start: 06-26-2024 End: 06-26-2024 ambulatory Brianne Baugh Facility:[facility] Start: 06-19-2024 End: 06-19-[address] Lennie Patel MD -Laboratory Work Phone: Start: 06-19-2024 End: 06-19-2024 [facility]ulatory [facility] Start: 06-03-2024 End: 06-03-[address] Lennie Patel MD -Laboratory Work Phone: Start: 06-03-2024 End: 06-03-2024 ambulatory [facility] Pat[facility] Facility:[facility] Start: 05-29-2024 End: 05-29-[address] Lennie Patel MD -Radiology, [place] Work Phone: Start: 05-29-2024 End: 05-29-2024 ambulatory Lennie Patel Facility:[facility] Start: 05-22-2024 End: 05-22-2024 Emergency department patient visit Dr. John Galeas -Emergency Department Work Phone: Start: 05-22-2024 End: 05-22-2024 Patient encounter procedure Tad Monahan DO -Laboratory Work Phone: Start: 05-22-2024 End: 05-22-2024 ambulatory Lennie Patel Facility:[facility] Start: 04-21-2024 ambulatory Lennie Patel Faci lity:[facility] Start: 04-21-2024 Non-patient / Non-visit Tad Monahan DO -[facility] Start: 04-21-2024 End: 04-21-2024 Admission to same day surgery center Tadmohit Monahan DO -Endoscopy Work Phone: Start: 04-21-2024 End: 04-21-2024 ambulatory Lennie Patel Facility:[facility] Start: 09-05-2023 End: 09-05-[address] Lennie Patel Work Phone: [facility] Work Phone: Start: 09-05-2023 End: 09-05-[address] Lennie Patel Work Phone: [facility] Gastro[facility] Work Phone: Start: 03-08-2023 End: 03-08-[address] Truong Patel Work Phone: [facility] Work Phone: Start: 03-08-2023 End: 03-08-[address] Truong Patel Work Phone: [facility] Work Phone: Start: 06-01-2022 End: 06-01-[address] Truong Patel Work Phone: [facility] Work Phone: Start: 06-01-2022 End: 06-01-[address] Truong Patel Work Phone: [facility]-Laboratory Start: 05-30-2022 End: 05-30-[address] Truong Patel Work Phone: [facility] Start: 04-05-2022 End: 04-05-[address] Truong Patel Work Phone: [facility] Start: 01-03-2022 End: 01-03-[address] Mauri Montiel Work Phone: [facility] Start: 10-27-2021 Non-patient / Non-visit Dr. Mauri Montiel Work Phone: [facility] Start: 10-27-2021 End: 10-27-2021 Admission to same day surgery center Dr. Mauri Montiel Work Phone: [facility]-Endoscopy Start: 10-01-2021 End: 10-01-[address] Mauri Montiel Work Phone: [facility]-Laboratory Start: 09-23-2021 End: 09-23-[address] Mauri Montiel Work Phone: [facility]-Laboratory, Specimen Start: 09-22-2021 End: 09-22-[address] Mauri Montiel Work Phone: [facility]Laboratory Start: 09-22-2021 End: 09-22-[address] Mauri Montiel Work Phone: [facility] Gastroenter[facility] Start: 09-20-2021 End: 09-20-[address] [facility] Start: 09-19-2021 End: 09-19-[address] Mauri Montiel Work Phone: [facility], [facility] Start: 01-23-2018 End: 01-23-2018 Patient encounter ISABELA ALCALA [facility] Procedures Date Procedure Procedure Detail Performing Clinician Start: 03-05-[address] Roman Patel MD Work Phone: Start: 11-06-[address] Theodore Patel MD Work Phone: Start: 11-06-2024 Vitamin D, 25-hydroxy measurement Dr. Roman Patel MD Work Phone: Comment on above: Vitamin D StatusDeficiency: <20 ng/mL (5 0nmol/L)Insufficiency: 20-30 ng/mL (50-75 nmol/L)Sufficiency: 30-100 ng/mL (75-250 nmol/L)Toxicity: >100 ng/mL (>250 nmol/L) Start: 05-29-2024 Plain x-ray of hand Dr. [...] 2) Zoste r Vaccines (1 of 2) [facility] Start: 03-05-2025 Patient discharge [facility] Start: 01-07-2025 DTaP/Tdap/Td Vaccine s (7 - Td or Tdap) DTaP/Tdap/Td Vaccines (7 - Td or Tdap) [facility] Start: 12-29-2024 Intravenous infusion THER/PROP H/DIAG IV INF [facility] Start: 12-29-2024 Iv infusion therapy/prophylaxis /dx 1st to 1 hr THER/PROPH/DIAG IV INF [facility] Start: 11-06-2024 Iv infusion therapy/prophylaxis /dx 1st to 1 hr THER/PROPH/DIAG IV INF [facility] Start: 11-06-2024 Protein measurement [facility] Start: 09-11-2024 Iv infusion therapy/prophylaxis /dx 1st to 1 hr THER/PROPH/DIAG IV INF [facility] Start: 08-14-2024 Iv infusion therapy/prophylaxis /dx 1st to 1 hr THER/PROPH/DIAG IV INF [facility] Start: 07-31-2024 Iv infusion therapy/prophylaxis /dx 1st to 1 hr THER/PROPH/DIAG IV INF [facility] Start: 05-22-2024 [facility] Start: 04-21-2024 Colonoscopy w/biopsy single/multiple COLONOSCOPY AND BIOPSY [facility] Start: 04-21-2024 Patient discharge [facility] Start: 01-27-2024 COVID-19 Vaccine ( season) COVID-19 Vaccine ( season) [facility] Start: 01-27-2024 Influenza vaccination Influenza Vacc ine (#1) [facility] Start: 01-03-2022 In-vitro immunologic test [facility] Work Phone: Start: 10-27-2021 Colonoscopy w/biopsy single/multiple COLONOSCOPY AND BIOPSY [facility] Work Phone: Start: 09-20-2021 Ova and Parasites [facility] Work Phone: Start: 12-23-2019 [facility] Start: 2017 Meningococcal B Vacc ine (1 of 2 - Standard) Meningococcal B Vaccine (1 of 2 - Standard) [facility] Start: 2016 HPV Vaccines (1 - Ma le 3-dose series) HPV Vaccines (1 - Male 3-dose series) [facility] Start: 2001 HIV screening HIV Screening [facility] Start: 2001 Lipid panel Lipid Panel [facility] Start: 2001 Yearly Adult Physical Yearly Adult P hysical [facility] End: 07-26-2024 CT for calcium scoring WO contrast and CTA W contrast IV Heart and coronary arteries [facility] Service Area Work Phone: Comment on above: Once for 1 Occurrenc es starting 07/26/2024 until 07/26/2024 In-vitro immunologic test [facility] Work Phone: Mycobacterium tuberculosis tuberculin stimulated gamma interferon [Presence] in Blood [facility] Work Phone: Patient Education ED Myalgias [facility] Work Phone: Patient referral [facility] Work Phone: Procedure [facility] Immunizations Immunization Date Immunization Notes Care Provider Hemalatha ann 04-03-2016 influenza virus vacc ine, unspecified formulation [facility] [address] [facility] Work Phone: Payers Date Payer Category Payer Unknown [id number] 2024 Self-pay [id number] 2023 Managed Care (Private) [facility] [id number] 2023 Private Health Insurance [facility] [id number] 2001 Unknown [id number]. [id number] Unknown [id number] Unknown [facility] [id number] Unknown [facility] [id number] Unknown [facility] P[facility] PLAN [id number] Unknown [id number] [id number]. 462 Unknown [id number] 2.840.1.014213.3.579.2. 462 Unknown [id number] .[id number]. 462 Unknown [id number] .[id number]. 462 Unknown [id number] .0.1.447067.3.579.2. 462 Unknown [id number] 2.840.1.123305.3.579.2. 462 Unknown [id number] 2.840.1.856248.3.579.2. 462 Unknown [id number] 2.840.1.073027.3.579.2. 462 Unknown [id number] 2.16.840.1.766287.3.579.2. 462 Unknown [id number] 2.16.840.1.780461.3.579.2. 462 Unknown [id number] 2.16.840.1.777492.3.579.2. 462 Unknown [id number] 2.16.840.1.887253.3.579.2. 462 Unknown [id number] 2.16.840.1.021526.3.579.2. 462 Unknown [id number] 2.16.840.1.846417.3.579.2. 462 Unknown [id number] 2.16.840.1.816720.3.579.2. 462 Unknown [id number] 2.16.840.1.311826.3.579.2. 462 Unknown [id number] 2.16.840.1.180753.3.579.2. 462 Unknown [id number] 2.16.840.1.167940.3.579.2. 462 Unknown [id number] 2.16.840.1.973088.3.579.2. 462 Unknown [id number] 2.16.840.1.530681.3.579.2. 462 Unknown [id number] 2.16.840.1.965001.3.579.2. 462 Unknown [id number] [id number]. 462 Social History Date Type Detail Facility Start: 09-22-2021 End: 09-05-2023 Tobacco smoking status ORIS Unknown if ever smoked [facility] Start: 2001 Sex Assigned At Male [facility] Start: 2001 Sex assigned at Not on file [facility] Work Phone: Gender identity Not on file [facility] Start: 07-16-2024 End: 07-26-2024 Exposure to SARS-CoV-2 (event) Not sure [facility] Start: 07-24-2024 End: 03-03-2025 Tobacco smoking status NHIS Never smoked tobacco (finding) [facility] Start: 08-01-2024 End: 09-12-2024 Sex Male (finding) [facility] Goals Date Patient Goal Desired Activity /State Mental Status Date Assessment Result Facility 03-05-2025 Cognitive function Level Of Consciousness Awake [facility] Work Phone: 03-05-2025 Cognitive function Voice/Name [facility] Work Phone: 01-29-2025 Cognitive function Awake;Alert;A ppropriate;Follow s Commands [facility] Work Phone: 12-29-2024 Cognitive function Voice/Name [facility] Work Phone: 11-06-2024 Cognitive function Level Of Cons ciousness Awake;Alert;Appropriate [facility] Work Phone: 09-11-2024 Cognitive function Awake;Alert;A ppropriate;Follow s Commands [facility] Work Phone: 08-14-2024 Cognitive function Voice/Name [facility] Work Phone: 07-31-2024 Cognitive function Awake;Alert;A ppropriate;Follow s Commands [facility] Work Phone: 04-21-2024 Cognitive function Touch/Shaking [facility] Work Phone: 10-27-2021 Cognitive function Voice/Name [facility] Work Phone: Clinical Notes 2001 to 03-05-2025 Note Date & Type Note Facility 03-05-2025 Procedure note [facility] 03-05-2025 Procedure note [facility] 03-05-2025 Consult note [facility] 03-05-2025 History and physical note Note Date/Time March 05, 2025 8:28am [facility] Medical Records Department [address] [place] [address] History & Physical Exam 03/05/25826 MR#: [id number] Acct: [id number] Name: CARLA FUENTES Rep #:[id number] : 2000 24 From: Tad Friend PCP: Dr. 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 Colonoscopy was performed 04/21/2024 for complains of increased bleeding. This revealed moderately active (Ricardo Score 2) proctosigmoid ulcerative colitis, worsened since the last examination. Mild inflammation was found in the ileum secondary to ileitis. Rectal biopsy revealedmild active colitis, remainder of biopsies were negative for active inflammation. He started prednisone 50mg daily post procedure and started taper after being seen in ED on 05/22/2024 with c/o BLE myalgias and migraines. Due toongoing s/e of prednisone despite lower dose, he discontinued and started Budesonide 9mg daily. He was continuing to experience 1-2 episodes of rectal bleeding daily with BM. He started Entyvio infusions on 07/31/2024 and completed loading doses on 09/11/2024 and reports resolution of rectal bleeding after firstEntyvio infusion. Budesonide was decreased to 6mg daily after his 3rd loading dose and he will continue 6mg daily for 3 weeks, then decrease to 3mg daily x 2weeks and discontinue. He will complete labs, fecal calprotectin in October and Sigmoidoscopy in January. He will follow-up in three months, sooner for symptoms. He is continuing to experience loose stools 2x a day with urgency. Patient Instructions: - Budesonide dropped to 6mg daily after 3rd Entyvio infusion on 09/11/2024 for 3 weeks and then decrease to 3mg daily on 10/02/2024 x2 weeks and then discontinue - Repeat Fecal Calprotectin 3 months after starting Entyvio (October 2024) - Complete labs October 2024 - will see if you can have drawn at infusion center - Sigmoidoscopy 6 months after starting Entyvio (January 2025) - Continue daily Vitamin D supplement - Follow-up in the office in 3 months (November 2024) CBC: 06/03/2024 HGB 17.1 CMP: 06/26/2024 WNL CRP: 06/03/2024 normal VITAMIN B12: 06/03/2024 normal VITAMIN LOW 23 Thiopurine Metabolite: 02/12/2024 6-TGN - 276 6-MMPN - 623 TPMT 20.8 QUANTIFERON: 06/26/2024 negative HBVsAb: 06/26/2024 non-reactive HBVsA06/26/2024 negative HBV Core Total Ab: 06/26/2024 negative HCV: 10/01/2021 negative Fecal Calprotectin: 06/27/2024 mildly elevated 71 06/01/2022 normal 09/23/2021 1436 COLON: 04/21/2024 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 Mild inflammation was found in theileum secondary to ileitis. Rectal biopsy revealed mild active colitis, remainder of biopsies were negative for active inflammation. COLON: 10/27/2021 TI biopsy negative. Descending - focal active colitis. Sigmoid and Rectum with active colitis. MEDS: probiotic QD, Budesonide 9mg QD, OTC magnesium and potassium supplement --------DISCONTINUED azathioprine 150mg QD on 06/26/2024 BIOLOGICS: Entyvio: Start Date - 07/31/2024 -- Last infusion 09/11/2024 ------> next infusion 01/01/2025 STEROIDS ----- started 06/20/2024 BUDESONIDE 9mg QD - Budesonide dropped to 6mg daily after 3rd Entyvio infusion on 09/11/2024 for 3 weeks and then decrease to 3mg daily on 10/02/2024 x2 weeks and then discontinue 05/22/2024 Will begin 30mg tomorrow for a [...] 20mg TID with taper in two months toBID 09/02/2021 pred 50mg QD IBD SYMPTOMS: Bowel movements are: 1-2x a day, soft, formed, denies any diarrhea Blood noted in stools: denies Bowel movement urgency present: denies Stool incontinence: denies Nocturnal BM's: denies Abdominal pain: denies Rectal pain: denies QOL: ROS: Fever: denies Night Sweats: denies Visual changes: denies Mouth sores: denies Joint pain: denies Skin rashes/Lesions: denies Weight changes: denies Smoking status: denies NSAID use: denies, and has been instructed to abstain from use of NSAIDS - headache the day after infusions - no infusion site reaction - Medicaid approved Attestation: Documentation on this patient encounter was supported using ambient scribe technology/ voice AI technology. The patient consented to recording for the purpose of documenting the encounter. Provider reviewed content of the generatednote prior to signature. [facility] Medical History Hx of ulcerative colitis Wears glasses Depression Non-smoker Contact with and (suspected) exposure to other viral communicable diseases Nausea & vomiting Bloody stools Wears contact lenses Nausea Hematochezia Melena Fecal urgency Diarrhea Acute otitis media, right Home Medications ?Medication ?Instructions ?Recorded ?Last Taken ?Type Lactobacillus acidophilus 10 100 mmu cells PO DAILY 03/05/25 History billion cell capsule (Probacap) multivitamin (Daily Multi-Vitamin 1 tab PO DAILY 04/1703/04/25 History tablet) alprazolam 1 mg tablet 1 mg PO QHS PRN sleep 1 evan h #30 04/21/24 Unknown Rx tabs duloxetine 30 mg capsule,delayed 30 mg PO DAILY 03/04/25 History release vedolizumab 300 mg intravenous 300 mg IV .Q8 WKS 09/1502/05/25 History solution (Entyvio) cholecalciferol (vitamin D3) 125 125 mcg PO DAILY 10/2603/05/25 History mcg (5,000 unit) capsule Allergy/AdvReac Type Severity Reaction Status Date / Time No Known Allergies Allergy Verified 03/05/25 08:14 Surgical History History of wisdom tooth extraction History of colonoscopy History of placement of ear tubes Social History Smoking Status: Never smoker alcohol intake: never substance use type: does not use ROS Constitutional Constitutional: Denies fatigue, fever(s), poor appetite, weight gain or weight loss Gastrointestinal Gastrointestinal: Denies belching, bloating, change in bowel habits, change in stool character, chewing difficulty, coffee ground emesis, constipation, cramping, diarrhea, dyspepsia, dysphagia, early satiety, excessive flatus, fecalincontinence, heartburn, hematemesis, hematochezia, hemorrhoids, loose stools, melena, nausea, odynophagia, rectal bleeding, tenesmus, vomiting or weight changes Vital Signs Vital Signs Vital Signs: 03/05/25 08:16 03/05/25 08:16 Temperature 97.7 F L Temperature Source Temporal Pulse Rate 61 Respiratory Rate 16 Respiratory Pattern Normal Blood Pressure 114/68 Blood Pressure Mean 83 Blood Pressure Source Monitor Blood Pressure Position Semi-Fowlers Blood Pressure Location Left Arm Pulse Ox 100 Oxygen Delivery Method Room Air Weight Weight: 175 lb 11.335 oz Body Mass Index (BMI) 25.9 Physical Exam Const alert, oriented x3, no apparent distress and healthy appearing General Appearance: cooperative GI normal to inspection, nondistended, normoactive bowel sounds, soft to palpation,non-tender and non-distended Percussion: normal to percussion Rectal Exam: deferred Assessment & Plan Assessment/Plan (1) Rectal bleeding: (2) Ulcerative colitis: QUALIFIERS: Ulcerative colitis location: ulcerative pancolitis Digestive disease complication type: without complication Qualified Code(s): K51.00 - Ulcerative (chronic) pancolitis without complications PLAN: Assessment and Plan Assessment and Plan (1) Ulcerative colitis: Status: Chronic Qualifiers: Digestive disease complication type: without complication Ulcerative colitis location: ulcerative pancolitis Qualified Code(s): K51.00 - Ulcerative (chronic) pancolitis without complications Plan: - The patient will continue with Entyvio infusions as planned, with a sigmoidoscopy scheduled for January to assess mucosal healing. The elevated fecal calprotectin level will be re-evaluated in conjunction with the sigmoidoscopy to determine the accuracy of the stool test and the presence of inflammation. - Labs to be completed with March Entyvio infusion, order faxed to infusion center (anticipated on 04/23/2025). Plan The patient is a 23-year-old male presenting with ulcerative colitis management.He has been receiving Entyvio infusions, which are generally well-tolerated, although he experiences headaches the day after, resolving with Tylenol. He reports no bleeding, infusion site reactions, or insurance issues. Previously, he had frequent bowel movements with tenesmus and blood, now resolved. He currently has normal bowel movements once daily without urgency, nocturnal symptoms, abdominal pain, or rectal pain. He denies night sweats, fevers, skin rashes, or lesions. He is a nonsmoker and does not take anti-inflammatory medications. October blood work showed normal white count, hemoglobin, and liver enzymes, but fecal calprotectin was elevated at 1170, significantly higher than previous levels (11x greater than May 2024). He was previously on azathioprine, which was discontinued, and is no longer on steroids (prednisone/budesonide). A sigmoidoscopy is planned for January to assess mucosal healing, as guidelines recommend mucosal assessment six months after therapy change. I have recommended he also complete stool testing January 2025, P4Dx kit provided today. Patient Instructions: - Continue with Entyvio infusions as scheduled. - Labs due April 2025 - Patient provided P4Dx stool kit to complete Fecal Calprotectin January 2025. - Prepare for a sigmoidoscopy in January, will call in 4-6 weeks to schedule as he may be changing jobs. - Monitor for any new or worsening symptoms and report them to the healthcare provider. Plan Details Follow Up: 6 Months ] 03/05/25827 <Electronically signed by Tad Monahan DO> Cosigner Signature (if applicable): CC: Dr. Lennie Patel MD; Tad Monahan DO~ Signed [facility] Work Phone: [phone]) 505-349910-09-2025 Consult note Author Juanito Wakefield [facility] Note Date/Time March 05, 2025 7: 51am [facility] Medical Records Department [address] [place] [address] Pre-Anesthesia Evaluation 03/05/25 0750 MR#: [id number] Acct: [id number] Name: CARLA FUENTES Rep #:[id number] : 2000 24 From: Juanito Wakefield MD PCP: Dr. Lennie Patel MD Status :REG SDC Y Race: C Location: [place] [address] ASA Classification* ASA Classification ASA Classification: 2 Assessment & Plan Anesthesia* Anesthesia Assessment Anesthesia Assessment: Discussed sedation and/or anesthesia options, risks, benefits, and alternatives with patient/parents/legal guardian/POA. Questions invited. The patient/parents/legal guardian/POA seems to understand and agrees to proceedwith anesthesia plan. Reviewed the physical assessment, medical history, allergy history and patient home medications list prior to surgery/procedure/anesthetic and documented any changes. Performed airway and anesthesia risk assessments. Anesthesia Type Anesthesia Type: MAC Anesthesia Focused Assessment* Airway Assessment Mouth opens: >3 cm Mallampati Score: II Labs Anesthesia Preop lab: CBC WBC, (4.4-11.0) 6.1 K/mm3 11/06/24, 09:16 RBC, (4.6-6.2) 4.99 M/mm3 11/06/24, 09:16 Hgb, (13.0-16.5) 15.6 g/dL 11/06/24, 09:16 Hct, (40-54) 46.7 % 11/06/24, 09:16 Plt Count, (150-450) 201 K/mm3 11/06/24, 09:16 CHEMISTRY Potassium, (3.3-5.1) 4.2 mmol/L 11/06/24, 09:16 Sodium, (133-145) 137 mmol/L 11/06/24, 09:16 Magnesium, (1.6-2.6) 2.3 mg/dL 06/26/24, 10:07 BUN, (4-19) 14 mg/dL 11/06/24, 09:16 Creatinine, (0.70-1.20) 1.08 mg/dL 11/06/24, 09:16 Glucose, (70-99) 91 mg/dL 11/06/24, 09:16 TSH, (0.358-3.740) 1.460 uIU/mL 06/03/24, 10:50 COAG Pre-Assessment Diagnosis/Proposed Procedure Planned Operative Procedure(s): Flexible Sigmoidoscopy Anesthesia History Anesthesia History - customer service administrator: Anesthesia History - customer service administrator Hx Hospitalization No 03/03/25 09:53 Any Problems With Anesthesia No 03/03/25 09:53 Cholinesterase deficiency No 03/03/25 09:53 You/Your Family Experience No 03/03/25 09:53 fever (hyperthermia) with Relationship Recent Exposure to Contagious No 04/21/24 05:57 Disease Does patient have nerve No 03/03/25 09:53 stimulator Patient instructed to have device shut off --Does patient have Pacemaker or ICD? When Was Last Pacemaker Check QUESTION #4 FULL TEXT: You/Your Family Experience fever (hyperthermia) with Anesthesia Last Oral Intake Last Oral intake: Last Oral Intake NPO since Meds taken in AM with sips of water? Meds patient instructed to take am of surgery PONV PONV - customer service administrator: PONV - customer service administrator Female No 03/03/25 09:53 HX of Motion Sickness No 03/03/25 09:53 HX of N/V After Surgery No 03/03/25 09:53 Non-Smoker Yes 03/03/25 09:53 Duration of Surgery greater No 03/03/25 09:53 than 60 minutes Number of Risk Factors 1 03/03/25 09:53 PONV Score Low Risk 03/03/25 09:53 Height & Weight Height & Weight: Anesthesia: Height & Weight Height 5 ft 8 in 01/29/25 09:46 Respiratory Assessment Respiratory Assessment - customer service administrator: Respiratory Tract Infection Hx - customer service administrator Hx Respiratory Tract Infection No 03/03/25 09:53 STOP Sleep Apnea STOP Sleep Apnea - customer service administrator: STOP Sleep Apnea - customer service administrator Hx Hypertension No 03/03/25 09:53 Hx Sleep Apnea No 03/03/25 09:53 CPAP BIPAP Do you snore loudly (louder No 03/03/25 09:53 than talking or can be heard Do you often feel tired/ No 03/03/25 09:53 fatigued/ sleepy during daytime? Has anyone observed you stop No 03/03/25 09:53 breathing during sleep? STOP Results Negative 03/03/25 09:53 QUESTION #5 FULL TEXT : Do you snore loudly (louder than talking or can be heard through closed doors)? Tobacco Use History Tobacco Use History - customer service administrator: Tobacco Use History - customer service administrator Tobacco Use Smoking Status Never smoker 03/03/25 09:53 Hx Tobacco Use No 03/03/25 09:53 Years Smoking Packs Smoked per Day Smoking Cessation Date was within the last 15 years Hx Smoking Cessation Date Hx Smoking Cessation Counseling Hematologic Medial History Hematologic Hx - customer service administrator: Hematologic Medical Hx - welt rander Hx of Blood Transfusion No 03/03/25 09:53 Hx of Transfusion in last 3 No 03/03/25 09:53 Months Date of Last Transfusion (if within last 3 months) Ever experience any problems No 03/03/25 09:53 with transfusion(s)? Specify any problems Hx of Preganancy in last 3 N/A 03/03/25 09:53 Months Nurse Filling Out Transfusion JZOLLINGE 03/03/25 09:53 & Questions: Date: 03/03/25 03/03/25 09:53 Time: 09:54 03/03/25 09:53 Patient unable to answer at this time (ie. confused, unrespo /Reproduction History /Reproductive History - customer service administrator: /Reproductive Hx- customer service administrator Hx Now No 03/03/25 09:53 Gestational Age (in weeks): EDC: Hx Hx Para Hx Section SAB No 03/03/25 09:53 Active Medications Active Medications: Current Medications Generic Name Dose Route Start Last Admin Trade Name Freq PRN Reason Stop Dose Admin Lactated Ringer's 1,000 mls @ 15 mls/hr 03/05/25 07:45 IV .Q48H MARIELLA PFSH Medical History Hx of ulcerative colitis Wears glasses Depression Non-smoker Contact with and (suspected) exposure to other viral communicable diseases Nausea & vomiting Bloody stools Wears contact lenses Nausea Hematochezia Melena Fecal urgency Diarrhea Acute otitis media, right Home Medications ?Medication ?Instructions ?Recorded ?Last Taken ?Type Lactobacillus acidophilus 10 100 mmu cells PO DAILY 04/20/24 History billion cell capsule (Probacap) multivitamin (Daily Multi-Vitamin 1 tab PO DAILY 04/1704/20/24 History tablet) alprazolam 1 mg tablet 1 mg PO QHS PRN sleep 1 evan h #30 04/21/24 Unknown Rx tabs duloxetine 30 mg capsule,delayed 30 mg PO DAILY Unknown History release vedolizumab 300 mg intravenous 300 mg IV .Q8 WKS 09/15 Unknown History solution (Entyvio) cholecalciferol (vitamin D3) 125 125 mcg PO DAILY 10/26 07/22 Unknown History mcg (5,000 unit) capsule Allergy/AdvReac Type Severity Reaction Status Date / Time No Known Allergies Allergy Verified 03/03/25 09:49 Surgical History History of wisdom tooth extraction History of colonoscopy History of placement of ear tubes Social History Smoking Status: Never smoker alcohol intake: never substance use type: does not use Review of Systems (Anesthesia) ROS Narrative System reviewed and no additional complaints, except as documented. 03/05/25 7071 <Electronically signed by Juanito Wakefield MD > Date _ [facility] Wake[facility] Signature: Date CC: ~ Signed [facility] Work Phone: [phone]) 710-137210-09-2025 History and physical note [facility] Medical Records Department [address] [place] [address] History & Physical Exam 03/05/25826 MR#: [id number] Acct: [id number] Name: CARLA FUENTES Rep #:[id number] : 2000 24 From: Tad Friend DO PCP: Dr. 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 Colonoscopy was performed 04/21/2024 for complains of increased bleeding. This revealed moderately active (Ricardo Score 2) proctosigmoid ulcerative colitis, worsened since the last examination.Mild inflammation was found in the ileum secondary to ileitis. Rectal biopsy revealedmild active colitis, remainder of biopsies were negative for active inflammation. He started prednisone 50mg dailypost procedure and started taper after being seen in ED on 05/22/2024 with c/o BLE myalgias and migraines. Due toongoing s/e of prednisone despite lower dose, he discontinued and started Budesonide 9mg daily. He was continuing to experience 1-2 episodes of rectal bleeding daily with BM. He started Entyvio infusions on 07/31/2024 and completed loading doses on 09/11/2024 and reports resolution of rectal bleeding after firstEntyvio infusion. Budesonide was decreased to 6mg daily after his 3rd loading dose and he will continue 6mg daily for 3 weeks, then decrease to 3mg daily x 2weeks and discontinue. He will complete labs, fecal calprotectin in October and Sigmoidoscopy in January. He will follow-up in three months, sooner for symptoms. He is continuing to experience loose stools 2x a day with urgency. Patient Instructions: - Budesonide dropped to 6mg daily after 3rd Entyvio infusion on 09/11/2024 for 3 weeks and then decrease to 3mg daily on 10/02/2024 x2 weeks and then discontinue - Repeat Fecal Calprotectin 3 months after starting Entyvio (October 2024) - Complete labs October 2024 - will see if you can have drawn at infusion center - Sigmoidoscopy 6 months after starting Entyvio (January 2025) - Continue daily Vitamin D supplement - Follow-up in the office in 3 months (November 2024) CBC: 06/03/2024 HGB 17.1 CMP: 06/26/2024 WNL CRP: 06/03/2024 normal VITAMIN B12: 06/03/2024 normal VITAMIN LOW 23 Thiopurine Metabolite: 02/12/2024 6-TGN - 276 6-MMPN - 623 TPMT 20.8 QUANTIFERON: 06/26/2024 negative HBVsAb: 06/26/2024 non-reactive HBVsA06/26/2024 negative HBV Core Total Ab: 06/26/2024 negative HCV: 10/01/2021 negative Fecal Calprotectin: 06/27/2024 mildly elevated 71 06/01/2022 normal 09/23/2021 1436 COLON: 04/21/2024 Moderately active (Ricardo Score 2) proctosigmoid ulcerative colitis, worsened sincethe last examination. Mild inflammation was found in theileum secondary to ileitis. Rectal biopsy revealed mild active colitis, remainder of biopsies were negative for active inflammation. COLON: 10/27/2021 TI biopsy negative. Descending - focal active colitis. Sigmoid and Rectum with active colitis. MEDS: probiotic QD, Budesonide 9mg QD, OTC magnesium and potassium supplement --------DISCONTINUED azathioprine 150mg QD on 06/26/2024 BIOLOGICS: Entyvio: Start Date - 07/31/2024 -- Last infusion 09/11/2024 ------> next infusion 01/01/2025 STEROIDS ----- started 06/20/2024 BUDESONIDE 9mg QD - Budesonide dropped to 6mg daily after 3rd Entyvio infusion on 09/11/2024 for 3 weeks and then decrease to 3mg daily on 10/02/2024 x2 weeks and then discontinue 05/22/2024 Will begin 30mg tomorrow for a [...] 20mg TID with taper in two months toBID 09/02/2021 pred 50mg QD IBD SYMPTOMS: Bowel movements are: 1-2x a day, soft, formed, denies any diarrhea Blood noted in stools: denies Bowel movement urgency present: denies Stool incontinence: denies Nocturnal BM's: denies Abdominal pain: denies Rectal pain: denies QOL: ROS: Fever: denies Night Sweats: denies Visual changes: denies Mouth sores: denies Joint pain: denies Skin rashes/Lesions: denies Weight changes: denies Smoking status: denies NSAID use: denies, and has been instructed to abstain from use of NSAIDS - headache the day after infusions - no infusion site reaction - Medicaid approved Attestation: Documentation on this patient encounter was supported using ambient scribe technology/ voice AI technology. The patient consented to recording for the purpose of documenting the encounter. Provider reviewed content of the generatednote prior to signature. [facility] Medical History Hx of ulcerative colitis Wears glasses Depression Non-smoker Contact with and (suspected) exposure to other viral communicable diseases Nausea & vomiting Bloody stools Wears contact lenses Nausea Hematochezia Melena Fecal urgency Diarrhea Acute otitis media, right Home Medications ?Medication ?Instructions ?Recorded ?Last Taken ?Type Lactobacillus acidophilus 10 100 mmu cells PO DAILY 03/05/25 History billion cell capsule (Probacap) multivitamin (Daily Multi-Vitamin 1 tab PO DAILY 04/1703/04/25 History tablet) alprazolam 1 mg tablet 1 mg PO QHS PRN sleep 1 evan h #30 04/21/24 Unknown Rx tabs duloxetine 30 mg capsule,delayed 30 mg PO DAILY 03/04/25 History release vedolizumab 300 mg intravenous 300 mg IV .Q8 WKS 09/1502/05/25 History solution (Entyvio) cholecalciferol (vitamin D3) 125 125 mcg PO DAILY 10/2603/05/25 History mcg (5,000 unit) capsule Allergy/AdvReac Type Severity Reaction Status Date / Time No Known Allergies Allergy Verified 03/05/25 08:14 Surgical History History of wisdom tooth extraction History of colonoscopy History of placement of ear tubes Social History Smoking Status: Never smoker alcohol intake: never substance use type: does not use ROS Constitutional Constitutional: Denies fatigue, fever(s), poor appetite, weight gain or weight loss Gastrointestinal Gastrointestinal: Denies belching, bloating, change in bowel habits, change in stool character, chewing difficulty, coffee ground emesis, constipation, cramping, diarrhea, dyspepsia, dysphagia, earlysatiety, excessive flatus, fecalincontinence, heartburn, hematemesis, hematochezia, hemorrhoids, loose stools, melena, nausea, odynophagia, rectal bleeding, tenesmus, vomiting or weight changes Vital Signs Vital Signs Vital Signs: 03/05/25 08:16 03/05/25 08:16 Temperature 97.7 F L Temperature Source Temporal Pulse Rate 61 Respiratory Rate 16 Respiratory Pattern Normal Blood Pressure 114/68 Blood Pressure Mean 83 Blood Pressure Source Monitor Blood Pressure Position Semi-Fowlers Blood Pressure Location Left Arm Pulse Ox 100 Oxygen Delivery Method Room Air Weight Weight: 175 lb 11.335 oz Body Mass Index (BMI) 25.9 Physical Exam Const alert, oriented x3, no apparent distress and healthy appearing General Appearance: cooperative GI normal to inspection, nondistended, normoactive bowel sounds, soft to palpation,non-tender and non-distended Percussion: normal to percussion Rectal Exam: deferred Assessment & Plan Assessment/Plan (1) Rectal bleeding: (2) Ulcerative colitis: QUALIFIERS: Ulcerative colitis location: ulcerative pancolitis Digestive disease complication type:without complication Qualified Code(s): K51.00 - Ulcerative (chronic) pancolitis without complications PLAN: Assessment and Plan Assessment and Plan (1) Ulcerative colitis: Status: Chronic Qualifiers: Digestive disease complication type: without complication Ulcerative colitis location: ulcerative pancolitis Qualified Code(s): K51.00 - Ulcerative (chronic) pancolitis without complications Plan: - The patient will continue with Entyvio infusions as planned, with a sigmoidoscopy scheduled for January to assess mucosal healing. The elevated fecal calprotectin level will be re-evaluated in conjunction with the sigmoidoscopy to determine the accuracy of the stool test and the presence of inflammation. - Labs to be completed with March Entyvio infusion, order faxed to infusion center (anticipated on 04/23/2025). Plan The patient is a 23-year-old male presenting with ulcerative colitis management.He has been receiving Entyvio infusions, which are generally well- tolerated, although he experiences headaches the day after, resolving with Tylenol. He reports no bleeding, infusion site reactions, or insurance issues. Previously, he had frequent bowel movements with tenesmus and blood, now resolved. He currently hasnormal bowel movements once daily without urgency, nocturnal symptoms, abdominal pain, or rectal pain. He denies night sweats, fevers, skin rashes, or lesions. He is a nonsmoker and does not take anti-inflammatory medications. October blood work showed normal white count, hemoglobin, and liver enzymes, but fecal calprotectin was elevated at 1170, significantlyhigher than previous levels (11x greater than May 2024). He was previously on azathioprine, which was discontinued, and is no longer on steroids (prednisone/budesonide). A sigmoidoscopy is planned for January to assess mucosal healing, as guidelines recommend mucosalassessment six months after therapy change. I have recommended he also complete stool testing January 2025, P4Dx kit provided today. Patient Instructions: - Continue with Entyvio infusions as scheduled. - Labs due April 2025 - Patient provided P4Dx stool kit to complete Fecal Calprotectin January 2025. - Prepare for a sigmoidoscopy in January, will call in 4-6 weeks to schedule as he may be changing jobs. - Monitor for any new or worsening symptoms and report them to the healthcare provider. Plan Details Follow Up: 6 Months ] 03/05/25827 Cosigner Signature (if applicable): CC: Dr. Lennie Patel MD; Tad Monahan DO~ Signed [facility]10-09-2025 [facility] Medical Records Department [address] [place] [address] History Physical Exam 03/05/25826 MR#: [id number] Acct: [id number] Name: CARLA FUENTES Rep #: [id number] : 2000 24 From: Tad Monahan DO PCP: Dr. 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 Colonoscopy was performed 04/21/2024 for complains of [...] of prednisone despite lower dose, he discontinued and started Budesonide 9mg daily. He was continuing to experience 1-2 episodes of rectal bleeding daily with BM. He started Entyvio infusions on 07/31/2024 and completed loading doses on 09/11/2024 and reports resolution of rectal bleeding after first Entyvio infusion. Budesonide was decreased to 6mg daily after his 3rd loading dose and he will continue 6mg daily for 3 weeks, then decrease to 3mg daily x 2weeks and discontinue. He will complete labs, fecal calprotectin in October and Sigmoidoscopy in January. He will follow-up in three months, sooner for symptoms. He is continuing to experience loose stools 2x a day with urgency. Patient Instructions: - Budesonide dropped to 6mg daily after 3rd Entyvio infusion on 09/11/2024 for 3 weeks and then decrease to 3mg daily on 10/02/2024 x2 weeks and then discontinue - Repeat Fecal Calprotectin 3 months after starting Entyvio (October 2024) - Complete labs October 2024 - will see if you can have drawn at infusion center - Sigmoidoscopy 6 months after starting Entyvio (January 2025) - Continue daily Vitamin D supplement - Follow-up in the office in 3 months (November 2024) CBC: 06/03/2024 HGB 17.1 CMP: 06/26/2024 WNL CRP: 06/03/2024 normal VITAMIN B12: 06/03/2024 normal VITAMIN LOW 23 Thiopurine Metabolite: 02/12/2024 6-TGN - 276 6-MMPN - 623 TPMT 20.8 QUANTIFERON: 06/26/2024 negative HBVsAb: 06/26/2024 non-reactive HBVsA06/26/2024 negative HBV Core Total Ab: 06/26/2024 negative HCV: 10/01/2021 negative Fecal Calprotectin: 06/27/2024 mildly elevated 71 06/01/2022 normal 09/23/2021 1436 COLON: 04/21/2024 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 Mild inflammation was found in the ileum secondary to ileitis. Rectal biopsy revealed mild active colitis, remainder of biopsies were negative for active inflammation. COLON: 10/27/2021 TI biopsy negative. Descending - focal active colitis. Sigmoid and Rectum with active colitis. MEDS: probiotic QD, Budesonide 9mg QD, OTC magnesium and potassium supplement --------DISCONTINUED azathioprine 150mg QD on 06/26/2024 BIOLOGICS: Entyvio: Start Date - 07/31/2024 -- Last infusion 09/11/2024 ------> next infusion 01/01/2025 STEROIDS ----- started 06/20/2024 BUDESONIDE 9mg QD - Budesonide dropped to 6mg daily after 3rd Entyvio infusion on 09/11/2024 for 3 weeks and then decrease to 3mg daily on 10/02/2024 x2 weeks and then discontinue 05/22/2024 Will begin 30mg tomorrow for a [...] months to BID 09/02/2021 pred 50mg QD IBD SYMPTOMS: Bowel movements are: 1-2x a day, soft, formed, denies any diarrhea Blood noted in stools: denies Bowel movement urgency present: denies Stool incontinence: denies Nocturnal BM's: denies Abdominal pain: denies Rectal pain: denies QOL: ROS: Fever: denies Night Sweats: denies Visual changes: denies Mouth sores: denies Joint pain: denies Skin rashes/Lesions: denies Weight changes: denies Smoking status: denies NSAID use: denies, and has been instructed to abstain from use of NSAIDS - headache the day after infusions - no infusion site reaction - Medicaid approved Attestation: Documentation on this patient encounter was supported using ambient scribe technology/ voice AI technology. The patient consented t (more content not included)...[facility]10-09-2025 Consult note [facility] Medical Records Department [address] [place] [address] Pre-Anesthesia Evaluation 03/05/25 0750 MR#: [id number] Acct: [id number] Name: CARLA FUENTES Rep #:[id number] : 2000 24 From: Juanito Wakefield MD PCP: Dr. Lennie Patel MD Status :REG SDC Y Race: C Location: [place] [address] ASA Classification* ASA Classification ASA Classification: 2 Assessment & Plan Anesthesia* Anesthesia Assessment Anesthesia Assessment: Discussed sedation and/or anesthesia options, risks, benefits, and alternatives with patient/parents/legal guardian/POA. Questions invited. The patient/parents/legal guardian/POA seems to understand and agrees to proceedwith anesthesia plan. Reviewed the physical assessment, medical history, allergy history and patient home medications list prior to surgery/procedure/anesthetic and documented any changes. Performed airway and anesthesia risk assessments. Anesthesia Type Anesthesia Type: MAC Anesthesia Focused Assessment* Airway Assessment Mouth opens: >3 cm Mallampati Score: II Labs Anesthesia Preop lab: CBC WBC, (4.4-11.0) 6.1 K/mm3 11/06/24, 09:16 RBC, (4.6-6.2) 4.99 M/mm3 11/06/24, 09:16 Hgb, (13.0-16.5) 15.6 g/dL 11/06/24, 09:16 Hct, (40-54) 46.7 % 11/06/24, 09:16 Plt Count, (150-450) 201 K/mm3 11/06/24, 09:16 CHEMISTRY Potassium, (3.3-5.1) 4.2 mmol/L 11/06/24, 09:16 Sodium, (133-145) 137 mmol/L 11/06/24, 09:16 Magnesium, (1.6-2.6) 2.3 mg/dL 06/26/24, 10:07 BUN, (4-19) 14 mg/dL 11/06/24, 09:16 Creatinine, (0.70-1.20) 1.08 mg/dL 11/06/24, 09:16 Glucose, (70-99) 91 mg/dL 11/06/24, 09:16 TSH, (0.358-3.740) 1.460 uIU/mL 06/03/24, 10:50 COAG Pre-Assessment Diagnosis/Proposed Procedure Planned Operative Procedure(s): Flexible Sigmoidoscopy Anesthesia History Anesthesia History - customer service administrator: Anesthesia History - customer service administrator Hx Hospitalization No 03/03/25 09:53 Any Problems With Anesthesia No 03/03/25 09:53 Cholinesterase deficiency No 03/03/25 09:53 You/Your Family Experience No 03/03/25 09:53 fever (hyperthermia) with Relationship Recent Exposure to Contagious No 04/21/24 05:57 Disease Does patient have nerve No 03/03/25 09:53 stimulator Patient instructed to have device shut off --Does patient have Pacemaker or ICD? When Was Last Pacemaker Check QUESTION #4 FULL TEXT: You/Your Family Experience fever (hyperthermia) with Anesthesia Last Oral Intake Last Oral intake: Last Oral Intake NPO since Meds taken in AM with sips of water? Meds patient instructed to take am of surgery PONV PONV - customer service administrator: PONV - customer service administrator Female No 03/03/25 09:53 HX of Motion Sickness No 03/03/25 09:53 HX of N/V After Surgery No 03/03/25 09:53 Non-Smoker Yes 03/03/25 09:53 Duration of Surgery greater No 03/03/25 09:53 than 60 minutes Number of Risk Factors 1 03/03/25 09:53 PONV Score Low Risk 03/03/25 09:53 Height & Weight Height & Weight: Anesthesia: Height & Weight Height 5 ft 8 in 01/29/25 09:46 Respiratory Assessment Respiratory Assessment - customer service administrator: Respiratory Tract Infection Hx - customer service administrator Hx Respiratory Tract Infection No 03/03/25 09:53 STOP Sleep Apnea STOP Sleep Apnea - customer service administrator: STOP Sleep Apnea - customer service administrator Hx Hypertension No 03/03/25 09:53 Hx Sleep Apnea No 03/03/25 09:53 CPAP BIPAP Do you snore loudly (louder No 03/03/25 09:53 than talking or can be heard Do you often feel tired/ No 03/03/25 09:53 fatigued/ sleepy during daytime? Has anyone observed you stop No 03/03/25 09:53 breathing during sleep? STOP Results Negative 03/03/25 09:53 QUESTION #5 FULL TEXT : Do you snore loudly (louder than talking or can be heard through closeddoors)? Tobacco Use History Tobacco Use History - customer service administrator: Tobacco Use History - customer service administrator Tobacco Use Smoking Status Never smoker 03/03/25 09:53 Hx Tobacco Use No 03/03/25 09:53 Years Smoking Packs Smoked per Day Smoking Cessation Date was within the last 15 years Hx Smoking Cessation Date Hx Smoking Cessation Counseling Hematologic Medial History Hematologic Hx - customer service administrator: Hematologic Medical Hx - welt rander Hx of Blood Transfusion No 03/03/25 09:53 Hx of Transfusion in last 3 No 03/03/25 09:53 Months Date of Last Transfusion (if within last 3 months) Ever experience any problems No 03/03/25 09:53 with transfusion(s)? Specify any problems Hx of Preganancy in last 3 N/A 03/03/25 09:53 Months Nurse Filling Out Transfusion JZOLLINGE 03/03/25 09:53 & Questions: Date: 03/03/25 03/03/25 09:53 Time: 09:54 03/03/25 09:53 Patient unable to answer at this time (ie. confused, unrespo /Reproduction History /Reproductive History - customer service administrator: /Reproductive Hx- customer service administrator Hx Now No 03/03/25 09:53 Gestational Age (in weeks): EDC: Hx Hx Para Hx Section SAB No 03/03/25 09:53 Active Medications Active Medications: Current Medications Generic Name Dose Route Start Last Admin Trade Name Freq PRN Reason Stop Dose Admin Lactated Ringer's 1,000 mls @ 15 mls/hr 03/05/25 07:45 IV .Q48H MARIELLA PFSH Medical History Hx of ulcerative colitis Wears glasses Depression Non-smoker Contact with and (suspected) exposure to other viral communicable diseases Nausea & vomiting Bloody stools Wears contact lenses Nausea Hematochezia Melena Fecal urgency Diarrhea Acute otitis media, right Home Medications ?Medication ?Instructions ?Recorded ?Last Taken ?Type Lactobacillus acidophilus 10 100 mmu cells PO DAILY 04/20/24 History billion cell capsule (Probacap) multivitamin (Daily Multi-Vitamin 1 tab PO DAILY 04/1704/20/24 History tablet) alprazolam 1 mg tablet 1 mg PO QHS PRN sleep 1 evan h #30 04/21/24 Unknown Rx tabs duloxetine 30 mg capsule,delayed 30 mg PO DAILY Unknown History release vedolizumab 300 mg intravenous 300 mg IV .Q8 WKS 09/15 Unknown History solution (Entyvio) cholecalciferol (vitamin D3) 125 125 mcg PO DAILY 10/26 07/22 Unknown History mcg (5,000 unit) capsule Allergy/AdvReac Type Severity Reaction Status Date / Time No Known Allergies Allergy Verified 03/03/25 09:49 Surgical History History of wisdom tooth extraction History of colonoscopy History of placement of ear tubes Social History Smoking Status: Never smoker alcohol intake: never substance use type: does not use Review of Systems (Anesthesia) ROS Narrative System reviewed and no additional complaints, except as documented. 03/05/25 0751 > Date _ Juanito Wakefield MD Cosigner Signature: Date CC: ~ Signed [facility]07-17-2025 Evaluation note* Diagnosis Onset Date Resolution Status Admit Date Ulcerative colitis chronic November 252024 9:21am [facility] Work Phone: 1(681) 761-752307-17-2025 Evaluation note* Diagnosis Onset Date Resolution Status Admit Date Ulcerative colitis chronic November 252024 9:21am Rectal bleeding acute March 052024 7:37am Ulcerative colitis chronic Octobe r 2024 7:37am [facility] Work Phone: 1(983) 420-899204-21-2025 Evaluation note* Diagnosis Onset Date Resolution Status Admit Date Vitamin D deficiency acute Apri l 2024 9:25am Ulcerative colitis chronic September 15, 2024 9:25am [facility] Work Phone: 1(967) 868-409804-21-2025 Evaluation note* Diagnosis Onset Date Resolution Status Admit Date Vitamin D deficiency acute Apri l 2024 9:25am Ulcerative colitis chronic September 15, 2024 9:25am Ulcerative colitis chronic November 252024 9:21am [facility] Work Phone: 1(261) 302-794902-27-2025 Evaluation note* Diagnosis Onset Date Resolution Status Admit Date Rectal bleeding acute July 24, 2024 8:26am Ulcerative colitis chronic Februa 2024 8:26am Vitamin D deficiency acute Apri l 2024 9:25am Ulcerative colitis chronic September 15, 2024 9:25am [facility] Work Phone: 1(515) 818-541201-30-2025 Evaluation note* Diagnosis Onset Date Resolution Status Admit Date Ulcerative colitis chronic Mayuar 2024 8:59am Rectal bleeding acute July 24, 2024 8:26am Ulcerative colitis chronic Februa 2024 8:26am [facility] Work Phone: 1(563) 348-237011-25-2024 [facility] Medical Records Department [address] [place] [address] History Physical Exam 04/21/24 0645 MR#: [id number] Acct: [id number] Name: CARLA FUENTES Rep #: [id number] : 2000 23 From: Tad Friend PCP: Dr. Lennie Patel MD Status:[facility] Location: [place] [address] History and Physical Date of Admission: 04/21/24 CARLA FUENTES, is a 23 M who presents to the office today for follow up. *BGI established 09.22.21 with referral from PCP for evaluation of [...] 100mg started with cessation of prednisone. Colonoscopy 6.. left sided colitis and inflammation from rectum [...] folic acid/azathioprine. Controls symptoms with diet. OV 4.03.20 pt states he is doing well, continues his medication regimen and symptoms are under control. OV 9.. pt reports that he is feeling well overall and denies GI symptoms of concern at this time. Pt continues with azathioprine. ? ESR/CRP Calp/Lact? Serum/ab? TB 09.22.??? 1436/+? --/--? UC (apANCA 1:640). Wilfredo and Eileen ab not present. ? GAME, MAIKEL, AUSTYN comp, celiac, hepatitis, HIV without pertinent abnormality.? C.difficile, EP, O/P, giardia WNL 10.01.21 Azathioprine start 01.03.22 --/<2.9??? --/--? --/-- ? WNL? amylase, lipase WNL .. 14/3.11 --/neg? --/--? --? TPMT WNL ..23 3/<2.9? --/--? --/ --? WNL? Free testosterone H24.99. ? B12, Folate, total testosterone WNL 03.08.23 2/<2.9??? --/--? --/--? Iron H201, Retic H1.8, cortisol ? Ferritin, LDH, amylase, lipase, TSH, GAME, MAIKEL without pertinent abnormality 09.05.23 1 / <2.9 -- / -- -- / -- Exam Const General: cooperative, healthy appearing and no acute distress Nutritional Appearance: average body habi (more content not included)...[facility]07-29-2002 Consult note [facility] Medical Records Department [address] [place] [address] Anesthesia Postop Eval II 03/05/25 1230 MR#: [id number] Acct: [id number] Name: CARLA FUENTES Rep #:[id number] : 2000 24 From: Juanito Wakefield MD PCP: Dr. Lennie Patel MD Status :[facility] Y Race: C Location: [place] Anesthesia Postop Eval I Sum Postop Eval Completion status Anesthesia document: Postop Eval 1 completed: Yes Anesthesia Postop Eval I Summary Anesthesia Postop Eval I Summary: Anesthesia Postop Eval I: Assessment Summary Airway patent Yes 03/05/25 10:35 [email or web address] Spontaneous unlabored Yes 03/05/25 10:35 [email or web address] respirations Mental status Awake,Calm 03/05/25 10:35 [email or web address] nausea No 03/05/25 10:35 [email or web address] Vomiting No 03/05/25 10:35 [email or web address] Anesthesia Postop Eval I: Fluid Summary Crystalloid volume administer 400 03/05/25 10:35 [email or web address] (ml) Colloids volume administered ( ml) Blood Product volume administered (ml) Total IV fluid infused 400 03/05/25 10:35 [email or web address] Anesthesia Postop Eval I: Summary Notes Anesthesia Complication Yes 03/05/25 10:35 [email or web address] Anesthesia Complication IV tubing puncture 03/05/25 10:35 [email or web address] Comment: Post-operative progress note Anesthesia: Postop Eval II Evaluation Mental status: Awake Pain Level: 0 nausea: No Vomiting: No 03/05/25 1231 > Date _ Juanito Wakefield MD Cosign Signature: Date CC: ~ [facility] Olu Stout [facility] Note Date/Time March 05, 2025 10 :35am [facility] Medical Records Department [address] [place] [address] Anesthesia Postop Eval I 03/05/25 1033 MR#: [id number] Acct: [id number] Name: CARLA FUENTES Rep #:[id number] : 2000 24 From: Olu Stout PCP: Dr. Lennie Patel MD Status :[facility] Y Race: C Location: [place] [address] Anesthesia: Postop Eval I Current Vital Signs Temperature: 98.4 F Pulse Rate: 64 Blood Pressure: 96/54 Respiratory Rate: 16 Pulse Ox: 98 Oxygen Delivery Method: Room Air Assessment Airway patent: Yes Spontaneous unlabored respirations: Yes Mental status: Awake and Calm nausea: No Vomiting: No Anesthesia Complication: Yes Anesthesia Complication Comment:: IV tubing puncture Fluid Hydration Crystalloid volume administer (ml): 400 Total IV fluid infused: 400 Progress Note Anesthesia document: Postop Eval 1 completed: Yes 03/05/25 1035 <Electronically signed by Olu Stout > Date _ Olu Reis Signature: Date CC: ~ Signed [facility] Work Phone: Consult note Author Juanito [facility] Note Date/Time March 05, 2025 12 :[address] [place] [address] Medical Records Department [address] [place] [address] Anesthesia Postop Eval II 03/05/25 1230 MR#: [id number] Acct: [id number] Name: CARLA FUENTES Rep #:[id number] : 2000 24 From: Juanito Wakefield MD PCP: Dr. Lennie Patel MD Status :[facility] Y Race: C Location: [place] Anesthesia Postop Eval I Sum Postop Eval Completion status Anesthesia document: Postop Eval 1 completed: Yes Anesthesia Postop Eval I Summary Anesthesia Postop Eval I Summary: Anesthesia Postop Eval I: Assessment Summary Airway patent Yes 03/05/25 10:35 [email or web address] Spontaneous unlabored Yes 03/05/25 10:35 [email or web address] respirations Mental status Awake,Calm 03/05/25 10:35 [email or web address] nausea No 03/05/25 10:35 [email or web address] Vomiting No 03/05/25 10:35 [email or web address] Anesthesia Postop Eval I: Fluid Summary Crystalloid volume administer 400 03/05/25 10:35 [email or web address] (ml) Colloids volume administered ( ml) Blood Product volume administered (ml) Total IV fluid infused 400 03/05/25 10:35 [email or web address] Anesthesia Postop Eval I: Summary Notes Anesthesia Complication Yes 03/05/25 10:35 [email or web address] Anesthesia Complication IV tubing puncture 03/05/25 10:35 [email or web address] Comment: Post-operative progress note Anesthesia: Postop Eval II Evaluation Mental status: Awake Pain Level: 0 nausea: No Vomiting: No 03/05/25 1231 <Electronically signed by Juanito Wakefield MD > Date _ Juanito [facility] MD [facility] Signature: Date CC: ~ Signed [facility] Work Phone: Evaluation note* Diagnosis Onset Date Resolution Status Abdominal pain acute [facility] Work Phone: Evaluation note* Diagnosis Onset Date Resolution Status Abdominal pain acute Ulcerative colitis acute [facility] Work Phone: Evaluation note* Diagnosis Onset Date Resolution Status Ulcerative colitis chronic [facility] Work Phone: Evaluation note* Diagnosis Family history of ischemic heart disease and other diseases of the circulatory system documented in this encounter [facility] Work Phone: Reason for referral (narrative)No reason for referral information [facility]WAd[facility] Work Phone: Reason for visit Narrative* Imaging (Routine) - Pending Review Specialty Diagnoses / Procedures Referred By Angle baltazar Referred To Contact Radiology Diagnoses Family history of ischemic heart disease and other diseases of the circulatory system Procedures CT cardiac scoring wo IV contrast Lennie Patel MD [address] [place] [address] Phone: tel: fax: Referral ID Status Reason Start Date Expiration Date Visits Requested Visits Authorized [id number] Pending Review Perform Procedure 06/23/2024 06/23/2025 1 1 [facility] Work Phone: Summary Purpose Family History No Family History Records FoundNo Family History Records FoundNo Family History Records Found Advance Directives No Advanced Directives Records Found Advance Directive Response Recorded Date/ Time Living Will No October 26, 2021 9 :23am Power of Hardening Machine Operator No October 26, 2021 9:23am Advance Directive Response Recorded Date/ Time Living Will No October 26, 2021 8 :23am Power of Hardening Machine Operator No October 26, 2021 8:23am Advance Directive Response Recorded Date/ Time Living Will No October 26, 2021 8 :23am Power of Hardening Machine Operator No October 26, 2021 8:23am Living Will No April 17 024 1:50pm Power of Hardening Machine Operator No April 17, 2024 1:50pm Living Will No May 22 024 5:58pm Power of Hardening Machine Operator No May 22, 2024 5:58pm Advance Directive Response Recorded Date/ Time Living Will No October 26, 2021 9 :23am Do you have a Healthcare Power of Hardening Machine Operator? No October 26, 2021 9:23am Living Will No April 17 024 2:50pm Do you have a Healthcare Power of Hardening Machine Operator? No April 17, 2024 2:50pm Living Will No May 22 024 6:58pm Do you have a Healthcare Power of Hardening Machine Operator? No May 22, 2024 6:58pm Advance Directive Response Recorded Date/ Time Living Will No October 26, 2021 9 :23am Do you have a Healthcare Power of Hardening Machine Operator? No October 26, 2021 9:23am Living Will No May 22, 2 024 6:58pm Do you have a Healthcare Power of Hardening Machine Operator? No May 22, 2024 6:58pm Advance Directive Response Recorded Date/ Time Do you have a Healthcare Power of Hardening Machine Operator? No March 03, 2025 9:53am Chief Complaint and Reason for Visit Chief [...] 8am ENTYVIO September 11, 2024 8:5 1am Chief Complaint Admit Date 1 M FU July 24, 2024 8:26am ENTYVIO July 31, 2024 8:47 am ENTYVIO August 14, 2024 8:5 8am ENTYVIO September 11, 2024 8:5 1am 6 wk FU September 15, 2024 9:2 5am Labs w/IV start November 06, 2024 8:55 am Reason for Visit Admit Date Rectal bleeding July 24, 2024 8:26am Ulcerative colitis July 24, 2024 8:26am Vitamin D deficiency September 15, 2024 9: 25am Ulcerative colitis September 15, 2024 9:2 5am Chief Complaint Admit Date ENTYVIO August 14, 2024 8:5 8am ENTYVIO September 11, 2024 8:5 1am 6 wk FU September 15, 2024 9:2 5am Labs w/IV start November 06, 2024 8:55 am 3 M FU December 11, 2024 9:21 am Reason for Visit Admit Date Vitamin D deficiency September 15, 2024 9: 25am Ulcerative colitis September 15, 2024 9:2 5am Chief Complaint Admit Date ENTYVIO September 11, 2024 8:5 1am 6 wk FU September 15, 2024 9:2 5am Labs w/IV start November 06, 2024 8:55 am 3 M FU December 11, 2024 9:21 am Labs w/IV start December 29, 2024 8:2 4am Reason for Visit Admit Date Vitamin D deficiency September 15, 2024 9: 25am Ulcerative colitis September 15, 2024 9:2 5am Ulcerative colitis December 11, 2024 9:21 am Chief Complaint Admit Date Labs w/IV start November 06, 2024 8:55 am 3 M FU December 11, 2024 9:21 am Labs w/IV start December 29, 2024 8:2 4am Labs w/IV start January 29, 2025 9:25am Reason for Visit Admit Date Ulcerative colitis December 11, 2024 9:21 am Chief Complaint Admit Date 3 M FU December 11, 2024 9:21 am Labs w/IV start December 29, 2024 8:2 4am Labs w/IV start January 29, 2025 9:25am Reason for Visit Admit Date Ulcerative colitis December 11, 2024 9:21 am Rectal bleeding March 05, 2025 7: 37am Ulcerative colitis March 05, 2025 7: 37am Additional Source Comments (unrecognized sect ion and content) No Status Records FoundNo Status Records FoundNo Status Records Found INFORMATION SOURCE (unrecogn ized section and content) DATE CREATED AUTHOR 02/02/[address] 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 Tad Monhaan DO Other Provider Active St art: April [...] 2024 End: June 26, 2024 Brianne Baugh NP-C Attending Provider Active Start: June 26, 2024 End: June 26, 2024 Team Status: Inactive Member Role Status Dates Dr. Lennie Patel MD Primary Care Provider Acti ve Start: June 26, 2024 End: June 26, 2024 Brianne Baugh NP-C Attending Provider Active Start: June 26, 2024 End: June 26, 2024 Brianne Baugh NP-C Referring Provider Active Start: June 26, 2024 End: June 26, 2024 Team Status: Inactive Member Role Status Dates Dr. Lennie Patel MD Primary Care Provider Acti ve Start: June 27, 2024 End: June 27, 2024 Brianne Baugh NP-C Attending Provider Active Start: June 27, 2024 End: June 27, 2024 Brianne Baugh , ADOPTION COUNSELOR-C Referring Provider Active Start: June 27, 2024 End: June 27, 2024 Team Status: Inactive Member Role Status Dates Dr. Lennie Patel MD Primary Care Provider Acti ve Start: July 24, 2024 End: July 24, 2024 Dr. Lennie Patel MD Referring Provider Active Start: July 24, 2024 End: July 24, 2024 Brianne Baugh ADOPTION COUNSELOR-C Attending Provider Active Start: July 24, 2024 End: July 24, 2024 Team Status: Inactive Member Role Status Dates Dr. Lennie Patel MD Primary Care Provider Acti ve Start: July 31, 2024 End: July 31, 2024 Brianne Baugh ADOPTION COUNSELOR-C Attending Provider Active Start: July 31, 2024 End: July 31, 2024 Brianne Baugh , ADOPTION COUNSELOR-C Referring Provider Active Start: July 31, 2024 End: July 31, 2024 Team Status: Inactive Member Role Status Dates Dr. Lennie Patel MD Primary Care Provider Acti ve Start: August 14, 2024 End: August 14, 2024 Brianne Baugh , ADOPTION COUNSELOR-C Attending Provider Active Start: August 14, 2024 End: August 14, 2024 Brianne Baugh , ADOPTION COUNSELOR-C Referring Provider Active Start: August 14, 2024 End: August 14, 2024 Team Status: Inactive Member Role Status Dates Dr. eLnnie Patel MD Primary Care Provider Acti ve Start: September 11, 2024 End: September 11, 2024 Brianne Baugh ADOPTION COUNSELOR-C Attending Provider Active Start: September 11, 2024 End: September 11, 2024 Brianne Baugh , ADOPTION COUNSELOR-C Referring Provider Active Start: September 11, 2024 End: September 11, 2024 Team Status: Inactive Member Role Status Dates Dr. Lennie Patel MD Primary Care Provider Acti ve Start: September 15, 2024 End: September 15, 2024 Dr. Lennie Patel MD Referring Provider Active Start: September 15, 2024 End: September 15, 2024 Brianne Baugh , ADOPTION COUNSELOR-C Attending Provider Active Start: September 15, 2024 End: September 15, 2024 Team Status: Inactive Member Role Status Dates Dr. Lennie Patel MD Primary Care Provider Acti ve Start: November 06, 2024 End: November 06, 2024 Brianne Baugh ADOPTION COUNSELOR-C Attending Provider Active Start: November 06, 2024 End: November 06, 2024 Brianne Baugh ADOPTION COUNSELOR-C Referring Provider Active Start: November 06, 2024 End: November 06, 2024 Team Status: Active Member Role/Relationship Status Dates Dr. Lennie Patel MD Primary Care Provider Acti ve Team Status: Inactive Member Role/Relationship Status Dates Dr. Lennie Patel MD Primary Care Provider Acti ve Start: August 14, 2024 End: August 14, 2024 Brianne Baugh ADOPTION COUNSELOR-C Attending Provider Active Start: August 14, 2024 End: August 14, 2024 Brianne Baugh ADOPTION COUNSELOR-C Referring Provider Active Start: August 14, 2024 End: August 14, 2024 Team Status: Inactive Member Role/Relationship Status Dates Dr. Lennie Patel MD Primary Care Provider Acti ve Start: September 11, 2024 End: September 11, 2024 Brianne Baugh ADOPTION COUNSELOR-C Attending Provider Active Start: September 11, 2024 End: September 11, 2024 Brianne Baugh , ADOPTION COUNSELOR-C Referring Provider Active Start: September 11, 2024 End: September 11, 2024 Team Status: Inactive Member Role/Relationship Status Dates Dr. Lennie Patel MD Primary Care Provider Acti ve Start: September 15, 2024 End: September 15, 2024 Dr. Lennie Patel MD Referring Provider Active Start: September 15, 2024 End: September 15, 2024 Brianne Baugh ADOPTION COUNSELOR-C Attending Provider Active Start: September 15, 2024 End: September 15, 2024 Team Status: Inactive Member Role/Relationship Status Dates Dr. Lennie Patel MD Primary Care Provider Acti ve Start: November 06, 2024 End: November 06, 2024 Brianne Baugh ADOPTION COUNSELOR-C Attending Provider Active Start: November 06, 2024 End: November 06, 2024 Brianne Baugh , ADOPTION COUNSELOR-C Referring Provider Active Start: November 06, 2024 End: November 06, 2024 Team Status: Inactive Member Role/Relationship Status Dates Dr. Lennie Patel MD Primary Care Provider Acti ve Start: December 11, 2024 End: December 11, 2024 Dr. Lennie Patel MD Referring Provider Active Start: December 11, 2024 End: December 11, 2024 Brianne Baugh NP-C Attending Provider Active Start: December 11, 2024 End: December 11, 2024 Team Status: Inactive Member Role/Relationship Status Dates Dr. Lennie Patel MD Primary Care Provider Acti ve Start: September 11, 2024 End: September 11, 2024 Brianne Baugh ADOPTION COUNSELOR-C Attending Provider Active Start: September 11, 2024 End: September 11, 2024 Brianne Baugh ADOPTION COUNSELOR-C Referring Provider Active Start: September 11, 2024 End: September 11, 2024 Team Status: Inactive Member Role/Relationship Status Dates Dr. Lennie Patel MD Primary Care Provider Acti ve Start: September 15, 2024 End: September 15, 2024 Dr. Lennie Patel MD Referring Provider Active Start: September 15, 2024 End: September 15, 2024 Brianne Baugh NP-C Attending Provider Active Start: September 15, 2024 End: September 15, 2024 Team Status: Inactive Member Role/Relationship Status Dates Dr. Lennie Patel MD Primary Care Provider Acti ve Start: November 06, 2024 End: November 06, 2024 Brianne Baugh ADOPTION COUNSELOR-C Attending Provider Active Start: November 06, 2024 End: November 06, 2024 Brianne Baugh ADOPTION COUNSELOR-C Referring Provider Active Start: November 06, 2024 End: November 06, 2024 Team Status: Inactive Member Role/Relationship Status Dates Dr. Lennie Patel MD Primary Care Provider Acti ve Start: December 11, 2024 End: December 11, 2024 Dr. Lennie Patel MD Referring Provider Active Start: December 11, 2024 End: December 11, 2024 Brianne Baugh NP-C Attending Provider Active Start: December 11, 2024 End: December 11, 2024 Team Status: Inactive Member Role/Relationship Status Dates Dr. Lennie Patel MD Primary Care Provider Acti ve Start: December 29, 2024 End: December 29, 2024 Brianne Baugh NP-C Attending Provider Active Start: December 29, 2024 End: December 29, 2024 Brianne Baugh , ADOPTION COUNSELOR-C Referring Provider Active Start: December 29, 2024 End: December 29, 2024 Team Status: Inactive Member Role/Relationship Status Dates Dr. Lennie Patel MD Primary Care Provider Acti ve Start: November 06, 2024 End: November 06, 2024 Brianne Baugh , ADOPTION COUNSELOR-C Attending Provider Active Start: November 06, 2024 End: November 06, 2024 Brianne Baugh , ADOPTION COUNSELOR-C Referring Provider Active Start: November 06, 2024 End: November 06, 2024 Team Status: Inactive Member Role/Relationship Status Dates Dr. Lennie Patel MD Primary Care Provider Acti ve Start: December 11, 2024 End: December 11, 2024 Dr. Lennie Patel MD Referring Provider Active Start: December 11, 2024 End: December 11, 2024 Brianne Baugh , ADOPTION COUNSELOR-C Attending Provider Active Start: December 11, 2024 End: December 11, 2024 Team Status: Inactive Member Role/Relationship Status Dates Dr. Lennie Patel MD Primary Care Provider Acti ve Start: December 29, 2024 End: December 29, 2024 Brianne Baugh , ADOPTION COUNSELOR-C Attending Provider Active Start: December 29, 2024 End: December 29, 2024 Brianne Baugh , ADOPTION COUNSELOR-C Referring Provider Active Start: December 29, 2024 End: December 29, 2024 Team Status: Inactive Member Role/Relationship Status Dates Dr. Lennie Patel MD Primary Care Provider Acti ve Start: January 29, 2025 End: January 29, 2025 Brianne Baugh , ADOPTION COUNSELOR-C Attending Provider Active Start: January 29, 2025 End: January 29, 2025 Brianne Baugh , ADOPTION COUNSELOR-C Referring Provider Active Start: January 29, 2025 End: January 29, 2025 Team Status: Active Member Role/Relationship Status Dates Dr. Lennie Patel MD Primary care physician Act alice Team Status: Inactive Member Role/Relationship Status Dates Dr. Lennie Patel MD Primary care physician Act alice Start: December 11, 2024 End: December 11, 2024 Dr. Lennie Patel MD Referring Provider Active Start: December 11, 2024 End: December 11, 2024 TITI Mar Attending physician Active Start: December 11, 2024 End: December 11, 2024 Team Status: Inactive Member Role/Relationship Status Dates Dr. Lennie Patel MD Primary care physician Act alice Start: December 29, 2024 End: December 29, 2024 TITI Mar Attending physician Active Start: December 29, 2024 End: December 29, 2024 TITI Mar Referring Provider Active Start: December 29, 2024 End: December 29, 2024 Team Status: Inactive Member Role/Relationship Status Dates Dr. Lennie Patel MD Primary care physician Act alice Start: January 29, 2025 End: January 29, 2025 TITI Mar Attending physician Active Start: January 29, 2025 End: January 29, 2025 Brianne Baugh NP-Srinivas Referring Provider Active Start: January 29, 2025 End: January 29, 2025 Team Status: Inactive Member Role/Relationship Status Dates Dr. Lennie Patel MD Primary care physician Act alice Start: March 05, 2025 End: March 05, 2025 Dr. Lennie Patel MD Referring Provider Active Start: March 05, 2025 End: March 05, 2025 Dr. Tad Monahan DO Attending physician Active Start: March 05, 2025 End: March 05, 2025 Team Status: Active Member Role/Relationship Status Dates Dr. Lennie Patel MD Primary care physician Act alice Start: March 05, 2025 Dr. Lennie Patel MD Referring Provider Active Start: March 05, 2025 Dr. Tad Monahan DO Attending physician Active Start: March 05, 2025 Dr. Tad Monahan DO Nurse Practitioner Active Start: March 05, 2025 FOR RECORDS PERTAINING TO PATIENTS WHO ARE [...] BE BASED ON THE PRIMARY CLINICAL RECORDS. [facility], [facility]. provides no warranty or guarantee of the accuracy or completeness of information in this document.
[2025-05-22] MEDS: Vedolizumab 300 MG in 0.9% Normal Saline (250mL Bag) 250 ML 500 MG IV (09:51)
[2025-05-22] MEDS: 0.9% NaCl IVPB Med Flush (100mL) 15 ML IV (09:53)
[2025-05-22 10:30] VITALS: BP 113/77; PULSE 65; RESP 16; TEMP 36.4; O2SAT 100
== END 2025-05-22 23:59 | disposition home or self-care (01) ==
LOC: MEDOUTP 08:57
PROVIDERS: PCP Family Medicine; Referring Provider Nurse Practitioner Acute Care; Visit Provider Nurse Practitioner Acute Care
DX: K51.00 Ulcerative (chronic) pancolitis without complications (principal)
CPT/HCPCS: 96365; A4216; J3380